=== PATIENT | female | born 1975 | race Caucasian/White ===

== ENCOUNTER 2019-06-01 23:44 | Emergency (ER) | payer SELFPAY ==
[2019-06-01 23:54] VITALS: BP 162/103; PULSE 80; RESP 22; TEMP 36.8; O2SAT 100; BMI 40.6
--- NOTE | 2019-06-01 23:56 | W.ED.ABDPA2 ---
HPI - Abdominal Pain General: Chief Complaint: Nausea/Vomiting/Diarrhea Stated Complaint: N/V Time Seen by Provider: 06/01/19 23:54 Source: patient Mode of arrival: ambulatory Limitations: no limitations History of Present Illness: HPI narrative: Patient comes in today for assistance with cyclic vomiting. Patient reports history of cyclic vomiting. Patient reports stopping marijuana due to the episodes of cyclic vomiting in the past. Patient reports it is been 3 weeks since she had stopped use of marijuana. Patient states she believes that it was stress that caused this episode. Patient appears unwell. Patient appears in no pain. Patient requested to Haldol to stop the episode. Associated Symptoms: Reports nausea and vomiting Review of Systems General: Reports: 10 or more systems reviewed and unremarkable except in HPI and below GI: Reports: nausea and vomiting PFSH ED PFSH: Social History Smoking and tobacco status: never smoked Physical Exam Const: COMMON NORMALS: no apparent distress and oriented x3 GENERAL APPEARANCE: cooperative HENMT: COMMON NORMALS: normocephalic, external ears normal, EAC's normal, TM's normal bilaterally and external nose normal HEAD & SCALP: normal to inspection and normocephalic FACE & SINUS: normal facial exam NOSE: external nose normal GENERAL EAR: hearing not grossly impaired EXTERNAL EAR: Yes external ears normal EXTERNAL AUDITORY CANAL: EAC's normal TYMPANIC MEMBRANE: TM's normal bilaterally MOUTH: oral and palatal mucosa normal THROAT: posterior oropharynx normal Eye: COMMON NORMALS: PERRL and EOMs intact bilaterally PUPIL: Yes PERRL Neck/C-Spine: COMMON NORMALS: full ROM and no lymphadenopathy Lymph: LYMPHATIC: no lymphedema noted Chest: COMMONS NORMALS: inspection of chest normal and palpation of chest normal Resp: COMMON NORMALS: normal respiratory effort and clear to auscultation bilaterally AUSCULTATION: clear to auscultation bilaterally Cardio: COMMON NORMALS: regular rate and regular rhythm RATE: regular rate RHYTHM: regular rhythm GI: COMMON NORMALS: normal to inspection, nondistended, normoactive bowel sounds and non-tender : COMMON NORMALS: Yes no CVA tenderness BLADDER/KIDNEY EXAM: Yes no CVA tenderness Back/Pelvis: COMMON NORMALS: no CVA tenderness and thoracic and lumbar spine normal to inspection Extremity: COMMON NORMALS: normal to inspection GENERAL: No edema Neuro: COMMON NORMALS: oriented x3, moves all extremities and no focal motor deficits Psych: COMMON NORMALS: mental status grossly normal and cooperative Skin: COMMON NORMALS: no rashes or lesions noted GENERAL SKIN EXAM: no rashes or lesions noted Course Vital Signs: Vital signs: Vital Signs Temperature 98.2 F 06/01/19 23:54 Pulse Rate 107 H 06/02/19 02:33 Respiratory Rate 20 H 06/02/19 02:33 Blood Pressure 154/86 06/02/19 02:33 Pulse Oximetry 95 06/02/19 02:33 MDM - Abdominal Pain MDM Narrative: Medical decision making narrative: Patient comes in today with an episode of cyclic vomiting syndrome. Patient reports history of similar episodes in the past. Patient stopped smoking marijuana 3 weeks ago due to the instances of her disorder. On exam patient appears in no pain. Abdomen soft nontender. Skin is warm and dry color is pink. Vital signs were normal. Differential diagnosis includes gastritis, gastroenteritis, cyclic vomiting syndrome, substance abuse. Patient was medicated with Zofran, Haldol, and Benadryl for emergent treatment of the cyclic vomiting syndrome. Patient did report some improvement in vomiting but continued to feel anxious. Patient was medicated with 2 mg Ativan. Patient was monitored in the ER and then released to home for sleep. Patient reported understanding of care plan and need for follow-up. Lab Data: Labs: Lab Results 06/01/19 06/01/19 06/01/19 Range/Units 00:25 00:25 00:25 WBC 9.8 (4.0-10.0) 10^3/ uL RBC 4.13 (4.1-5.3) 10^6/u L Hgb 12.1 (11.5-15.3) g/dL Hct 36.0 L (37.0-47.0) % MCV 87.2 (81-99) fL MCH 29.3 (28.0-34.0) pg MCHC 33.6 (30.0-36.0) g/dL RDW 13.4 (12.1-15.1) % Plt Count 308 (130-400) 10^3/c mm MPV 8.8 (7.4-10.4) fL Neut % (Auto) 82.4 % Lymph % (Auto) 15.4 % [place] % (Auto) 1.6 % Eos % (Auto) 0.0 % Baso % (Auto) 0.1 % Neut # (Auto) 8.1 H (1.8-7.7) 10^3/u L Lymph # (Auto) 1.5 (0.8-4.8) 10^3/u L [place] # (Auto) 0.2 (0.2-0.9) 10^3/u L Eos # (Auto) 0.0 (0.0-0.8) 10^3/u L Baso # (Auto) 0.0 (0.0-0.1) 10^3/u L Nucleated RBC % (a uto) 0 % Nucleated RBCs # 0.0 /100WBC Sodium 135 L (136-145) mmol/L Potassium 3.8 (3.5-5.1) mmol/L Chloride 95 L (98-107) mmol/L Carbon Dioxide 22 (22-29) mmol/L Anion Gap 21.8 H (5-19) BUN 7 (6-20) mg/dL Creatinine 0.6 (0.5-0.9) mg/dL GFR Calculation 108.6 (90-130) mL/min Glucose 241 H (65-115) mg/dL Calcium 10.3 (8.5-10.5) mg/dL Total Bilirubin 0.6 (0.15-1.2) mg/dL AST 16 (0-32) U/L ALT 16 (0-33) U/L Alkaline Phosphata se 60 (35-105) IU/L Total Protein 8.0 (6.6-8.7) g/dL Albumin 4.4 (3.5-5.2) g/dL Globulin 3.6 (1.3-4.6) g/dL HCG, Qual Negative (Negative) Urine Color (Yellow) Urine Appearance (CLEAR) Urine pH (5-7) Ur Specific Gravit y (1.005-1.030) Urine Protein (Negative) Urine Glucose (UA) (Normal) Urine Ketones (Negative) Urine Blood (Negative) Urine Nitrate (Negative) Urine Bilirubin (NEGATIVE) Urine Urobilinogen (Negative) mg/dL Ur Leukocyte Chloe ase (Negative) Urine RBC (0-2) /hpf Urine WBC (0-5) /hpf Ur Squamous Epith Cells (0-5) Urine Bacteria (NONE) 06/02/19 Range/Units 00:40 WBC (4.0-10.0) 10^3/ uL RBC (4.1-5.3) 10^6/u L Hgb (11.5-15.3) g/dL Hct (37.0-47.0) % MCV (81-99) fL MCH (28.0-34.0) pg MCHC (30.0-36.0) g/dL RDW (12.1-15.1) % Plt Count (130-400) 10^3/c mm MPV (7.4-10.4) fL Neut % (Auto) % Lymph % (Auto) % [place] % (Auto) % Eos % (Auto) % Baso % (Auto) % Neut # (Auto) (1.8-7.7) 10^3/u L Lymph # (Auto) (0.8-4.8) 10^3/u L [place] # (Auto) (0.2-0.9) 10^3/u L Eos # (Auto) (0.0-0.8) 10^3/u L Baso # (Auto) (0.0-0.1) 10^3/u L Nucleated RBC % (a uto) % Nucleated RBCs # /100WBC Sodium (136-145) mmol/L Potassium (3.5-5.1) mmol/L Chloride (98-107) mmol/L Carbon Dioxide (22-29) mmol/L Anion Gap (5-19) BUN (6-20) mg/dL Creatinine (0.5-0.9) mg/dL GFR Calculation (90-130) mL/min Glucose (65-115) mg/dL Calcium (8.5-10.5) mg/dL Total Bilirubin (0.15-1.2) mg/dL AST (0-32) U/L ALT (0-33) U/L Alkaline Phosphata se (35-105) IU/L Total Protein (6.6-8.7) g/dL Albumin (3.5-5.2) g/dL Globulin (1.3-4.6) g/dL HCG, Qual (Negative) Urine Color Yellow (Yellow) Urine Appearance Hazy A (CLEAR) Urine pH 6 (5-7) Ur Specific Gravit y 1.025 (1.005-1.030) Urine Protein Neg (Negative) Urine Glucose (UA) 4+ H (Normal) Urine Ketones 2+ H (Negative) Urine Blood Neg (Negative) Urine Nitrate Negative (Negative) Urine Bilirubin Neg (NEGATIVE) Urine Urobilinogen Norm (Negative) mg/dL Ur Leukocyte Chloe ase Negative (Negative) Urine RBC 0-4 H (0-2) /hpf Urine WBC 5-10 H (0-5) /hpf Ur Squamous Epith Cells 10-15 H (0-5) Urine Bacteria 1+ H (NONE) Discharge Plan Discharge Patient Disposition: Home, Self-Care Clinical Impression: Cyclic vomiting syndrome Condition: Stable Prescriptions: New promethazine 25 mg tablet 25 mg PO Q6H PRN (Reason: nausea and vomiting) Qty: 14 RF: 0 amitriptyline 100 mg tablet 100 mg PO DAILY Qty: 14 RF: 0 Discharge Orders: Discharge Order (Routine); Ordered 06/02/19 Ordered By: Anibal Bro Referrals: Doris Mcdowell DO [Primary Care Provider] - Discharge Diet: Clear Liquid Discharge Activity: Increase activity as tolerated Patient Instructions: Vomiting - Adult Activity Restrictions/Additional Instructions: Home and rest Activity as tolerated Use medication as directed Follow-up with primary care Return to ER for high fever or blood in vomit or stool Discharge Date/Time: 06/02/19 02:34 Coding Level of Care Code ED Child Protective Services Specialist for Ramon Fwd Exam Comprehensive
[2019-06-02] MEDS: ondansetron 2 mg/ML SDV 2 mL 4 MG IVP (00:27)
[2019-06-02] MEDS: sodium chloride 0.9% 1,000 ML 999 ML IV (00:29)
[2019-06-02 00:30] LABS: Basophils % 0.1 %; Hemoglobin 12.1 g/dL (11.5-15.3); Lymphocytes # 1.5 10^3/uL (0.8-4.8); Lymphocytes % 15.4 %; Mean Corpuscular HGB Conc 33.6 g/dL (30.0-36.0); Mean Corpuscular Hemoglobin 29.3 pg (28.0-34.0); Mean Corpuscular Volume 87.2 fL (81-99); Mean Platelet Volume 8.8 fL (7.4-10.4); Monocytes # 0.2 10^3/uL (0.2-0.9); Monocytes % 1.6 %; Neutrophils # 8.1 10^3/uL (1.8-7.7); Neutrophils % 82.4 %; Nucleated Red Blood Cells % 0 %; Platelet Count 308 10^3/cmm (130-400); Red Blood Count 4.13 10^6/uL (4.1-5.3); Red Cell Distribution Width 13.4 % (12.1-15.1); White Blood Count 9.8 10^3/uL (4.0-10.0)
[2019-06-02 00:39] LABS: HCG, Serum Qual Negative (Negative)
[2019-06-02] MEDS: haloperidol inj 5 mg/mL INJ 1 mL IVP (00:43)
[2019-06-02] MEDS: diphenhydrAMINE 50 mg/mL SDV 1mL 25 MG IVP (00:43)
[2019-06-02 00:44] LABS: Alanine Aminotransferase 16 U/L (0-33); Albumin Level 4.4 g/dL (3.5-5.2); Alkaline Phosphatase 60 IU/L (35-105); Anion Gap 21.8 (5-19); Aspartate Amino Transferase 16 U/L (0-32); Blood Urea Nitrogen 7 mg/dL (6-20); Calcium 10.3 mg/dL (8.5-10.5); Carbon Dioxide 22 mmol/L (22-29); Chloride 95 mmol/L (98-107); Globulin 3.6 g/dL (1.3-4.6); Glomerular Filtration Rate 108.6 mL/min (90-130); Glucose 241 mg/dL (65-115); Potassium 3.8 mmol/L (3.5-5.1); Sodium 135 mmol/L (136-145); Total Bilirubin 0.6 mg/dL (0.15-1.2)
[2019-06-02 01:23] LABS: Add Urine Microscopic? YES; Bilirubin Urine Neg (NEGATIVE); Blood Urine Neg (Negative); Glucose Urine UA 4+ (Normal); Ketones Urine 2+ (Negative); Leukocyte Esterase Urine Negative (Negative); Nitrate Urine Negative (Negative); Protein Urine Neg (Negative); Specific Gravity, Urine 1.025 (1.005-1.030); Urine Appearance Hazy (CLEAR); Urine Color Yellow (Yellow); Urobilinogen Urine Norm (Negative); pH Urine 6 (5-7)
[2019-06-02 01:27] LABS: Add Urine Culture? No; Bacteria Urine 1+; RBC Urine 0-4 /hpf (0-2)
[2019-06-02] MEDS: LORazepam 2 mg/mL INJ 1 mL IVP (02:08)
[2019-06-02 02:33] VITALS: BP 154/86; PULSE 107; RESP 20; O2SAT 95
== END 2019-06-02 02:34 | disposition home or self-care (01) ==
PROVIDERS: Emergency Provider Nurse Practitioner Family; PCP Family Medicine
DX: R11.15 Cyclical vomiting syndrome unrelated to migraine (principal); F41.9 Anxiety disorder, unspecified
CPT/HCPCS: 80053; 81001; 84703; 85025; 96361; 96374; 96375; 99282; 99283; A9270; J1200; J1630; J2060; J2405; J7030

== ENCOUNTER 2019-08-29 08:03 | Emergency (ER) | payer SELFPAY ==
[2019-08-29 08:04] VITALS: BP 166/95; PULSE 127; RESP 18; TEMP 37.1; O2SAT 98; BMI 38.0
--- NOTE | 2019-08-29 08:15 | ED_ITS ---
HPI - Nausea/Vomiting/Diarrhea General: Chief complaint: Nausea/Vomiting/Diarrhea Stated complaint: N/V Time Seen by Provider: 08/29/19 08:08 History of Present Illness: HPI Narrative: Patient comes in with history of nausea and vomiting chronic related to marijuana smoking does have diagnosis cyclic vomiting syndrome she has had this for years and she continues to smoke marijuana on a daily basis. MD elicited complaint: nausea, vomiting and abdominal pain Pertinent past history: cyclical vomiting Onset (ago): year(s) Associated nausea: Yes Associated abdominal pain: Yes Location of pain: Diffuse Pain consistency: intermittent Severity: moderate Quality: cramping Relieving factors: none Context: marijuana use Associated symtoms: Reports nausea; Denies anxiety, change in vision, chest pain or headache(s) Review of Systems 2 Const: Denies: fever(s), chills or body aches Eyes: Denies: change in vision or blurry vision ENMT: Denies: throat pain or nasal congestion Card: Denies: chest pain or dyspnea on exertion Resp: Denies: dyspnea, productive cough or non-productive cough GI: Reports: nausea and vomiting Musc: Denies: extremity pain Skin/Breast: Denies: rash Neuro: Denies: headache(s) Psych: Denies: anxiety or depression Lauri/Lymph: Denies: easy bruising PFSH ED PFSH: Social History Smoking and tobacco status: former smoker Physical Exam Const: COMMON NORMALS: no acute distress, average body habitus and patient oriented x3 HENMT: COMMON NORMALS: normocephalic HEAD & SCALP: normal to inspection and normocephalic FACE & SINUS: normal facial exam Eye: COMMON NORMALS: conjunctivae normal GENERAL EYE: appearance normal, both eyes and all related structures CONJUNCTIVA: Yes conjunctivae normal Neck/C-Spine: COMMON NORMALS: no JVD Chest: COMMONS NORMALS: normal inspection of the chest Resp: COMMON NORMALS: normal respiratory effort and clear to auscultation bilaterally AUSCULTATION: clear to auscultation bilaterally Cardio: COMMON NORMALS: no JVD, regular rate and regular rhythm RATE: regular rate RHYTHM: regular rhythm GI: COMMON NORMALS: Normal to inspection, nondistended, normoactive bowel sounds present AUSCULTATION: Yes Hyperactive bowel sounds present PALPATION: Yes Tenderness to palpation present (GI) (Diffuse) Extremity: COMMON NORMALS: normal to inspection and full ROM Neuro: COMMON NORMALS: patient oriented x3 Psych: OTHER: Patient denial that marijuana is related to her cyclic vomiting syndrome Course Vital Signs: Vital signs: Vital Signs Temperature 98.7 F 08/29/19 08:04 Pulse Rate 127 H 08/29/19 08:04 Respiratory Rate 18 08/29/19 08:04 Blood Pressure 166/95 08/29/19 08:04 Pulse Oximetry 98 08/29/19 08:04 Discharge Plan Discharge Prescriptions: No Action promethazine 25 mg tablet 25 mg PO Q6H PRN (Reason: nausea and vomiting) Qty: 14 RF: 0 amitriptyline 100 mg tablet 100 mg PO DAILY Qty: 14 RF: 0 Coding Level of Care Code ED Regulatory Process Manager for Ramon Hernandez
[2019-08-29] MEDS: diphenhydrAMINE 50 mg/mL SDV 1mL IVP (08:26)
[2019-08-29] MEDS: haloperidol inj 5 mg/mL INJ 1 mL IM (08:28)
[2019-08-29] MEDS: ondansetron 2 mg/ML SDV 2 mL 8 MG IVP (08:29)
[2019-08-29] MEDS: sodium chloride 0.9% 1,000 ML 999 ML IV (08:31)
[2019-08-29] MEDS: lidocaine 2% viscous 15 ML, aluminum-mag hydrox-simethicon 30 ML, sucralfate oral liq 1 GM PO (09:13)
--- NOTE | 2019-08-29 10:00 | PC.NURSE ---
patient states she feels much better
[2019-08-29 10:01] VITALS: BP 124/61; PULSE 66; RESP 16; O2SAT 96
== END 2019-08-29 10:02 | disposition home or self-care (01) ==
PROVIDERS: Emergency Provider Nurse Practitioner Family; PCP Family Medicine
DX: R11.2 Nausea with vomiting, unspecified (principal); R19.7 Diarrhea, unspecified; Z87.891 Personal history of nicotine dependence
CPT/HCPCS: 12345; 96361; 96372; 96374; 96375; 99282; 99283; J1200; J1630; J2405; J7030

== ENCOUNTER 2019-11-07 21:02 | Observation (INO) | payer SELFPAY ==
[2019-11-07 21:14] VITALS: BP 146/106; PULSE 83; RESP 16; TEMP 36.4; O2SAT 99; BMI 38.0
--- NOTE | 2019-11-07 21:19 | W.ED.ABDPA2 ---
HPI - Abdominal Pain General: Chief Complaint: Abdominal Pain Stated Complaint: n/v Time Seen by Provider: 11/07/19 21:08 Source: patient Mode of arrival: ambulatory Limitations: no limitations History of Present Illness: HPI narrative: 44-year-old female who has a history of cyclical vomiting syndrome from cannabis use. She states she did smoke marijuana recently and has had vomiting along with diffuse abdominal pain over the last 2 days is similar to her attacks previously. States has had multiple episodes of vomiting. Denies any worsening improving factors. Denies any fevers. MD elicited complaint: abdominal pain Onset (ago): day(s) Pain Consistency: constant Location: Diffuse Severity: moderate Quality: cramping Radiation: none Exacerbating factors: nothing Relieving factors: nothing Associated Symptoms: Reports nausea and vomiting; Denies chills, dysuria and fever(s) Review of Systems Const: Denies: fever(s), chills, body aches or change in appetite Eyes: Denies: blurry vision or eye discomfort ENMT: Denies: throat pain or dental pain Card: Denies: chest pain Resp: Denies: dyspnea GI: Reports: abdominal pain, nausea and vomiting : Denies: dysuria Musc: Denies: neck pain or back pain Skin/Breast: Denies: rash Neuro: Denies: headache(s) Psych: Denies: depression Lauri/Lymph: Denies: easy bruising All/Imm: Denies: urticaria PFSH ED PFSH: Medical History (Updated 11/08/19 @ 01:18 by Star Britton MD) Cyclical vomiting Depression Tetrahydrocannabinol (THC) use disorder, mild, abuse Surgical History (Updated 11/08/19 @ 01:18 by Star Britton MD) H/O shoulder surgery H/O: hysterectomy Hx of cholecystectomy Family History (Updated 11/08/19 @ 01:18 by Star Britton MD) Mother CAD (coronary artery disease) Social History (Updated 11/08/19 @ 01:18 by Star Britton MD) Smoking and tobacco status: former smoker Alcohol intake: never Substance/Drug Use: current Substance/Drug use type: Marijuana Household members: family Housing: House Physical Exam Const: COMMON NORMALS: no acute distress, patient oriented x3 and healthy appearing HENMT: COMMON NORMALS: normocephalic and atraumatic HEAD & SCALP: normocephalic and atraumatic Eye: COMMON NORMALS: Equal, round and reactive pupils present and EOMs intact bilaterally PUPIL: Yes Equal, round and reactive pupils present Neck/C-Spine: COMMON NORMALS: full ROM and supple Chest: COMMONS NORMALS: normal inspection of the chest and normal palpation of entire chest wall Resp: COMMON NORMALS: normal respiratory effort, No retractions, No use of accessory muscles and clear to auscultation bilaterally AUSCULTATION: clear to auscultation bilaterally Cardio: COMMON NORMALS: regular rate, regular rhythm and No murmurs present (Cardio) RATE: regular rate RHYTHM: regular rhythm GI: COMMON NORMALS: Normal to inspection, nondistended, normoactive bowel sounds present, Soft to palpation, non-tender and no masses PALPATION: Yes Soft to palpation Extremity: COMMON NORMALS: normal to inspection and full ROM Neuro: COMMON NORMALS: patient oriented x3, moves all extremities and no focal motor deficits Psych: COMMON NORMALS: mental status grossly normal, Normal thought process present and cooperative THOUGHT PROCESS: Normal thought process present Skin: COMMON NORMALS: no rashes or lesions noted and no wounds GENERAL SKIN EXAM: no rashes or lesions noted Course Vital Signs: Vital signs: Vital Signs Temperature 97.5 F L 11/07/19 21:14 Pulse Rate 112 H 11/08/19 01:36 Respiratory Rate 18 11/08/19 01:36 Blood Pressure 126/77 11/08/19 01:36 Pulse Oximetry 98 11/08/19 01:36 MDM - Abdominal Pain MDM Narrative: Medical decision making narrative: pt presents here with intractable vomiting. She continues to vomit after multiple meds and is dehydrated. pt has improved slightly but still unable to tolerate po. pt has no ct findings. i spoke to dr. britton and will admit. Lab Data: Labs: Lab Results 11/07/19 11/07/19 11/08/19 Range/Units 21:23 21:23 00:18 WBC 11.8 H (4.0-10.0) 10^3/ uL RBC 4.49 (4.1-5.3) 10^6/u L Hgb 12.8 (11.5-15.3) g/dL Hct 40.2 (37.0-47.0) % MCV 89.5 (81-99) fL MCH 28.5 (28.0-34.0) pg MCHC 31.8 (30.0-36.0) g/dL RDW 14.1 (12.1-15.1) % Plt Count 370 (130-400) 10^3/c mm MPV 8.9 (7.4-10.4) fL Neut % (Auto) 79.8 % Lymph % (Auto) 15.6 % [place] % (Auto) 4.0 % Eos % (Auto) 0.1 % Baso % (Auto) 0.2 % Neut # (Auto) 9.42 H (1.8-7.7) 10^3/u L Lymph # (Auto) 1.8 (0.8-4.8) 10^3/u L [place] # (Auto) 0.5 (0.2-0.9) 10^3/u L Eos # (Auto) 0.0 (0.0-0.8) 10^3/u L Baso # (Auto) 0.0 (0.0-0.1) 10^3/u L Nucleated RBC % (a uto) 0 % Nucleated RBCs # 0.0 /100WBC Sodium 134 L (136-145) mmol/L Potassium 3.8 (3.5-5.1) mmol/L Chloride 95 L (98-107) mmol/L Carbon Dioxide 16 L (22-29) mmol/L Anion Gap 26.8 H (5-19) BUN 10 (6-20) mg/dL Creatinine 0.7 (0.5-0.9) mg/dL GFR Calculation 90.9 (90-130) mL/min Glucose 251 H (65-115) mg/dL Calculated Osmolal ity 282 L (285-295) mOsm/k g Calcium 10.3 (8.5-10.5) mg/dL Total Bilirubin 1.0 (0.15-1.2) mg/dL AST 20 (0-32) U/L ALT 26 (0-33) U/L Alkaline Phosphata se 70 (35-105) IU/L Total Protein 7.5 (6.6-8.7) g/dL Albumin 4.6 (3.5-5.2) g/dL Globulin 2.9 (1.3-4.6) g/dL Lipase 15 (13-60) U/L HCG, Qual Negative (Negative) Urine Color (Yellow) Urine Appearance (CLEAR) Urine pH (5-7) Ur Specific Gravit y (1.005-1.030) Urine Protein (Negative) Urine Glucose (UA) (Normal) Urine Ketones (Negative) Urine Blood (Negative) Urine Nitrate (Negative) Urine Bilirubin (NEGATIVE) Urine Urobilinogen (Negative) mg/dL Ur Leukocyte Chloe ase (Negative) 11/08/19 Range/Units 00:18 WBC (4.0-10.0) 10^3/ uL RBC (4.1-5.3) 10^6/u L Hgb (11.5-15.3) g/dL Hct (37.0-47.0) % MCV (81-99) fL MCH (28.0-34.0) pg MCHC (30.0-36.0) g/dL RDW (12.1-15.1) % Plt Count (130-400) 10^3/c mm MPV (7.4-10.4) fL Neut % (Auto) % Lymph % (Auto) % [place] % (Auto) % Eos % (Auto) % Baso % (Auto) % Neut # (Auto) (1.8-7.7) 10^3/u L Lymph # (Auto) (0.8-4.8) 10^3/u L [place] # (Auto) (0.2-0.9) 10^3/u L Eos # (Auto) (0.0-0.8) 10^3/u L Baso # (Auto) (0.0-0.1) 10^3/u L Nucleated RBC % (a uto) % Nucleated RBCs # /100WBC Sodium (136-145) mmol/L Potassium (3.5-5.1) mmol/L Chloride (98-107) mmol/L Carbon Dioxide (22-29) mmol/L Anion Gap (5-19) BUN (6-20) mg/dL Creatinine (0.5-0.9) mg/dL GFR Calculation (90-130) mL/min Glucose (65-115) mg/dL Calculated Osmolal ity (285-295) mOsm/k g Calcium (8.5-10.5) mg/dL Total Bilirubin (0.15-1.2) mg/dL AST (0-32) U/L ALT (0-33) U/L Alkaline Phosphata se (35-105) IU/L Total Protein (6.6-8.7) g/dL Albumin (3.5-5.2) g/dL Globulin (1.3-4.6) g/dL Lipase (13-60) U/L HCG, Qual (Negative) Urine Color Yellow (Yellow) Urine Appearance Clear (CLEAR) Urine pH 5 (5-7) Ur Specific Gravit y 1.020 (1.005-1.030) Urine Protein Neg (Negative) Urine Glucose (UA) 2+ (Normal) Urine Ketones 1+ H (Negative) Urine Blood Neg (Negative) Urine Nitrate Negative (Negative) Urine Bilirubin Neg (NEGATIVE) Urine Urobilinogen Norm (Negative) mg/dL Ur Leukocyte Chloe ase Negative (Negative) Imaging Data ^: CT Abd/Pel: My impression: [address] [place] [id number] Scan Report Signed Patient: Ananya Hernandez Unit #: [id number] : 1975 Age/Sex: 44 / F ADM Date: 11/07/19 Loc: ER Room/Bed: Attending Dr: Ordering Provider/Ordering MD: Odin Camp MD Date of Service: 11/08/19 Procedure(s): CT abdomen pelvis w con* [id number] Accession Number(s): [id number] Report Number: [id number] PROCEDURE INFORMATION: Exam: CT Abdomen And Pelvis With Contrast Exam date and time: 11/08/2019 12:47 AM Age: 44 years old Clinical indication: Nausea and vomiting; Abdominal pain; Generalized; Prior surgery; Surgery type: Gb, btl TECHNIQUE: Imaging protocol: Computed tomography of the abdomen and pelvis with intravenous contrast. Radiation optimization: All CT scans at this facility use at least one of these dose optimization techniques: automated exposure control; mA and/or kV adjustment per patient size (includes targeted exams where dose is matched to clinical indication); or iterative reconstruction. Contrast material: OMNI 300; Contrast volume: 95 ml; Contrast route: INTRAVENOUS (IV); COMPARISON: CT abdomen pelvis w con* [id number] 10/29/2018 10:01 AM RADIATION DOSE METRICS: Total DLP (mGy-cm): 1853.14 FINDINGS: Lungs: Mild atelectasis at bilateral lung bases. Liver: Diffuse fatty infiltration of the liver. Gallbladder and bile ducts: Status post cholecystectomy. Pancreas: Unremarkable. Spleen: Unremarkable. Adrenals: Unremarkable. Kidneys and ureters: The right kidney is unremarkable. There is a 0.9 cm hypodensity in the left kidney upper pole on series 2, image 36, statistically likely to represent a cyst. This finding is similar to prior study. In the absence of suspicious non-radiologic data, no imaging follow-up is suggested. Stomach and bowel: No bowel obstruction identified. No diverticulitis identified. Appendix: A normal-appearing appendix is seen in the right lower quadrant. Intraperitoneal space: No free intraperitoneal air identified. Mild free fluid in the pelvis, which may be physiologic. Vasculature: No abdominal aortic aneurysm. Lymph nodes: Unremarkable. Bladder: Unremarkable as visualized. Reproductive: Unremarkable as visualized. Bones/joints: Mild degenerative changes of the lower thoracic spine and the lumbar spine. Soft tissues: Unremarkable. CT/CT abdomen pelvis w con* [id number] IMPRESSION: 1. No acute intra-abdominal/intrapelvic process identified. 2. Fatty liver. Discharge Plan Discharge Patient Disposition: Admitted As Inpatient Clinical Impression: Cyclic vomiting syndrome Condition: Stable Referrals: Doris Mcdowell DO [Primary Care Provider] - 1-3 days Patient Instructions: Acute Nausea and Vomiting (ED) Coding Level of Care Code ED Director Business Travel for Chg Fwd Exam Comprehensive
[2019-11-07 21:36] LABS: Basophils % 0.2 %; Eosinophils % 0.1 %; Hematocrit 40.2 % (37.0-47.0); Hemoglobin 12.8 g/dL (11.5-15.3); Lymphocytes # 1.8 10^3/uL (0.8-4.8); Lymphocytes % 15.6 %; Mean Corpuscular HGB Conc 31.8 g/dL (30.0-36.0); Mean Corpuscular Hemoglobin 28.5 pg (28.0-34.0); Mean Corpuscular Volume 89.5 fL (81-99); Mean Platelet Volume 8.9 fL (7.4-10.4); Monocytes # 0.5 10^3/uL (0.2-0.9); Neutrophils # 9.42 10^3/uL (1.8-7.7); Neutrophils % 79.8 %; Nucleated Red Blood Cells % 0 %; Platelet Count 370 10^3/cmm (130-400); Red Blood Count 4.49 10^6/uL (4.1-5.3); Red Cell Distribution Width 14.1 % (12.1-15.1); White Blood Count 11.8 10^3/uL (4.0-10.0)
[2019-11-07] MEDS: haloperidol inj 5 mg/mL INJ 1 mL IVP (21:38)
[2019-11-07] MEDS: LORazepam 2 mg/mL INJ 1 mL IVP (21:40)
[2019-11-07] MEDS: sodium chloride 0.9% 1,000 ML 999 ML IV ×2 (21:40→22:15)
[2019-11-07] MEDS: diphenhydrAMINE 50 mg/mL SDV 1mL IVP (21:40)
[2019-11-07 21:50] VITALS: BP 160/102; PULSE 104; RESP 24; O2SAT 93
[2019-11-07 21:55] LABS: Alanine Aminotransferase 26 U/L (0-33); Albumin Level 4.6 g/dL (3.5-5.2); Alkaline Phosphatase 70 IU/L (35-105); Anion Gap 26.8 (5-19); Aspartate Amino Transferase 20 U/L (0-32); Blood Urea Nitrogen 10 mg/dL (6-20); Calcium 10.3 mg/dL (8.5-10.5); Carbon Dioxide 16 mmol/L (22-29); Chloride 95 mmol/L (98-107); Globulin 2.9 g/dL (1.3-4.6); Glomerular Filtration Rate 90.9 mL/min (90-130); Glucose 251 mg/dL (65-115); Lipase 15 U/L (13-60); Osmolality Calculated 282 mOsm/kg (285-295); Potassium 3.8 mmol/L (3.5-5.1); Sodium 134 mmol/L (136-145); Total Protein 7.5 g/dL (6.6-8.7)
[2019-11-07 22:17] VITALS: BP 163/104; PULSE 88; RESP 18; O2SAT 99
[2019-11-07 23:37] VITALS: BP 183/96; PULSE 92; RESP 20; O2SAT 98
[2019-11-07] MEDS: metoclopramide 5 mg/mL SDV 2 mL 10 MG IVP (23:40)
[2019-11-07] MEDS: LORazepam 2 mg/mL INJ 1 mL 1 MG IVP (23:43)
--- NOTE | 2019-11-07 23:45 | PC.NURSE ---
Patient vomiting and abdominal pain returned- D/C on hold at this time
[2019-11-08] VITALS (8 sets, daily range): BP systolic 117–196; BP diastolic 68–110; PULSE 74–116; RESP 14–24; TEMP 36.3–37.1; O2SAT 93–99
[2019-11-08] MEDS: HYDROmorphone 1 mg/mL INJ 1 mL IVP (00:13)
[2019-11-08 00:41] LABS: Add Urine Microscopic? NO
[2019-11-08 00:43] LABS: Bilirubin Urine Neg (NEGATIVE); Blood Urine Neg (Negative); Glucose Urine UA 2+ (Normal); Ketones Urine 1+ (Negative); Leukocyte Esterase Urine Negative (Negative); Nitrate Urine Negative (Negative); Protein Urine Neg (Negative); Urine Appearance Clear (CLEAR); Urine Color Yellow (Yellow); Urobilinogen Urine Norm (Negative); pH Urine 5 (5-7)
--- NOTE | 2019-11-08 00:45 | CTR_ITS ---
PROCEDURE INFORMATION: Exam: CT Abdomen And Pelvis With Contrast Exam date and time: 11/08/2019 12:47 AM Age: 44 years old Clinical indication: Nausea and vomiting; Abdominal pain; Generalized; Prior surgery; Surgery type: Gb, btl TECHNIQUE: Imaging protocol: Computed tomography of the abdomen and pelvis with intravenous contrast. Radiation optimization: All CT scans at this facility use at least one of these dose optimization techniques: automated exposure control; mA and/or kV adjustment per patient size (includes targeted exams where dose is matched to clinical indication); or iterative reconstruction. Contrast material: OMNI 300; Contrast volume: 95 ml; Contrast route: INTRAVENOUS (IV); COMPARISON: CT abdomen pelvis w con* [id number] 10/29/2018 10:01 AM RADIATION DOSE METRICS: Total DLP (mGy-cm): 1853.14 FINDINGS: Lungs: Mild atelectasis at bilateral lung bases. Liver: Diffuse fatty infiltration of the liver. Gallbladder and bile ducts: Status post cholecystectomy. Pancreas: Unremarkable. Spleen: Unremarkable. Adrenals: Unremarkable. Kidneys and ureters: The right kidney is unremarkable. There is a 0.9 cm hypodensity in the left kidney upper pole on series 2, image 36, statistically likely to represent a cyst. This finding is similar to prior study. In the absence of suspicious non-radiologic data, no imaging follow-up is suggested. Stomach and bowel: No bowel obstruction identified. No diverticulitis identified. Appendix: A normal-appearing appendix is seen in the right lower quadrant. Intraperitoneal space: No free intraperitoneal air identified. Mild free fluid in the pelvis, which may be physiologic. Vasculature: No abdominal aortic aneurysm. Lymph nodes: Unremarkable. Bladder: Unremarkable as visualized. Reproductive: Unremarkable as visualized. Bones/joints: Mild degenerative changes of the lower thoracic spine and the lumbar spine. Soft tissues: Unremarkable. CT/CT abdomen pelvis w con* [id number] IMPRESSION: 1. No acute intra-abdominal/intrapelvic process identified. 2. Fatty liver. COMMENTS: Consistent with the [place] [employer]'s Incidental Findings Committee white paper (J Am Sally Radiol 2018): Any incidental renal lesion less than 1.0 cm or classified as too small to characterize, or any incidental cystic renal lesion characterized as simple-appearing, is likely benign. No follow-up imaging is recommended for these lesions per consensus recommendations based on imaging criteria. Radiation Dose CTDIVOL = (mGy): DLP = 1853.14 (mGy-cm)
[2019-11-08 00:46] LABS: HCG Qualitative Urine. Negative (Negative)
[2019-11-08] MEDS: iohexol 300 mg/mL 100 mL Btl IV (01:10)
--- NOTE | 2019-11-08 01:16 | P.HP_ITS ---
Providers/Chief Complaint Primary Care Provider: Doris Mcdowell DO Chief Complaint: n/v History of Present Illness Ananya Hernandez is a 44 year old female who carries history of cyclical vomiting syndrome secondary to medical marijuana came in with chief complaint of recurrent nausea and vomiting. Patient is stating that her symptoms started on Wednesday she has had more than 20 episodes of emesis, now she is feeling dehydrated and started to feel abdominal pain in mid epigastric region that is why she decided to come to the hospital. Her last marijuana use was on Wednesday, she is attributing cyclic vomiting to withdrawal from her medical marijuana. She is using this prescribed marijuana for her anxiety. No fever, shortness of breath, chest pain, diarrhea dysuria. Diagnosis in the ER revealed normal hemodynamics, tachycardia, clinically looks dehydrated, she has received multiple antiemetics and she is still feeling nauseous hence hospitalist service has been requested to hydrate her with fluids and manage her emesis overnight CT abdomen was unremarkable other than hepatic steatosis Review of Systems Const: Denies: fever(s), chills or body aches Eyes: Denies: change in vision ENMT: Denies: throat pain Card: Denies: chest pain Resp: Denies: dyspnea GI: Reports: abdominal pain, nausea, vomiting and heartburn; Denies: diarrhea or constipation : Denies: flank pain or difficulty voiding Musc: Denies: neck pain Skin/Breast: Denies: rash Neuro: Denies: headache(s) Psych: Reports: anxiety and depression Endo: Denies: polyuria Lauri/Lymph: Denies: easy bruising All/Imm: Denies: urticaria Medications/Allergies Home Medications Medication Instructions Recorded Confirmed Last Taken Type amitriptyline 100 mg PO DAILY #14 tab 06/02/19 Unknown Rx promethazine 25 mg PO Q6H PRN #14 tab 06/02/19 Unknown Rx topiramate 100 mg PO DAILY #14 tab 08/29/19 Unknown Rx metoclopramide HCl [Reglan] 10 mg PO Q6H PRN #20 tab 11/07/19 Unknown Rx Allergies Allergy/AdvReac Type Severity Reaction Status Date / Time butorphanol [From Stadol] Allergy Intermediate ADR-Halluci Verified 06/01/19 23:57 nating PFSH Acute PFSH: Medical History Cyclical vomiting Depression Tetrahydrocannabinol (THC) use disorder, mild, abuse Surgical History H/O shoulder surgery H/O: hysterectomy Hx of cholecystectomy Family History Mother CAD (coronary artery disease) Social History Smoking and tobacco status: former smoker Alcohol intake: never Substance/Drug Use: current Substance/Drug use type: Marijuana Household members: family Housing: House Vitals/I&O/Wt Last Vital Signs Temp 97.5 F L 11/07/19 21:14 Pulse 92 11/07/19 23:37 Resp 18 11/08/19 00:13 BP 183/96 11/07/19 23:37 Pulse Ox 98 11/07/19 23:37 Weight last 48 hrs Weight 127.006 kg Physical Exam Narrative: EXAM NARRATIVE: Head to toe examination This is a morbidly obese female currently comfortable in her bed no ac tive emesis S1, S2 sinus tachycardia Clinically dehydrated Abdomen soft nontender, obese obesity, distended bowel sound present No signs of peritonitis EOMI, PERRLA Neurologically nonfocal exam Appropriate mood and affect Skin does not show any sign ischemia gangrene ulcer Lungs clear to auscultation Data : 11/07/19 21:23 11/07/19 21:23 A&P Assessment and plan (1) Dehydration: Status: Acute (2) Hypokalemia: Status: Acute (3) Hyponatremia: Status: Acute (4) Cyclic vomiting syndrome: Status: Acute (5) Medical cannabis use: Status: Acute Additional A&P Information Dehydration secondary to cyclical vomiting due to medical marijuana use We will get drug screen Currently dehydrated with hyponatremia and hypokalemia Fluid resuscitation with electrolyte replenishment CT abdomen unremarkable, fatty infiltration of liver noted Reglan and Zofran to be used alternatively DVT prophylaxis not needed: Low risk Clear liquid diet Full code Attestations Medical Necessity Statement*: I am anticipating she will be discharged in less than 48 hours currently need IV fluid resuscitation for cyclical vomiting Time Spent in Patient Care: (>than 50% of time spent in counselling and/or direct pt care on unit) . 35mins Coding Level of Care Code Acute Leather Whitener for Chg Fwd Diagnoses Dehydration E86.0 Hypokalemia E87.6 Hyponatremia E87.1 Cyclic vomiting syndrome R11.15 Medical cannabis use Z79.899
[2019-11-08] MEDS: sodium chloride 0.9% 1,000 ML 999 ML IV (01:19)
[2019-11-08 01:50] LABS: Lactate (Lactic Acid level) 3.9 mmol/L (0.5-2.2)
[2019-11-08] MEDS: sodium chloride 0.9% 1,000 ML 75 ML IV (02:59)
[2019-11-08] MEDS: LORazepam 2 mg/mL INJ 1 mL IVP (03:44)
[2019-11-08] MEDS: potassium chloride ER 10 mEq Tablet 40 MEQ PO (03:45)
[2019-11-08 05:22] LABS: Amphetamines Screen Urine Negative (Negative); Barbiturates Screen Urine Negative (Negative); Benzodiazepines Screen Urine Positive (Negative); Cocaine Screen Urine Negative (Negative); Opiate Screen Urine Positive (Negative); PCP Screen Urine Negative (Negative); THC Screen Urine Positive (Negative)
[2019-11-08 05:55] LABS: Blood Urea Nitrogen 8 mg/dL (6-20); Calcium 8.1 mg/dL (8.5-10.5); Carbon Dioxide 19 mmol/L (22-29); Chloride 101 mmol/L (98-107); Glomerular Filtration Rate 108.6 mL/min (90-130); Glucose 201 mg/dL (65-115); Osmolality Calculated 278 mOsm/kg (285-295); Sodium 133 mmol/L (136-145)
[2019-11-08] MEDS: metoclopramide 5 mg/mL SDV 2 mL IVP ×3 (06:50→23:32)
--- NOTE | 2019-11-08 10:14 | PC.CHAP ---
Pastoral Care Encounter/Spiritual Assessment Type of Contact [] Declined rehabilitation clerk visit [] Patient/Family/Request visit [] Outpatient visit [] Follow-up visit [] Physician referral [] Code/Alert [x] Routine visit [] Staff referral [] Actively dying [] Patient sleeping [] Family support [] [] Out of room [] Palliative care [] [] Receiving care in room [] Pre-surgical visit [] Trauma [] Long length of stay [] ICU visit [] Other: Relational/Emotional Strength [] Patient feels connected with others/family/visitors/staff [] Distress [] Loneliness/isolation [] Abandonment Spirituality of Patient [] Person of Francie [] Attends Jehovah'S Witness of their Francie [] Believes in Prayer [] Reads Bible or Mandaeism materials [] There are Spiritual issues to be addressed Architectural Representative Interventions [x] Prayer [x] Active listening [x] Non-anxious presence [x] Spiritual/emotional support [] Crisis/trauma care [] Spiritual counseling [] Bereavement support [] Provided bereavement packet [] Provided Bible/devotional materials [] Provided toy/stuffed animal, coloring book to patient or family member [] Provided Communion [] Anointing/[place] [] Salvation [x] Completed spiritual assessment [] Other: Impact on Illness or Injury [] Angry [] Fearful [] Anxious [] Often cries [] Exhaustion [] Unable to work [] Unable to attend sabianist [] Unable to walk/stand [] Unable to read [] Unable to drive [] Unable to eat/drink [] Unable to sleep [] Unable to be with family [] Patient intubated [] Other: Summary Patient sick to stomach ... Time spent with patient 5 min
[2019-11-08] MEDS: haloperidol inj 5 mg/mL INJ 1 mL IVP (12:10)
[2019-11-08] MEDS: ondansetron 2 mg/ML SDV 2 mL 4 MG IVP ×2 (13:02→22:41)
--- NOTE | 2019-11-08 14:25 | P.PN_ITS ---
Subjective Subjective: Interval history: Patient continues to be nauseous and vomiting. Reports that she has this episodes approximately 3 times per year. Reports that past medication that worked was Haldol to control her nausea. She had large amount of dark brown/greenish looking vomiting with no evidence of bleeding. Reports that she had previous history of EGD without significant findings. She denies abdominal pain and is passing gas and denies diarrhea or constipation. Reports that she is getting marijuana from dispensary. Reports that previously she has been diagnosed with cyclic vomiting syndrome. Patient denies shortness of breath or chest pain. Denies dysuria. Reports taking amitriptyline 100 mg at bedtime for the last 2 months to prevent nausea and vomiting. Reports taking 20 mg Celexa, metformin and metoprolol but denies taking topiramate. Reports that she just started seeing female doctor at [facility] but cannot recall her name. (Dr. Mcdowell is mentioned in records as her PCP) reports that she is being prescribed medical marijuana by an online doctor to prevent nausea and vomiting. Reports occasional taking Ativan for nausea but denies taking any opioid medications. Her urine drug screen was positive for opioids and benzodiazepine along with TCH. Reports that she had tubal ligation and cholecystectomy. Vitals/I&O/Wt Last Vital Signs Temp 98.7 F 11/08/19 11:30 Pulse 74 11/08/19 11:30 Resp 22 H 11/08/19 11:30 BP 122/68 11/08/19 11:30 Pulse Ox 98 11/08/19 11:30 11/07/19 11/08/19 11/08/19 22:59 06:59 14:59 Intake Total 600 / 600 360 / 360 Output Total 800 / 800 Balance 600 / 600 -440 / -440 Weight last 48 hrs Weight 127.006 kg Physical Exam Const: COMMON NORMALS: patient oriented x3 OTHER: Appears in mild distress, nauseous. Bucket with brownish looking emesis in it. Resp: COMMON NORMALS: normal respiratory effort and clear to auscultation noe aterally AUSCULTATION: clear to auscultation bilaterally Cardio: COMMON NORMALS: regular rate, regular rhythm and S2 normal heart sound present RATE: regular rate RHYTHM: regular rhythm HEART SOUNDS: S2 normal heart sound present OTHER: No lower extremity edema GI: COMMON NORMALS: Normal to inspection, nondistended, normoactive bowel sounds present, Soft to palpation and non-tender PALPATION: Yes Soft to palpation Neuro: COMMON NORMALS: patient oriented x3 and no focal motor deficits Data : 11/07/19 21:23 11/08/19 04:50 A&P Assessment and plan (1) Dehydration: Status: Acute (2) Hypokalemia: Status: Acute (3) Hyponatremia: Status: Acute (4) Cyclic vomiting syndrome: Status: Acute (5) Medical cannabis use: Status: Acute Additional A&P Information Dehydration secondary to cyclical vomiting due to medical marijuana use PLAN: We will switch IV fluids to LR. Start on high-dose PPI. Continue with antiemetics. Check magnesium level and phosphorus level as well as anti-inflammatory markers. Discussed regarding importance to avoid marijuana use at this is likely the reason of her symptoms. We are trying to find out exact medications she is prescribed. She reports using [facility] and [facility]. Will obtain chest x-ray. DVT prophylaxis not needed: Low risk Clear liquid diet Full code Attestations Medical Necessity Statement*: Patient with cyclic vomiting syndrome requires hospitalization for monitoring and treatment. Time Spent in Patient Care: Greater than 35 minutes Coding Level of Care Code Acute Supervisor [employer] for [facility] Fwd Diagnoses Dehydration E86.0 Hypokalemia E87.6 Hyponatremia E87.1 Cyclic vomiting syndrome R11.15 Medical cannabis use Z79.899
--- NOTE | 2019-11-08 14:31 | XR_ITS ---
WS: [id number] CHEST XRAY TECHNIQUE: Portable chest. CLINICAL INFORMATION: Nausea vomiting COMPARISON: None. FINDINGS: Heart: Cardiomegaly. Lungs: Moderate chronic emphysematous changes. Suggestion of slight developing patchy infiltrate in r ight lower lobe medially. Recommend interval follow-up and correlation for pneumonia. Left lung is we ll aerated. Bones: Normal visualized bony structures. XR/XR chest 1V portable [id number] IMPRESSION: Suspected developing infiltrate in right lower lobe medially suspicious for pne umonia. Recommend interval follow-up.
[2019-11-08] MEDS: lactated ringers 1,000 ML 75 ML IV (16:03)
[2019-11-08] MEDS: pantoprazole 40 mg SDV IVP (16:04)
[2019-11-08 19:04] LABS: Lactate (Lactic Acid level) 1.4 mmol/L (0.5-2.2)
[2019-11-08 19:14] LABS: Procalcitonin 0.06 ng/mL (0-0.5)
[2019-11-08 19:28] LABS: C Reactive Protein 8.5 mg/L (0.0-4.9); Magnesium 1.7 mg/dL (1.7-2.3); Phosphorus 2.5 mg/dL (2.5-4.5)
[2019-11-08 19:59] LABS: Erythrocyte Sedimentation Rate 18 mm/hr (0-15)
[2019-11-09] MEDS: haloperidol inj 5 mg/mL INJ 1 mL 2 MG IVP (02:43)
[2019-11-09 03:00] LABS: Basophils % 0.1 %; Eosinophils % 0.1 %; Hematocrit 40.6 % (37.0-47.0); Hemoglobin 13.1 g/dL (11.5-15.3); Lymphocytes # 2.8 10^3/uL (0.8-4.8); Lymphocytes % 20.1 %; Mean Corpuscular HGB Conc 32.3 g/dL (30.0-36.0); Mean Corpuscular Hemoglobin 28.5 pg (28.0-34.0); Mean Corpuscular Volume 88.3 fL (81-99); Mean Platelet Volume 8.7 fL (7.4-10.4); Monocytes # 0.7 10^3/uL (0.2-0.9); Monocytes % 5.1 %; Neutrophils # 10.11 10^3/uL (1.8-7.7); Neutrophils % 74.1 %; Nucleated Red Blood Cells % 0 %; Platelet Count 380 10^3/cmm (130-400); Red Cell Distribution Width 14.5 % (12.1-15.1); White Blood Count 13.7 10^3/uL (4.0-10.0)
[2019-11-09] MEDS: pantoprazole 40 mg SDV IVP ×2 (03:11→15:56)
[2019-11-09 03:19] LABS: Alanine Aminotransferase 22 U/L (0-33); Albumin Level 4.4 g/dL (3.5-5.2); Alkaline Phosphatase 58 IU/L (35-105); Anion Gap 16.4 (5-19); Aspartate Amino Transferase 15 U/L (0-32); Blood Urea Nitrogen 7 mg/dL (6-20); Calcium 8.8 mg/dL (8.5-10.5); Carbon Dioxide 24 mmol/L (22-29); Chloride 99 mmol/L (98-107); Globulin 3.1 g/dL (1.3-4.6); Glomerular Filtration Rate 90.9 mL/min (90-130); Glucose 170 mg/dL (65-115); Osmolality Calculated 282 mOsm/kg (285-295); Potassium 3.4 mmol/L (3.5-5.1); Sodium 136 mmol/L (136-145); Total Bilirubin 0.9 mg/dL (0.15-1.2); Total Protein 7.5 g/dL (6.6-8.7)
[2019-11-09 04:05] VITALS: BP 149/89; PULSE 104; RESP 18; TEMP 36.8; O2SAT 95
[2019-11-09 08:00] VITALS: BP 141/89; PULSE 113; RESP 20; TEMP 37.1; O2SAT 93
[2019-11-09] MEDS: lactated ringers 1,000 ML 75 ML IV (08:27)
[2019-11-09 12:00] VITALS: BP 136/84; PULSE 103; RESP 20; TEMP 37.2; O2SAT 94
--- NOTE | 2019-11-09 14:30 | P.DS_ITS ---
Discharge Providers Date of Admission: 11/08/19 01:22 Date of Discharge: November 09, 2019 Attending Provider at Admission: Star Britton MD Attending Provider at Discharge: Roger Mccarthy MD Primary Care Provider: Doris Mcdowell DO Diagnoses at Discharge Discharge Diagnosis (1) Dehydration: Status: Acute (2) Hypokalemia: Status: Acute (3) Hyponatremia: Status: Acute (4) Cyclic vomiting syndrome: Status: Acute (5) Medical cannabis use: Status: Acute (6) Gastroenteritis: Status: Acute Problem details: Possible. Reason for Visit Reason for Visit: n/v Hospital Course Discharge Summary: Patient presented with recurrent episodes of cyclic vomiting syndrome. She is using marijuana and I had extensive discussion regarding importance to avoid its use as it is likely the cause of her repeated episodes of vomiting. She voiced understanding. She was treated with IV fluids and this morning reports feeling much better and wants to go home. She was able to keep breakfast and lunch down. She denied any shortness of breath or chest pain. Denies abdominal pain. Had no diarrhea. She was noted to have fatty liver disease and was told to discuss this with primary care physician for dietary modifications. Patient potentially may need to have follow-up with vat packer. Dr. Britton prescribed Reglan and this will be continued. Potential side effects were discussed. White blood cell count is slightly up and felt to be related to stress. She denies any cough shortness of breath, chest pain, abdominal pain, problems with bowel movement or difficulty with urination. Patient was told to present back if her condition worsens. Her abdominal exam remains benign. She is passing gas. Physical Exam Const: COMMON NORMALS: no acute distress and patient oriented x3 Resp: COMMON NORMALS: normal respiratory effort and clear to auscultation bilaterally AUSCULTATION: clear to auscultation bilaterally Cardio: COMMON NORMALS: regular rate, regular rhythm and S2 normal heart sound present RATE: regular rate RHYTHM: regular rhythm HEART SOUNDS: S2 normal heart sound present OTHER: No lower extremity edema GI: COMMON NORMALS: Normal to inspection, nondistended, normoactive bowel sounds present, Soft to palpation and non-tender PALPATION: Yes Soft to palpation Neuro: COMMON NORMALS: patient oriented x3 and no focal motor deficits Discharge Data Data Completed and Pending: Completed Studies During Hospitalization Category Date Time Status CT abdomen pelvis w con* [id number] Urge nt Cat Scan 11/08/19 00:45 Completed XR chest 1V zechariah ble [id number] Routine Exams 11/08/19 14:31 Completed Pending at discharge Category Date Time Status Complete Blood Co unt w/Auto AM LABS Lab 11/10/19 04:00 Ordered Complete Blood Co unt w/Auto AM LABS Lab 11/11/19 04:00 Ordered Comprehensive Met abolic Panel AM LA BS Lab 11/10/19 04:00 Ordered Comprehensive Met abolic Panel AM LA BS Lab 11/11/19 04:00 Ordered Labs from last 24 hours 11/09/19 11/09/19 11/08/19 02:40 02:40 18:40 WBC 13.7 H RBC 4.60 Hgb 13.1 Hct 40.6 MCV 88.3 MCH 28.5 MCHC 32.3 RDW 14.5 Plt Count 380 MPV 8.7 Neut % (Auto) 74.1 Lymph % (Auto) 20.1 [place] % (Auto) 5.1 Eos % (Auto) 0.1 Baso % (Auto) 0.1 Neut # (Auto) 10.11 H Lymph # (Auto) 2.8 [place] # (Auto) 0.7 Eos # (Auto) 0.0 Baso # (Auto) 0.0 Nucleated RBC % (a uto) 0 Nucleated RBCs # 0.0 ESR Sodium 136 Potassium 3.4 L Chloride 99 Carbon Dioxide 24 Anion Gap 16.4 BUN 7 Creatinine 0.7 GFR Calculation 90.9 Glucose 170 H Calculated Osmolal ity 282 L Lactate Calcium 8.8 Phosphorus 2.5 Magnesium 1.7 Total Bilirubin 0.9 AST 15 ALT 22 Alkaline Phosphata se 58 C-Reactive Protein 8.5 H Total Protein 7.5 Albumin 4.4 Globulin 3.1 Procalcitonin 0.06 11/08/19 11/08/19 18:40 18:40 WBC RBC Hgb Hct MCV MCH MCHC RDW Plt Count MPV Neut % (Auto) Lymph % (Auto) [place] % (Auto) Eos % (Auto) Baso % (Auto) Neut # (Auto) Lymph # (Auto) [place] # (Auto) Eos # (Auto) Baso # (Auto) Nucleated RBC % (a uto) Nucleated RBCs # ESR 18 H Sodium Potassium Chloride Carbon Dioxide Anion Gap BUN Creatinine GFR Calculation Glucose Calculated Osmolal ity Lactate 1.4 Calcium Phosphorus Magnesium Total Bilirubin AST ALT Alkaline Phosphata se C-Reactive Protein Total Protein Albumin Globulin Procalcitonin Vitals: Last Vital Signs Temp 98.9 F 11/09/19 12:00 Pulse 103 H 11/09/19 12:00 Resp 20 H 11/09/19 12:00 BP 136/84 11/09/19 12:00 Pulse Ox 94 11/09/19 12:00 Discharge Plan Discharge Patient Disposition: Home Condition: Stable Prescriptions: New Reglan 10 mg tablet 10 mg PO Q6H PRN (Reason: nausea and vomiting) Qty: 20 RF: 0 Protonix [address] for susp in packet 40 mg PO DAILY Qty: 30 RF: 0 Continued promethazine 25 mg tablet 25 mg PO Q6H PRN (Reason: nausea and vomiting) Qty: 14 RF: 0 amitriptyline 100 mg tablet 100 mg PO DAILY Qty: 14 RF: 0 Discontinued topiramate 100 mg tablet 100 mg PO DAILY Qty: 14 RF: 0 Discharge Orders: Discharge Order (Routine); Ordered 11/09/19 Ordered By: Roger Mccarthy Referrals: Doris Mcdowell DO [Primary Care Provider] - 1-3 days Discharge Diet: Advance as tolerated Discharge Activity: Increase activity as tolerated Patient Instructions: Acute Nausea and Vomiting (ED) Activity Restrictions/Additional Instructions: Please call your doctor or present to emergency department if your condition w orsens or you develop diarrhea, lightheadedness, fatigue or see blood in your stool or black stool. Please discuss with your doctor to be further evaluated by vat packer for fatty liver disease and to discuss dietary modifications. Discharge Attestations Time Spent in Discharge Care*: greater than 30 min Quality Metrics Clinical Quality Measures During this hospital stay, did patient experience: None Coding Level of Care Code Acute Fire Department Marine Engineer for Chg Fwd Diagnoses Dehydration E86.0 Hypokalemia E87.6 Hyponatremia E87.1 Cyclic vomiting syndrome R11.15 Medical cannabis use Z79.899 Gastroenteritis K52.9
[2019-11-09 14:55] VITALS: BP 136/84; PULSE 103; RESP 20; TEMP 37.2; O2SAT 94
[2019-11-09] MEDS: potassium chloride ER 10 mEq Tablet 40 MEQ PO (15:55)
== END 2019-11-09 16:11 | disposition home or self-care (01) ==
LOC: ER 11-08 00:51 → MEDSURG 11-08 07:23
PROVIDERS: Emergency Medicine; Admitting Provider Internal Medicine; PCP Family Medicine; Visit Provider Internal Medicine
DX: E86.0 Dehydration (principal); E87.6 Hypokalemia; E87.1 Hypo-osmolality and hyponatremia; R11.15 Cyclical vomiting syndrome unrelated to migraine; Z79.899 Other long term (current) drug therapy; K52.9 Noninfective gastroenteritis and colitis, unspecified
CPT/HCPCS: 12345; 36415; 71045; 74177; 80048; 80053; 80306; 81003; 81025; 83605; 83690; 83735; 84100; 84145; 85025; 85651; 86140; 96361; 96374; 96375; 96376; 99283; 99285; C9113; G0378; J1170; J1200; J1630; J2060; J2405; J2765; J7030; Q9967

== ENCOUNTER 2019-12-10 04:40 | Emergency (ER) | payer SELFPAY ==
[2019-12-10 04:46] VITALS: BP 166/93; PULSE 108; RESP 20; TEMP 36.8; O2SAT 98; BMI 38.0
[2019-12-10 05:02] VITALS: BP 174/94; PULSE 117; RESP 18; O2SAT 98
[2019-12-10] MEDS: sodium chloride 0.9% 1,000 ML 999 ML IV (05:21)
[2019-12-10] MEDS: haloperidol inj 5 mg/mL INJ 1 mL 3 MG IVP (05:23)
[2019-12-10] MEDS: ondansetron 2 mg/ML SDV 2 mL 4 MG IVP (05:23)
[2019-12-10 05:28] LABS: Basophils % 0.2 %; Hematocrit 37.8 % (37.0-47.0); Hemoglobin 12.5 g/dL (11.5-15.3); Lymphocytes # 1.6 10^3/uL (0.8-4.8); Lymphocytes % 16.4 %; Mean Corpuscular HGB Conc 33.1 g/dL (30.0-36.0); Mean Corpuscular Hemoglobin 28.8 pg (28.0-34.0); Mean Corpuscular Volume 87.1 fL (81-99); Mean Platelet Volume 9.2 fL (7.4-10.4); Monocytes # 0.2 10^3/uL (0.2-0.9); Monocytes % 2.2 %; Neutrophils # 7.72 10^3/uL (1.8-7.7); Nucleated Red Blood Cells % 0 %; Platelet Count 350 10^3/cmm (130-400); Red Blood Count 4.34 10^6/uL (4.1-5.3); Red Cell Distribution Width 13.6 % (12.1-15.1); White Blood Count 9.5 10^3/uL (4.0-10.0)
[2019-12-10] MEDS: LORazepam 2 mg/mL INJ 1 mL IVP (05:32)
[2019-12-10 05:48] LABS: HCG, Serum Qual Negative (Negative)
[2019-12-10 05:58] LABS: Alanine Aminotransferase 30 U/L (0-33); Albumin Level 4.7 g/dL (3.5-5.2); Alkaline Phosphatase 68 IU/L (35-105); Anion Gap 21.6 (5-19); Aspartate Amino Transferase 20 U/L (0-32); Blood Urea Nitrogen 8 mg/dL (6-20); Calcium 10.6 mg/dL (8.5-10.5); Carbon Dioxide 19 mmol/L (22-29); Chloride 99 mmol/L (98-107); Creatinine Clr Calc Pharmacy 134.1051; Globulin 3.2 g/dL (1.3-4.6); Glomerular Filtration Rate 77.9 mL/min (90-130); Glucose 254 mg/dL (65-115); Lipase 15 U/L (13-60); Magnesium 1.5 mg/dL (1.7-2.3); Osmolality Calculated 287 mOsm/kg (285-295); Potassium 3.6 mmol/L (3.5-5.1); Sodium 136 mmol/L (136-145); Total Bilirubin 0.9 mg/dL (0.15-1.2); Total Protein 7.9 g/dL (6.6-8.7)
[2019-12-10 06:00] VITALS: BP 164/85; PULSE 125; RESP 16; O2SAT 91
[2019-12-10 06:01] VITALS: RESP 16; O2SAT 95
[2019-12-10] MEDS: HYDROmorphone 1 mg/mL INJ 1 mL IVP (06:01)
--- NOTE | 2019-12-10 07:10 | ED_ITS ---
HPI - Abdominal Pain General: Chief Complaint: Abdominal Pain Stated Complaint: vomitting Time Seen by Provider: 12/10/19 04:52 History of Present Illness: HPI narrative: 44-year-old female with a history of cyclic vomiting syndrome. She presents retching, stating that she has been vomiting and having diffuse belly pain for the last 24 hours or so. She was admitted for this a month ago or so. She notes that she does smoke marijuana, and has cut back significantly since she has been told that that may be the cause of her cyclic vomiting. She denies any fever diarrhea or belly pain is diffuse. MD elicited complaint: abdominal pain Onset (ago): hour(s) (24) Location: Diffuse Quality: cramping and stabbing Radiation: none Migration to: no migration Exacerbating factors: vomiting Relieving factors: nothing Associated Symptoms: Reports nausea and vomiting; Denies chills, constipation, diarrhea, dysuria, fever(s), hematuria and hematemesis Related Data: Date of Last Menstrual Period: 11/09/19 Review of Systems Const: Denies: fever(s) or chills Eyes: Denies: change in vision or blurry vision ENMT: Denies: swelling of lips/tongue, bleeding gums, dental pain, change in hearing or sinus pain Card: Denies: chest pain, palpitations or irregular heart rhythm Resp: Denies: dyspnea, productive cough, non-productive cough or wheezing GI: Reports: nausea and vomiting; Denies: hematemesis, diarrhea or constipation : Denies: dysuria or hematuria Musc: Denies: neck pain or joint warmth Skin/Breast: Denies: rash or erythema Neuro: Denies: headache(s), dizziness or vertigo Psych: Denies: anxiety PFSH ED PFSH: Medical History (Updated 12/10/19 @ 07:19 by Raudel Malave DO) Cyclical vomiting Depression Tetrahydrocannabinol (THC) use disorder, mild, abuse Surgical History H/O shoulder surgery H/O: hysterectomy Hx of cholecystectomy Family History Mother CAD (coronary artery disease) Social History Smoking and tobacco status: former smoker Alcohol intake: never Household members: family Housing: House Female Reproductive History: Date of last menstrual period: 11/09/19 Physical Exam Const: GENERAL APPEARANCE: well developed and ill appearing ORIENTATION/CONSCIOUSNESS: Yes oriented to person, Yes oriented to place and Yes oriented to time HENMT: COMMON NORMALS: normocephalic, external ears normal and Normal external nose present HEAD & SCALP: normocephalic FACE & SINUS: normal facial exam NOSE: Normal external nose present and No nasal discharge present EXTERNAL EAR: Yes external ears normal Eye: COMMON NORMALS: Equal, round and reactive pupils present, EOMs intact bilaterally and conjunctivae normal EYELID: eyelids normal CONJUNCTIVA: Yes conjunctivae normal PUPIL: Yes Equal, round and reactive pupils present Neck/C-Spine: GENERAL: No tracheal deviation Chest: COMMONS NORMALS: normal inspection of the chest CHEST: No tenderness Resp: COMMON NORMALS: clear to auscultation bilaterally EFFORT & INSPECTION: No tachypneic, No respiratory distress, No retractions, No uses accessory muscles and No tracheal deviation AUSCULTATION: clear to auscultation bilaterally, no rhonchi, no wheezes and lung sounds not diminished Cardio: COMMON NORMALS: regular rate and regular rhythm RATE: regular rate RHYTHM: regular rhythm HEART SOUNDS: no murmurs PERIPHERAL PULSES: radial pulses present GI: INSPECTION: No abdominal distension AUSCULTATION: No Hyperactive bowel sounds present and No Hypoactive bowel sounds present PALPATION: Yes Tenderness to palpation present (GI) (Diffuse), No Guarding due to palpation present (GI) and No Rigid due to palpation PERCUSSION: no dullness to percussion and no tympanic to percussion Neuro: SENSORIUM/ORIENTATION: Yes oriented to person, Yes oriented to place and Yes oriented to time Psych: COMMON NORMALS: mental status grossly normal Skin: COMMON NORMALS: no rashes or lesions noted GENERAL SKIN EXAM: no rashes or lesions noted Course Vital Signs: Vital signs: Vital Signs Temperature 98.2 F 12/10/19 04:46 Pulse Rate 133 H 12/10/19 07:11 Respiratory Rate 16 12/10/19 07:11 Blood Pressure 126/61 12/10/19 07:11 Pulse Oximetry 97 12/10/19 07:11 MDM - Abdominal Pain MDM Narrative: Medical decision making narrative: Patient with history of cyclic vomiting syndrome. She was given a dose of Haldol, Ativan, and Dilaudid here. She has been resting comfortably since with no repeated episodes of vomiting. She notes that pain medication really helped on her last visit. She will be sent home with 3 oral Dilaudid pills to go with her nausea pills at home. She will take them scheduled for the next 12 hours or so Lab Data: Labs: Lab Results 12/10/19 12/10/19 12/10/19 Range/Units 05:12 05:12 05:12 WBC 9.5 (4.0-10.0) 10^3/ uL RBC 4.34 (4.1-5.3) 10^6/u L Hgb 12.5 (11.5-15.3) g/dL Hct 37.8 (37.0-47.0) % MCV 87.1 (81-99) fL MCH 28.8 (28.0-34.0) pg MCHC 33.1 (30.0-36.0) g/dL RDW 13.6 (12.1-15.1) % Plt Count 350 (130-400) 10^3/c mm MPV 9.2 (7.4-10.4) fL Neut % (Auto) 81.0 % Lymph % (Auto) 16.4 % Morrill % (Auto) 2.2 % Eos % (Auto) 0.0 % Baso % (Auto) 0.2 % Neut # (Auto) 7.72 H (1.8-7.7) 10^3/u L Lymph # (Auto) 1.6 (0.8-4.8) 10^3/u L Morrill # (Auto) 0.2 (0.2-0.9) 10^3/u L Eos # (Auto) 0.0 (0.0-0.8) 10^3/u L Baso # (Auto) 0.0 (0.0-0.1) 10^3/u L Nucleated RBC % (a uto) 0 % Nucleated RBCs # 0.0 /100WBC Sodium 136 (136-145) mmol/L Potassium 3.6 (3.5-5.1) mmol/L Chloride 99 (98-107) mmol/L Carbon Dioxide 19 L (22-29) mmol/L Anion Gap 21.6 H (5-19) BUN 8 (6-20) mg/dL Creatinine 0.8 (0.5-0.9) mg/dL GFR Calculation 77.9 L (90-130) mL/min Glucose 254 H (65-115) mg/dL Calculated Osmolal ity 287 (285-295) mOsm/k g Lactate 3.0 H (0.5-2.2) mmol/L Calcium 10.6 H (8.5-10.5) mg/dL Magnesium 1.5 L (1.7-2.3) mg/dL Total Bilirubin 0.9 (0.15-1.2) mg/dL AST 20 (0-32) U/L ALT 30 (0-33) U/L Alkaline Phosphata se 68 (35-105) IU/L Total Protein 7.9 (6.6-8.7) g/dL Albumin 4.7 (3.5-5.2) g/dL Globulin 3.2 (1.3-4.6) g/dL Lipase 15 (13-60) U/L HCG, Qual (Negative) 12/10/19 Range/Units 05:12 WBC (4.0-10.0) 10^3/ uL RBC (4.1-5.3) 10^6/u L Hgb (11.5-15.3) g/dL Hct (37.0-47.0) % MCV (81-99) fL MCH (28.0-34.0) pg MCHC (30.0-36.0) g/dL RDW (12.1-15.1) % Plt Count (130-400) 10^3/c mm MPV (7.4-10.4) fL Neut % (Auto) % Lymph % (Auto) % Morrill % (Auto) % Eos % (Auto) % Baso % (Auto) % Neut # (Auto) (1.8-7.7) 10^3/u L Lymph # (Auto) (0.8-4.8) 10^3/u L Morrill # (Auto) (0.2-0.9) 10^3/u L Eos # (Auto) (0.0-0.8) 10^3/u L Baso # (Auto) (0.0-0.1) 10^3/u L Nucleated RBC % (a uto) % Nucleated RBCs # /100WBC Sodium (136-145) mmol/L Potassium (3.5-5.1) mmol/L Chloride (98-107) mmol/L Carbon Dioxide (22-29) mmol/L Anion Gap (5-19) BUN (6-20) mg/dL Creatinine (0.5-0.9) mg/dL GFR Calculation (90-130) mL/min Glucose (65-115) mg/dL Calculated Osmolal ity (285-295) mOsm/k g Lactate (0.5-2.2) mmol/L Calcium (8.5-10.5) mg/dL Magnesium (1.7-2.3) mg/dL Total Bilirubin (0.15-1.2) mg/dL AST (0-32) U/L ALT (0-33) U/L Alkaline Phosphata se (35-105) IU/L Total Protein (6.6-8.7) g/dL Albumin (3.5-5.2) g/dL Globulin (1.3-4.6) g/dL Lipase (13-60) U/L HCG, Qual Negative (Negative) Discharge Plan Discharge Patient Disposition: Home Clinical Impression: Cyclic vomiting syndrome Condition: Stable Prescriptions: No Action Reglan 10 mg tablet 10 mg PO Q6H PRN (Reason: nausea and vomiting) Qty: 20 RF: 0 Protonix [address] for susp in packet 40 mg PO DAILY Qty: 30 RF: 0 promethazine 25 mg tablet 25 mg PO Q6H PRN (Reason: nausea and vomiting) Qty: 14 RF: 0 amitriptyline 100 mg tablet 100 mg PO DAILY Qty: 14 RF: 0 Discharge Orders: Discharge Order (Routine); Ordered 12/10/19 Ordered By: Raudel Malave Referrals: Doris Mcdowell DO [Primary Care Provider] - 4-7 days Discharge Diet: Clear Liquid Discharge Activity: Limit activity as instructed Patient Instructions: Vomiting - Adult Activity Restrictions/Additional Instructions: Take 1 of the pain pills every 6 hours scheduled, whether you are vomiting or not. Use your nausea medicine scheduled every 6 hours as well with that medication. Return for inability to hold down clear liquids despite the above. Return also for fever greater than 100, worsening belly pain, other concerning symptoms. Coding Level of Care Code ED Injection Molding Machine Operator for Chg Fwd Exam Comprehensive
[2019-12-10 07:11] VITALS: BP 126/61; PULSE 133; RESP 16; O2SAT 97
[2019-12-10 07:34] VITALS: BP 126/61; PULSE 136; RESP 16; O2SAT 95
[2019-12-10 07:39] LABS: C Reactive Protein 11.8 mg/L (0.0-4.9)
== END 2019-12-10 07:36 | disposition home or self-care (01) ==
PROVIDERS: Emergency Provider Emergency Medicine; PCP Family Medicine
DX: R11.15 Cyclical vomiting syndrome unrelated to migraine (principal); Z87.891 Personal history of nicotine dependence
CPT/HCPCS: 12345; 80053; 83605; 83690; 83735; 84703; 85025; 86140; 96361; 96374; 96375; 99283; J1170; J1630; J2060; J2405; J7030

== ENCOUNTER 2019-12-12 23:31 | Emergency (ER) | payer SELFPAY ==
[2019-12-12 23:36] VITALS: BP 159/98; PULSE 99; RESP 17; TEMP 36.6; O2SAT 95; BMI 35.9
[2019-12-12 23:40] VITALS: PULSE 108; RESP 16; O2SAT 98
--- NOTE | 2019-12-12 23:44 | W.ED.ABDPA2 ---
HPI - Abdominal Pain General: Chief Complaint: Abdominal Pain Stated Complaint: vomiting Time Seen by Provider: 12/12/19 23:39 History of Present Illness: HPI narrative: Patient is a 44-year-old female who comes to the ED with abdominal pain nausea and vomiting. Patient has a past medical history of cyclic vomiting syndrome. Patient was seen here in the emergency department for the same complaint on December 09. Patient home with some Reglan for the nausea. Patient says her symptoms are doing good until earlier today she started developing the abdominal pain and nausea and vomiting. Patient says abdominal pain is generalized and diffuse throughout the abdomen. Patient rates abdominal pain a 10 out of 10. Patient says that she was a marijuana smoker but quit 3 weeks ago. Associated Symptoms: Reports nausea and vomiting; Denies chills, constipation, diarrhea, dysuria, fever(s), hematochezia and hematuria Related Data: Date of Last Menstrual Period: 11/12/19 Review of Systems Const: Denies: fever(s), chills or fatigue Eyes: Denies: change in vision or eye discomfort ENMT: Denies: throat pain, odynophagia, nasal discharge or nasal congestion Card: Denies: chest pain, palpitations, edema, swelling of feet/ankles, dyspnea on exertion or orthopnea Resp: Denies: dyspnea, productive cough or non-productive cough GI: Reports: abdominal pain, nausea and vomiting; Denies: diarrhea, constipation or hematochezia : Denies: flank pain, dysuria or hematuria Musc: Denies: neck pain, back pain or extremity swelling Skin/Breast: Denies: rash or new lesions Neuro: Denies: headache(s), numbness in extremities or weakness in extremities PFS ED PFSH: Medical History Cyclical vomiting Depression Tetrahydrocannabinol (THC) use disorder, mild, abuse Surgical History H/O shoulder surgery H/O: hysterectomy Hx of cholecystectomy Family History Mother CAD (coronary artery disease) Social History Smoking and tobacco status: former smoker Alcohol intake: never Household members: family Housing: House Female Reproductive History: Date of last menstrual period: 11/12/19 Physical Exam Const: COMMON NORMALS: patient oriented x3 and alert GENERAL APPEARANCE: cooperative and ill appearing (Patient is having multiple episodes of emesis while here in the ED.) HENMT: COMMON NORMALS: normocephalic HEAD & SCALP: normocephalic MOUTH: Normal oral and palatal mucosa present THROAT: posterior oropharynx normal and uvula midline Neck/C-Spine: COMMON NORMALS: supple GENERAL: Yes normal visual inspection Resp: COMMON NORMALS: normal respiratory effort, No retractions, No use of accessory muscles and clear to auscultation bilaterally EFFORT & INSPECTION: Yes able to speak in complete sentences, No respiratory distress and No labored AUSCULTATION: clear to auscultation bilaterally Cardio: COMMON NORMALS: regular rate, regular rhythm, S1 normal heart sound present, S2 normal heart sound present, No gallops present (Cardio), No clicks present (Cardio), No murmurs present (Cardio) and Peripheral pulses 2+ throughout RATE: regular rate RHYTHM: regular rhythm HEART SOUNDS: S1 normal heart sound present and S2 normal heart sound present PERIPHERAL PULSES: Peripheral pulses 2+ throughout GI: COMMON NORMALS: Normal to inspection, nondistended, normoactive bowel sounds present, Soft to palpation and no masses PALPATION: Yes Soft to palpation and Yes Tenderness to palpation present (GI) (Generalized tenderness throughout the abdomen.) : COMMON NORMALS: Yes no CVA tenderness BLADDER/KIDNEY EXAM: Yes no CVA tenderness Back/Pelvis: COMMON NORMALS: no CVA tenderness Extremity: COMMON NORMALS: normal to inspection Neuro: COMMON NORMALS: patient oriented x3 SENSORIUM/ORIENTATION: Yes alert GAIT: Yes Normal gait present Skin: COMMON NORMALS: no rashes or lesions noted GENERAL SKIN EXAM: no rashes or lesions noted and dry skin Course Reevaluation(s): Reevaluation #1: I went in to see patient and talk to her about labs and to reassess how she is feeling after meds. Patient says she currently has no more pain in the abdomen and also has not had any nausea or vomiting symptoms since she has been given the meds. She has been resting comfortably on the bed for the last hour. Patient feels ready to go home. Time: 01:23 Vital Signs: Vital signs: Vital Signs Temperature 97.8 F 12/12/19 23:36 Pulse Rate 108 H 12/12/19 23:40 Respiratory Rate 16 12/13/19 00:19 Blood Pressure 159/98 12/12/19 23:36 Pulse Oximetry 98 12/12/19 23:40 MDM - Abdominal Pain MDM Narrative: Medical decision making narrative: Patient is a 44-year-old female comes to the ED with abdominal pain nausea and vomiting. Patient has a past medical history of cyclic vomiting syndrome. She was seen here couple days ago on December 09 for same complaint. CBC, CMP and lipase were unremarkable. UA showed no infection. Patient was given IV fluids, haldol, and ativan to control nausea/vomiting. Pt was also given a 0.5 mg of Dilaudid for the abdominal pain. Patient symptoms completely improved and she had no more abdominal pain, nausea or vomiting. Patient is ready for discharge. Patient was told to follow-up with her PCP in 7 to 10 days for reevaluation. She was told to take some of her previously prescribed antinausea meds to help with nausea and emesis symptoms. Return to ED precautions given. Patient understood and agreed with plan. Lab Data: Attestation: I reviewed the patient's lab results. Labs: Lab Results 12/13/19 12/13/19 12/13/19 Range/Units 00:05 00:05 00:05 WBC 9.2 (4.0-10.0) 10^3/ uL RBC 4.79 (4.1-5.3) 10^6/u L Hgb 14.0 (11.5-15.3) g/dL Hct 42.1 (37.0-47.0) % MCV 87.9 (81-99) fL MCH 29.2 (28.0-34.0) pg MCHC 33.3 (30.0-36.0) g/dL RDW 13.2 (12.1-15.1) % Plt Count 403 H (130-400) 10^3/c mm MPV 8.8 (7.4-10.4) fL Neut % (Auto) 69.9 % Lymph % (Auto) 24.5 % Morrow % (Auto) 4.7 % Eos % (Auto) 0.4 % Baso % (Auto) 0.3 % Neut # (Auto) 6.39 (1.8-7.7) 10^3/u L Lymph # (Auto) 2.2 (0.8-4.8) 10^3/u L Morrow # (Auto) 0.4 (0.2-0.9) 10^3/u L Eos # (Auto) 0.0 (0.0-0.8) 10^3/u L Baso # (Auto) 0.0 (0.0-0.1) 10^3/u L Nucleated RBC % (a uto) 0 % Nucleated RBCs # 0.0 /100WBC Sodium 138 (136-145) mmol/L Potassium 3.5 (3.5-5.1) mmol/L Chloride 98 (98-107) mmol/L Carbon Dioxide 20 L (22-29) mmol/L Anion Gap 23.5 H (5-19) BUN 11 (6-20) mg/dL Creatinine 0.8 (0.5-0.9) mg/dL GFR Calculation 77.9 L (90-130) mL/min Glucose 254 H (65-115) mg/dL Calculated Osmolal ity 291 (285-295) mOsm/k g Calcium 9.9 (8.5-10.5) mg/dL Total Bilirubin 0.7 (0.15-1.2) mg/dL AST 30 (0-32) U/L ALT 53 H (0-33) U/L Alkaline Phosphata se 63 (35-105) IU/L Total Protein 8.0 (6.6-8.7) g/dL Albumin 4.6 (3.5-5.2) g/dL Globulin 3.4 (1.3-4.6) g/dL Lipase 22 (13-60) U/L Urine Color Yellow (Yellow) Urine Appearance Sl hazy (CLEAR) Urine pH 7 (5-7) Ur Specific Gravit y 1.020 (1.005-1.030) Urine Protein Neg (Negative) Urine Glucose (UA) 1+ (Normal) Urine Ketones 2+ H (Negative) Urine Blood Neg (Negative) Urine Nitrate Negative (Negative) Urine Bilirubin Neg (NEGATIVE) Urine Urobilinogen 1 H (Negative) mg/dL Ur Leukocyte Chloe ase Negative (Negative) Urine RBC Rare (0-2) /hpf Urine WBC 0-4 H (0-5) /hpf Ur Squamous Epith Cells 5-10 H (0-5) Amorphous Sediment Not Reportable Urine Bacteria 1+ H (NONE) Discharge Plan Discharge Patient Disposition: Home Clinical Impression: Cyclic vomiting syndrome Condition: Stable Prescriptions: No Action Reglan 10 mg tablet 10 mg PO Q6H PRN (Reason: nausea and vomiting) Qty: 20 RF: 0 Protonix [address] for susp in packet 40 mg PO DAILY Qty: 30 RF: 0 promethazine 25 mg tablet 25 mg PO Q6H PRN (Reason: nausea and vomiting) Qty: 14 RF: 0 amitriptyline 100 mg tablet 100 mg PO DAILY Qty: 14 RF: 0 Discharge Orders: Discharge Order (Routine); Ordered 12/13/19 Ordered By: Addi Lunsford Referrals: Doris Mcdowell DO [Primary Care Provider] - Discharge Diet: Advance as tolerated Discharge Activity: Increase activity as tolerated Patient Instructions: Acute Nausea and Vomiting (ED) Activity Restrictions/Additional Instructions: Follow-up with medical provider as directed in 7-10 days. Take your previously prescribed antinausea meds as needed for any nausea and vomiting. Advance diet as tolerated. Make sure you drink plenty of fluids and stay hydrated. Return to the ER or your medical provider if condition worsens. Please read and understand discharge instructions. If any questions, please ask. Coding Level of Care Code ED Horizontal Boring Mill Set Up Operator for Ramon Fwd Exam Comprehensive
[2019-12-13] MEDS: haloperidol inj 5 mg/mL INJ 1 mL 3 MG IVP (00:18)
[2019-12-13] MEDS: sodium chloride 0.9% 1,000 ML 999 ML IV (00:18)
[2019-12-13 00:19] VITALS: RESP 16
[2019-12-13] MEDS: HYDROmorphone 1 mg/mL INJ 1 mL 0.5 MG IVP (00:19)
[2019-12-13] MEDS: LORazepam 2 mg/mL INJ 1 mL 1 MG IVP (00:19)
[2019-12-13 00:25] LABS: Basophils % 0.3 %; Eosinophils % 0.4 %; Hematocrit 42.1 % (37.0-47.0); Lymphocytes # 2.2 10^3/uL (0.8-4.8); Lymphocytes % 24.5 %; Mean Corpuscular HGB Conc 33.3 g/dL (30.0-36.0); Mean Corpuscular Hemoglobin 29.2 pg (28.0-34.0); Mean Corpuscular Volume 87.9 fL (81-99); Mean Platelet Volume 8.8 fL (7.4-10.4); Monocytes # 0.4 10^3/uL (0.2-0.9); Monocytes % 4.7 %; Neutrophils # 6.39 10^3/uL (1.8-7.7); Neutrophils % 69.9 %; Nucleated Red Blood Cells % 0 %; Platelet Count 403 10^3/cmm (130-400); Red Blood Count 4.79 10^6/uL (4.1-5.3); Red Cell Distribution Width 13.2 % (12.1-15.1); White Blood Count 9.2 10^3/uL (4.0-10.0)
[2019-12-13 00:46] LABS: Alanine Aminotransferase 53 U/L (0-33); Albumin Level 4.6 g/dL (3.5-5.2); Alkaline Phosphatase 63 IU/L (35-105); Anion Gap 23.5 (5-19); Aspartate Amino Transferase 30 U/L (0-32); Blood Urea Nitrogen 11 mg/dL (6-20); Calcium 9.9 mg/dL (8.5-10.5); Carbon Dioxide 20 mmol/L (22-29); Chloride 98 mmol/L (98-107); Globulin 3.4 g/dL (1.3-4.6); Glomerular Filtration Rate 77.9 mL/min (90-130); Glucose 254 mg/dL (65-115); Lipase 22 U/L (13-60); Osmolality Calculated 291 mOsm/kg (285-295); Potassium 3.5 mmol/L (3.5-5.1); Sodium 138 mmol/L (136-145); Total Bilirubin 0.7 mg/dL (0.15-1.2)
[2019-12-13 01:39] LABS: Add Urine Microscopic? YES; Bacteria Urine 1+; Bilirubin Urine Neg (NEGATIVE); Blood Urine Neg (Negative); Glucose Urine UA 1+ (Normal); Ketones Urine 2+ (Negative); Leukocyte Esterase Urine Negative (Negative); Nitrate Urine Negative (Negative); Protein Urine Neg (Negative); RBC Urine RARE /hpf (0-2); Urine Appearance SL Hazy (CLEAR); Urine Color Yellow (Yellow); Urobilinogen Urine 1 mg/dL (Negative); WBC Urine 0-4 /hpf (0-5); pH Urine 7 (5-7)
[2019-12-13] MEDS: metoclopramide 5 mg/mL SDV 2 mL 10 MG IVP (03:01)
[2019-12-13 03:06] VITALS: BP 144/108; PULSE 110; RESP 20; O2SAT 94
== END 2019-12-13 03:08 | disposition home or self-care (01) ==
PROVIDERS: Emergency Provider Physician Assistant; PCP Family Medicine
DX: R11.15 Cyclical vomiting syndrome unrelated to migraine (principal); Z87.891 Personal history of nicotine dependence
CPT/HCPCS: 12345; 80053; 81001; 83690; 85025; 96361; 96374; 96375; 99283; J1170; J1630; J2060; J2765; J7030

== ENCOUNTER 2020-05-05 09:05 | Emergency (ER) | payer SELFPAY ==
[2020-05-05 09:16] VITALS: BP 186/111; PULSE 116; RESP 22; TEMP 37.2; O2SAT 100; BMI 38.0
--- NOTE | 2020-05-05 09:38 | W.ED.ABDPA2 ---
HPI - Abdominal Pain General: Chief Complaint: Abdominal Pain Stated Complaint: N/V/ABD pain Time Seen by Provider: 05/05/20 09:14 History of Present Illness: HPI narrative: Patient complains of a cyclic vomiting onset yesterday. Said she is emotionally stressed due to her dog 2 days ago. Has tried Imitrex at home has not helped Zofran is not help. Is requesting Haldol and Benadryl she said that the only thing that works for her. MD elicited complaint: abdominal pain Location: Diffuse Severity: moderate Quality: cramping Exacerbating factors: nothing Relieving factors: nothing Associated Symptoms: Reports nausea and vomiting; Denies chills and fever(s) Related Data: Date of Last Menstrual Period: 11/12/19 Review of Systems Const: Denies: fever(s), chills or body aches Eyes: Denies: change in vision or blurry vision ENMT: Denies: throat pain or nasal congestion Card: Denies: chest pain or dyspnea on exertion Resp: Denies: dyspnea, productive cough or non-productive cough GI: Reports: nausea and vomiting Musc: Denies: extremity pain Skin/Breast: Denies: rash Neuro: Denies: headache(s) Psych: Denies: anxiety or depression Lauri/Lymph: Denies: easy bruising PFSH ED PFSH: Medical History (Updated 05/05/20 @ 10:59 by CATALINA Gann) Cyclical vomiting Depression Tetrahydrocannabinol (THC) use disorder, mild, abuse Surgical History H/O shoulder surgery H/O: hysterectomy Hx of cholecystectomy Family History Mother CAD (coronary artery disease) Social History Smoking and tobacco status: former smoker Alcohol intake: never Household members: family Housing: House Female Reproductive History: Date of last menstrual period: 11/12/19 Physical Exam Const: COMMON NORMALS: no acute distress, average body habitus and patient oriented x3 HENMT: COMMON NORMALS: normocephalic HEAD & SCALP: normal to inspection and normocephalic FACE & SINUS: normal facial exam Eye: COMMON NORMALS: conjunctivae normal GENERAL EYE: appearance normal, both eyes and all related structures CONJUNCTIVA: Yes conjunctivae normal Neck/C-Spine: COMMON NORMALS: no JVD Chest: COMMONS NORMALS: normal inspection of the chest Resp: COMMON NORMALS: normal respiratory effort and clear to auscultation bilaterally AUSCULTATION: clear to auscultation bilaterally Cardio: COMMON NORMALS: no JVD and regular rhythm RATE: tachycardic RHYTHM: regular rhythm GI: COMMON NORMALS: Normal to inspection, nondistended, normoactive bowel sounds present Extremity: COMMON NORMALS: normal to inspection and full ROM Neuro: COMMON NORMALS: patient oriented x3 Course Vital Signs: Vital signs: Vital Signs Temperature 99.0 F 05/05/20 09:16 Pulse Rate 116 H 05/05/20 11:12 Respiratory Rate 22 H 05/05/20 09:16 Blood Pressure 138/88 05/05/20 11:12 Pulse Oximetry 97 05/05/20 11:12 MDM - Abdominal Pain MDM Narrative: Medical decision making narrative: Patient with a history of cyclic vomiting syndrome. Patient symptoms this time are consistent with previous history. Patient without vomiting after Haldol and Benadryl. Patient wishing to go home. Patient follow-up primary care provider this week. Patient is get started back on her diabetic medication sugars are high. Patient is aware and willing to do that. Lab Data: Labs: Lab Results 05/05/20 05/05/20 05/05/20 Range/Units 09:30 09:30 09:45 WBC 11.6 H (4.0-10.0) 10^3/ uL RBC 4.67 (4.1-5.3) 10^6/u L Hgb 13.6 (11.5-15.3) g/dL Hct 40.6 (37.0-47.0) % MCV 86.9 (81-99) fL MCH 29.1 (28.0-34.0) pg MCHC 33.5 (30.0-36.0) g/dL RDW 13.2 (12.1-15.1) % Plt Count 337 (130-400) 10^3/c mm MPV 9.1 (7.4-10.4) fL Neut % (Auto) 83.5 % Lymph % (Auto) 13.4 % Bar[place] % (Auto) 2.5 % Eos % (Auto) 0.1 % Baso % (Auto) 0.1 % Neut # (Auto) 9.71 H (1.8-7.7) 10^3/u L Lymph # (Auto) 1.6 (0.8-4.8) 10^3/u L Barren # (Auto) 0.3 (0.2-0.9) 10^3/u L Eos # (Auto) 0.0 (0.0-0.8) 10^3/u L Baso # (Auto) 0.0 (0.0-0.1) 10^3/u L Nucleated RBC % (a uto) 0 % Nucleated RBCs # 0.0 /100WBC Sodium (136-145) mmol/L Potassium (3.5-5.1) mmol/L Chloride (98-107) mmol/L Carbon Dioxide (22-29) mmol/L Anion Gap (5-19) BUN (6-20) mg/dL Creatinine (0.5-0.9) mg/dL GFR Calculation (90-130) mL/min Glucose (65-115) mg/dL Calculated Osmolal ity (285-295) mOsm/k g Calcium (8.5-10.5) mg/dL Total Bilirubin (0.15-1.2) mg/dL AST (0-32) U/L ALT (0-33) U/L Alkaline Phosphata se (35-105) IU/L Total Protein (6.6-8.7) g/dL Albumin (3.5-5.2) g/dL Globulin (1.3-4.6) g/dL Lipase (13-60) U/L HCG, Qual Negative (Negative) Urine Color Yellow (Yellow) Urine Appearance Clear (CLEAR) Urine pH 6 (5-7) Ur Specific Gravit y 1.015 (1.005-1.030) Urine Protein 2+ H (Negative) Urine Glucose (UA) 4+ H (Normal) Urine Ketones 2+ H (Negative) Urine Blood Neg (Negative) Urine Nitrate Negative (Negative) Urine Bilirubin Neg (Negative) Urine Urobilinogen Norm (Negative) mg/dL Ur Leukocyte Chloe ase Negative (Negative) Urine RBC None (0-2) /hpf Urine WBC 5-10 H (0-5) /hpf Ur Squamous Epith Cells 5-10 H (0-5) /hpf Amorphous Sediment Not Reportable Urine Bacteria Trace (NONE) /hpf Urine Mucus Trace /hpf 05/05/20 Range/Units 09:45 WBC (4.0-10.0) 10^3/ uL RBC (4.1-5.3) 10^6/u L Hgb (11.5-15.3) g/dL Hct (37.0-47.0) % MCV (81-99) fL MCH (28.0-34.0) pg MCHC (30.0-36.0) g/dL RDW (12.1-15.1) % Plt Count (130-400) 10^3/c mm MPV (7.4-10.4) fL Neut % (Auto) % Lymph % (Auto) % [place] % (Auto) % Eos % (Auto) % Baso % (Auto) % Neut # (Auto) (1.8-7.7) 10^3/u L Lymph # (Auto) (0.8-4.8) 10^3/u L [place] # (Auto) (0.2-0.9) 10^3/u L Eos # (Auto) (0.0-0.8) 10^3/u L Baso # (Auto) (0.0-0.1) 10^3/u L Nucleated RBC % (a uto) % Nucleated RBCs # /100WBC Sodium 136 (136-145) mmol/L Potassium 3.5 (3.5-5.1) mmol/L Chloride 97 L (98-107) mmol/L Carbon Dioxide 22 (22-29) mmol/L Anion Gap 20.5 H (5-19) BUN 9 (6-20) mg/dL Creatinine 0.7 (0.5-0.9) mg/dL GFR Calculation 90.5 (90-130) mL/min Glucose 267 H (65-115) mg/dL Calculated Osmolal ity 290 (285-295) mOsm/k g Calcium 10.3 (8.5-10.5) mg/dL Total Bilirubin 0.7 (0.15-1.2) mg/dL AST 21 (0-32) U/L ALT 35 H (0-33) U/L Alkaline Phosphata se 71 (35-105) IU/L Total Protein 10.8 H (6.6-8.7) g/dL Albumin 4.9 (3.5-5.2) g/dL Globulin 5.9 H (1.3-4.6) g/dL Lipase 18 (13-60) U/L HCG, Qual (Negative) Urine Color (Yellow) Urine Appearance (CLEAR) Urine pH (5-7) Ur Specific Gravit y (1.005-1.030) Urine Protein (Negative) Urine Glucose (UA) (Normal) Urine Ketones (Negative) Urine Blood (Negative) Urine Nitrate (Negative) Urine Bilirubin (Negative) Urine Urobilinogen (Negative) mg/dL Ur Leukocyte Chloe ase (Negative) Urine RBC (0-2) /hpf Urine WBC (0-5) /hpf Ur Squamous Epith Cells (0-5) /hpf Amorphous Sediment Urine Bacteria (NONE) /hpf Urine Mucus /hpf Discharge Plan Discharge Patient Disposition: Home Clinical Impression: Medical cannabis use, Cyclical vomiting Diabetes Qualifiers: Diabetes mellitus type: type 2 Diabetes mellitus tank terminal gauger insulin use: without usp use Diabetes mellitus complication status: without complication Qualified Code(s): E11.9 - Type 2 diabetes mellitus without complications Condition: Stable Prescriptions: New haloperidol 5 mg tablet 5 mg PO BID Qty: 7 RF: 0 Zofran 4 mg tablet 4 mg PO Q8H 3 Days Qty: 9 RF: 0 No Action Reglan 10 mg tablet 10 mg PO Q6H PRN (Reason: nausea and vomiting) Qty: 20 RF: 0 Protonix [address] for susp in packet 40 mg PO DAILY Qty: 30 RF: 0 promethazine 25 mg tablet 25 mg PO Q6H PRN (Reason: nausea and vomiting) Qty: 14 RF: 0 amitriptyline 100 mg tablet 100 mg PO DAILY Qty: 14 RF: 0 Discharge Orders: Discharge ED (Routine); Ordered 05/05/20 Ordered By: Nura Welsh Referrals: Doris Mcdowell DO [Primary Care Provider] - Discharge Diet: Advance as tolerated Discharge Activity: Increase activity as tolerated Patient Instructions: Meal Planning with Diabetes Exchanges (GEN), Medicinal Use of Cannabis (ED), Vomiting - Adult Activity Restrictions/Additional Instructions: Follow-up with medical provider as directed. Take medications as prescribed. Return to the ER or your medical provider if condition worsens. Please read and understand discharge instructions. If any questions ask please. Try to limit use of cannabis. Follow-up Keisha Tatyana get back on your diabetic medication. Follow strict diabetic diet Coding Level of Care Code ED Felt Carbonizer for Ramon Fwd Exam Comprehensive
[2020-05-05] MEDS: sodium chloride 0.9% 1,000 ML 999 ML IV (09:49)
[2020-05-05] MEDS: ondansetron 2 mg/ML SDV 2 mL 8 MG IVP (09:50)
[2020-05-05] MEDS: diphenhydrAMINE 50 mg/mL SDV 1mL IVP (10:01)
[2020-05-05] MEDS: haloperidol inj 5 mg/mL INJ 1 mL IVP (10:03)
[2020-05-05 10:06] LABS: Basophils % 0.1 %; Eosinophils % 0.1 %; Hematocrit 40.6 % (37.0-47.0); Hemoglobin 13.6 g/dL (11.5-15.3); Lymphocytes # 1.6 10^3/uL (0.8-4.8); Lymphocytes % 13.4 %; Mean Corpuscular HGB Conc 33.5 g/dL (30.0-36.0); Mean Corpuscular Hemoglobin 29.1 pg (28.0-34.0); Mean Corpuscular Volume 86.9 fL (81-99); Mean Platelet Volume 9.1 fL (7.4-10.4); Monocytes # 0.3 10^3/uL (0.2-0.9); Monocytes % 2.5 %; Neutrophils # 9.71 10^3/uL (1.8-7.7); Neutrophils % 83.5 %; Nucleated Red Blood Cells % 0 %; Platelet Count 337 10^3/cmm (130-400); Red Blood Count 4.67 10^6/uL (4.1-5.3); Red Cell Distribution Width 13.2 % (12.1-15.1); White Blood Count 11.6 10^3/uL (4.0-10.0)
[2020-05-05 10:07] LABS: Add Urine Microscopic? YES; Bilirubin Urine Neg (Negative); Blood Urine Neg (Negative); Glucose Urine UA 4+ (Normal); Ketones Urine 2+ (Negative); Leukocyte Esterase Urine Negative (Negative); Nitrate Urine Negative (Negative); Protein Urine 2+ (Negative); Specific Gravity, Urine 1.015 (1.005-1.030); Urine Appearance Clear (CLEAR); Urine Color Yellow (Yellow); Urobilinogen Urine Norm (Negative); pH Urine 6 (5-7)
[2020-05-05 10:10] LABS: Add Urine Culture? No; Bacteria Urine TRACE /hpf; Mucus Urine TRACE /hpf
[2020-05-05 10:32] LABS: Alanine Aminotransferase 35 U/L (0-33); Albumin Level 4.9 g/dL (3.5-5.2); Alkaline Phosphatase 71 IU/L (35-105); Anion Gap 20.5 (5-19); Aspartate Amino Transferase 21 U/L (0-32); Blood Urea Nitrogen 9 mg/dL (6-20); Calcium 10.3 mg/dL (8.5-10.5); Carbon Dioxide 22 mmol/L (22-29); Chloride 97 mmol/L (98-107); Creatinine Clr Calc Pharmacy 151.6664; Glomerular Filtration Rate 90.5 mL/min (90-130); Glucose 267 mg/dL (65-115); Lipase 18 U/L (13-60); Osmolality Calculated 290 mOsm/kg (285-295); Potassium 3.5 mmol/L (3.5-5.1); Sodium 136 mmol/L (136-145); Total Bilirubin 0.7 mg/dL (0.15-1.2)
[2020-05-05 10:42] LABS: HCG Qualitative Urine. Negative (Negative)
[2020-05-05 11:12] VITALS: BP 138/88; PULSE 116; O2SAT 97
[2020-05-06 19:51] LABS: Globulin 3.4 g/dL (1.3-4.6); Total Protein 8.3 g/dL (6.6-8.7)
== END 2020-05-05 11:14 | disposition home or self-care (01) ==
PROVIDERS: Emergency Provider Nurse Practitioner Family; PCP Family Medicine
DX: R11.15 Cyclical vomiting syndrome unrelated to migraine (principal); E11.9 Type 2 diabetes mellitus without complications; F12.90 Cannabis use, unspecified, uncomplicated; Z91.14 Patient's other noncompliance with medication regimen
CPT/HCPCS: 12345; 80053; 81001; 81025; 83690; 85025; 96361; 96374; 96375; 99283; J1200; J1630; J2405; J7030

== ENCOUNTER 2020-08-19 17:58 | Emergency (ER) | payer SELFPAY ==
[2020-08-19 19:28] VITALS: BP 135/89; PULSE 135; RESP 17; TEMP 36.9; O2SAT 96; BMI 40.6
[2020-08-19 21:35] VITALS: BP 143/94; PULSE 122; RESP 15; O2SAT 95
--- NOTE | 2020-08-19 21:49 | ED_ITS ---
HPI - Nausea/Vomiting/Diarrhea General: Chief complaint: Nausea/Vomiting/Diarrhea Stated complaint: n/v/dizziness Time Seen by Provider: 08/19/20 21:31 Source: patient Mode of arrival: ambulatory Limitations: no limitations History of Present Illness: HPI Narrative: 45-year-old female has a history of cyclical vomiting syndrome. States she has been vomiting over the last 10 days. States she been taking all her pills at home and states that she feels like finally today her vomiting has improved but she feels extremely dehydrated and weak. She states she does extend some IV fluids. States she has had some vomiting but it is improved greatly. Said some abdominal cramping. Denies any fevers. Denies any diarrhea. It is improved with her meds at home denies any worsening factors. Associated nausea: Yes Associated symtoms: Reports nausea; Denies chest pain, dysuria or headache(s) Review of Systems Const: Denies: fever(s), chills, body aches or change in appetite Eyes: Denies: blurry vision or eye discomfort ENMT: Denies: throat pain or dental pain Card: Denies: chest pain Resp: Denies: dyspnea GI: Reports: abdominal pain, nausea and vomiting : Denies: dysuria Musc: Denies: neck pain or back pain Skin/Breast: Denies: rash Neuro: Denies: headache(s) Psych: Denies: depression Lauri/Lymph: Denies: easy bruising All/Imm: Denies: urticaria PFS ED PFSH: Medical History (Updated 08/20/20 @ 00:17 by Odin Camp MD) Cyclical vomiting Depression Tetrahydrocannabinol (THC) use disorder, mild, abuse Surgical History H/O shoulder surgery H/O: hysterectomy Hx of cholecystectomy Family History Mother CAD (coronary artery disease) Social History Smoking and tobacco status: former smoker Alcohol intake: never Household members: family Housing: House Female Reproductive History: Date of last menstrual period: 08/17/20 Physical Exam Const: COMMON NORMALS: no acute distress, patient oriented x3 and healthy appearing HENMT: COMMON NORMALS: normocephalic and atraumatic HEAD & SCALP: normocephalic and atraumatic Eye: COMMON NORMALS: Equal, round and reactive pupils present and EOMs intact bilaterally PUPIL: Yes Equal, round and reactive pupils present Neck/C-Spine: COMMON NORMALS: full ROM and supple Chest: COMMONS NORMALS: normal inspection of the chest and normal palpation of entire chest wall Resp: COMMON NORMALS: normal respiratory effort, No retractions, No use of accessory muscles and clear to auscultation bilaterally AUSCULTATION: clear to auscultation bilaterally Cardio: COMMON NORMALS: regular rhythm and No murmurs present (Cardio) RATE : tachycardic RHYTHM: regular rhythm GI: COMMON NORMALS: Normal to inspection, nondistended, normoactive bowel sounds present, Soft to palpation, non-tender and no masses PALPATION: Yes Soft to palpation Extremity: COMMON NORMALS: normal to inspection and full ROM Neuro: COMMON NORMALS: patient oriented x3, moves all extremities and no focal motor deficits Psych: COMMON NORMALS: mental status grossly normal, Normal thought process present and cooperative THOUGHT PROCESS: Normal thought process present Skin: COMMON NORMALS: no rashes or lesions noted and no wounds GENERAL SKIN EXAM: no rashes or lesions noted Course Vital Signs: Vital signs: Vital Signs Temperature 98.4 F 08/20/20 01:16 Pulse Rate 120 H 08/20/20 01:16 Respiratory Rate 18 08/20/20 01:16 Blood Pressure 133/92 08/20/20 01:16 Pulse Oximetry 94 08/20/20 01:16 MDM - Nausea/Vomiting/Diarrhea MDM Narrative: Medical decision making narrative: Patient presents with cyclical vomiting syndrome likely causing her vomiting here. She feels much improved after fluids and was able to tolerate p.o. fluids as well. Feel she is stable for discharge and she is to return if worsening. She is to follow-up with PCP in 2 to 4 days. Lab Data: Labs: Lab Results 08/19/20 08/19/20 Range/Units 22:34 22:34 WBC 13.0 H (4.0-10.0) 10^3/ uL RBC 5.15 (4.1-5.3) 10^6/u L Hgb 15.2 (11.5-15.3) g/dL Hct 45.5 (37.0-47.0) % MCV 88.3 (81-99) fL MCH 29.5 (28.0-34.0) pg MCHC 33.4 (30.0-36.0) g/dL RDW 12.9 (12.1-15.1) % Plt Count 462 H (130-400) 10^3/c mm MPV 8.8 (7.4-10.4) fL Neut % (Auto) 58.6 % Lymph % (Auto) 33.9 % [place] % (Auto) 6.9 % Eos % (Auto) 0.1 % Baso % (Auto) 0.2 % Neut # (Auto) 7.59 (1.8-7.7) 10^3/u L Lymph # (Auto) 4.4 (0.8-4.8) 10^3/u L [place] # (Auto) 0.9 (0.2-0.9) 10^3/u L Eos # (Auto) 0.0 (0.0-0.8) 10^3/u L Baso # (Auto) 0.0 (0.0-0.1) 10^3/u L Nucleated RBC % (a uto) 0 % Nucleated RBCs # 0.0 /100WBC Sodium 131 L (136-145) mmol/L Potassium 3.3 L (3.5-5.1) mmol/L Chloride 89 L (98-107) mmol/L Carbon Dioxide 28 (22-29) mmol/L Anion Gap 17.3 (5-19) BUN 12 (6-20) mg/dL Creatinine 0.6 (0.5-0.9) mg/dL GFR Calculation 108.1 (90-130) mL/min Glucose 232 H (65-115) mg/dL Calculated Osmolal ity 279 L (285-295) mOsm/k g Calcium 9.4 (8.5-10.5) mg/dL Total Bilirubin 1.0 (0.15-1.2) mg/dL AST 13 (0-32) U/L ALT 21 (0-33) U/L Alkaline Phosphata se 64 (35-105) IU/L Total Protein 7.9 (6.6-8.7) g/dL Albumin 4.8 (3.5-5.2) g/dL Globulin 3.1 (1.3-4.6) g/dL Lipase 32 (13-60) U/L Discharge Plan Discharge Patient Disposition: Home Clinical Impression: Vomiting Qualifiers: Vomiting type: unspecified Vomiting Intractability: non-intractable Nausea presence: with nausea Qualified Code(s): R11.2 - Nausea with vomiting, unspecified Condition: Stable Prescriptions: No Action Reglan 10 mg tablet 10 mg PO Q6H PRN (Reason: nausea and vomiting) Qty: 20 RF: 0 Protonix [address] for susp in packet 40 mg PO DAILY Qty: 30 RF: 0 haloperidol 5 mg tablet 5 mg PO BID Qty: 7 RF: 0 promethazine 25 mg tablet 25 mg PO Q6H PRN (Reason: nausea and vomiting) Qty: 14 RF: 0 amitriptyline 100 mg tablet 100 mg PO DAILY Qty: 14 RF: 0 Discharge Orders: Discharge ED (Routine); Ordered 08/20/20 Ordered By: Odin Camp Referrals: Doris Mcdowell DO [Primary Care Provider] - 1-3 days Discharge Diet: Advance as tolerated Discharge Activity: Resume usual activity Patient Instructions: Acute Nausea and Vomiting (ED) Coding Level of Care Code ED Associate Professor Of Church Music for Chg Fwd Exam Comprehensive
[2020-08-19 22:49] LABS: Basophils % 0.2 %; Eosinophils % 0.1 %; Hematocrit 45.5 % (37.0-47.0); Hemoglobin 15.2 g/dL (11.5-15.3); Lymphocytes # 4.4 10^3/uL (0.8-4.8); Lymphocytes % 33.9 %; Mean Corpuscular HGB Conc 33.4 g/dL (30.0-36.0); Mean Corpuscular Hemoglobin 29.5 pg (28.0-34.0); Mean Corpuscular Volume 88.3 fL (81-99); Mean Platelet Volume 8.8 fL (7.4-10.4); Monocytes # 0.9 10^3/uL (0.2-0.9); Monocytes % 6.9 %; Neutrophils # 7.59 10^3/uL (1.8-7.7); Neutrophils % 58.6 %; Nucleated Red Blood Cells % 0 %; Platelet Count 462 10^3/cmm (130-400); Red Blood Count 5.15 10^6/uL (4.1-5.3); Red Cell Distribution Width 12.9 % (12.1-15.1)
[2020-08-19] MEDS: lidocaine 2% viscous 15 ML, aluminum-mag hydrox-simethicon 30 ML, sucralfate oral liq 1 GM PO (22:52)
[2020-08-19 22:54] VITALS: BP 154/108; PULSE 140
[2020-08-19 22:58] LABS: Alanine Aminotransferase 21 U/L (0-33); Albumin Level 4.8 g/dL (3.5-5.2); Alkaline Phosphatase 64 IU/L (35-105); Anion Gap 17.3 (5-19); Aspartate Amino Transferase 13 U/L (0-32); Blood Urea Nitrogen 12 mg/dL (6-20); Calcium 9.4 mg/dL (8.5-10.5); Carbon Dioxide 28 mmol/L (22-29); Chloride 89 mmol/L (98-107); Globulin 3.1 g/dL (1.3-4.6); Glomerular Filtration Rate 108.1 mL/min (90-130); Glucose 232 mg/dL (65-115); Lipase 32 U/L (13-60); Osmolality Calculated 279 mOsm/kg (285-295); Potassium 3.3 mmol/L (3.5-5.1); Sodium 131 mmol/L (136-145); Total Protein 7.9 g/dL (6.6-8.7)
[2020-08-19 23:09] LABS: Slide Review Slide Review Perform
[2020-08-19] MEDS: metoclopramide 5 mg/mL SDV 2 mL 10 MG IVP (23:19)
[2020-08-19] MEDS: diphenhydrAMINE 50 mg/mL SDV 1mL IVP (23:19)
[2020-08-19] MEDS: LORazepam 2 mg/mL INJ 1 mL 1 MG IVP (23:20)
[2020-08-19] MEDS: sodium chloride 0.9% 1,000 ML 999 ML IV (23:20)
[2020-08-19 23:22] VITALS: PULSE 124; RESP 18
[2020-08-20] MEDS: sodium chloride 0.9% 1,000 ML 999 ML IV (00:17)
[2020-08-20 01:16] VITALS: BP 133/92; PULSE 120; RESP 18; TEMP 36.9; O2SAT 94
== END 2020-08-20 01:17 | disposition home or self-care (01) ==
PROVIDERS: Emergency Provider Emergency Medicine; PCP Family Medicine
DX: R11.2 Nausea with vomiting, unspecified (principal); Z87.891 Personal history of nicotine dependence
CPT/HCPCS: 36415; 80053; 83690; 85025; 96361; 96374; 96375; 99283; J1200; J2060; J2765; J7030

== ENCOUNTER 2020-10-28 12:01 | Emergency (ER) | payer SELFPAY ==
[2020-10-28] VITALS (8 sets, daily range): BP systolic 135–221; BP diastolic 78–123; PULSE 78–130; RESP 14–30; O2SAT 91–99; BMI 38.0
--- NOTE | 2020-10-28 12:04 | ECG_ITS ---
[facility] Test Date: 2020-10-28 Pat Name: Ananya Hernandez Department: Room: Gender: Female Loss Prevention Specialist: : 1975 Requested By: Maribel Rizo Order Number: [id number] Marmolejo MD: Villa Maddox M.D. Measurements Intervals [place] Rate: 84 P: 49 [place]: 141 QRS: 34 QRSD: 92 T: 30 QT: 402 QTc: 477 Interpretive Statements SINUS RHYTHM WITH MARKED SINUS ARRHYTHMIA Compared to ECG 05/23/2018 20:35:15 Sinus tachycardia no longer present Electronically Signed On 10-28-2020 18:59:57 CDT by Villa Maddox M.D. [id number]
--- NOTE | 2020-10-28 12:04 | XRR_ITS ---
PROCEDURE INFORMATION: Exam: XR Chest Exam date and time: 10/28/2020 12:04 PM Age: 45 years old Clinical indication: Pain; Chest pressure; Additional info: Chest pain TECHNIQUE: Imaging protocol: XR of the chest. Views: 1 view. COMPARISON: SD XR chest 1V portable [id number] 11/08/2019 2:58 PM FINDINGS: Lungs: Unremarkable. No consolidation. Pleural spaces: Unremarkable. No pleural effusion. No pneumothorax. Heart/Mediastinum: Unremarkable. No cardiomegaly. Bones/joints: Unremarkable. XR/XR chest 1V portable [id number] IMPRESSION: No significant cardiopulmonary abnormality.
--- NOTE | 2020-10-28 12:53 | ED_ITS ---
HPI - Arrhythmia/Palpitations General: Chief Complaint: Arrhythmia/Palpitations Stated Complaint: Chest Pain, Nausea and Vomiting Time Seen by Provider: 10/28/20 12:36 PFSH ED PFSH: Medical History (Updated 08/28/20 @ 00:00 by ) Cyclical vomiting Depression Tetrahydrocannabinol (THC) use disorder, mild, abuse Surgical History H/O shoulder surgery H/O: hysterectomy Hx of cholecystectomy Family History Mother CAD (coronary artery disease) Social History Smoking and tobacco status: former smoker Alcohol intake: never Household members: family Housing: House Female Reproductive History: Date of last menstrual period: 08/17/20 Course Vital Signs: Vital signs: Vital Signs Pulse Rate 96 10/28/20 12:12 Respiratory Rate 20 H 10/28/20 12:12 Blood Pressure 149/91 10/28/20 12:12 Pulse Oximetry 99 10/28/20 12:12 Discharge Plan Discharge Prescriptions: No Action Reglan 10 mg tablet 10 mg PO Q6H PRN (Reason: nausea and vomiting) Qty: 20 RF: 0 Protonix [address] for susp in packet 40 mg PO DAILY Qty: 30 RF: 0 haloperidol 5 mg tablet 5 mg PO BID Qty: 7 RF: 0 promethazine 25 mg tablet 25 mg PO Q6H PRN (Reason: nausea and vomiting) Qty: 14 RF: 0 amitriptyline 100 mg tablet 100 mg PO DAILY Qty: 14 RF: 0 Coding Level of Care Code ED Director Of Aviation for Ramon Hernandez
--- NOTE | 2020-10-28 13:05 | PC.NURSE ---
pt arrived to room at this time.
--- NOTE | 2020-10-28 13:17 | ED_ITS ---
HPI - Nausea/Vomiting/Diarrhea General: Chief complaint: Arrhythmia/Palpitations Stated complaint: Chest Pain, Nausea and Vomiting Time Seen by Provider: 10/28/20 12:36 History of Present Illness: MD elicited complaint: nausea and vomiting Pertinent past history: cyclical vomiting Onset (ago): hour(s) Description of vomiting: watery and bilious Associated nausea: Yes Associated abdominal pain: Yes Location of pain: Diffuse Severity: mild Quality: cramping Exacerbating factors: none Relieving factors: none Associated symtoms: Reports nausea; Denies altered mental status, anxiety, bloating, change in vision, chest pain, cough, diaphoresis, decreased urine output, dizziness, dysuria, epistaxis, fatigue, fecal incontinence, fevers/chills, malaise, myalgias or numbness Review of Systems Const: Denies: fatigue, malaise or diaphoresis Eyes: Denies: change in vision ENMT: Denies: epistaxis Card: Denies: chest pain Resp: Denies: dyspnea, productive cough or non-productive cough GI: Reports: nausea; Denies: bloating or fecal incontinence : Denies: dysuria Neuro: Denies: dizziness Psych: Denies: anxiety PFSH ED PFSH: Medical History (Updated 10/28/20 @ 17:52 by Moises Galeana DO) Cyclical vomiting Depression Tetrahydrocannabinol (THC) use disorder, mild, abuse Surgical History H/O shoulder surgery H/O: hysterectomy Hx of cholecystectomy Family History Mother CAD (coronary artery disease) Social History Smoking and tobacco status: former smoker Alcohol intake: never Household members: family Housing: House Female Reproductive History: Date of last menstrual period: 08/17/20 Physical Exam Const: COMMON NORMALS: no acute distress EXAM LIMITATIONS: no altered mental status GENERAL APPEARANCE: cooperative ORIENTATION/CONSCIOUSNESS: Yes awake, Yes oriented to person, Yes oriented to place and Yes oriented to time HENMT: COMMON NORMALS: normocephalic, atraumatic and hearing grossly normal bilaterally HEAD & SCALP: normocephalic and atraumatic Neck/C-Spine: COMMON NORMALS: no JVD Resp: COMMON NORMALS: normal respiratory effort, No retractions, No use of accessory muscles and clear to auscultation bilaterally AUSCULTATION: clear to auscultation bilaterally Cardio: COMMON NORMALS: no JVD, regular rate, regular rhythm and No murmurs present (Cardio) RATE: regular rate RHYTHM: regular rhythm GI: COMMON NORMALS: Soft to palpation and No hepatosplenomegaly present AUSCULTATION: Yes normoactive bowel sounds PALPATION: Yes Soft to palpation, No Tenderness to palpation present (GI), No Guarding due to palpation present (GI) and Yes No hepatosplenomegaly present Extremity: COMMON NORMALS: normal to inspection, capillary refill normal, no clubbing, cyanosis or edema, no calf tenderness and no pedal edema Neuro: SENSORIUM/ORIENTATION: Yes oriented to person, Yes oriented to place and Yes oriented to time Skin: COMMON NORMALS: no rashes or lesions noted GENERAL SKIN EXAM: no rashes or lesions noted Course ED course: Restart patient's Toprol give her 5 IV now and then 25 p.o. switch her to 25 daily of Toprol-XL. Her tachycardia is due to missing her doses of beta-janelle and getting a rebound tachycardia. She is feeling much better as far as the hyperemesis goes we will discharge her home with those changes. Vital Signs: Vital signs: Vital Signs Pulse Rate 124 H 10/28/20 16:28 Respiratory Rate 25 H 10/28/20 16:28 Blood Pressure 135/78 10/28/20 16:28 Pulse Oximetry 93 10/28/20 16:28 MDM - Nausea/Vomiting/Diarrhea Lab Data: Labs: Lab Results 10/28/20 10/28/20 10/28/20 Range/Units 13:40 13:40 13:40 WBC 10.7 H (4.0-10.0) 10^3/ uL RBC 4.54 (4.1-5.3) 10^6/u L Hgb 13.4 (11.5-15.3) g/dL Hct 40.4 (37.0-47.0) % MCV 89.0 (81-99) fL MCH 29.5 (28.0-34.0) pg MCHC 33.2 (30.0-36.0) g/dL RDW 13.6 (12.1-15.1) % Plt Count 440 H (130-400) 10^3/c mm MPV 9.2 (7.4-10.4) fL Neut % (Auto) 84.9 % Lymph % (Auto) 12.7 % [place] % (Auto) 1.9 % Eos % (Auto) 0.0 % Baso % (Auto) 0.1 % Neut # (Auto) 9.12 H (1.8-7.7) 10^3/u L Lymph # (Auto) 1.4 (0.8-4.8) 10^3/u L [place] # (Auto) 0.2 (0.2-0.9) 10^3/u L Eos # (Auto) 0.0 (0.0-0.8) 10^3/u L Baso # (Auto) 0.0 (0.0-0.1) 10^3/u L Nucleated RBC % (a uto) 0 % Nucleated RBCs # 0.0 /100WBC Sodium Cancelled Potassium Cancelled Chloride Cancelled Carbon Dioxide Cancelled Anion Gap Cancelled BUN Cancelled Creatinine Cancelled GFR Calculation Cancelled Glucose Cancelled Calculated Osmolal ity Cancelled Calcium Cancelled Total Bilirubin Cancelled AST Cancelled ALT Cancelled Alkaline Phosphata se Cancelled Troponin T Baselin e Cancelled Troponin T 120 Min [place] (0-10) ng/L Delta Troponin T (0-10) ABS# Total Protein Cancelled Albumin Cancelled Globulin Cancelled HCG, Qual Urine Color (Yellow) Urine Appearance (CLEAR) Urine pH (5-7) Ur Specific Gravit y (1.005-1.030) Urine Protein (Negative) Urine Glucose (UA) (Normal) Urine Ketones (Negative) Urine Blood (Negative) Urine Nitrate (Negative) Urine Bilirubin (Negative) Urine Urobilinogen (Negative) mg/dL Ur Leukocyte Chloe ase (Negative) Urine RBC (0-2) /hpf Urine WBC (0-5) /hpf Ur Squamous Epith Cells (0-5) /hpf Amorphous Sediment Urine Bacteria (NONE) /hpf Urine Mucus /hpf Urine Opiates Scre en (Negative) ng/mL Ur Barbiturates Sc reen (Negative) ng/mL Ur Phencyclidine S crn (Negative) ng/mL Ur Amphetamines Sc reen (Negative) ng/mL U Benzodiazepines Scrn (Negative) ng/mL Urine Cocaine Scre en (Negative) ng/mL U Marijuana (THC) Screen (Negative) ng/mL 10/28/20 10/28/20 10/28/20 Range/Units 13:40 14:44 14:44 WBC (4.0-10.0) 10^3/ uL RBC (4.1-5.3) 10^6/u L Hgb (11.5-15.3) g/dL Hct (37.0-47.0) % MCV (81-99) fL MCH (28.0-34.0) pg MCHC (30.0-36.0) g/dL RDW (12.1-15.1) % Plt Count (130-400) 10^3/c mm MPV (7.4-10.4) fL Neut % (Auto) % Lymph % (Auto) % [place] % (Auto) % Eos % (Auto) % Baso % (Auto) % Neut # (Auto) (1.8-7.7) 10^3/u L Lymph # (Auto) (0.8-4.8) 10^3/u L [place] # (Auto) (0.2-0.9) 10^3/u L Eos # (Auto) (0.0-0.8) 10^3/u L Baso # (Auto) (0.0-0.1) 10^3/u L Nucleated RBC % (a uto) % Nucleated RBCs # /100WBC Sodium 139 Potassium 3.5 Chloride 104 Carbon Dioxide 22 Anion Gap 16.5 BUN 6 Creatinine 0.6 GFR Calculation 108.1 Glucose 201 H Calculated Osmolal ity 291 Calcium 8.3 L Total Bilirubin 0.7 AST 17 ALT 25 Alkaline Phosphata se 61 Troponin T Baselin e 6 Troponin T 120 Min [place] (0-10) ng/L Delta Troponin T (0-10) ABS# Total Protein 6.2 L Albumin 3.9 Globulin 2.3 HCG, Qual Cancelled Urine Color (Yellow) Urine Appearance (CLEAR) Urine pH (5-7) Ur Specific Gravit y (1.005-1.030) Urine Protein (Negative) Urine Glucose (UA) (Normal) Urine Ketones (Negative) Urine Blood (Negative) Urine Nitrate (Negative) Urine Bilirubin (Negative) Urine Urobilinogen (Negative) mg/dL Ur Leukocyte Chloe ase (Negative) Urine RBC (0-2) /hpf Urine WBC (0-5) /hpf Ur Squamous Epith Cells (0-5) /hpf Amorphous Sediment Urine Bacteria (NONE) /hpf Urine Mucus /hpf Urine Opiates Scre en (Negative) ng/mL Ur Barbiturates Sc reen (Negative) ng/mL Ur Phencyclidine S crn (Negative) ng/mL Ur Amphetamines Sc reen (Negative) ng/mL U Benzodiazepines Scrn (Negative) ng/mL Urine Cocaine Scre en (Negative) ng/mL U Marijuana (THC) Screen (Negative) ng/mL 10/28/20 10/28/20 10/28/20 Range/Units 14:44 15:50 15:50 WBC (4.0-10.0) 10^3/ uL RBC (4.1-5.3) 10^6/u L Hgb (11.5-15.3) g/dL Hct (37.0-47.0) % MCV (81-99) fL MCH (28.0-34.0) pg MCHC (30.0-36.0) g/dL RDW (12.1-15.1) % Plt Count (130-400) 10^3/c mm MPV (7.4-10.4) fL Neut % (Auto) % Lymph % (Auto) % [place] % (Auto) % Eos % (Auto) % Baso % (Auto) % Neut # (Auto) (1.8-7.7) 10^3/u L Lymph # (Auto) (0.8-4.8) 10^3/u L [place] # (Auto) (0.2-0.9) 10^3/u L Eos # (Auto) (0.0-0.8) 10^3/u L Baso # (Auto) (0.0-0.1) 10^3/u L Nucleated RBC % (a uto) % Nucleated RBCs # /100WBC Sodium Potassium Chloride Carbon Dioxide Anion Gap BUN Creatinine GFR Calculation Glucose Calculated Osmolal ity Calcium Total Bilirubin AST ALT Alkaline Phosphata se Troponin T Baselin e Troponin T 120 Min [place] (0-10) ng/L Delta Troponin T (0-10) ABS# Total Protein Albumin Globulin HCG, Qual Negative Urine Color Straw (Yellow) Urine Appearance Clear (CLEAR) Urine pH 5 (5-7) Ur Specific Gravit y 1.020 (1.005-1.030) Urine Protein Neg (Negative) Urine Glucose (UA) 4+ H (Normal) Urine Ketones 2+ H (Negative) Urine Blood 3+ H (Negative) Urine Nitrate Negative (Negative) Urine Bilirubin Neg (Negative) Urine Urobilinogen Norm (Negative) mg/dL Ur Leukocyte Chloe ase Negative (Negative) Urine RBC 0-4 H (0-2) /hpf Urine WBC 5-10 H (0-5) /hpf Ur Squamous Epith Cells 0-4 H (0-5) /hpf Amorphous Sediment Not Reportable Urine Bacteria Trace (NONE) /hpf Urine Mucus 1+ /hpf Urine Opiates Scre en Negative (Negative) ng/mL Ur Barbiturates Sc reen Negative (Negative) ng/mL Ur Phencyclidine S crn Negative (Negative) ng/mL Ur Amphetamines Sc reen Negative (Negative) ng/mL U Benzodiazepines Scrn Positive H (Negative) ng/mL Urine Cocaine Scre en Negative (Negative) ng/mL U Marijuana (THC) Screen Positive H (Negative) ng/mL 10/28/20 Range/Units 17:14 WBC (4.0-10.0) 10^3/ uL RBC (4.1-5.3) 10^6/u L Hgb (11.5-15.3) g/dL Hct (37.0-47.0) % MCV (81-99) fL MCH (28.0-34.0) pg MCHC (30.0-36.0) g/dL RDW (12.1-15.1) % Plt Count (130-400) 10^3/c mm MPV (7.4-10.4) fL Neut % (Auto) % Lymph % (Auto) % [place] % (Auto) % Eos % (Auto) % Baso % (Auto) % Neut # (Auto) (1.8-7.7) 10^3/u L Lymph # (Auto) (0.8-4.8) 10^3/u L [place] # (Auto) (0.2-0.9) 10^3/u L Eos # (Auto) (0.0-0.8) 10^3/u L Baso # (Auto) (0.0-0.1) 10^3/u L Nucleated RBC % (a uto) % Nucleated RBCs # /100WBC Sodium Potassium Chloride Carbon Dioxide Anion Gap BUN Creatinine GFR Calculation Glucose Calculated Osmolal ity Calcium Total Bilirubin AST ALT Alkaline Phosphata se Troponin T Baselin e Troponin T 120 Min [place] 6.00 (0-10) ng/L Delta Troponin T 0 (0-10) ABS# Total Protein Albumin Globulin HCG, Qual Urine Color (Yellow) Urine Appearance (CLEAR) Urine pH (5-7) Ur Specific Gravit y (1.005-1.030) Urine Protein (Negative) Urine Glucose (UA) (Normal) Urine Ketones (Negative) Urine Blood (Negative) Urine Nitrate (Negative) Urine Bilirubin (Negative) Urine Urobilinogen (Negative) mg/dL Ur Leukocyte Chloe ase (Negative) Urine RBC (0-2) /hpf Urine WBC (0-5) /hpf Ur Squamous Epith Cells (0-5) /hpf Amorphous Sediment Urine Bacteria (NONE) /hpf Urine Mucus /hpf Urine Opiates Scre en (Negative) ng/mL Ur Barbiturates Sc reen (Negative) ng/mL Ur Phencyclidine S crn (Negative) ng/mL Ur Amphetamines Sc reen (Negative) ng/mL U Benzodiazepines Scrn (Negative) ng/mL Urine Cocaine Scre en (Negative) ng/mL U Marijuana (THC) Screen (Negative) ng/mL Discharge Plan Discharge Patient Disposition: Home Clinical Impression: Cyclical vomiting, Palpitations, Cannabinoid hyperemesis syndrome Condition: Stable Prescriptions: New Toprol XL 25 mg tablet extended release 24 hr 25 mg PO DAILY Qty: 30 RF: 0 No Action haloperidol 5 mg tablet 5 mg PO BID Qty: 7 RF: 0 promethazine 25 mg tablet 25 mg PO Q6H PRN (Reason: nausea and vomiting) Qty: 14 RF: 0 citalopram 20 mg tablet 20 mg PO DAILY RF: 0 nortriptyline 50 mg capsule 50 mg PO DAILY RF: 0 Discharge Orders: Discharge ED (Routine); Ordered 10/28/20 Ordered By: Moises Galeana Referrals: Doris Mcdowell DO [Primary Care Provider] - Discharge Diet: Clear Liquid Discharge Activity: Increase activity as tolerated Patient Instructions: Opioid Safety Coding Level of Care Code ED Seismic Prospecting Supervisor for Chg Fwd Exam Comprehensive
[2020-10-28] MEDS: LORazepam 2 mg/mL INJ 1 mL IVP (13:32)
[2020-10-28] MEDS: haloperidol inj 5 mg/mL INJ 1 mL IVP (13:32)
[2020-10-28] MEDS: sodium chloride 0.9% 1,000 ML 999 ML IV ×3 (13:34→15:54)
[2020-10-28 13:58] LABS: Basophils % 0.1 %; Hematocrit 40.4 % (37.0-47.0); Hemoglobin 13.4 g/dL (11.5-15.3); Lymphocytes # 1.4 10^3/uL (0.8-4.8); Lymphocytes % 12.7 %; Mean Corpuscular HGB Conc 33.2 g/dL (30.0-36.0); Mean Corpuscular Hemoglobin 29.5 pg (28.0-34.0); Mean Platelet Volume 9.2 fL (7.4-10.4); Monocytes # 0.2 10^3/uL (0.2-0.9); Monocytes % 1.9 %; Neutrophils # 9.12 10^3/uL (1.8-7.7); Neutrophils % 84.9 %; Nucleated Red Blood Cells % 0 %; Platelet Count 440 10^3/cmm (130-400); Red Blood Count 4.54 10^6/uL (4.1-5.3); Red Cell Distribution Width 13.6 % (12.1-15.1); White Blood Count 10.7 10^3/uL (4.0-10.0)
--- NOTE | 2020-10-28 14:04 | ECG_ITS ---
[facility] Test Date: 2020-10-28 Pat Name: Ananya Hernandez Department: Room: Gender: Female Physiotherapy Practice Manager: : 1975 Requested By: Maribel Rizo Order Number: [id number] Marmolejo MD: Villa Maddox M.D. Measurements Intervals [place] Rate: 124 P: 57 RI: 142 QRS: 48 QRSD: 89 T: 54 QT: 337 QTc: 484 Interpretive Statements SINUS TACHYCARDIA NONSPECIFIC ST & T-WAVE ABNORMALITY ABNORMAL RHYTHM ECG WARNING: DATA QUALITY MAY AFFECT INTERPRETATION Compared to ECG 10/28/2020 12:32:27 T-wave abnormality now present Sinus rhythm no longer present Sinus arrhythmia no longer present Electronically Signed On 10-28-2020 19:04:00 CDT by Villa Maddox M.D. [id number]
[2020-10-28] MEDS: lidocaine 2% viscous 15 ML, aluminum-mag hydrox-simethicon 30 ML, sucralfate oral liq 1 GM PO (14:16)
[2020-10-28 15:01] LABS: HCG, Serum Qual Negative (Negative)
[2020-10-28 15:08] LABS: Alanine Aminotransferase 25 U/L (0-33); Albumin Level 3.9 g/dL (3.5-5.2); Alkaline Phosphatase 61 IU/L (35-105); Anion Gap 16.5 (5-19); Aspartate Amino Transferase 17 U/L (0-32); Blood Urea Nitrogen 6 mg/dL (6-20); Calcium 8.3 mg/dL (8.5-10.5); Carbon Dioxide 22 mmol/L (22-29); Chloride 104 mmol/L (98-107); Creatinine Clr Calc Pharmacy 176.9442; Globulin 2.3 g/dL (1.3-4.6); Glomerular Filtration Rate 108.1 mL/min (90-130); Glucose 201 mg/dL (65-115); Osmolality Calculated 291 mOsm/kg (285-295); Potassium 3.5 mmol/L (3.5-5.1); Sodium 139 mmol/L (136-145); Total Bilirubin 0.7 mg/dL (0.15-1.2); Total Protein 6.2 g/dL (6.6-8.7)
[2020-10-28 15:09] LABS: Troponin(5th) Baseline 6 ng/L (0-10)
[2020-10-28 16:09] LABS: Amphetamines Screen Urine Negative (Negative); Barbiturates Screen Urine Negative (Negative); Benzodiazepines Screen Urine Positive (Negative); Cocaine Screen Urine Negative (Negative); Opiate Screen Urine Negative (Negative); PCP Screen Urine Negative (Negative); THC Screen Urine Positive (Negative)
[2020-10-28 16:19] LABS: Blood Urine 3+ (Negative); Glucose Urine UA 4+ (Normal); Ketones Urine 2+ (Negative); Protein Urine Neg (Negative); Urine Appearance Clear (CLEAR); Urine Color Straw (Yellow); pH Urine 5 (5-7)
[2020-10-28 16:20] LABS: Add Urine Culture? No; Add Urine Microscopic? YES; Bacteria Urine TRACE /hpf; Bilirubin Urine Neg (Negative); Leukocyte Esterase Urine Negative (Negative); Mucus Urine 1+ /hpf; Nitrate Urine Negative (Negative); RBC Urine 0-4 /hpf (0-2); Squamous Epithelial Cell Urine 0-4 /hpf (0-5); Urobilinogen Urine Norm (Negative)
[2020-10-28 17:36] LABS: Troponin 5 2HR Delta 0 ABS# (0-10)
[2020-10-28] MEDS: metoprolol succinate ER (24 HR) 25 mg Tablet PO (18:33)
[2020-10-28] MEDS: cefTRIAXone 1,000 MG in sodium chloride 0.9% (plus) 100 ML 200 MG IV (18:35)
[2020-10-28] MEDS: metoprolol tartrate 1 mg/1 mL SDV 5 mL 5 MG IV (18:35)
== END 2020-10-28 19:25 | disposition home or self-care (01) ==
PROVIDERS: Physician Assistant; Emergency Provider Family Medicine; PCP Family Medicine
DX: R11.10 Vomiting, unspecified (principal); F12.90 Cannabis use, unspecified, uncomplicated; R00.2 Palpitations; Z87.891 Personal history of nicotine dependence
CPT/HCPCS: 71045; 80053; 80306; 81001; 84484; 84703; 85025; 93005; 96361; 96365; 96375; 99284; J0696; J1630; J2060; J3490; J7030

== ENCOUNTER 2020-12-10 14:45 | Observation (INO) | payer SELFPAY ==
[2020-12-10] VITALS (13 sets, daily range): BP systolic 110–157; BP diastolic 72–108; PULSE 95–130; RESP 15–21; TEMP 36.8–37.2; O2SAT 89–100; BMI 38.0
--- NOTE | 2020-12-10 14:55 | W.ED.GENADLT ---
HPI - General Adult General: Chief complaint: Weakness Stated complaint: WEAK, HEART RACING Time Seen by Provider: 12/10/20 14:54 History of Present Illness: HPI narrative: Ms. Hernandez is a 45-year-old lady with history of cyclic vomiting and hypertension who presents to the emergency department due to generalized malaise and weakness. She reports a number of week history of being in a cyclic cycle with recurrent vomiting. Vomiting stopped on Wednesday however since that time she has had fluttering in her chest and felt generalized weakness. Overall the course of symptoms has stayed about the same. The intensity is moderate to severe. She reports noncompliance with her medication regimen. No other significant infectious symptoms or changes in health reported. Her symptoms are worse with exacerbation but do not occur with rest. No other specific exacerbating, alleviating, or provoking factor identified. She has had similar episodes in the past. Review of Systems General: Reports: 10 or more systems reviewed and unremarkable except in HPI and below Narrative: CONSTITUTIONAL: denies fever, positive for generalized weakness and fatigue EYES - denies pain, denies loss of vision EARS - denies ear issues. NOSE - denies congestion or rhinorrhea. THROAT - denies sore throat or difficulty swallowing. CARDIOVASCULAR - denies chest pain. Does endorse palpitations. RESPIRATORY - denies shortness of breath and cough GASTROINTESTINAL -see HPI GENITOURINARY - denies dysuria or urinary frequency MUSCULOSKELETAL- denies deformity or pain SKIN - denies rashes or new changed skin lesions NEUROLOGIC - denies focal weakness or sensory changes HEMATOLOGIC/LYMPHATIC - denies easy bruising or lymphadenopathy. [facility] ED PFSH: Medical History (Updated 12/11/20 @ 02:59 by Ruma Beverly MD) BMI 38.0-38.9,adult Cyclical vomiting Depression Diabetes mellitus, type II History of cardiac arrhythmia Details not clear but on chronic beta-blockade Tetrahydrocannabinol (THC) use disorder, mild, abuse Surgical History (Updated 12/11/20 @ 02:39 by Ruma Beverly MD) H/O shoulder surgery H/O: hysterectomy History of tubal ligation Hx of cholecystectomy Family History Mother CAD (coronary artery disease) Social History (Updated 12/11/20 @ 02:34 by Ruma Beverly MD) Smoking and tobacco status: former smoker Alcohol intake: never Substance/Drug Use: former Date of last use: one month ago last thc Household members: family Housing: House Female Reproductive History: Date of last menstrual period: 08/17/20 Physical Exam Narrative: EXAM NARRATIVE: GENERAL/CONSTITUTIONAL -somewhat ill-appearing. No acute distress. Eyes - PERRL, no conjunctival injection ENMT - Atraumatic external nose and ears. Dry mucous membranes NECK - supple. trachea midline CARDIOVASCULAR -tachycardic rate and regular rhythm. RESPIRATORY -clear to auscultation bilaterally. No retractions or accessory muscle use. ABDOMEN/GI - Nontender, Nondistended. No tenderness to percussion or evidence of peritonitis MSK - Extremities without obvious deformity or tenderness to palpation SKIN - Warm, Dry NEURO - alert and appropriately oriented. strength and sensation intact. Moves all extremities equally. PSYCH - Appropriate mood and affect Course ED course: - Patient was seen and evaluated by me at bedside - Patient placed on cardiac monitors, IV access obtained - Initial evaluation notable for mildly ill-appearing, tachycardic. - Labs and imaging obtained and reviewed - Fluids and symptom control ordered - Labs notable for evidence of hemoconcentration and hypokalemia. Lactate elevated. - Imaging notable for ED read of chest x-ray with no lobar consolidation or pneumothorax -given history of not taking her metoprolol and little improvement with IV fluids and heart rate a dose of metoprolol was given which improved heart rate and palpitations that the patient was feeling. - after IV fluid resuscitation and potassium replenishment repeat BMP ordered. Lactate continues to be elevated, it is unclear of why this up trended, no evidence of ischemia and extremely low clinical suspicion based on abdominal exam for bowel ischemia. - Upon serial reexamination after treatment the patient was only minimally improved - Based on patient history, evaluation, labs, and imaging as interpreted the most likely cause of the patient's condition is dehydration secondary to cyclic vomiting. -She was not able to tolerate p.o. intake - The results of ED evaluation were discussed with the patient including plan for admission due to requirement for level of care not available if discharged to prevent significant worsening/deterioration. - Admitting service was contacted and Dr Beverly with the hospitalist/internal medicine service agreed to admit the patient - Patient was admitted without further deterioration or significant events. Vital Signs: Vital signs: Vital Signs Temperature 98.2 F 12/12/20 08:00 Pulse Rate 112 H 12/12/20 08:51 Respiratory Rate 18 12/12/20 08:51 Blood Pressure 142/87 12/12/20 08:00 Pulse Oximetry 97 12/12/20 08:51 [facility] - General Adult Medical Records: Attestation: I reviewed the patient's medical records. Lab Data: Attestation: I reviewed the patient's lab results. Labs: Lab Results 12/10/20 12/10/20 12/10/20 Range/Units 15:33 15:38 15:40 WBC 11.8 H (4.0-10.0) 10^3/ uL RBC 5.44 H (4.1-5.3) 10^6/u L Hgb 16.2 H (11.5-15.3) g/dL Hct 47.1 H (37.0-47.0) % MCV 86.6 (81-99) fl MCH 29.8 (28.0-34.0) pg MCHC 34.4 (30.0-36.0) g/dL RDW 12.5 (12.1-15.1) % Plt Count 447 H (130-400) 10^3/c mm MPV 9.1 (7.4-10.4) fL Neut % (Auto) 60.3 % Lymph % (Auto) 32.3 % [place] % (Auto) 6.1 % Eos % (Auto) 0.7 % Baso % (Auto) 0.3 % Neut # (Auto) 7.12 (1.8-7.7) 10^3/u L Lymph # (Auto) 3.8 (0.8-4.8) 10^3/u L [place] # (Auto) 0.7 (0.2-0.9) 10^3/u L Eos # (Auto) 0.1 (0.0-0.8) 10^3/u L Baso # (Auto) 0.0 (0.0-0.1) 10^3/u L Nucleated RBC % (a uto) 0 % Nucleated RBCs # 0.0 /100WBC Sodium (136-145) mmol/L Potassium (3.5-5.1) mmol/L Chloride (98-107) mmol/L Carbon Dioxide (22-29) mmol/L Anion Gap (5-19) BUN (6-20) mg/dL Creatinine (0.5-0.9) mg/dL GFR Calculation (90-130) mL/min Glucose (65-115) mg/dL POC Glucose 275 H (70-110) mg/dL Calculated Osmolal ity (285-295) mOsm/k g Lactate (0.5-2.2) mmol/L Calcium (8.5-10.5) mg/dL Phosphorus (2.5-4.5) mg/dL Magnesium (1.7-2.3) mg/dL Total Bilirubin (0.15-1.2) mg/dL AST (0-32) U/L ALT (0-33) U/L Alkaline Phosphata se (35-105) IU/L Creatine Kinase (26-192) U/L Total Protein (6.6-8.7) g/dL Albumin (3.5-5.2) g/dL Globulin (1.3-4.6) g/dL TSH (0.27-4.20) uIU/ mL HCG, Qual (Negative) Urine Color Straw (Yellow) Urine Appearance Clear (CLEAR) Urine pH 5 (5-7) Ur Specific Gravit y 1.020 (1.005-1.030) Urine Protein Neg (Negative) Urine Glucose (UA) 2+ H (Normal) Urine Ketones 1+ H (Negative) Urine Blood Neg (Negative) Urine Nitrate Negative (Negative) Urine Bilirubin Neg (Negative) Urine Urobilinogen 1 H (Negative) mg/dL Ur Leukocyte Chloe ase Negative (Negative) 12/10/20 12/10/20 12/10/20 Range/Units 15:40 15:40 15:40 WBC (4.0-10.0) 10^3/ uL RBC (4.1-5.3) 10^6/u L Hgb (11.5-15.3) g/dL Hct (37.0-47.0) % MCV (81-99) fl MCH (28.0-34.0) pg MCHC (30.0-36.0) g/dL RDW (12.1-15.1) % Plt Count (130-400) 10^3/c mm MPV (7.4-10.4) fL Neut % (Auto) % Lymph % (Auto) % [place] % (Auto) % Eos % (Auto) % Baso % (Auto) % Neut # (Auto) (1.8-7.7) 10^3/u L Lymph # (Auto) (0.8-4.8) 10^3/u L [place] # (Auto) (0.2-0.9) 10^3/u L Eos # (Auto) (0.0-0.8) 10^3/u L Baso # (Auto) (0.0-0.1) 10^3/u L Nucleated RBC % (a uto) % Nucleated RBCs # /100WBC Sodium 128 L (136-145) mmol/L Potassium 3.1 L (3.5-5.1) mmol/L Chloride 80 L (98-107) mmol/L Carbon Dioxide 35 H (22-29) mmol/L Anion Gap 16.1 (5-19) BUN 12 (6-20) mg/dL Creatinine 0.7 (0.5-0.9) mg/dL GFR Calculation 90.5 (90-130) mL/min Glucose 293 H (65-115) mg/dL POC Glucose (70-110) mg/dL Calculated Osmolal ity 277 L (285-295) mOsm/k g Lactate 2.6 H (0.5-2.2) mmol/L Calcium 10.0 (8.5-10.5) mg/dL Phosphorus 2.8 (2.5-4.5) mg/dL Magnesium 1.9 (1.7-2.3) mg/dL Total Bilirubin 1.2 (0.15-1.2) mg/dL AST 15 (0-32) U/L ALT 20 (0-33) U/L Alkaline Phosphata se 69 (35-105) IU/L Creatine Kinase 22 L (26-192) U/L Total Protein 7.4 (6.6-8.7) g/dL Albumin 4.4 (3.5-5.2) g/dL Globulin 3.0 (1.3-4.6) g/dL TSH 0.76 (0.27-4.20) uIU/ mL HCG, Qual Negative (Negative) Urine Color (Yellow) Urine Appearance (CLEAR) Urine pH (5-7) Ur Specific Gravit y (1.005-1.030) Urine Protein (Negative) Urine Glucose (UA) (Normal) Urine Ketones (Negative) Urine Blood (Negative) Urine Nitrate (Negative) Urine Bilirubin (Negative) Urine Urobilinogen (Negative) mg/dL Ur Leukocyte Chloe ase (Negative) 12/10/20 12/10/20 Range/Units 18:16 20:21 WBC (4.0-10.0) 10^3/ uL RBC (4.1-5.3) 10^6/u L Hgb (11.5-15.3) g/dL Hct (37.0-47.0) % MCV (81-99) fl MCH (28.0-34.0) pg MCHC (30.0-36.0) g/dL RDW (12.1-15.1) % Plt Count (130-400) 10^3/c mm MPV (7.4-10.4) fL Neut % (Auto) % Lymph % (Auto) % [place] % (Auto) % Eos % (Auto) % Baso % (Auto) % Neut # (Auto) (1.8-7.7) 10^3/u L Lymph # (Auto) (0.8-4.8) 10^3/u L [place] # (Auto) (0.2-0.9) 10^3/u L Eos # (Auto) (0.0-0.8) 10^3/u L Baso # (Auto) (0.0-0.1) 10^3/u L Nucleated RBC % (a uto) % Nucleated RBCs # /100WBC Sodium 129 L (136-145) mmol/L Potassium 3.0 L (3.5-5.1) mmol/L Chloride 83 L (98-107) mmol/L Carbon Dioxide 31 H (22-29) mmol/L Anion Gap 18.0 (5-19) BUN 10 (6-20) mg/dL Creatinine 0.6 (0.5-0.9) mg/dL GFR Calculation 108.1 (90-130) mL/min Glucose 234 H (65-115) mg/dL POC Glucose (70-110) mg/dL Calculated Osmolal ity 275 L (285-295) mOsm/k g Lactate 3.3 H (0.5-2.2) mmol/L Calcium 9.5 (8.5-10.5) mg/dL Phosphorus (2.5-4.5) mg/dL Magnesium (1.7-2.3) mg/dL Total Bilirubin (0.15-1.2) mg/dL AST (0-32) U/L ALT (0-33) U/L Alkaline Phosphata se (35-105) IU/L Creatine Kinase (26-192) U/L Total Protein (6.6-8.7) g/dL Albumin (3.5-5.2) g/dL Globulin (1.3-4.6) g/dL TSH (0.27-4.20) uIU/ mL HCG, Qual (Negative) Urine Color (Yellow) Urine Appearance (CLEAR) Urine pH (5-7) Ur Specific Gravit y (1.005-1.030) Urine Protein (Negative) Urine Glucose (UA) (Normal) Urine Ketones (Negative) Urine Blood (Negative) Urine Nitrate (Negative) Urine Bilirubin (Negative) Urine Urobilinogen (Negative) mg/dL Ur Leukocyte Chloe ase (Negative) Discharge Plan Discharge Patient Disposition: Admitted As Inpatient Admit Provider: Ruma Beverly Coding Level of Care Code ED Sandwich Hand for Ramon Hernandez
--- NOTE | 2020-12-10 15:14 | XRR_ITS ---
PROCEDURE INFORMATION: Exam: XR Chest Exam date and time: 12/10/2020 3:14 PM Age: 45 years old Clinical indication: Other: Tachycardia TECHNIQUE: Imaging protocol: XR of the chest. Views: 1 view. COMPARISON: CR XR chest 1V portable [id number] 10/28/2020 12:53 PM FINDINGS: Lungs: Unremarkable. No consolidation. Pleural spaces: Unremarkable. No pleural effusion. No pneumothorax. Heart/Mediastinum: Unremarkable. No cardiomegaly. Bones/joints: Unremarkable. XR/XR chest 1V portable [id number] IMPRESSION: No acute findings.
[2020-12-10 15:36] LABS: Glucose Point of Care 275 mg/dL (70-110)
[2020-12-10 15:46] LABS: Basophils % 0.3 %; Eosinophils # 0.1 10^3/uL (0.0-0.8); Eosinophils % 0.7 %; Hematocrit 47.1 % (37.0-47.0); Hemoglobin 16.2 g/dL (11.5-15.3); Lymphocytes # 3.8 10^3/uL (0.8-4.8); Lymphocytes % 32.3 %; Mean Corpuscular HGB Conc 34.4 g/dL (30.0-36.0); Mean Corpuscular Hemoglobin 29.8 pg (28.0-34.0); Mean Corpuscular Volume 86.6 fl (81-99); Mean Platelet Volume 9.1 fL (7.4-10.4); Monocytes # 0.7 10^3/uL (0.2-0.9); Monocytes % 6.1 %; Neutrophils # 7.12 10^3/uL (1.8-7.7); Neutrophils % 60.3 %; Nucleated Red Blood Cells % 0 %; Platelet Count 447 10^3/cmm (130-400); Red Blood Count 5.44 10^6/uL (4.1-5.3); Red Cell Distribution Width 12.5 % (12.1-15.1); White Blood Count 11.8 10^3/uL (4.0-10.0)
--- NOTE | 2020-12-10 15:50 | PC.PHAR ---
PT STATES THAT SHE IS STILL TAKING ATIVAN BUT IT HASN'T BEEN FILLED FOR OVER A MONTH. GLYBURIDE WAS PRESCRIBED BUT THE PHARMACY STATES SHE NEVER PICKED IT UP AND THEY FINALLY CANCELLED IT.
--- NOTE | 2020-12-10 15:59 | PC.NURSE ---
PATIENT REPORTS VOMITING IN THE RESTROOM DURING VOID COLLECTION AND ONCE BACK IN THE BATHROOM.
[2020-12-10] MEDS: sodium chloride 0.9% 1,000 ML 999 ML IV (16:01)
[2020-12-10 16:03] LABS: Add Urine Microscopic? NO; Charge for UA Resulting for Rev
[2020-12-10 16:03] LABS: HCG, Serum Qual Negative (Negative)
[2020-12-10 16:07] LABS: Lactate (Lactic Acid level) 2.6 mmol/L (0.5-2.2)
[2020-12-10 16:15] LABS: Protein Urine Neg (Negative); Urine Appearance Clear (CLEAR); Urine Color Straw (Yellow); pH Urine 5 (5-7)
[2020-12-10 16:16] LABS: Bilirubin Urine Neg (Negative); Blood Urine Neg (Negative); Glucose Urine UA 2+ (Normal); Ketones Urine 1+ (Negative); Leukocyte Esterase Urine Negative (Negative); Nitrate Urine Negative (Negative); Urobilinogen Urine 1 mg/dL (Negative)
[2020-12-10 16:16] LABS: Alanine Aminotransferase 20 U/L (0-33); Albumin Level 4.4 g/dL (3.5-5.2); Alkaline Phosphatase 69 IU/L (35-105); Anion Gap 16.1 (5-19); Aspartate Amino Transferase 15 U/L (0-32); Blood Urea Nitrogen 12 mg/dL (6-20); Carbon Dioxide 35 mmol/L (22-29); Chloride 80 mmol/L (98-107); Creatine Phosphokinase 22 U/L (26-192); Creatinine Clr Calc Pharmacy 151.6664; Glomerular Filtration Rate 90.5 mL/min (90-130); Glucose 293 mg/dL (65-115); Magnesium 1.9 mg/dL (1.7-2.3); Osmolality Calculated 277 mOsm/kg (285-295); Phosphorus 2.8 mg/dL (2.5-4.5); Potassium 3.1 mmol/L (3.5-5.1); Sodium 128 mmol/L (136-145); Thyroid Stimulating Hormone 0.76 uIU/mL (0.27-4.20); Total Bilirubin 1.2 mg/dL (0.15-1.2); Total Protein 7.4 g/dL (6.6-8.7)
[2020-12-10] MEDS: lactated ringers 1,000 ML 999 ML IV ×2 (16:26→18:09)
[2020-12-10] MEDS: lidocaine 1% 5 ML in potassium chloride premix 100 ML 25 ML IV (16:57)
[2020-12-10] MEDS: potassium chloride oral liq 20 mEq/15 mL UDC 40 MEQ PO (17:00)
--- NOTE | 2020-12-10 17:03 | PC.NURSE ---
THIS NURSE ADMINISTERED POTASSIUM CHLORIDE ORAL SOLUTION OF 30 ML TO PATIENT. PATIENT IMMEDIATELY STATED THAT IT TASTED TERRIBLE AND THEN VOMITED. PATIENT STARTED ON POTASSIUM CHLORIDE/LIDOCAINE AT 25 ML/HR BUT PATIENT REQUESTED IT BE STOPPED DUE TO BURNING UP ENTIRE ARM. PHYSICIAN NOTIFIED.
[2020-12-10] MEDS: metoprolol tartrate 1 mg/1 mL SDV 5 mL 5 MG IVP ×2 (17:39→22:27)
[2020-12-10] MEDS: ondansetron 2 mg/ML SDV 2 mL 4 MG IVP (17:39)
--- NOTE | 2020-12-10 17:45 | PC.NURSE ---
THIS NURSE RESTARTED POTASSIUM AT 1725. REENTERED PATIENT ROOM TO ADMINISTER ADDITIONAL MEDICATION. PATIENT TOLERATING POTASSIUM WELL. PATIENT NAUSEA DECREASED. PATIENT ROOM IS DARK AND QUIET, ADDITIONAL BLANKET GIVEN. PATIENT HAS NO FURTHER NEEDS AT THIS TIME.
[2020-12-10 20:13] LABS: Lactate (Lactic Acid level) 3.3 mmol/L (0.5-2.2)
[2020-12-10] MEDS: metoclopramide 5 mg/mL SDV 2 mL 10 MG IVP (20:20)
[2020-12-10] MEDS: diphenhydrAMINE 50 mg/mL SDV 1mL 12.5 MG IVP (20:20)
--- NOTE | 2020-12-10 20:26 | PC.NURSE ---
PATIENT CONTINUES TO VOMIT AND DRY HEAVE. PATIENT VOMIT CONSISTS OF MAINLY BILE AND WATERY LIQUID. PATIENT STATES THAT THIS HAS BEEN OCCURRING FOR APPROXIMATELY 3 WEEKS. NO FURTHER NEEDS AT THIS TIME.
[2020-12-10 20:46] LABS: Blood Urea Nitrogen 10 mg/dL (6-20); Calcium 9.5 mg/dL (8.5-10.5); Carbon Dioxide 31 mmol/L (22-29); Chloride 83 mmol/L (98-107); Creatinine Clr Calc Pharmacy 176.9442; Glomerular Filtration Rate 108.1 mL/min (90-130); Glucose 234 mg/dL (65-115); Osmolality Calculated 275 mOsm/kg (285-295); Sodium 129 mmol/L (136-145)
--- NOTE | 2020-12-10 21:04 | PC.NURSE ---
THIS NURSE CHECKED ON THE PATIENT. PATIENT STATES AGAIN THAT SHE HASN'T CONSUMED MUCH IN APPROXIMATELY 3 WEEKS. PATIENT REQUESTED FOLLOW UP WITH DR WORTHY. PHYSICIAN NOTIFIED. CRACKERS AND CLEAR LIQUIDS LEFT FOR PATIENT TO TRY AND EAT. NO FURTHER NEEDS AT THIS TIME.
[2020-12-11] VITALS (9 sets, daily range): BP systolic 138–163; BP diastolic 87–96; PULSE 103–127; RESP 15–20; TEMP 36.6–37.2; O2SAT 90–97
--- NOTE | 2020-12-11 00:30 | PM.HP ---
Providers/Chief Complaint Admitting Physician: Ruma Beverly MD Primary Care Provider: Doris Mcdowell DO Chief Complaint: WEAK, HEART RACING History of Present Illness Ananya Hernandez is a 45 year old female with a history of cyclical vomiting who presented to the emergency room with chief complaint of weakness and not feeling well. She has been having recurrent vomiting for the last 3 weeks. Has not been able to keep medications down nor sustain much oral intake. She has been trying to take Phenergan and other medications at home but has not been able to keep them down consistently. She states IV Haldol probably helps her the most when she gets like this. She does not report ongoing THC use. Had not had a bowel movement for a few weeks but did have 1 yesterday that was soft. In the emergency room she received several liters of fluid and several doses of antiemetics as well as some potassium and magnesium replacement. Despite all of this she had persistent vomiting and abnormal laboratory studies. Request was made for admission for further management. Nothing that she has been given this evening thus far has really helped very much in terms of controlling her overall symptoms. Review of Systems Const: Denies: fever(s) or chills ENMT: Reports: dry mouth; Denies: odynophagia Card: Denies: chest pain, palpitations or edema Resp: Denies: dyspnea, productive cough or non-productive cough GI: Reports: nausea, vomiting and constipation (had a bowel movement today, soft); Denies: abdominal pain, hematemesis, dysphagia, diarrhea, hematochezia or melena : Denies: difficulty voiding Musc: Denies: extremity swelling Skin/Breast: Reports: other (lips really dry, cracking, bleeing inside with vomiting) Lauri/Lymph: Denies: easy bruising or easy bleeding Medications/Allergies Home Medications Medication Instructions Recorded Confirmed Last Taken Type promethazine 25 mg PO Q6H PRN #14 tab 06/02/19 12/10/20 Unknown Rx haloperidol 5 mg PO BID #7 tab 05/05/20 12/10/20 Unknown Rx citalopram 20 mg PO DAILY 10/28/20 12/10/20 10/27/20 History metoprolol succinate [Toprol XL] 25 mg PO DAILY #30 tab 10/28/20 12/10/20 Unknown Rx nortriptyline 100 mg PO DAILY 10/28/20 12/10/20 10/27/20 History L. acidophilus-L. rhamnosus 1 cap PO DAILY 12/10/20 12/10/20 Unknown History [Probiotic] albuterol sulfate 1 puff INHALATION Q4H PRN 12/10/20 12/10/20 Unknown History lorazepam 1 mg PO BID PRN 12/10/20 12/10/20 Unknown History omeprazole 20 mg PO DAILY 12/10/20 12/10/20 Unknown History Allergies Allergy/AdvReac Type Severity Reaction Status Date / Time butorphanol [From Stadol] Allergy Intermediate ADR-Halluci Verified 12/12/19 23:38 nating Additional Medication Information I personally reviewed home medication list and medications received day of admission thus far. In the emergency room she received a couple of liters of lactated Ringer's, a liter of saline, some IV magnesium along with IV potassium. Attempt was made at oral potassium replacement but she threw that up. She was given Zofran, Reglan and Benadryl as well as a couple of doses of IV metoprolol for tachycardia. She is chronically on beta-blockade and had not had any for some time. PFSH Acute PFSH: Medical History (Updated 12/11/20 @ 02:59 by Ruma Beverly MD) BMI 38.0-38.9,adult Cyclical vomiting Depression Diabetes mellitus, type II History of cardiac arrhythmia Details not clear but on chronic beta-blockade Tetrahydrocannabinol (THC) use disorder, mild, abuse Surgical History (Updated 12/11/20 @ 02:39 by Ruma Beverly MD) H/O shoulder surgery H/O: hysterectomy History of tubal ligation Hx of cholecystectomy Family History Mother CAD (coronary artery disease) Social History (Updated 12/11/20 @ 02:34 by Ruma Beverly MD) Smoking and tobacco status: former smoker Alcohol intake: never Substance/Drug Use: former Date of last use: one month ago last thc Household members: family Housing: House Vitals/I&O/Wt Last Vital Signs Temp 98.9 F 12/10/20 23:05 Pulse 114 H 12/10/20 23:05 Resp 17 12/10/20 23:05 BP 110/72 12/10/20 23:05 Pulse Ox 93 12/10/20 23:05 12/10/20 12/10/20 12/11/20 14:59 22:59 06:59 Intake Total 2567.917 / 2567.917 Balance 2567.917 / 2567.917 Weight last 48 hrs Weight 127.006 kg Weight 127.006 kg Physical Exam Narrative: EXAM NARRATIVE: Constitutional: Awake and alert, cooperative, ill-appearing HEENT: Normocephalic, atraumatic, mild scleral injection, nasopharynx is clear, oropharynx with dry membranes, no gross bleeding noted of the lips Neck: Large but supple Respiratory: Clear to auscultation bilaterally Cardiovascular: Regular rate and rhythm Abdomen: Soft, no significant tenderness, decreased bowel sounds Extremities: No pitting edema Skin: Dry, no rashes Neuro: Speech clear, face symmetric, moves all extremities Psych: Normal affect, moaning some of self soothing with nausea Data : 12/10/20 15:40 12/10/20 20:21 Other Labs: Laboratory Results WBC 11.8 10^3/uL (4.0-10.0) H 12/10/20 15:40 RBC 5.44 10^6/uL (4.1-5.3) H 12/10/20 15:40 Hgb 16.2 g/dL (11.5-15.3) H 12/10/20 15:40 Hct 47.1 % (37.0-47.0) H 12/10/20 15:40 MCV 86.6 fl (81-99) 12/10/20 15:40 MCH 29.8 pg (28.0-34.0) 12/10/20 15:40 MCHC 34.4 g/dL (30.0-36.0) 12/10/20 15:40 RDW 12.5 % (12.1-15.1) 12/10/20 15:40 Plt Count 447 10^3/cmm (130-400) H 12/10/20 15:40 MPV 9.1 fL (7.4-10.4) 12/10/20 15:40 Neut % (Auto) 60.3 % 12/10/20 15:40 Lymph % (Auto) 32.3 % 12/10/20 15:40 [place] % (Auto) 6.1 % 12/10/20 15:40 Eos % (Auto) 0.7 % 12/10/20 15:40 Baso % (Auto) 0.3 % 12/10/20 15:40 Neut # (Auto) 7.12 10^3/uL (1.8-7.7) 12/10/20 15:40 Lymph # (Auto) 3.8 10^3/uL (0.8-4.8) 12/10/20 15:40 [place] # (Auto) 0.7 10^3/uL (0.2-0.9) 12/10/20 15:40 Eos # (Auto) 0.1 10^3/uL (0.0-0.8) 12/10/20 15:40 Baso # (Auto) 0.0 10^3/uL (0.0-0.1) 12/10/20 15:40 Nucleated RBC % (auto) 0 % 12/10/20 15:40 Nucleated RBCs # 0.0 /100WBC 12/10/20 15:40 Sodium 129 mmol/L (136-145) L 12/10/20 20:21 Potassium 3.0 mmol/L (3.5-5.1) L 12/10/20 20:21 Chloride 83 mmol/L (98-107) L 12/10/20 20:21 Carbon Dioxide 31 mmol/L (22-29) H 12/10/20 20:21 Anion Gap 18.0 (5-19) 12/10/20 20:21 BUN 10 mg/dL (6-20) 12/10/20 20:21 Creatinine 0.6 mg/dL (0.5-0.9) 12/10/20 20:21 GFR Calculation 108.1 mL/min (90-130) 12/10/20 20:21 Glucose 234 mg/dL (65-115) H 12/10/20 20:21 POC Glucose 275 mg/dL (70-110) H 12/10/20 15:33 Calculated Osmolality 275 mOsm/kg (285-295) L 12/10/20 20:21 Lactate 3.3 mmol/L (0.5-2.2) H 12/10/20 18:16 Calcium 9.5 mg/dL (8.5-10.5) 12/10/20 20:21 Phosphorus 2.8 mg/dL (2.5-4.5) 12/10/20 15:40 Magnesium 1.9 mg/dL (1.7-2.3) 12/10/20 15:40 Total Bilirubin 1.2 mg/dL (0.15-1.2) 12/10/20 15:40 AST 15 U/L (0-32) 12/10/20 15:40 ALT 20 U/L (0-33) 12/10/20 15:40 Alkaline Phosphatase 69 IU/L (35-105) 12/10/20 15:40 Creatine Kinase 22 U/L (26-192) L 12/10/20 15:40 Total Protein 7.4 g/dL (6.6-8.7) 12/10/20 15:40 Albumin 4.4 g/dL (3.5-5.2) 12/10/20 15:40 Globulin 3.0 g/dL (1.3-4.6) 12/10/20 15:40 TSH 0.76 uIU/mL (0.27-4.20) 12/10/20 15:40 HCG, Qual Negative (Negative) 12/10/20 15:40 Urine Color Straw (Yellow) 12/10/20 15:38 Urine Appearance Clear (CLEAR) 12/10/20 15:38 Urine pH 5 (5-7) 12/10/20 15:38 Ur Specific [place] 1.020 (1.005-1.030) 12/10/20 15:38 Urine Protein Neg (Negative) 12/10/20 15:38 Urine Glucose (UA) 2+ (Normal) H 12/10/20 15:38 Urine Ketones 1+ (Negative) H 12/10/20 15:38 Urine Blood Neg (Negative) 12/10/20 15:38 Urine Nitrate Negative (Negative) 12/10/20 15:38 Urine Bilirubin Neg (Negative) 12/10/20 15:38 Urine Urobilinogen 1 mg/dL (Negative) H 12/10/20 15:38 Ur Leukocyte Esterase Negative (Negative) 12/10/20 15:38 Impressions Chest X-Ray 12/10/20 15:14 IMPRESSION: No acute findings. A&P Assessment and plan (1) Intractable vomiting with nausea: Status: Acute (2) Dehydration: Status: Acute (3) Hypokalemia: Status: Acute (4) Elevated lactic acid level: Status: Acute (5) Cyclical vomiting: Longstanding, has previously been evaluated by gastroenterology, has also been identified in the past is having THC use disorder contributing but denies current ongoing use. Status: Chronic (6) Diabetes mellitus, type II: Looks to be untreated, autonomic neuropathy could certainly be contributing to chronic cyclical vomiting/gastroparesis type picture. Currently with hyperglycemia and glucosuria. Status: Chronic Qualifiers: Diabetes mellitus moth exterminator insulin use: without nursing home use Diabetes mellitus complication status: with hyperglycemia Qualified Code(s): E11.65 - Type 2 diabetes mellitus with hyperglycemia Additional A&P Information Observation admission Zofran IV, [place] Phenergan, IV Ativan for nausea/vomiting control We will give IV Haldol x1 dose as well to see if we can break this current cycle IV fluids with potassium replacement Check magnesium and phosphorus levels Repeat lactic acid in the morning Check lipase Check hemoglobin A1c Sliding scale insulin low-dose and serial Accu-Cheks currently Had been prescribed glipizide previously but never filled the prescription Better management of her blood sugars long-term could certainly help with her GI symptoms Continue home metoprolol for history of arrhythmia Continue home citalopram as SSRI withdrawal could set off some of her symptoms Other home medications remain held currently Clear liquid diet PPI Low risk for VTE presently Supportive care otherwise Plans were discussed with patient she was given opportunity to ask questions Anticipate disposition home when symptoms improved Full code Attestations Medical Necessity Statement*: Currently anticipate a stay less than two midnights in a patient with history of cyclical vomiting with intractable vomiting and associated dehydration. Plans are as noted above. Coding Level of Care Code Acute Night Baker for g Fwd Diagnoses Intractable vomiting with nausea R11.2 Dehydration E86.0 Hypokalemia E87.6 Elevated lactic acid level R79.89 Cyclical vomiting R11.15 Diabetes mellitus, type II E11.65 Diabetes mellitus moth exterminator insulin use: without moth exterminator use Diabetes mellitus complication status: with hyperglycemia
[2020-12-11] MEDS: sodium chlor 0.9% + KCl 20 mEq 20 MEQ/1,000 ML BAG 150 MEQ IV ×4 (02:01→22:34)
[2020-12-11] MEDS: pantoprazole 40 mg SDV IVP ×2 (02:15→12:18)
[2020-12-11] MEDS: ondansetron 2 mg/ML SDV 2 mL 4 MG IVP ×4 (02:32→19:50)
[2020-12-11] MEDS: lanolin oint 7 gm 1 APPLIC TOPICAL (02:33)
[2020-12-11] MEDS: LORazepam 2 mg/mL INJ 1 mL 1 MG IVP ×2 (02:41→19:53)
[2020-12-11] MEDS: haloperidol inj 5 mg/mL INJ 1 mL 2.5 MG IVP (02:44)
[2020-12-11] MEDS: promethazine 25 mg Supp PR (02:45)
[2020-12-11 05:12] LABS: Basophils % 0.1 %; Eosinophils % 0.4 %; Hematocrit 42.1 % (37.0-47.0); Hemoglobin 14.4 g/dL (11.5-15.3); Lymphocytes # 2.3 10^3/uL (0.8-4.8); Mean Corpuscular HGB Conc 34.2 g/dL (30.0-36.0); Mean Corpuscular Hemoglobin 30.2 pg (28.0-34.0); Mean Corpuscular Volume 88.3 fl (81-99); Monocytes # 0.7 10^3/uL (0.2-0.9); Monocytes % 6.1 %; Neutrophils # 7.92 10^3/uL (1.8-7.7); Neutrophils % 71.8 %; Nucleated Red Blood Cells % 0 %; Platelet Count 365 10^3/cmm (130-400); Red Blood Count 4.77 10^6/uL (4.1-5.3); Red Cell Distribution Width 12.3 % (12.1-15.1)
[2020-12-11 05:27] LABS: Anion Gap 15.1 (5-19); Blood Urea Nitrogen 9 mg/dL (6-20); Calcium 9.2 mg/dL (8.5-10.5); Carbon Dioxide 32 mmol/L (22-29); Chloride 85 mmol/L (98-107); Creatinine Clr Calc Pharmacy 176.9442; Glomerular Filtration Rate 108.1 mL/min (90-130); Glucose 270 mg/dL (65-115); Lipase 30 U/L (13-60); Magnesium 1.7 mg/dL (1.7-2.3); Osmolality Calculated 276 mOsm/kg (285-295); Potassium 3.1 mmol/L (3.5-5.1); Sodium 129 mmol/L (136-145)
[2020-12-11 05:29] LABS: Lactate (Lactic Acid level) 1.6 mmol/L (0.5-2.2)
[2020-12-11 05:31] LABS: Estmated Average Glucose 169; Hemoglobin A1C 7.5 % (4.0-6.0)
[2020-12-11 06:58] LABS: Glucose Point of Care 239 mg/dL (70-110)
[2020-12-11] MEDS: docusate sodium 100 mg Capsule PO ×2 (08:45→18:11)
[2020-12-11] MEDS: citalopram 20 mg Tablet PO (08:45)
[2020-12-11] MEDS: metoprolol succinate ER (24 HR) 25 mg Tablet PO (08:46)
--- NOTE | 2020-12-11 08:54 | P.PN_ITS ---
Subjective Subjective: Interval history: Patient was seen and examined this morning continued to complain of persistent nausea and vomiting, still not able to tolerate p.o. intake. Medications: Reviewed: Yes Vitals/I&O/Wt Last Vital Signs Temp 97.9 F 12/11/20 08:27 Pulse 121 H 12/11/20 08:27 Resp 16 12/11/20 08:27 BP 163/96 12/11/20 08:27 Pulse Ox 97 12/11/20 08:27 12/10/20 12/11/20 12/11/20 22:59 06:59 14:59 Intake Total 2567.917 / 2567.917 52 / 2619.917 1000 / 1000 Balance 2567.917 / 2567.917 52 / 2619.917 1000 / 1000 Weight last 48 hrs Weight 127.006 kg Weight 127.006 kg Physical Exam Const: COMMON NORMALS: patient oriented x3 HENMT: COMMON NORMALS: normocephalic and atraumatic HEAD & SCALP: normocephalic and atraumatic Resp: COMMON NORMALS: clear to auscultation bilaterally AUSCULTATION: clear to auscultation bilaterally Cardio: COMMON NORMALS: regular rate, regular rhythm, S1 normal heart sound present, S2 normal heart sound present, No gallops present (Cardio), No murmurs present (Cardio), No rub (Cardio) and Peripheral pulses 2+ throughout RATE: regular rate RHYTHM: regular rhythm HEART SOUNDS: S1 normal heart sound present and S2 normal heart sound present PERIPHERAL PULSES: Peripheral pulses 2+ throughout GI: COMMON NORMALS: Normal to inspection, nondistended, normoactive bowel sounds present, Soft to palpation, non-tender, No hepatosplenomegaly present and no masses AUSCULTATION: Yes normoactive bowel sounds PALPATION: Yes Soft to palpation and Yes No hepatosplenomegaly present RECTAL EXAM: deferred Extremity: COMMON NORMALS: no clubbing, cyanosis or edema and no pedal edema Neuro: COMMON NORMALS: patient oriented x3 Data : 12/11/20 04:53 12/11/20 04:53 A&P Assessment and plan (1) Intractable vomiting with nausea: Intractable nausea and vomiting: Likely secondary to cannabinoid use disorder. Continue with Zofran, continue Reglan, continue Phenergan. Continue IV fluids Will encourage p.o. intake. Status: Acute (2) Dehydration: Status: Acute (3) Hypokalemia: Status: Acute (4) Elevated lactic acid level: Status: Acute (5) Cyclical vomiting: Longstanding, has previously been evaluated by gastroenterology, has also been identified in the past is having THC use disorder contributing but denies current ongoing use. Status: Chronic (6) Diabetes mellitus, type II: Looks to be untreated, autonomic neuropathy could certainly be contributing to chronic cyclical vomiting/gastroparesis type picture. Currently with hyperglycemia and glucosuria. Status: Chronic Qualifiers: Diabetes mellitus fci insulin use: without fci use Diabetes mellitus complication status: with hyperglycemia Qualified Code(s): E11.65 - Type 2 diabetes mellitus with hyperglycemia Additional A&P Information Observation admission Zofran IV, [place] Phenergan, IV Ativan for nausea/vomiting control We will give IV Haldol x1 dose as well to see if we can break this current cycle IV fluids with potassium replacement Check magnesium and phosphorus levels Repeat lactic acid in the morning Check lipase Check hemoglobin A1c Sliding scale insulin low-dose and serial Accu-Cheks currently Had been prescribed glipizide previously but never filled the prescription Better management of her blood sugars long-term could certainly help with her GI symptoms Continue home metoprolol for history of arrhythmia Continue home citalopram as SSRI withdrawal could set off some of her symptoms Other home medications remain held currently Clear liquid diet PPI Low risk for VTE presently Supportive care otherwise Plans were discussed with patient she was given opportunity to ask questions Anticipate disposition home when symptoms improved Full code Attestations Medical Necessity Statement*: Patient needs to be in hospital for management of intractable nausea vomiting, dehydration and need for IV fluids. Coding Level of Care Code Acute User Experience Developer for g Fwd Diagnoses Intractable vomiting with nausea R11.2 Dehydration E86.0 Hypokalemia E87.6 Elevated lactic acid level R79.89 Cyclical vomiting R11.15 Diabetes mellitus, type II E11.65 Diabetes mellitus intermediate teacher insulin use: without intermediate teacher use Diabetes mellitus complication status: with hyperglycemia
--- NOTE | 2020-12-11 09:25 | PC.CHAP ---
Pastoral Care Encounter/Spiritual Assessment Type of Contact [] Declined information services consultant visit [] Patient/Family/Request visit [] Outpatient visit [] Follow-up visit [] Physician referral [] Code/Alert [x] Routine visit [] Staff referral [] Actively dying [x] Patient sleeping [] Family support [] [] Out of room [] Palliative care [] [] Receiving care in room [] Pre-surgical visit [] Trauma [] Long length of stay [] ICU visit [] Other: Relational/Emotional Strength [] Patient feels connected with others/family/visitors/staff [] Distress [] Loneliness/isolation [] Abandonment Spirituality of Patient [] Person of Francie [] Attends Zoroastrian of their Francie [] Believes in Prayer [] Reads Bible or Catholic materials [] There are Spiritual issues to be addressed Technical Services Librarian Interventions [x] Prayer [] Active listening [] Non-anxious presence [] Spiritual/emotional support [] Crisis/trauma care [] Spiritual counseling [] Bereavement support [] Provided bereavement packet [] Provided Bible/devotional materials [] Provided toy/stuffed animal, coloring book to patient or family member [] Provided Communion [] Anointing/[place] [] Salvation [] Completed spiritual assessment [] Other: Impact on Illness or Injury [] Angry [] Fearful [] Anxious [] Often cries [] Exhaustion [] Unable to work [] Unable to attend baptism [] Unable to walk/stand [] Unable to read [] Unable to drive [] Unable to eat/drink [] Unable to sleep [] Unable to be with family [] Patient intubated [] Other: Summary Time spent with patient
[2020-12-11 11:52] LABS: Glucose Point of Care 205 mg/dL (70-110)
[2020-12-11] MEDS: metoclopramide 5 mg/mL SDV 2 mL IVP ×2 (14:10→18:13)
[2020-12-11 16:57] LABS: Glucose Point of Care 248 mg/dL (70-110)
[2020-12-11] MEDS: albuterol 8 gm MDI 1 PUFF INHALATION (20:24)
[2020-12-11 20:52] LABS: Hematocrit 38.1 % (37.0-47.0); Hemoglobin 12.7 g/dL (11.5-15.3); Mean Corpuscular HGB Conc 33.3 g/dL (30.0-36.0); Mean Corpuscular Hemoglobin 30.4 pg (28.0-34.0); Mean Corpuscular Volume 91.1 fl (81-99); Mean Platelet Volume 8.8 fL (7.4-10.4); Platelet Count 325 10^3/cmm (130-400); Red Blood Count 4.18 10^6/uL (4.1-5.3); Red Cell Distribution Width 12.5 % (12.1-15.1); White Blood Count 9.5 10^3/uL (4.0-10.0)
[2020-12-11 21:47] LABS: Eosinophils 1 %; Lymphocytes 38 %; Lymphocytes Absolute 4.2 10^3/cmm (1.2-3.4); Monocytes Absolute 0.2 10^3/cmm (0.1-0.6); Platelet Estimate Normal (Normal); Segmented Neutrophils 53 %; Total Cells Counted 100 (0-100)
[2020-12-12] VITALS (7 sets, daily range): BP systolic 142–155; BP diastolic 87–95; PULSE 97–112; RESP 16–22; TEMP 36.7–37; O2SAT 92–99
[2020-12-12] MEDS: pantoprazole 40 mg SDV IVP ×2 (00:09→15:31)
[2020-12-12] MEDS: metoclopramide 5 mg/mL SDV 2 mL IVP ×4 (00:12→22:09)
[2020-12-12] MEDS: ondansetron 2 mg/ML SDV 2 mL 4 MG IVP ×5 (00:12→22:08)
[2020-12-12] MEDS: albuterol 8 gm MDI 1 PUFF INHALATION (08:52)
[2020-12-12] MEDS: metoprolol succinate ER (24 HR) 25 mg Tablet PO (08:56)
[2020-12-12 09:18] LABS: Basophils % 0.2 %; Eosinophils # 0.2 10^3/uL (0.0-0.8); Eosinophils % 2.4 %; Hematocrit 38.5 % (37.0-47.0); Lymphocytes # 2.3 10^3/uL (0.8-4.8); Lymphocytes % 25.9 %; Mean Corpuscular HGB Conc 33.8 g/dL (30.0-36.0); Mean Corpuscular Hemoglobin 30.4 pg (28.0-34.0); Mean Platelet Volume 8.9 fL (7.4-10.4); Monocytes # 0.5 10^3/uL (0.2-0.9); Monocytes % 5.3 %; Neutrophils # 5.72 10^3/uL (1.8-7.7); Neutrophils % 65.7 %; Nucleated Red Blood Cells % 0 %; Platelet Count 325 10^3/cmm (130-400); Red Blood Count 4.28 10^6/uL (4.1-5.3); Red Cell Distribution Width 12.5 % (12.1-15.1); White Blood Count 8.7 10^3/uL (4.0-10.0)
[2020-12-12 09:21] LABS: Glucose Point of Care 257 mg/dL (70-110)
[2020-12-12 09:36] LABS: Anion Gap 14.1 (5-19); Blood Urea Nitrogen 9 mg/dL (6-20); Calcium 8.6 mg/dL (8.5-10.5); Carbon Dioxide 26 mmol/L (22-29); Chloride 94 mmol/L (98-107); Creatinine Clr Calc Pharmacy 176.9442; Glomerular Filtration Rate 108.1 mL/min (90-130); Glucose 217 mg/dL (65-115); Magnesium 1.8 mg/dL (1.7-2.3); Osmolality Calculated 277 mOsm/kg (285-295); Potassium 3.1 mmol/L (3.5-5.1); Sodium 131 mmol/L (136-145)
[2020-12-12 12:26] LABS: Glucose Point of Care 192 mg/dL (70-110)
[2020-12-12] MEDS: promethazine 25 mg/mL SDV 1 mL 12.5 MG IM (12:57)
--- NOTE | 2020-12-12 14:53 | P.PN_ITS ---
Subjective Subjective: Interval history: Patient was seen and examined this morning continued to complain of persistent nausea and vomiting, still not able to tolerate p.o. intake. Medications: Reviewed: Yes Vitals/I&O/Wt Last Vital Signs Temp 98.0 F 12/12/20 12:00 Pulse 97 12/12/20 12:00 Resp 20 H 12/12/20 12:00 BP 142/92 12/12/20 12:00 Pulse Ox 97 12/12/20 12:00 12/11/20 12/12/20 12/12/20 22:59 06:59 14:59 Intake Total 2720 / 3960 1280 / 5240 480 / 480 Balance 2720 / 3960 1280 / 5240 480 / 480 Weight last 48 hrs Weight 127.006 kg Weight 127.006 kg Physical Exam Const: COMMON NORMALS: patient oriented x3 HENMT: COMMON NORMALS: normocephalic and atraumatic HEAD & SCALP: normocephalic and atraumatic Resp: COMMON NORMALS: clear to auscultation bilaterally AUSCULTATION: clear to auscultation bilaterally Cardio: COMMON NORMALS: regular rate, regular rhythm, S1 normal heart sound present, S2 normal heart sound present, No gallops present (Cardio), No murmurs present (Cardio), No rub (Cardio) and Peripheral pulses 2+ throughout RATE: regular rate RHYTHM: regular rhythm HEART SOUNDS: S1 normal heart sound present and S2 normal heart sound present PERIPHERAL PULSES: Peripheral pulses 2+ throughout GI: COMMON NORMALS: Normal to inspection, nondistended, normoactive bowel sounds present, Soft to palpation, non-tender, No hepatosplenomegaly present and no masses AUSCULTATION: Yes normoactive bowel sounds PALPATION: Yes Soft to palpation and Yes No hepatosplenomegaly present RECTAL EXAM: deferred Extremity: COMMON NORMALS: no clubbing, cyanosis or edema and no pedal edema Neuro: COMMON NORMALS: patient oriented x3 Data : 12/12/20 09:03 12/12/20 09:03 A&P Assessment and plan (1) Intractable vomiting with nausea: Intractable nausea and vomiting: Likely secondary to cannabinoid use disorder. Continue with Zofran, continue Reglan, continue Phenergan. Continue IV fluids Will encourage p.o. intake. Status: Acute (2) Dehydration: Status: Acute (3) Hypokalemia: Status: Acute (4) Elevated lactic acid level: Status: Acute (5) Cyclical vomiting: Longstanding, has previously been evaluated by gastroenterology, has also been identified in the past is having THC use disorder contributing but denies current ongoing use. Status: Chronic (6) Diabetes mellitus, type II: Looks to be untreated, autonomic neuropathy could certainly be contributing to chronic cyclical vomiting/gastroparesis type picture. Currently with hyperglycemia and glucosuria. 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 insulin use: without shelter use Diabetes mellitus complication status: with hyperglycemia Qualified Code(s): E11.65 - Type 2 diabetes mellitus with hyperglycemia Additional A&P Information Observation admission Zofran IV, [place] Phenergan, IV Ativan for nausea/vomiting control We will give IV Haldol x1 dose as well to see if we can break this current cycle IV fluids with potassium replacement Check magnesium and phosphorus levels Repeat lactic acid in the morning Check lipase Check hemoglobin A1c Sliding scale insulin low-dose and serial Accu-Cheks currently Had been prescribed glipizide previously but never filled the prescription Better management of her blood sugars long-term could certainly help with her GI symptoms Continue home metoprolol for history of arrhythmia Continue home citalopram as SSRI withdrawal could set off some of her symptoms Other home medications remain held currently Clear liquid diet PPI Low risk for VTE presently Supportive care otherwise Plans were discussed with patient she was given opportunity to ask questions Anticipate disposition home when symptoms improved Full code Attestations Medical Necessity Statement*: Patient needs to be in hospital for management of intractable nausea vomiting, dehydration and need for IV fluids. Coding Level of Care Code Acute Office Lead for [facility] Diagnoses Intractable vomiting with nausea R11.2 Dehydration E86.0 Hypokalemia E87.6 Elevated lactic acid level R79.89 Cyclical vomiting R11.15 Diabetes mellitus, type II E11.65 Diabetes mellitus shelter insulin use: without shelter use Diabetes mellitus complication status: with hyperglycemia
[2020-12-12 17:22] LABS: Glucose Point of Care 151 mg/dL (70-110)
[2020-12-12] MEDS: sodium chlor 0.9% + KCl 20 mEq 20 MEQ/1,000 ML BAG 150 MEQ IV (18:04)
[2020-12-12 21:03] LABS: Glucose Point of Care 192 mg/dL (70-110)
[2020-12-12] MEDS: citalopram 20 mg Tablet PO (22:01)
--- NOTE | 2020-12-12 22:47 | PC.NURSE ---
pt up ad beatrice. pt states understanding of med given this evening. states she was on celexa before.. but we were giving it to her in the mornings and she takes them in the evenings. pt needs were a Popsicle. care taken over of this pt at 2200.
[2020-12-13] VITALS (7 sets, daily range): BP systolic 127–188; BP diastolic 83–132; PULSE 97–111; RESP 16–20; TEMP 36.7–37.6; O2SAT 93–100
[2020-12-13] MEDS: pantoprazole 40 mg SDV IVP ×3 (00:45→23:54)
[2020-12-13] MEDS: sodium chlor 0.9% + KCl 20 mEq 20 MEQ/1,000 ML BAG 150 MEQ IV (00:45)
[2020-12-13] MEDS: promethazine 25 mg/mL SDV 1 mL 12.5 MG IM ×2 (01:22→17:45)
[2020-12-13] MEDS: ondansetron 2 mg/ML SDV 2 mL 4 MG IVP ×6 (01:36→21:05)
--- NOTE | 2020-12-13 01:56 | PC.NURSE ---
call to dr fishman at this time. she said to titrate fluids down to 75 mls/ hr. also to give the prn dose of ativan. said to 'support pt through' also was told to call back if pt didnt level out in a few hours.
[2020-12-13] MEDS: metoclopramide 5 mg/mL SDV 2 mL IVP ×4 (04:00→21:05)
--- NOTE | 2020-12-13 05:53 | PC.NURSE ---
Nurse attempted to check pt vital signs twice between 0430 and 0600, Pt was in shower with C/O nausea. PT requests nurse try vitals later as she is too nauseous at the moment. PT care nurse FELISA De La Torre notified.
[2020-12-13 06:42] LABS: Glucose Point of Care 219 mg/dL (70-110)
[2020-12-13] MEDS: LORazepam 2 mg/mL INJ 1 mL 1 MG IVP ×2 (08:45→17:44)
--- NOTE | 2020-12-13 10:49 | P.PN_ITS ---
Subjective Subjective: Interval history: Patient was seen and examined this morning continued to complain of persistent nausea and vomiting, still not able to tolerate p.o. intake. Medications: Reviewed: Yes Vitals/I&O/Wt Last Vital Signs Temp 99.7 F H 12/13/20 08:00 Pulse 103 H 12/13/20 08:00 Resp 20 H 12/13/20 08:00 BP 160/96 12/13/20 09:45 Pulse Ox 100 12/13/20 08:00 12/12/20 12/13/20 12/13/20 22:59 06:59 14:59 Intake Total 720 / 1200 1000 / 2200 1000 / 1000 Output Total 200 / 200 Balance 720 / 1200 800 / 2000 1000 / 1000 Physical Exam Const: COMMON NORMALS: patient oriented x3 HENMT: COMMON NORMALS: normocephalic and atraumatic HEAD & SCALP: normocephalic and atraumatic Resp: COMMON NORMALS: clear to auscultation bilaterally AUSCULTATION: clear to auscultation bilaterally Cardio: COMMON NORMALS: regular rate, regular rhythm, S1 normal heart sound present, S2 normal heart sound present, No gallops present (Cardio), No murmurs present (Cardio), No rub (Cardio) and Peripheral pulses 2+ throughout RATE: regular rate RHYTHM: regular rhythm HEART SOUNDS: S1 normal heart sound pr esent and S2 normal heart sound present PERIPHERAL PULSES: Peripheral pulses 2+ throughout GI: COMMON NORMALS: Normal to inspection, nondistended, normoactive bowel sounds present, Soft to palpation, non-tender, No hepatosplenomegaly present and no masses AUSCULTATION: Yes normoactive bowel sounds PALPATION: Yes Soft to palpation and Yes No hepatosplenomegaly present RECTAL EXAM: deferred Extremity: COMMON NORMALS: no clubbing, cyanosis or edema and no pedal edema Neuro: COMMON NORMALS: patient oriented x3 Data : 12/13/20 11:56 12/13/20 11:56 A&P Assessment and plan (1) Intractable vomiting with nausea: Intractable nausea and vomiting: Likely secondary to cannabinoid use disorder. Continue with Zofran, continue Reglan, continue Phenergan. Continue IV fluids Will encourage p.o. intake. Status: Acute (2) Dehydration: Status: Acute (3) Hypokalemia: Status: Acute (4) Elevated lactic acid level: Status: Acute (5) Cyclical vomiting: Longstanding, has previously been evaluated by gastroenterology, has also been identified in the past is having THC use disorder contributing but denies current ongoing use. Status: Chronic (6) Diabetes mellitus, type II: Looks to be untreated, autonomic neuropathy could certainly be contributing to chronic cyclical vomiting/gastroparesis type picture. Currently with hyperglycemia and glucosuria. Status: Chronic Qualifiers: Diabetes mellitus penitentiary insulin use: without penitentiary use Diabetes mellitus complication status: with hyperglycemia Qualified Code(s): E11.65 - Type 2 diabetes mellitus with hyperglycemia Additional A&P Information Observation admission Zofran IV, OH Phenergan, IV Ativan for nausea/vomiting control We will give IV Haldol x1 dose as well to see if we can break this current cycle IV fluids with potassium replacement Check magnesium and phosphorus levels Repeat lactic acid in the morning Check lipase Check hemoglobin A1c Sliding scale insulin low-dose and serial Accu-Cheks currently Had been prescribed glipizide previously but never filled the prescription Better management of her blood sugars long-term could certainly help with her GI symptoms Continue home metoprolol for history of arrhythmia Continue home citalopram as SSRI withdrawal could set off some of her symptoms Other home medications remain held currently Clear liquid diet PPI Low risk for VTE presently Supportive care otherwise Plans were discussed with patient she was given opportunity to ask questions Anticipate disposition home when symptoms improved Full code Attestations Medical Necessity Statement*: Patient needs to be in hospital for management of intractable nausea vomiting inability to tolerate p.o., need for IV hydration. Coding Level of Care Code Acute Sugar Boiler for [facility] Diagnoses Intractable vomiting with nausea R11.2 Dehydration E86.0 Hypokalemia E87.6 Elevated lactic acid level R79.89 Cyclical vomiting R11.15 Diabetes mellitus, type II E11.65 Diabetes mellitus penitentiary insulin use: without superintendent marine oil terminal use Diabetes mellitus complication status: with hyperglycemia
[2020-12-13] MEDS: metoprolol tartrate 1 mg/1 mL SDV 5 mL 5 MG IVP (11:31)
[2020-12-13 12:26] LABS: Basophils % 0.2 %; Eosinophils # 0.1 10^3/uL (0.0-0.8); Hematocrit 37.9 % (37.0-47.0); Hemoglobin 12.8 g/dL (11.5-15.3); Lymphocytes # 2.2 10^3/uL (0.8-4.8); Lymphocytes % 24.1 %; Mean Corpuscular HGB Conc 33.8 g/dL (30.0-36.0); Mean Corpuscular Hemoglobin 30.5 pg (28.0-34.0); Mean Corpuscular Volume 90.2 fl (81-99); Monocytes # 0.4 10^3/uL (0.2-0.9); Monocytes % 4.1 %; Neutrophils # 6.26 10^3/uL (1.8-7.7); Neutrophils % 70.3 %; Nucleated Red Blood Cells % 0 %; Platelet Count 324 10^3/cmm (130-400); Red Cell Distribution Width 12.4 % (12.1-15.1); White Blood Count 8.9 10^3/uL (4.0-10.0)
[2020-12-13 12:46] LABS: Blood Urea Nitrogen 5 mg/dL (6-20); Carbon Dioxide 23 mmol/L (22-29); Chloride 97 mmol/L (98-107); Glomerular Filtration Rate 133.4 mL/min (90-130); Glucose 194 mg/dL (65-115); Osmolality Calculated 279 mOsm/kg (285-295); Sodium 133 mmol/L (136-145)
[2020-12-13 12:55] LABS: Anion Gap 16.7 (5-19)
[2020-12-13 12:56] LABS: Potassium 3.7 mmol/L (3.5-5.1)
[2020-12-13] MEDS: sodium chlor 0.9% + KCl 20 mEq 20 MEQ/1,000 ML BAG 75 MEQ IV (15:33)
--- NOTE | 2020-12-13 15:36 | PC.CHAP ---
Pastoral Care Encounter/Spiritual Assessment Type of Contact [] Declined options trader visit [] Patient/Family/Request visit [] Outpatient visit [xx] Follow-up visit [] Physician referral [] Code/Alert [xx] Routine visit [] Staff referral [] Actively dying [] Patient sleeping [] Family support [] [] Out of room [] Palliative care [] [] Receiving care in room [] Pre-surgical visit [] Trauma [] Long length of stay [] ICU visit [] Other: Relational/Emotional Strength [xx] Patient feels connected with others/family/visitors/staff [] Distress [] Loneliness/isolation [] Abandonment Spirituality of Patient [] Person of Francie [] Attends Latter Day of their Francie [xx] Believes in Prayer [] Reads Bible or Orthodox materials [] There are Spiritual issues to be addressed Phd Internship Interventions [] Prayer [] Active listening [] Non-anxious presence [] Spiritual/emotional support [] Crisis/trauma care [] Spiritual counseling [] Bereavement support [] Provided bereavement packet [] Provided Bible/devotional materials [] Provided toy/stuffed animal, coloring book to patient or family member [] Provided Communion [] Anointing/[employer] [] Salvation [] Completed spiritual assessment [] Other: Impact on Illness or Injury [] Angry [] Fearful [] Anxious [] Often cries [] Exhaustion [] Unable to work [] Unable to attend scientologist [] Unable to walk/stand [] Unable to read [] Unable to drive [] Unable to eat/drink [] Unable to sleep [] Unable to be with family [] Patient intubated [] Other: Summary Patient was too drowsy to visit with. Follow up later Time spent with patient
--- NOTE | 2020-12-13 17:50 | PC.RESP ---
RT Shift Note Frequent safety and respiratory rounds continue. Orders completed as indicated. Patient monitored pre and post treatments throughout shift. Patient tolerated treatments appropriately. Condition did not change. Patient and/or credit representative educated on respiratory treatment and medications. Patient and/or credit representative verbalized understanding. Will continue to monitor patient progress.
[2020-12-14] VITALS: BP 152/90; PULSE 86; RESP 18; TEMP 37.1; O2SAT 92
[2020-12-14] MEDS: sodium chlor 0.9% + KCl 20 mEq 20 MEQ/1,000 ML BAG 75 MEQ IV (00:52)
[2020-12-14] MEDS: ondansetron 2 mg/ML SDV 2 mL 4 MG IVP ×3 (02:02→10:31)
[2020-12-14 04:00] VITALS: BP 142/84; PULSE 96; RESP 14; TEMP 36.7; O2SAT 95
[2020-12-14] MEDS: metoclopramide 5 mg/mL SDV 2 mL IVP ×2 (04:34→10:31)
[2020-12-14 07:11] VITALS: BP 169/93; PULSE 101; RESP 16; TEMP 36.9; O2SAT 94
[2020-12-14] MEDS: albuterol 8 gm MDI 1 PUFF INHALATION (10:15)
[2020-12-14] MEDS: docusate sodium 100 mg Capsule PO (10:31)
[2020-12-14] MEDS: metoprolol succinate ER (24 HR) 25 mg Tablet PO (10:31)
--- NOTE | 2020-12-14 11:10 | PM.DCS ---
Discharge Providers Date of Admission: 12/10/20 21:48 Date of Discharge: December 14, 2020 Attending Provider at Admission: Ruma Beverly MD Attending Provider at Discharge: Ivan Pedro MD Primary Care Provider: CATALINA Ty Diagnoses at Discharge Discharge Diagnosis (1) Intractable vomiting with nausea: Status: Acute (2) Dehydration: Status: Acute (3) Hypokalemia: Status: Acute (4) Elevated lactic acid level: Status: Acute (5) Cyclical vomiting: Status: Chronic (6) Diabetes mellitus, type II: Status: Chronic Qualifiers: Diabetes mellitus complication status: with hyperglycemia Diabetes mellitus correction insulin use: without long term care administrator use Qualified Code(s): E11.65 - Type 2 diabetes mellitus with hyperglycemia Reason for Visit Reason for Visit: WEAK, HEART RACING Hospital Course Hospital Course 45 year old female with pmh of history cyclical vomiting , hypertension , diabetes , who presented to the emergency room with chief complaint of weakness and not feeling well. She has been having recurrent vomiting for the last 3 weeks. Has not been able to keep medications down nor sustain much oral intake.During the hospital stay she was admitted for management of intractable nausea vomiting likely secondary to cannabinoid use disorder, he was kept on antiemetics, IV fluids, electrolyte abnormalities were corrected. Once he started tolerating the p.o. intake, and dehydration was resolved, she was discharged home. At the time of discharge she was also discharged on amlodipine 5 mg p.o. daily as her blood pressure was above the goal, she was continued on metoprolol.She will continue to follow the primary care physician as an outpatient. Patient responded well to the above medical management and is being discharged in stable condition. Physical Exam Const: COMMON NORMALS: patient oriented x3 HENMT: COMMON NORMALS: normocephalic and atraumatic HEAD & SCALP: normocephalic and atraumatic Resp: COMMON NORMALS: clear to auscultation bilaterally AUSCULTATION: clear to auscultation bilaterally Cardio: COMMON NORMALS: regular rate, regular rhythm, S1 normal heart sound present, S2 normal heart sound present, No gallops present (Cardio), No murmurs present (Cardio), No rub (Cardio) and Peripheral pulses 2+ throughout RATE: regular rate RHYTHM: regular rhythm HEART SOUNDS: S1 normal heart sound present and S2 normal heart sound present PERIPHERAL PULSES: Peripheral pulses 2+ throughout GI: COMMON NORMALS: Normal to inspection, nondistended, normoactive bowel sounds present, Soft to palpation, non-tender, No hepatosplenomegaly present and no masses AUSCULTATION: Yes normoactive bowel sounds PALPATION: Yes Soft to palpation and Yes No hepatosplenomegaly present RECTAL EXAM: deferred Extremity: COMMON NORMALS: no clubbing, cyanosis or edema and no pedal edema Neuro: COMMON NORMALS: patient oriented x3 Discharge Data Data Completed and Pending: Completed Studies During Hospitalization Category Date Time Status XR chest 1V zechariah ble [id number] Urgent Exams 12/10/20 15:14 Completed Pending at discharge Category Date Time Status Basic Metabolic P vicki AM LABS Lab 12/14/20 04:00 Ordered Complete Blood Co unt w/Auto AM LABS Lab 12/14/20 04:00 Ordered SARS Covid-2 Anti gen Routine Lab 12/10/20 15:33 Uncollected Labs from last 24 hours 12/13/20 12/13/20 11:56 11:56 WBC 8.9 RBC 4.20 Hgb 12.8 Hct 37.9 MCV 90.2 MCH 30.5 MCHC 33.8 RDW 12.4 Plt Count 324 MPV 9.0 Neut % (Auto) 70.3 Lymph % (Auto) 24.1 [place] % (Auto) 4.1 Eos % (Auto) 1.0 Baso % (Auto) 0.2 Neut # (Auto) 6.26 Lymph # (Auto) 2.2 [place] # (Auto) 0.4 Eos # (Auto) 0.1 Baso # (Auto) 0.0 Nucleated RBC % (a uto) 0 Nucleated RBCs # 0.0 Sodium 133 L Potassium 3.7 Chloride 97 L Carbon Dioxide 23 Anion Gap 16.7 BUN 5 L Creatinine 0.5 GFR Calculation 133.4 H Glucose 194 H Calculated Osmolal ity 279 L Calcium 9.0 Vitals: Last Vital Signs Temp 98.5 F 12/14/20 07:11 Pulse 101 H 12/14/20 07:11 Resp 16 12/14/20 07:11 BP 169/93 12/14/20 07:11 Pulse Ox 94 12/14/20 07:11 Discharge Plan Discharge Patient Disposition: Home Condition: Stable Prescriptions: New amlodipine 5 mg tablet 5 mg PO DAILY Qty: 30 RF: 0 Zofran 4 mg tablet 4 mg PO Q8H PRN (Reason: nausea and vomiting) 5 Days Qty: 15 RF: 0 Continued haloperidol 5 mg tablet 5 mg PO BID Qty: 7 RF: 0 promethazine 25 mg tablet 25 mg PO Q6H PRN (Reason: nausea and vomiting) Qty: 14 RF: 0 citalopram 20 mg tablet 20 mg PO DAILY RF: 0 nortriptyline 50 mg capsule 100 mg PO DAILY RF: 0 metoprolol succinate [Toprol XL] 25 mg tablet extended release 24 hr 25 mg PO DAILY Qty: 30 RF: 0 omeprazole 20 mg Capsule,Delayed Release(Dr/Ec) 20 mg PO DAILY RF: 0 lorazepam 1 mg tablet 1 mg PO BID PRN (Reason: UNKNOWN) RF: 0 albuterol sulfate 90 mcg/actuation HFA aerosol inhaler 1 puff INHALATION Q4H PRN (Reason: Shortness Of Breath) RF: 0 Probiotic 15 billion cell Capsule 1 cap PO DAILY RF: 0 Discharge Orders: Discharge Order (Routine); Ordered 12/14/20 Ordered By: Ivan Pedro Referrals: Mariana Joe FNP [Primary Care Provider] - 7-10 days (Please call on Wednesday to schedule an appointment for a hospital follow up in 7-10 days.) Discharge Diet: Low Salt Discharge Activity: Resume usual activity Patient Instructions: Amlodipine (By mouth), Ondansetron (By mouth), Acute Nausea and Vomiting (DC), Opioid Safety Discharge Attestations Time Spent in Discharge Care*: less than 30 min Quality Metrics Clinical Quality Measures During this hospital stay, did patient experience: None Coding Level of Care Code Acute Chg FW DC note Diagnoses Intractable vomiting with nausea R11.2 Dehydration E86.0 Hypokalemia E87.6 Elevated lactic acid level R79.89 Cyclical vomiting R11.15 Diabetes mellitus, type II E11.65 Diabetes mellitus complication status: with hyperglycemia Diabetes mellitus correction insulin use: without long term care administrator use
[2020-12-14 11:13] VITALS: BP 156/92; PULSE 100; RESP 16; TEMP 36.6; O2SAT 97
[2020-12-14 11:37] LABS: Basophils % 0.3 %; Eosinophils # 0.2 10^3/uL (0.0-0.8); Eosinophils % 2.5 %; Hematocrit 36.2 % (37.0-47.0); Hemoglobin 11.9 g/dL (11.5-15.3); Lymphocytes # 2.9 10^3/uL (0.8-4.8); Lymphocytes % 38.8 %; Mean Corpuscular HGB Conc 32.9 g/dL (30.0-36.0); Mean Corpuscular Hemoglobin 29.8 pg (28.0-34.0); Mean Corpuscular Volume 90.7 fl (81-99); Mean Platelet Volume 9.2 fL (7.4-10.4); Monocytes # 0.5 10^3/uL (0.2-0.9); Monocytes % 6.1 %; Neutrophils # 3.89 10^3/uL (1.8-7.7); Neutrophils % 51.9 %; Nucleated Red Blood Cells % 0 %; Platelet Count 320 10^3/cmm (130-400); Red Blood Count 3.99 10^6/uL (4.1-5.3); Red Cell Distribution Width 12.4 % (12.1-15.1); White Blood Count 7.5 10^3/uL (4.0-10.0)
[2020-12-14 11:52] VITALS: PULSE 96; O2SAT 99
[2020-12-14 12:07] LABS: Blood Urea Nitrogen 4 mg/dL (6-20); Calcium 8.4 mg/dL (8.5-10.5); Carbon Dioxide 21 mmol/L (22-29); Chloride 97 mmol/L (98-107); Glomerular Filtration Rate 133.4 mL/min (90-130); Glucose 207 mg/dL (65-115); Osmolality Calculated 277 mOsm/kg (285-295); Sodium 132 mmol/L (136-145)
[2020-12-14 13:13] LABS: Anion Gap 17.2 (5-19); Potassium 3.2 mmol/L (3.5-5.1)
--- NOTE | 2020-12-14 13:35 | PC.NURSE ---
Discharge Note Patient discharged to home via private vehicle accompanied by mother. Discharge instructions reviewed with patient and/or labor representative. Mobile pharmacy medications and/or prescriptions provided. Belongings/home medications returned.
[2020-12-14 13:36] VITALS: PULSE 96; O2SAT 99
[2020-12-15 07:57] LABS: Glucose Point of Care 206 mg/dL (70-110)
[2020-12-15 07:57] LABS: Glucose Point of Care 244 mg/dL (70-110)
[2020-12-15 07:57] LABS: Glucose Point of Care 183 mg/dL (70-110)
[2020-12-15 07:57] LABS: Glucose Point of Care 213 mg/dL (70-110)
[2020-12-15 08:08] LABS: Glucose Point of Care 166 mg/dL (70-110)
== END 2020-12-14 13:00 | disposition home or self-care (01) ==
LOC: ER 14:55 → MEDSURG 22:13
PROVIDERS: Admitting Provider Hospitalist; Emergency Provider Emergency Medicine; PCP Nurse Practitioner Family; Visit Provider Internal Medicine
DX: R11.2 Nausea with vomiting, unspecified (principal); E86.0 Dehydration; E87.6 Hypokalemia; R79.89 Other specified abnormal findings of blood chemistry; R11.15 Cyclical vomiting syndrome unrelated to migraine; E11.65 Type 2 diabetes mellitus with hyperglycemia; I10 Essential (primary) hypertension; Z79.4 Long term (current) use of insulin; F12.10 Cannabis abuse, uncomplicated; Z82.49 Family history of ischemic heart disease and other diseases of the circulatory system; Z87.891 Personal history of nicotine dependence
CPT/HCPCS: 36415; 36416; 71045; 80048; 80053; 81003; 82550; 82962; 83036; 83605; 83690; 83735; 84100; 84443; 84703; 85007; 85025; 85027; 94640; 96365; 96366; 96367; 96372; 96375; 96376; 99285; C9113; G0378; J1200; J1630; J1815; J2060; J2405; J2550; J2765; J3475; J3480; J3490; J3535; J7030; J8498

== ENCOUNTER 2021-01-22 09:53 | Outpatient (CLI) | payer MEDICAID, SELFPAY ==
--- NOTE | 2021-01-22 09:57 | USCV_ITS ---
Ananya Hernandez Age: 45 Gender: F : 1975 Exam Date: 01/22/2021 10:19 Ordering Phys: Mariana Joe CONTENT ASSISTANT Technologist: Cameron Crawford Exam Location: [facility] [place] Indication: HTN BP: 160 / 80 HR: 107 Rhythm: Sinus Technical Quality: Adequate MEASUREMENTS (Male / Female) Normal Values 2D ECHO LV Diastolic Diameter PLAX 3.7 cm 4.2 - 5.9 / 3.9 - 5.3 cm LV Systolic Diameter PLAX 2.2 cm IVS Diastolic Thickness 1.7 cm 0.6 - 1.0 / 0.6 - 0.9 cm IVS Systolic Thickness 1.6 cm LVPW Diastolic Thickness 1.3 cm 0.6 - 1.0 / 0.6 - 0.9 cm LVPW Systolic Thickness 1.4 cm LVOT Diameter 2.3 cm LV Ejection Fraction 2D Teich 70.6 % LV Ejection Fraction MOD 2C 76.9 % LV Ejection Fraction 2C AL 77.2 % LA Diameter 3.8 cm LA Width 3.4 cm LA Height 5.5 cm RA Width 3.6 cm RA Height 4.5 cm Aorta at Sinotubular Diameter 2.6 cm DOPPLER AV Peak Velocity 139.0 cm/s LVOT Peak Velocity 102.0 cm/s AV Area Cont Eq vti 3.5 cm squared AV Area Cont Eq pk 3.0 cm squared MV Area PHT 5.0 cm squared Mitral E to A Ratio 0.6 MV E' Velocity 45.5 cm/s Mitral E to MV E' Ratio 9.2 Mitral E to LV E' Lateral Ratio 8.1 Mitral E to LV E' Septal Ratio 10.7 TR Peak Velocity 107.0 cm/s TR Peak Gradient 4.6 mmHg TV Peak E Velocity 92.0 cm/s Right Atrial Pressure 3.0 mmHg Pulmonary Artery Systolic Pressu 7.6 mmHg FINDINGS Left Ventricle Normal left ventricular size, systolic function and increased wall thickness, with no regional wall motion abnormalities. Moderate concentric left ventricle hypertrophy. Left ventricular ejection fraction is estimated at 65 %. Mitral inflow pattern shows abnormal relaxation. Right Ventricle Normal right ventricular size and systolic function. Right ventricular systolic pressure 7.6 mmHg. Right Atrium Normal right atrial size. Left Atrium Normal left atrial size. Mitral Valve Structurally normal mitral valve. No mitral valve stenosis. No mitral valve regurgitation. Aortic Valve Aortic valve not well visualized. No aortic valve stenosis. No aortic valve regurgitation. Tricuspid Valve Structurally normal tricuspid valve. No tricuspid valve stenosis. Trace tricuspid valve regurgitation. Pulmonic Valve Pulmonic valve not well visualized. Pericardium No pericardial effusion. Aorta Normal size aortic root and proximal ascending aorta. CONCLUSIONS 1. Normal left ventricular size, systolic function and increased wall thickness, with no regional wall motion abnormalities. Moderate concentric left ventricle hypertrophy. Left ventricular ejection fraction is estimated at 65 %. Mitral inflow pattern shows abnormal relaxation. 2. No significant valvular normality. 3. Normal pulmonary artery pressure. 4. No prior similar studies to compare. Anahi Smallwood MD (Electronically Signed) Final Date: 23 January 2021 13:58 S
== END 2021-01-22 09:54 | disposition home or self-care (01) ==
LOC: RAD 09:56
PROVIDERS: PCP Nurse Practitioner Family; Visit Provider Nurse Practitioner Family
DX: I10 Essential (primary) hypertension (principal)
CPT/HCPCS: 93306

== ENCOUNTER 2021-03-28 10:40 | Inpatient (IN) | payer MEDICAID, SELFPAY ==
[2021-03-28] VITALS (11 sets, daily range): BP systolic 110–164; BP diastolic 68–88; PULSE 78–129; RESP 15–22; TEMP 38.3; O2SAT 90–99
--- NOTE | 2021-03-28 11:17 | ECG_ITS ---
[facility] Test Date: 2021-03-28 Pat Name: Ananya Hernandez Department: Room: Gender: Female Investment Broker: : 1975 Requested By: Maral Guzman Order Number: [id number] Francie MD: Anahi Smallwood M.D. Measurements Intervals [place] Rate: 127 P: 60 LA: 128 QRS: 7 QRSD: 84 T: 70 QT: 385 QTc: 560 Interpretive Statements SINUS TACHYCARDIA NONSPECIFIC T-WAVE ABNORMALITY ABNORMAL RHYTHM ECG Compared to ECG 10/28/2020 14:38:15 No significant changes Electronically Signed On 03-29-2021 7:34:07 SALVAGE CUTTER by Anahi Smallwood M.D. [id number]
[2021-03-28 11:28] LABS: Basophils % 0.3 %; Hematocrit 41.9 % (37.0-47.0); Hemoglobin 14.4 g/dL (11.5-15.3); Lymphocytes # 1.4 10^3/uL (0.8-4.8); Lymphocytes % 18.4 %; Mean Corpuscular HGB Conc 34.4 g/dL (30.0-36.0); Mean Corpuscular Hemoglobin 28.9 pg (28.0-34.0); Mean Platelet Volume 9.7 fL (7.4-10.4); Monocytes # 0.4 10^3/uL (0.2-0.9); Monocytes % 4.5 %; Neutrophils # 5.94 10^3/uL (1.8-7.7); Neutrophils % 76.5 %; Nucleated Red Blood Cells % 0 %; Platelet Count 250 10^3/cmm (130-400); Red Blood Count 4.99 10^6/uL (4.1-5.3); Red Cell Distribution Width 13.1 % (12.1-15.1); White Blood Count 7.8 10^3/uL (4.0-10.0)
[2021-03-28] MEDS: ondansetron 2 mg/ML SDV 2 mL 4 MG IVP ×3 (11:30→15:44)
[2021-03-28] MEDS: sodium chloride 0.9% 1,000 ML 999 ML IV ×3 (11:30→16:12)
[2021-03-28] MEDS: morphine 4 mg/mL SDV 1 mL IVP (11:35)
[2021-03-28 11:49] LABS: Anion Gap 24.1 (5-19); Blood Urea Nitrogen 11 mg/dL (6-20); Calcium 8.7 mg/dL (8.5-10.5); Carbon Dioxide 22 mmol/L (22-29); Chloride 87 mmol/L (98-107); Glomerular Filtration Rate 107.6 mL/min (90-130); Glucose 243 mg/dL (65-115); Osmolality Calculated 277 mOsm/kg (285-295); Potassium 3.1 mmol/L (3.5-5.1); Sodium 130 mmol/L (136-145)
[2021-03-28 11:50] LABS: Troponin(5th) Baseline 6 ng/L (0-10)
--- NOTE | 2021-03-28 12:12 | XR_ITS ---
WS: [id number] XR chest 1V portable [id number] REASON FOR EXAM: dyspnea FINDINGS: Chest is unchanged compared to previous examination of 12/10/2020. Mild tortuosity thoracic aorta. Normal heart size. Calcified granulomatous disease in both hemithoraces. No active pulmonary parenchymal or pleural disease. Moderate degenerative spondylosis in the mid and lower thoracic spine. XR/XR chest 1V portable [id number] IMPRESSION: No acute abnormality.
--- NOTE | 2021-03-28 12:16 | CT_ITS ---
WS: [id number] CT CHEST ANGIOGRAPHY WITH REFORMATS HISTORY: Possible pulmonary embolism. TECHNIQUE: Contiguous axial images are obtained through the chest during arterial injection of intrav enous contrast. Images are reconstructed to evaluate the pulmonary arteries. MIP imaging also reviewe d. All CT scans at [facility] use at least one of these dose optimization techniques: automat ed exposure control; mA and/or kV adjustment per patient size (includes targeted exams where dose is matched to clinical indication); or iterative reconstruction. CONTRAST: Omnipaque 350; 80 mL IV. DLP: 557.87 mGy.cm COMPARISON: None available. Centrally there is no pulmonary embolism. Opacification beyond the lobar branches and proximal segmen delphine branches is limited. Pulmonary artery size is equal to the aorta. Normal-sized thoracic aorta. No rmal heart size. No pericardial or pleural effusions. There is mild diffuse groundglass attenuation throughout both lungs. More focal areas of irregular co nsolidations bilaterally but greatest within the RIGHT lower lobe. No pneumothorax or pneumomediastin um. No mediastinal or hilar adenopathy. Mildly prominent bilateral measure up to 14 mm in diameter an d are likely reactive. Small hiatal hernia. Hepatic steatosis and prior cholecystectomy. CT/CT angio chest PE protcl [id number] IMPRESSION: 1. Limited opacification of the pulmonary arteries. No central pulmonary embol ism. 2. Bilateral groundglass attenuation and areas of consolidation. Most dense co nsolidation in the RIGHT lower lobe. Consistent with Covid 19 pneumonia. 3. Prior cholecystectomy and hepatic steatosis. 4. Mildly reactive hilar lymphadenopathy.
[2021-03-28] MEDS: iohexol 350 mg/mL 100 mL Btl IV (12:35)
--- NOTE | 2021-03-28 13:17 | ECG_ITS ---
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 Measurements Intervals [place] Rate: 113 P: 52 NH: 147 QRS: 10 QRSD: 93 T: 42 QT: 343 QTc: 472 Interpretive Statements SINUS TACHYCARDIA NONSPECIFIC T-WAVE ABNORMALITY Compared to ECG 03/28/2021 11:11:41 No significant changes Electronically Signed On 03-29-2021 7:40:46 GIRLS SWIMMING COACH by Anahi Smallwood M.D. [id number]
--- NOTE | 2021-03-28 13:27 | CT_ITS ---
WS: [id number] CT ABDOMEN AND PELVIS NONCONTRAST HISTORY: persistent vomiting TECHNIQUE: Imaging performed through the abdomen and pelvis. Coronal and sagittal reformats are submi tted. All CT scans at [facility] use at least one of these dose optimization techniques: auto mated exposure control; mA and/or kV adjustment per patient size (includes targeted exams where dose is matched to clinical indication); or iterative reconstruction. DLP: 1447.83 mGy.cm COMPARISON: 11/08/2019 Lower thorax: Focal consolidations at the lung bases, RIGHT greater than LEFT. Heart size is normal. Small hiatal hernia. Liver: Diffuse mild hepatic steatosis. No bile duct dilatation. Gallbladder: Prior cholecystectomy. Pancreas: Normal size and attenuation. Normal pancreatic duct. No pancreatitis or mass. Spleen: Normal. Adrenal glands: Normal. No mass. Right kidney: Normal size kidney with no mass or hydronephrosis. Left kidney: Normal size kidney with no mass or hydronephrosis. Aorta: Normal abdominal aorta, no aneurysm or atherosclerosis. No free fluid, intraperitoneal air or significant lymphadenopathy. GI tract: Normal appendix. No GI tract obstruction or diverticulosis. Abdominal wall: Negative. No hernia. Pelvis: High density contrast in the urinary bladder from prior IV contrast injection. Uterus and ova mariella are normal size. No free fluid. No adenopathy. No renal obstruction. Osseous structures: Unremarkable. CT/CT abdomen pelvis wo con [id number] IMPRESSION: 1. No acute abdominal or pelvic abnormalities are identified. There is no free fluid or free air. 2. Normal appendix. 3. Prior cholecystectomy. 4. Bilateral lower lobe pneumonia, RIGHT greater than LEFT.
--- NOTE | 2021-03-28 13:30 | W.ED.GENADLT ---
HPI - General Adult General: Chief complaint: COVID symptoms Stated complaint: VOMITING/FATIGUE/SOB/COVID + Time Seen by Provider: 03/28/21 11:08 History of Present Illness: HPI narrative: CC: Shortness of breath, fever and generalized weakness, nausa/vomiting, diarrhea HPI: This is a [46] yo patient w/ hx of DM, HTN presenting to the ED with malaise, generalized weakness, cough sputum production, and fever at home x 5 days. Since onset of symptoms, has had some shortness of breath and decreased PO intake. NO recent travel. Endorses no sick contacts around. +nausea/vomiting/diarrhea. +R chest pain pressure x 1 day, diaphoresis, other GI or complaints. Denies any pleuritic chest pain, recent surgery/immobilization/travel, or hematemesis or hx of VTE in the past. Onset: 5 days ago Duration: ongoing for the last 5 days Location: home Severity: moderate Review of Systems Narrative: Constitutional: +subjective fever, +generalized weakness HEENT: No vision changes CV: No chest pain, no palpitations PULM: +cough, +dyspnea. GI: +diffuse abdominal pain, +N/+V/+D. : No dysuria MSKEL: No muscle pain SKIN: No new rashes, no lesions. NEURO: No headache, no focal weakness. HEME: No visible bruises PSYCH: Normal mood PFSH ED PFSH: Medical History (Updated 12/15/20 @ 00:00 by ) BMI 38.0-38.9,adult Cyclical vomiting Dehydration Depression Diabetes mellitus, type II Elevated lactic acid level History of cardiac arrhythmia Details not clear but on chronic beta-blockade Hypokalemia Intractable vomiting with nausea Tetrahydrocannabinol (THC) use disorder, mild, abuse Surgical History (Updated 12/11/20 @ 02:39 by Ruma Beverly MD) H/O shoulder surgery H/O: hysterectomy History of tubal ligation Hx of cholecystectomy Family History Mother CAD (coronary artery disease) Social History (Updated 12/11/20 @ 02:34 by Ruma Beverly MD) Smoking and tobacco status: former smoker Alcohol intake: never Household members: family Housing: House Physical Exam Narrative: EXAM NARRATIVE: Head: Atraumatic Eyes: PERRL, conjunctiva without injection ENT: Mucous membrane moist NECK: Supple without lymphadenopathy LUNGS: Coarse lung sounds, tachypnea, no crackles/wheezes/rhonchi on exam CV: RRR ABDOMEN: Soft, +diffuse abd tenderness to palpation. NO guarding rebound, guarding, rigidity. No CVA tenderness to percussion. Neg Guerrero/Neg McBurney's point tenderness, no suprabupic tenderness to palpation. EXTREMITY: Normal ROM SKIN: No rash or erythema NEURO: Awake and alert. No focal motor deficits. PSYCH: Normal mood and affect. Course Vital Signs: Vital signs: Vital Signs Temperature 100.9 F H 03/28/21 11:14 Pulse Rate 120 H 03/28/21 11:54 Respiratory Rate 22 H 03/28/21 11:54 Blood Pressure 146/88 03/28/21 11:54 Pulse Oximetry 96 03/28/21 13:20 MDM - General Adult MDM Narrative: Medical decision making narrative: [46]yo patient presenting to the ED with shortness of breath, cough, and malaise concerning for pneumonia with findings of fever, decreased/junky breath sounds, and tachypnea. Workup today includes XR chest Defer lab work at this time given that the patient is well appearing with stable vital signs and without recent hospitalization or care facility stay. Given History, Exam, and Workup presentation most consistent with pneumonia.Presentation not consistent with PE, COPD exacerbation, Pneumothorax, TB, Atypical ACS, Esophageal Rupture, Toxic Exposure, Foreign Body Airway Obstruction. On arrival, patient had significant chest pain, CT was performed which did not show any signs of blood clots. Troponin wnl. Intervention: Tylenol 1gram, PO challenge, serial reassessment, oxygen, rem/decadron, zofran, 3l IVF [2:08pm] Findings consistent with viral pneumonia, suspected COVID. Clinically, fever improved with tylenol. Patient continues to have significant vomiting despite IVF and zofran. HR improved to low 110s. Will be admitted for rehydration and observation for covid. Disposition: Admission Lab Data: Labs: Lab Results 03/28/21 03/28/21 03/28/21 11:18 11:18 11:18 WBC 7.8 10^3/uL 10^3/ uL (4.0-10.0) RBC 4.99 10^6/uL 10^6 /uL (4.1-5.3) Hgb 14.4 g/dL g/dL (11.5-15.3) Hct 41.9 % % (37.0-47.0) MCV 84.0 fl fl (81-99) MCH 28.9 pg pg (28.0-34.0) MCHC 34.4 g/dL g/dL (30.0-36.0) RDW 13.1 % % (12.1-15.1) Plt Count 250 10^3/cmm 10^3 /cmm (130-400) MPV 9.7 fL fL (7.4-10.4) Neut % (Auto) 76.5 % % Lymph % (Auto) 18.4 % % [place] % (Auto) 4.5 % % Eos % (Auto) 0.0 % % Baso % (Auto) 0.3 % % Neut # (Auto) 5.94 10^3/uL 10^3 /uL (1.8-7.7) Lymph # (Auto) 1.4 10^3/uL 10^3/ uL (0.8-4.8) [place] # (Auto) 0.4 10^3/uL 10^3/ uL (0.2-0.9) Eos # (Auto) 0.0 10^3/uL 10^3/ uL (0.0-0.8) Baso # (Auto) 0.0 10^3/uL 10^3/ uL (0.0-0.1) Nucleated RBC % (a uto) 0 % % Nucleated RBCs # 0.0 /100WBC /100W BC D-Dimer 0.40 ug/mIFEU ug/ mIFEU (0-0.59) Sodium 130 mmol/L L mmol /L (136-145) Potassium 3.1 mmol/L L mmol /L (3.5-5.1) Chloride 87 mmol/L L mmol/ L (98-107) Carbon Dioxide 22 mmol/L mmol/L (22-29) Anion Gap 24.1 H (5-19) BUN 11 mg/dL mg/dL (6-20) Creatinine 0.6 mg/dL mg/dL (0.5-0.9) GFR Calculation 107.6 mL/min mL/m in (90-130) Glucose 243 mg/dL H mg/dL (65-115) Calculated Osmolal ity 277 mOsm/kg L mOs m/kg (285-295) Calcium 8.7 mg/dL mg/dL (8.5-10.5) Troponin T Baselin e Troponin T 120 Min citizen [place] Troponin T 03/28/21 03/28/21 11:18 13:28 WBC RBC Hgb Hct MCV MCH MCHC RDW Plt Count MPV Neut % (Auto) Lymph % (Auto) [place] % (Auto) Eos % (Auto) Baso % (Auto) Neut # (Auto) Lymph # (Auto) [place] # (Auto) Eos # (Auto) Baso # (Auto) Nucleated RBC % (a uto) Nucleated RBCs # D-Dimer Sodium Potassium Chloride Carbon Dioxide Anion Gap BUN Creatinine GFR Calculation Glucose Calculated Osmolal ity Calcium Troponin T Baselin e 6 ng/L ng/L (0-10) Troponin T 120 Min [place] 6.00 ng/L ng/L (0-10) [place] Troponin T 0 ABS# ABS# (0-10) Imaging Data^: Other Imaging: Radiologist's impression: [address] [id number] Scan ReportSigned Patient: Larry Hernandez #: [id number]: [id number]#:[id number]/Sex: 46 / FADM Date: 03/28/21Loc: ERRoom/Bed:Attending Dr: Ordering Provider/Ordering MD: Maral Guzman MD Date of Service: 03/28/21 Procedure(s): CT angio chest PE protcl [id number] Accession Number(s): [id number] Report Number: [id number] WS: [id number] CT CHEST ANGIOGRAPHY WITH REFORMATS HISTORY: Possible pulmonary embolism. TECHNIQUE: Contiguous axial images are obtained through the chest during arterial injection of intravenous contrast. Images are reconstructed to evaluate the pulmonary arteries. MIP imaging also reviewed. All CT scans at [facility] use at least one of these dose optimization techniques: automated exposure control; mA and/or kV adjustment per patient size (includes targeted exams where dose is matched to clinical indication); or iterative reconstruction. CONTRAST: Omnipaque 350; 80 mL IV. DLP: 557.87 mGy.cm COMPARISON: None available. Centrally there is no pulmonary embolism. Opacification beyond the lobar branches and proximal segmental branches is limited. Pulmonary artery size is equal to the aorta. Normal-sized thoracic aorta. Normal heart size. No pericardial or pleural effusions. There is mild diffuse groundglass attenuation throughout both lungs. More focal areas of irregular consolidations bilaterally but greatest within the RIGHT lower lobe. No pneumothorax or pneumomediastinum. No mediastinal or hilar adenopathy. Mildly prominent bilateral measure up to 14 mm in diameter and are likely reactive. Small hiatal hernia. Hepatic steatosis and prior cholecystectomy. CT/CT angio chest PE protcl [id number] IMPRESSION: 1. Limited opacification of the pulmonary arteries. No central pulmonary embolism. 2. Bilateral groundglass attenuation and areas of consolidation. Most dense consolidation in the RIGHT lower lobe. Consistent with Covid 19 pneumonia. 3. Prior cholecystectomy and hepatic steatosis. 4. Mildly reactive hilar lymphadenopathy. Dictated By:Kate Guzman DOSigned By:Kate Guzman DOSigned Date/Time:03/28/21 1304DD/ 1259 [facility] [place] [id number] ReportSigned Patient: Larry Hernandez #: [id number]: [id number]#:[id number]/Sex: 46 / FADM Date: 03/28/21Loc: ERRoom/Bed:Attending Dr: Ordering Provider/Ordering MD: Maral Guzman MD Date of Service: 03/28/21 Procedure(s): XR chest 1V portable [id number] Accession Number(s): [id number] Report Number: [id number] WS: [id number] XR chest 1V portable [id number] REASON FOR EXAM: dyspnea FINDINGS: Chest is unchanged compared to previous examination of 12/10/2020. Mild tortuosity thoracic aorta. Normal heart size. Calcified granulomatous disease in both hemithoraces. No active pulmonary parenchymal or pleural disease. Moderate degenerative spondylosis in the mid and lower thoracic spine. XR/XR chest 1V portable [id number] IMPRESSION: No acute abnormality. Dictated By:Angel Mosqueda Jr MDSigned By:Angel Mosqueda Jr MDSigned Date/Time:03/28/21 1231DD/ 1230 Discharge Plan Discharge Prescriptions: No Action haloperidol 5 mg tablet 5 mg PO BID Qty: 7 RF: 0 promethazine 25 mg tablet 25 mg PO Q6H PRN (Reason: nausea and vomiting) Qty: 14 RF: 0 citalopram 20 mg tablet 20 mg PO DAILY RF: 0 nortriptyline 50 mg capsule 100 mg PO DAILY RF: 0 metoprolol succinate [Toprol XL] 25 mg tablet extended release 24 hr 25 mg PO DAILY Qty: 30 RF: 0 omeprazole 20 mg Capsule,Delayed Release(Dr/Ec) 20 mg PO DAILY RF: 0 lorazepam 1 mg tablet 1 mg PO BID PRN (Reason: UNKNOWN) RF: 0 albuterol sulfate 90 mcg/actuation HFA aerosol inhaler 1 puff INHALATION Q4H PRN (Reason: Shortness Of Breath) RF: 0 Probiotic 15 billion cell Capsule 1 cap PO DAILY RF: 0 amlodipine 5 mg tablet 5 mg PO DAILY Qty: 30 RF: 0 Coding Level of Care Code 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
[2021-03-28 13:53] LABS: Troponin 5 2HR Delta 0 ABS# (0-10)
[2021-03-28 14:23] LABS: Ketone (Acetest) Serum Negative (Negative)
--- NOTE | 2021-03-28 15:36 | P.HP_ITS ---
Providers/Chief Complaint Primary Care Provider: CATALINA Ty Chief Complaint: VOMITING/FATIGUE/SOB/COVID + History of Present Illness Ananya Hernandez is a 46 year old female with past medical history of cyclic vomiting, hypertension, type 2 diabetes mellitus, morbid obesity who presented to the ER today with generalized weakness, malaise, urine production and fever going on and off for last 5 days along with decreased oral intake because of nausea and vomiting. Patient states she has been having nausea and vomiting which has been aggravated over the last 5 days as well. As per report patient tested positive for COVID-19 5 days ago at a local [facility]. On presentation to the ER patient was tachycardic with heart rate going up to 130s, dehydrated for which she received 3 L of IV fluid, PE was ruled out with CTA. Home oxygen evaluation was done and she was requiring 1 to 2 L of oxygen supplementation to keep her saturation over 94% with desaturation to 88% on room air on exertion. As patient continued to remain tachycardic with poor oral intake hospitalist service was requested for admission. Blood work on presentation to the ER showed a normal CBC, sodium of 130, potassium of 3.1, creatinine of 0.6 Review of Systems General: Reports: 10 or more systems reviewed and unremarkable except in HPI and below Const: Denies: fever(s), chills, body aches, change in appetite, change in weight, malaise, night sweats, diaphoresis, change in sleep pattern, daytime s leepiness or snoring Eyes: Denies: change in vision, blurry vision, photophobia, eye discomfort or eye discharge ENMT: Denies: throat pain, enlarged tonsils, hoarseness, mouth pain, oral sor es, dry mouth, tinnitus, nasal congestion or post nasal drip Card: Denies: chest pain, palpitations, irregular heart rhythm, edema, swelling of feet/ankles, lightheadedness, syncope, pre-syncope, dyspnea on exertion, orthopnea, leg pain with exertion or acrocyanosis Resp: Denies: dyspnea, productive cough, non-productive cough, wheezing, stridor, pain on inspiration, change in phlegm color, hemoptysis or chest congestion GI: Denies: abdominal pain, nausea, vomiting, hematemesis, coffee ground emesis, dysphagia, heartburn, diarrhea, constipation, bloating, GI cramping, change in bowel habits, pain on defecation, hematochezia or melena : Denies: flank pain, dysuria, urinary frequency, urinary urgency, urinary hesitancy, nocturia or hematuria Musc: Denies: neck pain, back pain, extremity pain, joint pain, joint swe lling, joint redness, joint stiffness or limited range of motion Neuro: Denies: headache(s), numbness in extremities, weakness in extremities, sensory changes, lack of coordination, difficulty walking, frequent falls, dizziness, vertigo, confusion, Slurred speech present, difficulty communicating thoughts or seizure-like activity Psych: Denies: anxiety, depression, mood swings, panic attacks, hopelessness or irritability Endo: Denies: polyuria, polydipsia, tired all the time, cold intolerance, excessive sweating, flushing or heat intolerance Lauri/Lymph: Denies: easy bruising or easy bleeding All/Imm: Denies: tongue swelling, facial swelling or acute wheezing Medications/Allergies Home Medications Medication Instructions Recorded Confirmed Last Taken Type citalopram 40 mg PO DAILY 10/28/20 03/28/21 03/27/21 History albuterol sulfate 1 puff INHALATION Q4H PRN 12/10/20 03/28/21 Unknown History lorazepam 1 mg PO BID PRN 12/10/20 03/28/21 Unknown History cefdinir 300 mg PO BID 03/28/21 03/28/21 03/27/21 History desipramine 100 mg PO DAILY 03/28/21 03/28/21 03/27/21 History hydroxyzine HCl 25 mg PO TID PRN 03/28/21 03/28/21 Unknown History losartan 50 mg PO DAILY 03/28/21 03/28/21 03/27/21 History metoprolol tartrate 50 mg PO BID 03/28/21 03/28/21 03/27/21 History Allergies Allergy/AdvReac Type Severity Reaction Status Date / Time butorphanol [From Stadol] Allergy Intermediate ADR-Halluci Verified 03/28/21 11:17 nating PFS Acute PFSH: Medical History (Updated 03/28/21 @ 15:42 by Bradly Ballesteros MD) BMI 38.0-38.9,adult COVID-19 Cyclical vomiting Dehydration Depression Diabetes mellitus, type II Elevated lactic acid level History of cardiac arrhythmia Details not clear but on chronic beta-blockade HTN (hypertension) Hypokalemia Intractable vomiting with nausea Tetrahydrocannabinol (THC) use disorder, mild, abuse Surgical History (Updated 12/11/20 @ 02:39 by Ruma Beverly MD) H/O shoulder surgery H/O: hysterectomy History of tubal ligation Hx of cholecystectomy Family History Mother CAD (coronary artery disease) Social History (Updated 12/11/20 @ 02:34 by Ruma Beverly MD) Smoking and tobacco status: former smoker Alcohol intake: never Household members: family Housing: House Vitals/I&O/Wt Last Vital Signs Temp 100.9 F H 03/28/21 11:14 Pulse 120 H 03/28/21 11:54 Resp 22 H 03/28/21 11:54 BP 146/88 03/28/21 11:54 Pulse Ox 96 03/28/21 13:20 Weight last 48 hrs Weight 131.542 kg Data : 03/28/21 11:18 03/28/21 11:18 Other Labs: Laboratory Results WBC 7.8 10^3/uL (4.0-10.0) 03/28/21 11:18 RBC 4.99 10^6/uL (4.1-5.3) 03/28/21 11:18 Hgb 14.4 g/dL (11.5-15.3) 03/28/21 11:18 Hct 41.9 % (37.0-47.0) 03/28/21 11:18 MCV 84.0 fl (81-99) 03/28/21 11:18 MCH 28.9 pg (28.0-34.0) 03/28/21 11:18 MCHC 34.4 g/dL (30.0-36.0) 03/28/21 11:18 RDW 13.1 % (12.1-15.1) 03/28/21 11:18 Plt Count 250 10^3/cmm (130-400) 03/28/21 11:18 MPV 9.7 fL (7.4-10.4) 03/28/21 11:18 Neut % (Auto) 76.5 % 03/28/21 11:18 Lymph % (Auto) 18.4 % 03/28/21 11:18 [place] % (Auto) 4.5 % 03/28/21 11:18 Eos % (Auto) 0.0 % 03/28/21 11:18 Baso % (Auto) 0.3 % 03/28/21 11:18 Neut # (Auto) 5.94 10^3/uL (1.8-7.7) 03/28/21 11:18 Lymph # (Auto) 1.4 10^3/uL (0.8-4.8) 03/28/21 11:18 [place] # (Auto) 0.4 10^3/uL (0.2-0.9) 03/28/21 11:18 Eos # (Auto) 0.0 10^3/uL (0.0-0.8) 03/28/21 11:18 Baso # (Auto) 0.0 10^3/uL (0.0-0.1) 03/28/21 11:18 Nucleated RBC % (auto) 0 % 03/28/21 11:18 Nucleated RBCs # 0.0 /100WBC 03/28/21 11:18 D-Dimer 0.40 ug/mIFEU (0-0.59) 03/28/21 11:18 Sodium 130 mmol/L (136-145) L 03/28/21 11:18 Potassium 3.1 mmol/L (3.5-5.1) L 03/28/21 11:18 Chloride 87 mmol/L (98-107) L 03/28/21 11:18 Carbon Dioxide 22 mmol/L (22-29) 03/28/21 11:18 Anion Gap 24.1 (5-19) H 03/28/21 11:18 BUN 11 mg/dL (6-20) 03/28/21 11:18 Creatinine 0.6 mg/dL (0.5-0.9) 03/28/21 11:18 GFR Calculation 107.6 mL/min (90-130) 03/28/21 11:18 Glucose 243 mg/dL (65-115) H 03/28/21 11:18 Calculated Osmolality 277 mOsm/kg (285-295) L 03/28/21 11:18 Calcium 8.7 mg/dL (8.5-10.5) 03/28/21 11:18 Troponin T Baseline 6 ng/L (0-10) 03/28/21 11:18 Troponin T 120 Minute 6.00 ng/L (0-10) 03/28/21 13:28 Delta Troponin T 0 ABS# (0-10) 03/28/21 13:28 Serum Ketones Negative (Negative) 03/28/21 11:18 Impressions Chest X-Ray 03/28/21 12:12 IMPRESSION: No acute abnormality. Chest CTA 03/28/21 12:16 IMPRESSION: 1. Limited opacification of the pulmonary arteries. No central pulmonary embolism. 2. Bilateral groundglass attenuation and areas of consolidation. Most dense consolidation in the RIGHT lower lobe. Consistent with Covid 19 pneumonia. 3. Prior cholecystectomy and hepatic steatosis. 4. Mildly reactive hilar lymphadenopathy. Abdomen/Pelvis CT 03/28/21 13:27 IMPRESSION: 1. No acute abdominal or pelvic abnormalities are identified. There is no free fluid or free air. 2. Normal appendix. 3. Prior cholecystectomy. 4. Bilateral lower lobe pneumonia, RIGHT greater than LEFT. A&P Assessment and plan (1) COVID-19: Status: Acute (2) Intractable vomiting with nausea: Status: Acute (3) High anion gap metabolic acidosis: Status: Acute (4) Hypokalemia: Status: Acute (5) Hyponatremia: Status: Acute (6) HTN (hypertension): Status: Acute (7) Diabetes mellitus, type II: Status: Acute Qualifiers: Diabetes mellitus complication status: with hyperglycemia Diabetes mellitus adjunct faculty for medical terminology insulin use: without group home use Qualified Code(s): E11.65 - Type 2 diabetes mellitus with hyperglycemia (8) Cyclical vomiting: Status: Acute Additional A&P Information Hypoxia secondary COVID-19: On exertion requiring 2 L oxygen supplementation. Oxygen supplementation keeping saturation over 88%. Dexamethasone 6 mg daily. Remdesivir to finish a 3 to 5-day course depending on oxygen requirement. Vitamin C, zinc. Advair, Spiriva. Pulmonary toilet with incentive spirometry flutter valve. We will monitor inflammatory markers including ferritin, CRP, D-dimer every 48 hourly. If getting elevated will dose Actemra. Patient was made aware of the same and he has given verbal consent. D-dimer, CT negative pulmonary embolism. We will continue to monitor D-dimer. Will monitor for anemia or blood loss. Check sputum culture, procalcitonin, urine Legionella, bacterial antigen, blood culture. Low suspicion of bacterial infection for now. For now start her on oral Levaquin to finish a 5-day course. Given hypoxia will try to keep patient as negative as possible. Patient clinically dehydrated for now. Start patient on IV hydration with normal saline at 40 mEq of potassium at 100 cc/h. Strict input output charting, daily weights. Intractable nausea and vomiting: Chronic history secondary to cyclic vomiting syndrome from chronic marijuana abuse. Full liquid diet. Zofran every 6 hourly, Reglan every 8 hourly as needed. Protonix 40 mg IV twice daily. Ativan as needed twice daily. Hypokalemia/hyponatremia: Most likely secondary from dehydration. IV hydration as above. High anion gap metabolic acidosis: Most likely secondary to dehydration/starvation ketosis from nausea and vomiting. Less likely DKA. Insulin sliding scale at high-dose protocol Check ketones, ABG. Hypertension: Goal blood pressure less than 140/90 mmHg. Continue with home dose of losartan, metoprolol. Type 2 diabetes mellitus: Check HbA1c. She sliding scale at moderate dose protocol. Full code. Full liquid, carb consistent cardiac diet. Lovenox for DVT prophylaxis. Attestations Medical Necessity Statement*: More than 2 midnights for management of hypoxia and COVID-19, intractable nausea vomiting leading to poor oral intake, dehydration, high nongap metabolic acidosis, hyponatremia, hypokalemia Time Spent in Patient Care: Greater than 35 minutes (>than 50% of time spent in counselling and/or direct pt care on unit) . 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
[2021-03-28] MEDS: acetaminophen 500 mg Tablet 1000 MG PO (15:47)
[2021-03-28] MEDS: dexamethasone 10 mg/mL INJ 6 MG IVP (15:50)
[2021-03-28] MEDS: remdesivir 200 MG in sodium chloride 0.9% (100 ml) 60 ML 100 MG IV (15:59)
[2021-03-28] MEDS: lidocaine 1% 5 ML in potassium chloride premix 100 ML 50 ML IV (16:10)
[2021-03-28 16:18] LABS: NT Pro B Type Natriuretic Pept 66 pg/mL (0-125); Procalcitonin 0.04 ng/mL (0-0.5); Thyroid Stimulating Hormone 0.58 uIU/mL (0.27-4.20)
[2021-03-28 16:19] LABS: Alanine Aminotransferase 25 U/L (0-33); Albumin Level 4.3 g/dL (3.5-5.2); Alkaline Phosphatase 87 IU/L (35-105); Aspartate Amino Transferase 26 U/L (0-32); Globulin 3.5 g/dL (1.3-4.6); Total Bilirubin 0.6 mg/dL (0.15-1.2); Total Protein 7.8 g/dL (6.6-8.7)
[2021-03-28 16:30] LABS: ABG PCO2 34.9 mmHg (35-45); ABG PH Result 7.54 (7.35-7.45); Arterial Blood Gas Hematocrit 40.1 % (37-47); Blood Gas Allen Test Pos; Blood Gas Operator Identificat AMH; Blood Gas Sample Site Radial, left; Blood Gas Sample Type Arterial; HCO3 ABG 29.8 mmol/L (22-26); Oxygen Device ROOM AIR; PO2 ABG 56.5 mmHg (80.0-100.0)
[2021-03-28 16:42] LABS: Creatine Phosphokinase 68 U/L (26-192); Iron 27 ug/dL (37-145); Lactate Dehydrogenase 260 U/L (135-214); Percent Saturation 8.9 % (20-50); Total Iron Binding Capacity 303 mcg/dl; Unsaturated Iron Binding 276 ug/dL (112-347)
[2021-03-28 18:03] LABS: Troponin 5 6HR 6.23 ng/L (0-10); Troponin 5 6HR Delta 0.23 ng/L (0-12)
[2021-03-28 18:39] LABS: Influenza A by IFA Negative (Negative); Influenza B by IFA Negative (Negative); SARS Covid-2 Antigen Negative (Negative)
[2021-03-28] MEDS: LORazepam 2 mg/mL INJ 1 mL 1 MG IVP (18:59)
--- NOTE | 2021-03-28 19:56 | PC.NURSE ---
Pt. states that she feels better after the ativan . Pt. states that she is very sorry, that she has never acted like that before. Pt. states that she was just overwhelmed with the noises and her cords were wrapped up in the bed and she felt restrained and could not get up.
[2021-03-28 23:45] LABS: Basophils % 0.2 %; Hematocrit 39.2 % (37.0-47.0); Hemoglobin 12.9 g/dL (11.5-15.3); Lymphocytes # 0.9 10^3/uL (0.8-4.8); Lymphocytes % 19.3 %; Mean Corpuscular HGB Conc 32.9 g/dL (30.0-36.0); Mean Corpuscular Hemoglobin 29.1 pg (28.0-34.0); Mean Corpuscular Volume 88.3 fl (81-99); Mean Platelet Volume 9.5 fL (7.4-10.4); Monocytes # 0.2 10^3/uL (0.2-0.9); Monocytes % 4.7 %; Neutrophils # 3.67 10^3/uL (1.8-7.7); Neutrophils % 75.6 %; Nucleated Red Blood Cells % 0 %; Platelet Count 215 10^3/cmm (130-400); Red Blood Count 4.44 10^6/uL (4.1-5.3); Red Cell Distribution Width 13.2 % (12.1-15.1); White Blood Count 4.9 10^3/uL (4.0-10.0)
[2021-03-29] VITALS (11 sets, daily range): BP systolic 98–129; BP diastolic 61–88; PULSE 73–99; RESP 17–19; O2SAT 92–97
[2021-03-29] MEDS: enoxaparin 40 mg/0.4 mL Syringe SUBCUT (00:01)
[2021-03-29] MEDS: sodium chlor 0.9% + KCl 20 mEq 20 MEQ/1,000 ML BAG 100 MEQ IV ×2 (00:01→08:59)
[2021-03-29] MEDS: famotidine 20 mg/2 mL INJ IVP ×2 (00:01→13:20)
[2021-03-29] MEDS: pantoprazole 40 mg SDV IVP ×2 (00:01→13:21)
[2021-03-29 00:15] LABS: Glucose Point of Care 212 mg/dL (70-110)
[2021-03-29] MEDS: insulin lispro 100 unit/1 mL SUBCUT (00:17)
[2021-03-29] MEDS: sodium chloride 0.9% 1,000 ML 100 ML IV ×2 (00:20→13:22)
[2021-03-29] MEDS: metoclopramide 5 mg/mL SDV 2 mL IVP (00:21)
[2021-03-29 01:08] LABS: Add Urine Microscopic? NO; Charge for UA Resulting for Rev
[2021-03-29 01:19] LABS: Bilirubin Urine Neg (Negative); Blood Urine Neg (Negative); Glucose Urine UA 4+ (Normal); Ketones Urine 1+ (Negative); Leukocyte Esterase Urine Negative (Negative); Nitrate Urine Negative (Negative); Protein Urine Neg (Negative); Sulfosalicylic Acid Urine Negative (Negative); Urine Appearance Clear (CLEAR); Urine Color Yellow (Yellow); Urobilinogen Urine Norm (Negative); pH Urine 8 (5-7)
[2021-03-29] MEDS: ondansetron 2 mg/ML SDV 2 mL 4 MG IVP (04:22)
[2021-03-29] MEDS: acetaminophen 325 mg Tablet 650 MG PO (05:04)
--- NOTE | 2021-03-29 06:00 | XRR_ITS ---
PROCEDURE INFORMATION: Exam: XR Chest Exam date and time: 03/29/2021 6:00 AM Age: 46 years old Clinical indication: Shortness of breath; Additional info: Covid TECHNIQUE: Imaging protocol: XR of the chest. Views: 1 view. Total images: 1 COMPARISON: CR XR chest 1V portable [id number] 03/28/2021 12:23 PM FINDINGS: Lungs: Unremarkable. No consolidation. Pleural spaces: Unremarkable. No pleural effusion. No pneumothorax. Heart/Mediastinum: Unremarkable. No cardiomegaly. Bones/joints: Osseous structures are unchanged from the prior exam. XR/XR chest 1V portable [id number] IMPRESSION: No acute findings.
[2021-03-29 07:28] LABS: Hematocrit 38.3 % (37.0-47.0); Hemoglobin 12.4 g/dL (11.5-15.3); Lymphocytes # 1.4 10^3/uL (0.8-4.8); Lymphocytes % 25.5 %; Mean Corpuscular HGB Conc 32.4 g/dL (30.0-36.0); Mean Corpuscular Hemoglobin 28.6 pg (28.0-34.0); Mean Corpuscular Volume 88.5 fl (81-99); Mean Platelet Volume 9.5 fL (7.4-10.4); Monocytes # 0.2 10^3/uL (0.2-0.9); Monocytes % 4.4 %; Neutrophils # 3.79 10^3/uL (1.8-7.7); Neutrophils % 69.9 %; Nucleated Red Blood Cells % 0 %; Platelet Count 211 10^3/cmm (130-400); Red Blood Count 4.33 10^6/uL (4.1-5.3); Red Cell Distribution Width 13.2 % (12.1-15.1); White Blood Count 5.4 10^3/uL (4.0-10.0)
[2021-03-29 07:49] LABS: Estmated Average Glucose 200; Hemoglobin A1C 8.6 % (4.0-6.0)
[2021-03-29 07:54] LABS: Alanine Aminotransferase 20 U/L (0-33); Albumin Level 3.5 g/dL (3.5-5.2); Alkaline Phosphatase 64 IU/L (35-105); Anion Gap 16.4 (5-19); Aspartate Amino Transferase 23 U/L (0-32); Blood Urea Nitrogen 9 mg/dL (6-20); C Reactive Protein 46.9 mg/L (0.0-4.9); Calcium 7.3 mg/dL (8.5-10.5); Carbon Dioxide 24 mmol/L (22-29); Chloride 100 mmol/L (98-107); Chol HDL Ratio 3.13 mg/dL (0.0-4.40); Cholesterol 75 mg/dL (0-200); Globulin 2.4 g/dL (1.3-4.6); Glomerular Filtration Rate 132.8 mL/min (90-130); Glucose 133 mg/dL (65-115); HDL Cholesterol 24 mg/dL (60-100); LDL Cholesterol Calculated 28 mg/dL (50-129); NT Pro B Type Natriuretic Pept 57 pg/mL (0-125); Osmolality Calculated 285 mOsm/kg (285-295); Potassium 3.4 mmol/L (3.5-5.1); Sodium 137 mmol/L (136-145); Total Bilirubin 0.3 mg/dL (0.15-1.2); Total Protein 5.9 g/dL (6.6-8.7); Triglycerides 115 mg/dL (0-150); VLDL Cholestrol Calculation 23 mg/dL (0-30)
[2021-03-29 09:06] LABS: Glucose Point of Care 130 mg/dL (70-110)
--- NOTE | 2021-03-29 12:01 | PM.DCS ---
Discharge Providers Date of Admission: 03/28/21 15:37 Date of Discharge: March 29, 2021 Attending Provider at Admission: Bradly Ballesteros MD Attending Provider at Discharge: Bradly Ballesteros MD Primary Care Provider: CATALINA Ty Diagnoses at Discharge Discharge Diagnosis (1) COVID-19: Status: Acute (2) Intractable vomiting with nausea: Status: Acute (3) High anion gap metabolic acidosis: Status: Acute (4) Hypokalemia: Status: Acute (5) Hyponatremia: Status: Acute (6) HTN (hypertension): Status: Acute (7) Diabetes mellitus, type II: Status: Acute Qualifiers: Diabetes mellitus custodial insulin use: without retail sales representative use Diabetes mellitus complication status: with hyperglycemia Qualified Code(s): E11.65 - Type 2 diabetes mellitus with hyperglycemia (8) Cyclical vomiting: Status: Acute Reason for Visit Reason for Visit: VOMITING/FATIGUE/SOB/COVID + Hospital Course Hospital Course Ananya Hernandez is a 46 year old female with past medical history of cyclic vomiting, hypertension, type 2 diabetes mellitus, morbid obesity who presented to the ER today with generalized weakness, malaise, urine production and fever going on and off for last 5 days along with decreased oral intake because of nausea and vomiting. Patient states she has been having nausea and vomiting which has been aggravated over the last 5 days as well. As per report patient tested positive for COVID-19 5 days ago at a local [facility]. On presentation to the ER patient was tachycardic with heart rate going up to 130s, dehydrated for which she received 3 L of IV fluid, PE was ruled out with CTA. Home oxygen evaluation was done and she was requiring 1 to 2 L of oxygen supplementation to keep her saturation over 94% with desaturation to 88% on room air on exertion. As patient continued to remain tachycardic with poor oral intake hospitalist service was requested for admission. Blood work on presentation to the ER showed a normal CBC, sodium of 130, potassium of 3.1, creatinine of 0.6. Patient admitted to the hospital for further management of dehydration from poor oral intake, intractable nausea vomiting tachycardia. She was treated with IV hydration and conservative treatment with full liquid diet. Patient tolerated diet well. At start she was treated for COVID-19 pneumonia with steroid and 1 dose of remdesivir. As patient did not require any oxygen during hospitalization and further home O2 evaluation showed that patient does not need any oxygen she was given 1 dose of monoclonal antibody infusion on 03/29. Her hyponatremia and hypokalemia resolved by the day of discharge. Patient is been discharged in hemodynamically stable condition with advised to take full liquid diet for next 4 to 5 days and advance very gradually to regular diet within next 1 week. She is advised to take multiple small meals. During hospitalization she was found to be diabetic for which she was started on glimepiride and Metformin. She is to take steroid dexamethasone 6 mg daily for next 7 days along with inhalation treatment with Advair and Spiriva for next 2 weeks. She is also given Protonix for next 2 weeks. The discharge plan were discussed in detail with patient and she verbalized understanding. Physical Exam Narrative: EXAM NARRATIVE: General: No acute distress, AO x3 HEENT: PERRLA, pupils bilaterally equal and reactive Chest: Normal vesicular breath sounds, no added sounds, equal good air entry bilaterally CVS: S1-S2 regular, no murmurs, no tachycardia, no gallops, no rubs Abdomen: Soft, nontender, no organomegaly, bowel sounds present Neuro: No focal deficits, no facial deformity, AO x3, power 5/5 in all limbs Discharge Data Data Completed and Pending: Completed Studies During Hospitalization Category Date Time Status CT abdomen pelvis wo con [id number] Urge nt Cat Scan 03/28/21 13:[address] angio chest PE protcl [id number] Urge nt Cat Scan 03/28/21 12:16 Completed XR chest 1V zechariah ble [id number] Q48H Exams 03/29/21 06:00 Completed XR chest 1V zechariah ble [id number] Urgent Exams 03/28/21 12:12 Completed Pending at discharge Category Date Time Status XR chest 1V zechariah ble [id number] Q48H Exams 03/31/21 06:00 Ordered XR chest 1V zechariah ble [id number] Q48H Exams 04/02/21 06:00 Ordered Blood Culture Sta t Lab 03/28/21 17:35 Results C Reactive Protei n Q48H Lab 03/31/21 04:00 [facility] 18:00 Ordered D Dimer Q48H Lab 03/29/21 15:45 Ordered D Dimer Q48H Lab 03/31/21 15:45 Ordered Legionella Antige n STAT Routine Lab 03/28/21 15:36 Uncollected Magnesium AM LABS Lab 03/30/21 04:00 Ordered Magnesium AM LABS Lab 03/31/21 04:00 Ordered Magnesium AM LABS Lab 04/01/21 04:00 Ordered NT Pro B Type Evangelina riuretic Pept Q48H Lab 03/31/21 15:45 Ordered Phosphorus AM LAB S Lab 03/30/21 04:00 Ordered Phosphorus AM LAB S Lab 03/31/21 04:00 Ordered Phosphorus AM LAB S Lab 04/01/21 04:00 Ordered Sputum Culture an d Gram Stain Stat Lab 03/28/21 15:39 Uncollected Labs from last 24 hours 03/29/21 03/29/21 03/29/21 09:02 06:58 06:58 WBC RBC Hgb Hct MCV MCH MCHC RDW Plt Count MPV Neut % (Auto) Lymph % (Auto) Ransom % (Auto) Eos % (Auto) Baso % (Auto) Neut # (Auto) Lymph # (Auto) Ransom # (Auto) Eos # (Auto) Baso # (Auto) Nucleated RBC % (a uto) Nucleated RBCs # Specimen Type Sample Site ABG pH ABG pCO2 ABG pO2 ABG HCO3 ABG Base Excess Tobi Test Hematocrit O2 Delivery Device FiO2 Cdl Flatbed Truck Driver ID Sodium 137 Potassium 3.4 L Chloride 100 Carbon Dioxide 24 Anion Gap 16.4 BUN 9 Creatinine 0.5 GFR Calculation 132.8 H Glucose 133 H POC Glucose 130 H Estimat Average Gl ucose Hemoglobin A1c Calculated Osmolal ity 285 Calcium 7.3 L Iron TIBC % Saturation Unsat Iron Binding Total Bilirubin 0.3 Direct Bilirubin AST 23 ALT 20 Alkaline Phosphata se 64 Lactate Dehydrogen ase Creatine Kinase Troponin T 120 Min [place] Delta Troponin T Troponin T Hi Sens 6Hr Troponin T Hi Sens 6Hr Delta C-Reactive Protein 46.9 H NT-Pro-B Natriuret Pep 57 Cancelled Total Protein 5.9 L D Albumin 3.5 Globulin 2.4 Triglycerides 115 Cholesterol 75 LDL Cholesterol, C alc 28 L Total VLDL Cholest denisa 23 HDL Cholesterol 24 L Cholesterol/HDL Ra chalino 3.13 Procalcitonin TSH Urine Color Urine Appearance Urine pH Ur Specific Gravit y Urine Protein Urine Glucose (UA) Urine Ketones Urine Blood Urine Nitrate Urine Bilirubin Prot Sulfosalicyli c Acd Urine Urobilinogen Ur Leukocyte Chloe ase Serum Ketones Influenza Type A A g Influenza Type B A g SARS-CoV-2 Ag (Rap id) 03/29/21 03/29/21 03/29/21 06:58 06:58 06:58 WBC 5.4 RBC 4.33 Hgb 12.4 Hct 38.3 MCV 88.5 MCH 28.6 MCHC 32.4 RDW 13.2 Plt Count 211 MPV 9.5 Neut % (Auto) 69.9 Lymph % (Auto) 25.5 Ransom % (Auto) 4.4 Eos % (Auto) 0.0 Baso % (Auto) 0.0 Neut # (Auto) 3.79 Lymph # (Auto) 1.4 Ransom # (Auto) 0.2 Eos # (Auto) 0.0 Baso # (Auto) 0.0 Nucleated RBC % (a uto) 0 Nucleated RBCs # 0.0 Specimen Type Sample Site ABG pH ABG pCO2 ABG pO2 ABG HCO3 ABG Base Excess Tobi Test Hematocrit O2 Delivery Device FiO2 Cdl Flatbed Truck Driver ID Sodium Potassium Chloride Carbon Dioxide Anion Gap BUN Creatinine GFR Calculation Glucose POC Glucose Estimat Average Gl ucose 200 Hemoglobin A1c 8.6 H Calculated Osmolal ity Calcium Iron TIBC % Saturation Unsat Iron Binding Total Bilirubin Direct Bilirubin AST ALT Alkaline Phosphata se Lactate Dehydrogen ase Creatine Kinase Troponin T 120 Min [place] Troponin T Troponin T Hi Sens 6Hr Troponin T Hi Sens 6Hr Delta C-Reactive Protein Cancelled NT-Pro-B Natriuret Pep Total Protein Albumin Globulin Triglycerides Cancelled Cholesterol Cancelled LDL Cholesterol, C alc Cancelled Total VLDL Cholest denisa Cancelled HDL Cholesterol Cancelled Cholesterol/HDL Ra chalino Cancelled Procalcitonin TSH Urine Color Urine Appearance Urine pH Ur Specific Gravit y Urine Protein Urine Glucose (UA) Urine Ketones Urine Blood Urine Nitrate Urine Bilirubin Prot Sulfosalicyli c Acd Urine Urobilinogen Ur Leukocyte Chloe ase Serum Ketones Influenza Type A A g Influenza Type B A g SARS-CoV-2 Ag (Rap id) 03/29/21 03/29/21 03/28/21 00:58 00:09 23:28 WBC 4.9 RBC 4.44 Hgb 12.9 Hct 39.2 MCV 88.3 D MCH 29.1 MCHC 32.9 RDW 13.2 Plt Count 215 MPV 9.5 Neut % (Auto) 75.6 Lymph % (Auto) 19.3 Ransom % (Auto) 4.7 Eos % (Auto) 0.0 Baso % (Auto) 0.2 Neut # (Auto) 3.67 Lymph # (Auto) 0.9 Ransom # (Auto) 0.2 Eos # (Auto) 0.0 Baso # (Auto) 0.0 Nucleated RBC % (a uto) 0 Nucleated RBCs # 0.0 Specimen Type Sample Site ABG pH ABG pCO2 ABG pO2 ABG HCO3 ABG Base Excess Tobi Test Hematocrit O2 Delivery Device FiO2 Cdl Flatbed Truck Driver ID Sodium Potassium Chloride Carbon Dioxide Anion Gap BUN Creatinine GFR Calculation Glucose POC Glucose 212 H Estimat Average Gl ucose Hemoglobin A1c Calculated Osmolal ity Calcium Iron TIBC % Saturation Unsat Iron Binding Total Bilirubin Direct Bilirubin AST ALT Alkaline Phosphata se Lactate Dehydrogen ase Creatine Kinase Troponin T 120 Min [place] Troponin T Troponin T Hi Sens 6Hr Troponin T Hi Sens 6Hr Delta C-Reactive Protein NT-Pro-B Natriuret Pep Total Protein Albumin Globulin Triglycerides Cholesterol LDL Cholesterol, C alc Total VLDL Cholest denisa HDL Cholesterol Cholesterol/HDL Ra chalino Procalcitonin TSH Urine Color Yellow Urine Appearance Clear Urine pH 8 H Ur Specific Gravit y 1.010 Urine Protein Neg Urine Glucose (UA) 4+ H Urine Ketones 1+ H Urine Blood Neg Urine Nitrate Negative Urine Bilirubin Neg Prot Sulfosalicyli c Acd Negative Urine Urobilinogen Norm Ur Leukocyte Chloe ase Negative Serum Ketones Influenza Type A A g Influenza Type B A g SARS-CoV-2 Ag (Rap id) 03/28/21 03/28/21 03/28/21 18:00 18:00 17:35 WBC RBC Hgb Hct MCV MCH MCHC RDW Plt Count MPV Neut % (Auto) Lymph % (Auto) Ransom % (Auto) Eos % (Auto) Baso % (Auto) Neut # (Auto) Lymph # (Auto) Ransom # (Auto) Eos # (Auto) Baso # (Auto) Nucleated RBC % (a uto) Nucleated RBCs # Specimen Type Sample Site ABG pH ABG pCO2 ABG pO2 ABG HCO3 ABG Base Excess Tobi Test Hematocrit O2 Delivery Device FiO2 Cdl Flatbed Truck Driver ID Sodium Potassium Chloride Carbon Dioxide Anion Gap BUN Creatinine GFR Calculation Glucose POC Glucose Estimat Average Gl ucose Hemoglobin A1c Calculated Osmolal ity Calcium Iron TIBC % Saturation Unsat Iron Binding Total Bilirubin Direct Bilirubin AST ALT Alkaline Phosphata se Lactate Dehydrogen ase Creatine Kinase Troponin T 120 Min [place] Troponin T Troponin T Hi Sens 6Hr 6.23 Troponin T Hi Sens 6Hr Delta 0.23 C-Reactive Protein NT-Pro-B Natriuret Pep Total Protein Albumin Globulin Triglycerides Cholesterol LDL Cholesterol, C alc Total VLDL Cholest denisa HDL Cholesterol Cholesterol/HDL Ra chalino Procalcitonin TSH Urine Color Urine Appearance Urine pH Ur Specific Gravit y Urine Protein Urine Glucose (UA) Urine Ketones Urine Blood Urine Nitrate Urine Bilirubin Prot Sulfosalicyli c Acd Urine Urobilinogen Ur Leukocyte Chloe ase Serum Ketones Influenza Type A A g Negative Influenza Type B A g Negative SARS-CoV-2 Ag (Rap id) Negative 03/28/21 03/28/21 03/28/21 16:19 13:28 11:18 WBC RBC Hgb Hct MCV MCH MCHC RDW Plt Count MPV Neut % (Auto) Lymph % (Auto) Ransom % (Auto) Eos % (Auto) Baso % (Auto) Neut # (Auto) Lymph # (Auto) Ransom # (Auto) Eos # (Auto) Baso # (Auto) Nucleated RBC % (a uto) Nucleated RBCs # Specimen Type Arterial Sample Site Radial, left ABG pH 7.54 H ABG pCO2 34.9 L ABG pO2 56.5 L ABG HCO3 29.8 H ABG Base Excess 7.0 H Tobi Test Pos Hematocrit 40.1 O2 Delivery Device Room air FiO2 21.0 Cdl Flatbed Truck Driver ID Amh Sodium Potassium Chloride Carbon Dioxide Anion Gap BUN Creatinine GFR Calculation Glucose POC Glucose Estimat Average Gl ucose Hemoglobin A1c Calculated Osmolal ity Calcium Iron TIBC % Saturation Unsat Iron Binding Total Bilirubin 0.6 Direct Bilirubin 0.20 AST 26 ALT 25 Alkaline Phosphata se 87 Lactate Dehydrogen ase Creatine Kinase Troponin T 120 Min [place] 6.00 Delta Troponin T 0 Troponin T Hi Sens 6Hr Troponin T Hi Sens 6Hr Delta C-Reactive Protein NT-Pro-B Natriuret Pep Total Protein 7.8 Albumin 4.3 Globulin 3.5 Triglycerides Cholesterol LDL Cholesterol, C alc Total VLDL Cholest denisa HDL Cholesterol Cholesterol/HDL Ra chalino Procalcitonin TSH Urine Color Urine Appearance Urine pH Ur Specific Gravit y Urine Protein Urine Glucose (UA) Urine Ketones Urine Blood Urine Nitrate Urine Bilirubin Prot Sulfosalicyli c Acd Urine Urobilinogen Ur Leukocyte Chloe ase Serum Ketones Influenza Type A A g Influenza Type B A g SARS-CoV-2 Ag (Rap id) 03/28/21 03/28/21 03/28/21 11:18 11:18 11:18 WBC RBC Hgb Hct MCV MCH MCHC RDW Plt Count MPV Neut % (Auto) Lymph % (Auto) Ransom % (Auto) Eos % (Auto) Baso % (Auto) Neut # (Auto) Lymph # (Auto) Ransom # (Auto) Eos # (Auto) Baso # (Auto) Nucleated RBC % (a uto) Nucleated RBCs # Specimen Type Sample Site ABG pH ABG pCO2 ABG pO2 ABG HCO3 ABG Base Excess Tobi Test Hematocrit O2 Delivery Device FiO2 Cdl Flatbed Truck Driver ID Sodium 130 L Potassium 3.1 L Chloride 87 L Carbon Dioxide Anion Gap 24.1 H BUN Creatinine GFR Calculation Glucose 243 H POC Glucose Estimat Average Gl ucose Hemoglobin A1c Calculated Osmolal ity 277 L Calcium Iron 27 L TIBC 303 % Saturation 8.9 L Unsat Iron Binding 276 Total Bilirubin Direct Bilirubin AST ALT Alkaline Phosphata se Lactate Dehydrogen ase 260 H Creatine Kinase 68 Troponin T 120 Min [place] Troponin T Troponin T Hi Sens 6Hr Troponin T Hi Sens 6Hr Delta C-Reactive Protein NT-Pro-B Natriuret Pep 66 Total Protein Albumin Globulin Triglycerides Cholesterol LDL Cholesterol, C alc Total VLDL Cholest denisa HDL Cholesterol Cholesterol/HDL Ra chalino Procalcitonin 0.04 TSH 0.58 Urine Color Urine Appearance Urine pH Ur Specific Gravit y Urine Protein Urine Glucose (UA) Urine Ketones Urine Blood Urine Nitrate Urine Bilirubin Prot Sulfosalicyli c Acd Urine Urobilinogen Ur Leukocyte Chloe ase Serum Ketones Negative Influenza Type A A g Influenza Type B A g SARS-CoV-2 Ag (Rap id) Addt'l Data from Hospital Stay: Laboratory Results WBC 5.4 10^3/uL (4.0- 10.0) 03/29/21 06:58 RBC 4.33 10^6/uL (4.1 -5.3) 03/29/21 06:58 Hgb 12.4 g/dL (11.5-1 5.3) 03/29/21 06:58 Hct 38.3 % (37.0-47.0 ) 03/29/21 06:58 MCV 88.5 fl (81-99) 03/29/21 06:58 MCH 28.6 pg (28.0-34. 0) 03/29/21 06:58 MCHC 32.4 g/dL (30.0-3 6.0) 03/29/21 06:58 RDW 13.2 % (12.1-15.1 ) 03/29/21 06:58 Plt Count 211 10^3/cmm (130 -400) 03/29/21 06:58 MPV 9.5 fL (7.4-10.4) 03/29/21 06:58 Neut % (Auto) 69.9 % 03/29/21 06:58 Lymph % (Auto) 25.5 % 03/29/21 06:58 Ransom % (Auto) 4.4 % 03/29/21 06:58 Eos % (Auto) 0.0 % 03/29/21 06:58 Baso % (Auto) 0.0 % 03/29/21 06:58 Neut # (Auto) 3.79 10^3/uL (1.8 -7.7) 03/29/21 06:58 Lymph # (Auto) 1.4 10^3/uL (0.8- 4.8) 03/29/21 06:58 Ransom # (Auto) 0.2 10^3/uL (0.2- 0.9) 03/29/21 06:58 Eos # (Auto) 0.0 10^3/uL (0.0- 0.8) 03/29/21 06:58 Baso # (Auto) 0.0 10^3/uL (0.0- 0.1) 03/29/21 06:58 Nucleated RBC % (a uto) 0 % 03/29/21 06:58 Nucleated RBCs # 0.0 /100WBC 03/29/21 06:58 D-Dimer 0.40 ug/mIFEU (0- 0.59) 03/28/21 11:18 Specimen Type Arterial 03/28/21 16:19 Sample Site Radial, left 03/28/21 16:19 ABG pH 7.54 (7.35-7.45) H 03/28/21 16:19 ABG pCO2 34.9 mmHg (35-45) L 03/28/21 16:19 ABG pO2 56.5 mmHg (80.0-1 00.0) L 03/28/21 16:19 ABG HCO3 29.8 mmol/L (22-2 6) H 03/28/21 16:19 ABG Base Excess 7.0 mmol/L (-2.0- 2.0) H 03/28/21 16:19 Tobi Test Pos 03/28/21 16:19 Hematocrit 40.1 % (37-47) 03/28/21 16:19 O2 Delivery Device Room air 03/28/21 16:19 FiO2 21.0 % 03/28/21 16:19 Cdl Flatbed Truck Driver ID Amh 03/28/21 16:19 Sodium 137 mmol/L (136-1 45) 03/29/21 06:58 Potassium 3.4 mmol/L (3.5-5 .1) L 03/29/21 06:58 Chloride 100 mmol/L (98-10 7) 03/29/21 06:58 Carbon Dioxide 24 mmol/L (22-29) 03/29/21 06:58 Anion Gap 16.4 (5-19) 03/29/21 06:58 BUN 9 mg/dL (6-20) 03/29/21 06:58 Creatinine 0.5 mg/dL (0.5-0. 9) 03/29/21 06:58 GFR Calculation 132.8 mL/min (90- 130) H 03/29/21 06:58 Glucose 133 mg/dL (65-115 ) H 03/29/21 06:58 POC Glucose 130 mg/dL (70-110 ) H 03/29/21 09:02 Estimat Average Gl ucose 200 03/29/21 06:58 Hemoglobin A1c 8.6 % (4.0-6.0) H 03/29/21 06:58 Calculated Osmolal ity 285 mOsm/kg (285- 295) 03/29/21 06:58 Calcium 7.3 mg/dL (8.5-10 .5) L 03/29/21 06:58 Iron 27 ug/dL (37-145) L 03/28/21 11:18 TIBC 303 mcg/dl 03/28/21 11:18 % Saturation 8.9 % (20-50) L 03/28/21 11:18 Unsat Iron Binding 276 ug/dL (112-34 7) 03/28/21 11:18 Total Bilirubin 0.3 mg/dL (0.15-1 .2) 03/29/21 06:58 Direct Bilirubin 0.20 mg/dL (0.00- 0.30) 03/28/21 11:18 AST 23 U/L (0-32) 03/29/21 06:58 ALT 20 U/L (0-33) 03/29/21 06:58 Alkaline Phosphata se 64 IU/L (35-105) 03/29/21 06:58 Lactate Dehydrogen ase 260 U/L (135-214) H 03/28/21 11:18 Creatine Kinase 68 U/L (26-192) 03/28/21 11:18 Troponin T Baselin e 6 ng/L (0-10) 03/28/21 11:18 Troponin T 120 Min [place] 6.00 ng/L (0-10) 03/28/21 13:28 Delta Troponin T 0 ABS# (0-10) 03/28/21 13:28 Troponin T Hi Sens 6Hr 6.23 ng/L (0-10) 03/28/21 17:35 Troponin T Hi Sens 6Hr Delta 0.23 ng/L (0-12) 03/28/21 17:35 C-Reactive Protein 46.9 mg/L (0.0-4. 9) H 03/29/21 06:58 C-Reactive Protein Cancelled 03/29/21 06:58 NT-Pro-B Natriuret Pep 57 pg/mL (0-125) 03/29/21 06:58 NT-Pro-B Natriuret Pep Cancelled 03/29/21 06:58 Total Protein 5.9 g/dL (6.6-8.7 ) L D 03/29/21 06:58 Albumin 3.5 g/dL (3.5-5.2 ) 03/29/21 06:58 Globulin 2.4 g/dL (1.3-4.6 ) 03/29/21 06:58 Triglycerides 115 mg/dL (0-150) 03/29/21 06:58 Triglycerides Cancelled 03/29/21 06:58 Cholesterol 75 mg/dL (0-200) 03/29/21 06:58 Cholesterol Cancelled 03/29/21 06:58 LDL Cholesterol, C alc 28 mg/dL (50-129) L 03/29/21 06:58 LDL Cholesterol, C alc Cancelled 03/29/21 06:58 Total VLDL Cholest denisa 23 mg/dL (0-30) 03/29/21 06:58 Total VLDL Cholest denisa Cancelled 03/29/21 06:58 HDL Cholesterol 24 mg/dL (60-100) L 03/29/21 06:58 HDL Cholesterol Cancelled 03/29/21 06:58 Cholesterol/HDL Ra chalino 3.13 mg/dL (0.0-4 .40) 03/29/21 06:58 Cholesterol/HDL Ra chalino Cancelled 03/29/21 06:58 Procalcitonin 0.04 ng/mL (0-0.5 ) 03/28/21 11:18 TSH 0.58 uIU/mL (0.27 -4.20) 03/28/21 11:18 Urine Color Yellow (Yellow) 03/29/21 00:58 Urine Appearance Clear (CLEAR) 03/29/21 00:58 Urine pH 8 (5-7) H 03/29/21 00:58 Ur Specific Gravit y 1.010 (1.005-1.0 30) 03/29/21 00:58 Urine Protein Neg (Negative) 03/29/21 00:58 Urine Glucose (UA) 4+ (Normal) H 03/29/21 00:58 Urine Ketones 1+ (Negative) H 03/29/21 00:58 Urine Blood Neg (Negative) 03/29/21 00:58 Urine Nitrate Negative (Negati ve) 03/29/21 00:58 Urine Bilirubin Neg (Negative) 03/29/21 00:58 Prot Sulfosalicyli c Acd Negative (Negati ve) 03/29/21 00:58 Urine Urobilinogen Norm mg/dL (Negat mar) 03/29/21 00:58 Ur Leukocyte Chloe ase Negative (Negati ve) 03/29/21 00:58 Serum Ketones Negative (Negati ve) 03/28/21 11:18 Influenza Type A A g Negative (Negati ve) 03/28/21 18:00 Influenza Type B A g Negative (Negati ve) 03/28/21 18:00 SARS-CoV-2 Ag (Rap id) Negative (Negati ve) 03/28/21 18:00 Impressions Chest CTA 03/28/21 12:16 IMPRESSION: 1. Limited opacification of the pulmonary arteries. No central pulmonary embolism. 2. Bilateral groundglass attenuation and areas of consolidation. Most dense consolidation in the RIGHT lower lobe. Consistent with Covid 19 pneumonia. 3. Prior cholecystectomy and hepatic steatosis. 4. Mildly reactive hilar lymphadenopathy. Abdomen/Pelvis CT 03/28/21 13:27 IMPRESSION: 1. No acute abdominal or pelvic abnormalities are identified. There is no free fluid or free air. 2. Normal appendix. 3. Prior cholecystectomy. 4. Bilateral lower lobe pneumonia, RIGHT greater than LEFT. Chest X-Ray 03/29/21 06:00 IMPRESSION: No acute findings. Microbiology 03/28/21 18:00 Nose MRSA Culture - Final 03/29/21 00:58 Urine Kidney Bacterial Antigens - Final 03/28/21 17:35 Blood Blood Culture - Preliminary SPECIMEN COLLECTED 03/28/21 11:18 Blood Blood Culture - Preliminary SPECIMEN COLLECTED Vitals: Last Vital Signs Temp 100.9 F H 03/28/21 11:14 Pulse 96 03/29/21 08:42 Resp 17 03/29/21 08:39 BP 129/88 03/29/21 04:55 Pulse Ox 97 03/29/21 08:43 Discharge Plan Discharge Patient Disposition: Home Condition: Stable Prescriptions: New Advair Diskus 250-50 mcg/dose Blister With Device 1 puff inhalation BID.RESPIRATORY 14 Days Qty: 28 RF: 0 zinc gluconate 50 mg Tablet 50 mg PO DAILY 14 Days Qty: 14 RF: 0 ferrous gluconate 324 mg (37.5 mg iron) Tablet 324 mg PO BIDWM 30 Days Qty: 30 RF: 0 dexamethasone 6 mg tablet 6 mg PO DAILY Qty: 7 RF: 0 Protonix 40 mg tablet,delayed release (DR/EC) 40 mg PO BID 14 Days Qty: 28 RF: 0 Spiriva with HandiHaler 18 mcg capsule, w/inhalation device 1 cap inhalation DAILY Qty: 14 RF: 0 levofloxacin 500 mg tablet 500 mg PO Q24H 3 Days Qty: 3 RF: 0 glimepiride 2 mg tablet 2 mg PO DAILY Qty: 60 RF: 0 metformin 500 mg tablet 500 mg PO BID Qty: 60 RF: 0 Continued losartan 50 mg Tablet 50 mg PO DAILY RF: 0 metoprolol tartrate 50 mg tablet 50 mg PO BID RF: 0 hydroxyzine HCl 25 mg tablet 25 mg PO TID PRN (Reason: Anxiety) RF: 0 desipramine 100 mg tablet 100 mg PO DAILY RF: 0 citalopram 20 mg tablet 40 mg PO DAILY RF: 0 lorazepam 1 mg tablet 1 mg PO BID PRN (Reason: Vomiting) RF: 0 albuterol sulfate 90 mcg/actuation HFA aerosol inhaler 1 puff INHALATION Q4H PRN (Reason: Shortness Of Breath) RF: 0 Discontinued cefdinir 300 mg Capsule 300 mg PO BID RF: 0 Discharge Orders: Discharge Order (Routine); Ordered 03/29/21 Ordered By: Bradly Ballesteros Referrals: Mariana Joe FNP [Primary Care Provider] - 4-7 days Discharge Diet: Advance as tolerated, Cardiac, Diabetic and Full LIquid Discharge Activity: Resume usual activity Patient Instructions: Opioid Safety Activity Restrictions/Additional Instructions: Please continue taking full liquid diet for next few days and advance very gradually GI soft and then regular diet within next 1 week. Please take small multiple meals. You have been started on glimepiride and Metformin for diabetes. Advised to take inhalation treatment with Advair and Spiriva daily. Advised to continue working with incentive spirometry and flutter valve while at home. Advised to continue taking dexamethasone 6 mg for next 7 days. Advised to follow-up with his primary care providerwithin the next 4 to 7 days. Can take his COVID-19 vaccination in 3 months. Advised to continue following social distancing and isolation protocol for next 10 days. Advised to come back to the ER if fever of more than 101 Fahrenheit, more difficulty breathing than usual or requiring higher oxygen supplementation. Discharge Attestations Time Spent in Discharge Care*: greater than 30 min Specific Discharge Activities: educating patient, discussing with pcp/other providers, discussing with manager of case management/social workers/dc planners, documenting/other paperwork and evaluating patient/reviewing data Status at Discharge: Cognitive status at discharge: cognitively intact, Behavioral status at discharge: cooperative, Functional status at discharge: independent ambulation Overall status at discharge: patient is progressing back to baseline Quality Metrics Clinical Quality Measures During this hospital stay, did patient experience: None Coding Level of Care Code Acute [facility] DC note Diagnoses COVID-19 U07.1 Intractable vomiting with nausea R11.2 High anion gap metabolic acidosis E87.2 Hypokalemia E87.6 Hyponatremia E87.1 HTN (hypertension) I10 Diabetes mellitus, type II E11.65 Diabetes mellitus custodial insulin use: without retail sales representative use Diabetes mellitus complication status: with hyperglycemia Cyclical vomiting R11.15
[2021-03-29] MEDS: zinc gluconate 50 mg Tablet PO (13:21)
[2021-03-29] MEDS: benzonatate 100 mg Capsule PO ×2 (13:21)
[2021-03-29] MEDS: metoprolol tartrate 50 mg Tablet PO ×2 (13:21)
[2021-03-29] MEDS: citalopram 20 mg Tablet 40 MG PO (13:21)
[2021-03-29] MEDS: ferrous gluconate 324 mg Tablet PO (13:22)
[2021-03-29] MEDS: losartan 50 mg Tablet PO (13:22)
[2021-03-29 13:46] LABS: Glucose Point of Care 133 mg/dL (70-110)
--- NOTE | 2021-03-29 17:43 | PC.NURSE ---
Jarrett from [facility], stating one bottle out of 3 came back with Positive Gram Travon Report call to Dr Dhillon, no orders given
[2021-03-31 14:58] LABS: Coronavirus Test Green County Detected
== END 2021-03-29 12:11 | disposition home or self-care (01) | DRG 177 ==
LOC: ER 16:10 → ER IP 19:08
PROVIDERS: Admitting Provider Student in an Organized Health Care Education/Training Program; Emergency Provider Emergency Medicine; PCP Nurse Practitioner Family; Visit Provider Student in an Organized Health Care Education/Training Program
DX: U07.1 COVID-19 (principal); J12.82 Pneumonia due to coronavirus disease 2019; R09.02 Hypoxemia; R11.15 Cyclical vomiting syndrome unrelated to migraine; I10 Essential (primary) hypertension; E87.6 Hypokalemia; E11.65 Type 2 diabetes mellitus with hyperglycemia; E66.01 Morbid (severe) obesity due to excess calories; Z68.39 Body mass index [BMI] 39.0-39.9, adult; E86.0 Dehydration; Z87.891 Personal history of nicotine dependence
CPT/HCPCS: 36415; 36416; 36600; 71045; 71275; 74176; 80048; 80053; 80061; 80076; 81003; 82009; 82550; 82803; 82962; 83036; 83540; 83550; 83615; 83880; 84145; 84443; 84484; 85025; 85378; 86140; 86403; 87040; 87205; 87426; 87449; 87635; 87641; 87804; 93005; 94640; 94664; 96365; 96366; 96367; 96372; 96375; 96376; 99285; C9113; J1100; J1650; J1815; J2060; J2270; J2405; J2765; J3480; J3490; J7030; Q9967

== ENCOUNTER 2021-04-09 19:04 | Emergency (ER) | payer MEDICAID, SELFPAY ==
[2021-04-09 19:19] VITALS: BP 159/109; PULSE 135; RESP 30; TEMP 36.1; O2SAT 98; BMI 38.6
--- NOTE | 2021-04-09 19:20 | ECG_ITS ---
[facility] Test Date: 2021-04-09 Pat Name: Ananya Hernandez Department: Room: Gender: Female [employer] In[employer]: : 1975 Requested By: Jhoana Currie Order Number: [id number] Francie MD: Phil Louis M.D. Measurements Intervals Trion Rate: 137 P: 69 FL: 125 QRS: -3 QRSD: 82 T: 70 QT: 301 QTc: 455 Interpretive Statements SINUS TACHYCARDIA Compared to ECG 03/28/2021 13:55:16 T-wave abnormality no longer present Electronically Signed On 04-10-2021 22:08:00 SIZING MACHINE AND DRIER OPERATOR by Phil Louis M.D. [email or web address] hospital [email or web address] [id number]
--- NOTE | 2021-04-09 19:21 | XRR_ITS ---
PROCEDURE INFORMATION: Exam: XR Chest Exam date and time: 04/09/2021 7:21 PM Age: 46 years old Clinical indication: Shortness of breath; Additional info: Dyspnea TECHNIQUE: Imaging protocol: XR of the chest. Views: 1 view. COMPARISON: CR (CHEST, ) 03/29/2021 5:38 AM FINDINGS: Lungs: Dense ground-glass opacities in both lung bases. Pleural spaces: Unremarkable. No pleural effusion. No pneumothorax. Heart/Mediastinum: Unremarkable. No cardiomegaly. Bones/joints: Unremarkable. XR/XR chest 1V portable [id number] IMPRESSION: 1. Pulmonary edema versus pneumonia in the lung bases.
--- NOTE | 2021-04-09 19:24 | W.ED.GENADLT ---
HPI - General Adult General: Chief complaint: Chest Pain Stated complaint: Covid +\ [employer] Time Seen by Provider: 04/09/21 19:20 Source: patient and family History of Present Illness: HPI narrative: 46-year-old female complaining of chest pain, shortness of breath, nausea, vomiting, and generalized abdominal pain for the last few days. She started having palpitations earlier today. She has not been able to keep down any of her medications, has only been taking her insulin. She found out today that she was evicted, is causing a lot of stress, one of the triggers for her cyclical vomiting syndrome. She does use marijuana regularly, but says that her GI symptoms are definitely not related to the marijuana. No fever, diarrhea. Tested positive for Covid on 03/28/2021 Onset (ago): day(s) Associated symptoms: Reports chest pain, dyspnea, malaise, nausea, rash, palpitations and vomiting; Deny headache(s) Review of Systems General: Reports: 10 or more systems reviewed and unremarkable except in HPI and below Const: Reports: change in appetite, fatigue and malaise; Denies: fever(s), chills or body aches Eyes: Denies: change in vision or blurry vision Card: Reports: chest pain, palpitations and lightheadedness; Denies: edema or swelling of feet/ankles Resp: Reports: dyspnea; Denies: productive cough, non-productive cough or wheezing GI: Reports: nausea and vomiting; Denies: hematemesis, diarrhea or bloating : Denies: difficulty voiding or dysuria Musc: Denies: neck pain, back pain, extremity pain or extremity swelling Skin/Breast: Reports: rash, pruritus and erythema Neuro: Denies: headache(s) or numbness in extremities Psych: Reports: anxiety, depression and panic attacks Endo: Denies: polyuria, polydipsia or tired all the time Lauri/Lymph: Denies: easy bruising or easy bleeding All/Imm: Denies: urticaria, throat swelling or tongue swelling PFSH ED PFSH: Medical History BMI 38.0-38.9,adult COVID-19 Cyclical vomiting Dehydration Depression Diabetes mellitus, type II Elevated lactic acid level History of cardiac arrhythmia Details not clear but on chronic beta-blockade HTN (hypertension) Hypokalemia Intractable vomiting with nausea Tetrahydrocannabinol (THC) use disorder, mild, abuse Surgical History H/O shoulder surgery H/O: hysterectomy History of tubal ligation Hx of cholecystectomy Family History Mother CAD (coronary artery disease) Social History (Updated 12/11/20 @ 02:34 by Ruma Beverly MD) Smoking and tobacco status: former smoker Alcohol intake: never Household members: family Housing: House Female Reproductive History: Date of last menstrual period: 03/14/21 Physical Exam Const: COMMON NORMALS: patient oriented x3 GENERAL APPEARANCE: in distress, anxious, disheveled and ill appearing NUTRITIONAL APPEARANCE: obese morbidly obese HENMT: COMMON NORMALS: normocephalic and atraumatic HEAD & SCALP: normocephalic and atraumatic FACE & SINUS: normal facial exam and face symmetric Eye: COMMON NORMALS: Equal, round and reactive pupils present, EOMs intact bilaterally, conjunctivae normal and no scleral icterus CONJUNCTIVA: Yes conjunctivae normal SCLERA: sclerae normal PUPIL: Yes Equal, round and reactive pupils present EOM: Yes EOM abnormal Neck/C-Spine: COMMON NORMALS: full ROM, no lymphadenopathy, supple and no JVD Resp: COMMON NORMALS: normal respiratory effort and No use of accessory muscles EFFORT & INSPECTION: Yes able to speak in complete sentences AUSCULTATION: crackles and rales Cardio: COMMON NORMALS: no JVD and regular rhythm RATE: tachycardic RHYTHM: regular rhythm GI: COMMON NORMALS: Normal to inspection, nondistended, normoactive bowel sounds present and Soft to palpation PALPATION: Yes Soft to palpation, Yes Tenderness to palpation present (GI) (Generalized), No Guarding due to palpation present (GI) and No Rigid due to palpation : COMMON NORMALS: Yes no CVA tenderness and Yes normal external appearance BLADDER/KIDNEY EXAM: Yes no CVA tenderness Back/Pelvis: COMMON NORMALS: no CVA tenderness Extremity: COMMON NORMALS: normal to inspection, full ROM and capillary refill normal Neuro: COMMON NORMALS: patient oriented x3, moves all extremities and no focal motor deficits Psych: COMMON NORMALS: speech normal SPEECH: Yes normal speech MOOD & AFFECT: Yes depressed mood, Yes sad, Yes tearful and Yes fearful Skin: COMMON NORMALS: no rashes or lesions noted, no wounds and turgor normal GENERAL SKIN EXAM: no rashes or lesions noted and turgor normal Course ED course: 46-year-old female with history of cyclical vomiting, [id number] diabetes, anxiety, Intractable nausea, vomiting, diarrhea, generalized abdominal pain for 2 days, has not been able to keep down any of her medications, palpitations started earlier today; EKG shows sinus tachycardia: Minimal improvement with fluid bolus, suspect rebound effect from metoprolol: IVP metoprolol 5 mg x 1, followed by her usual oral dose. Chronic cannabis use: Could be contributing to her nausea and vomiting, Haldol 5 mg IV x1, lorazepam 1 mg x 1 She has bilateral lower lobe infiltrates, was diagnosed with Covid 2 weeks ago: WBC count elevated, so empirically started on antibiotics for suspected superimposed pneumonia. O2 sats low 90s PaO2 61 on room air, D-dimer minimally elevated: CTA negative for acute PE, interval improvement in the infiltrates Lactic acid 2.8: Fluids, instruct her to hold Metformin on discharge. On reexam, her anxiety and nausea and vomiting have improved slightly. awaiting UA Anticipate discharge home pending UA, p.o. challenge. Vital Signs: Vital signs: Vital Signs Temperature 97.0 F L 04/09/21 19:19 Pulse Rate 135 H 04/09/21 19:19 Respiratory Rate 30 H 04/09/21 19:19 Blood Pressure 159/109 04/09/21 19:19 Pulse Oximetry 98 04/09/21 19:19 [facility] - General Adult Lab Data: Labs: Lab Results 04/09/21 04/09/21 04/09/21 19:16 19:25 19:28 WBC 13.2 10^3/uL H 10 ^3/uL (4.0-10.0) RBC 5.61 10^6/uL H 10 ^6/uL (4.1-5.3) Hgb 16.2 g/dL H g/dL (11.5-15.3) Hct 47.4 % H % (37.0-47.0) MCV 84.5 fl fl (81-99) MCH 28.9 pg pg (28.0-34.0) MCHC 34.2 g/dL g/dL (30.0-36.0) RDW 12.5 % % (12.1-15.1) Plt Count 675 10^3/cmm H 10 ^3/cmm (130-400) MPV 8.8 fL fL (7.4-10.4) Neut % (Auto) 69.6 % % Lymph % (Auto) 24.3 % % [place] % (Auto) 4.8 % % Eos % (Auto) 0.8 % % Baso % (Auto) 0.2 % % Neut # (Auto) 9.21 10^3/uL H 10 ^3/uL (1.8-7.7) Lymph # (Auto) 3.2 10^3/uL 10^3/ uL (0.8-4.8) [place] # (Auto) 0.6 10^3/uL 10^3/ uL (0.2-0.9) Eos # (Auto) 0.1 10^3/uL 10^3/ uL (0.0-0.8) Baso # (Auto) 0.0 10^3/uL 10^3/ uL (0.0-0.1) Nucleated RBC % (a uto) 0 % % Nucleated RBCs # 0.0 /100WBC /100W BC D-Dimer 0.69 ug/mIFEU H u g/mIFEU (0-0.59) Specimen Type Sample Site ABG pH ABG pCO2 ABG pO2 ABG HCO3 ABG O2 Saturation ABG Base Excess Tobi Test A-a O2 Gradient Hematocrit Hgb O2 Saturation Carboxyhemoglobin Methemoglobin Total Hemoglobin Ionized Calcium O2 Delivery Device FiO2 Geographic Information Systems Director ID Sodium Potassium Chloride Carbon Dioxide Anion Gap BUN Creatinine GFR Calculation Glucose POC Glucose 268 mg/dL H mg/dL (70-110) Calculated Osmolal ity Lactic Acid Lactic Acid (Sepsi s) Calcium Magnesium Total Bilirubin AST ALT Alkaline Phosphata se Total Protein Albumin Globulin 04/09/21 04/09/21 04/09/21 19:28 19:28 20:50 WBC RBC Hgb Hct MCV MCH MCHC RDW Plt Count MPV Neut % (Auto) Lymph % (Auto) [place] % (Auto) Eos % (Auto) Baso % (Auto) Neut # (Auto) Lymph # (Auto) [place] # (Auto) Eos # (Auto) Baso # (Auto) Nucleated RBC % (a uto) Nucleated RBCs # D-Dimer Specimen Type Arterial Sample Site Radial, right ABG pH 7.54 H (7.35-7.45) ABG pCO2 36.5 mmHg mmHg (35-45) ABG pO2 61.6 mmHg L mmHg (80.0-100.0) ABG HCO3 31.0 mmol/L H mmo l/L (22-26) ABG O2 Saturation 93.5 ABG Base Excess 8.1 mmol/L H mmol /L (-2.0-2.0) Tobi Test Pos A-a O2 Gradient 5.4 mmHg mmHg (5-10) Hematocrit 46.0 % % (37-47) Hgb O2 Saturation 93.6 % L % (95-100) Carboxyhemoglobin 0.7 %THgb %THgb (0.4-20.1) Methemoglobin < 0.0 % L % (0.4-1.5) Total Hemoglobin 15.0 g/dL g/dL (12-16) Ionized Calcium 1.2 mmol/L mmol/L (1.1-1.4) O2 Delivery Device Room air FiO2 21.0 % % Geographic Information Systems Director ID Buttr Sodium 132 mmol/L L mmol /L 134.0 mmol/L mmol /L (136-145) (131-143) Potassium 3.9 mmol/L mmol/L 3.3 mmol/L L mmol /L (3.5-5.1) (3.5-5.0) Chloride 89 mmol/L L mmol/ L (98-107) Carbon Dioxide 26 mmol/L mmol/L (22-29) Anion Gap 20.9 H (5-19) BUN 8 mg/dL mg/dL (6-20) Creatinine 0.5 mg/dL mg/dL (0.5-0.9) GFR Calculation 132.8 mL/min H mL /min (90-130) Glucose 240 mg/dL H mg/dL 239.0 mg/dL H mg/ dL (65-115) (70-115) POC Glucose Calculated Osmolal ity 280 mOsm/kg L mOs m/kg (285-295) Lactic Acid 2.7 mmol/L H mmol /L (0.5-2.2) Lactic Acid (Sepsi s) Calcium 9.2 mg/dL mg/dL (8.5-10.5) Magnesium 1.7 mg/dL mg/dL (1.7-2.3) Total Bilirubin 0.9 mg/dL mg/dL (0.15-1.2) AST 45 U/L H U/L (0-32) ALT 32 U/L U/L (0-33) Alkaline Phosphata se 77 IU/L IU/L (35-105) Total Protein 7.7 g/dL g/dL (6.6-8.7) Albumin 4.2 g/dL g/dL (3.5-5.2) Globulin 3.5 g/dL g/dL (1.3-4.6) 04/09/21 22:32 WBC RBC Hgb Hct MCV MCH MCHC RDW Plt Count MPV Neut % (Auto) Lymph % (Auto) [place] % (Auto) Eos % (Auto) Baso % (Auto) Neut # (Auto) Lymph # (Auto) [place] # (Auto) Eos # (Auto) Baso # (Auto) Nucleated RBC % (a uto) Nucleated RBCs # D-Dimer Specimen Type Sample Site ABG pH ABG pCO2 ABG pO2 ABG HCO3 ABG O2 Saturation ABG Base Excess Tobi Test A-a O2 Gradient Hematocrit Hgb O2 Saturation Carboxyhemoglobin Methemoglobin Total Hemoglobin Ionized Calcium O2 Delivery Device FiO2 Geographic Information Systems Director ID Sodium Potassium Chloride Carbon Dioxide Anion Gap BUN Creatinine GFR Calculation Glucose POC Glucose Calculated Osmolal ity Lactic Acid Lactic Acid (Sepsi s) 2.8 mmol/L H mmol /L (0.5-2.2) Calcium Magnesium Total Bilirubin AST ALT Alkaline Phosphata se Total Protein Albumin Globulin Discharge Plan Discharge Patient Disposition: Home Clinical Impression: Cyclical vomiting, Intractable vomiting with nausea, Tachycardia with hypertension Condition: Stable Prescriptions: No Action losartan 50 mg Tablet 50 mg PO DAILY RF: 0 metoprolol tartrate 50 mg tablet 50 mg PO BID RF: 0 hydroxyzine HCl 25 mg tablet 25 mg PO TID PRN (Reason: Anxiety) RF: 0 cefdinir 300 mg Capsule 300 mg PO BID RF: 0 desipramine 100 mg tablet 100 mg PO DAILY RF: 0 Advair Diskus 250-50 mcg/dose Blister With Device 1 puff inhalation BID.RESPIRATORY 14 Days Qty: 28 RF: 0 zinc gluconate 50 mg Tablet 50 mg PO DAILY 14 Days Qty: 14 RF: 0 ferrous gluconate 324 mg (37.5 mg iron) Tablet 324 mg PO BIDWM 30 Days Qty: 30 RF: 0 dexamethasone 6 mg tablet 6 mg PO DAILY Qty: 7 RF: 0 Protonix 40 mg tablet,delayed release (DR/EC) 40 mg PO BID 14 Days Qty: 28 RF: 0 Spiriva with HandiHaler 18 mcg capsule, w/inhalation device 1 cap inhalation DAILY Qty: 14 RF: 0 glimepiride 2 mg tablet 2 mg PO DAILY Qty: 60 RF: 0 metformin 500 mg tablet 500 mg PO BID Qty: 60 RF: 0 citalopram 20 mg tablet 40 mg PO DAILY RF: 0 lorazepam 1 mg tablet 1 mg PO BID PRN (Reason: Vomiting) RF: 0 albuterol sulfate 90 mcg/actuation HFA aerosol inhaler 1 puff INHALATION Q4H PRN (Reason: Shortness Of Breath) RF: 0 Discharge Orders: Discharge ED (Routine); Ordered 04/10/21 Ordered By: Jhoana Currie Referrals: Mariana Joe FNP [Primary Care Provider] - Discharge Diet: Advance as tolerated Discharge Activity: Increase activity as tolerated Patient Instructions: Cyclic Vomiting Syndrome (ED) Activity Restrictions/Additional Instructions: Stop taking Metformin until you see your PCP Make sure to take your metoprolol twice daily. Follow-up with your primary care doctor in 3-4 days. Ask about getting tested for sleep apnea. Return immediately if you cannot keep down liquids, if you develop fever or worsening difficulty breathing. 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
[2021-04-09] MEDS: sodium chloride 0.9% 1,000 ML 999 ML IV (19:29)
[2021-04-09 19:31] LABS: Basophils % 0.2 %; Eosinophils # 0.1 10^3/uL (0.0-0.8); Eosinophils % 0.8 %; Hematocrit 47.4 % (37.0-47.0); Hemoglobin 16.2 g/dL (11.5-15.3); Lymphocytes # 3.2 10^3/uL (0.8-4.8); Lymphocytes % 24.3 %; Mean Corpuscular HGB Conc 34.2 g/dL (30.0-36.0); Mean Corpuscular Hemoglobin 28.9 pg (28.0-34.0); Mean Corpuscular Volume 84.5 fl (81-99); Mean Platelet Volume 8.8 fL (7.4-10.4); Monocytes # 0.6 10^3/uL (0.2-0.9); Monocytes % 4.8 %; Neutrophils # 9.21 10^3/uL (1.8-7.7); Neutrophils % 69.6 %; Nucleated Red Blood Cells % 0 %; Platelet Count 675 10^3/cmm (130-400); Red Blood Count 5.61 10^6/uL (4.1-5.3); Red Cell Distribution Width 12.5 % (12.1-15.1); White Blood Count 13.2 10^3/uL (4.0-10.0)
[2021-04-09 19:32] LABS: Glucose Point of Care 268 mg/dL (70-110)
[2021-04-09 19:50] LABS: Albumin Level 4.2 g/dL (3.5-5.2); Alkaline Phosphatase 77 IU/L (35-105); Blood Urea Nitrogen 8 mg/dL (6-20); Calcium 9.2 mg/dL (8.5-10.5); Carbon Dioxide 26 mmol/L (22-29); Chloride 89 mmol/L (98-107); Globulin 3.5 g/dL (1.3-4.6); Glomerular Filtration Rate 132.8 mL/min (90-130); Glucose 240 mg/dL (65-115); Lactic Sepsis W/Reflex 2.7 mmol/L (0.5-2.2); Magnesium 1.7 mg/dL (1.7-2.3); Osmolality Calculated 280 mOsm/kg (285-295); Sodium 132 mmol/L (136-145); Total Bilirubin 0.9 mg/dL (0.15-1.2); Total Protein 7.7 g/dL (6.6-8.7)
[2021-04-09 19:51] LABS: Alanine Aminotransferase 32 U/L (0-33); Anion Gap 20.9 (5-19); Aspartate Amino Transferase 45 U/L (0-32); Potassium 3.9 mmol/L (3.5-5.1)
[2021-04-09 19:59] LABS: D Dimer 0.69 ug/mIFEU (0-0.59)
[2021-04-09] MEDS: LORazepam 2 mg/mL INJ 1 mL 1 MG IVP (20:10)
[2021-04-09] MEDS: piperacillin-tazobactam 4.5 GM in sodium chloride 0.9% (plus) 50 ML IV (20:24)
[2021-04-09 21:02] LABS: ABG PCO2 36.5 mmHg (35-45); ABG PH Result 7.54 (7.35-7.45); Alveolar-Arterial Oxygen Gradi 5.4 mmHg (5-10); Base Excess ABG 8.1 mmol/L (-2.0-2.0); Blood Gas Allen Test Pos; Blood Gas Sample Site Radial, right; Blood Gas Sample Type Arterial; Carboxyhemoglobin 0.7 %THgb (0.4-20.1); HGB O2 Sat 93.6 % (95-100); Ionized Calcium Level - ABG 1.2 mmol/L (1.1-1.4); Methemoglobin < 0.0 % (0.4-1.5); Oxygen Device ROOM AIR; Oxygen Saturation ABG 93.5; PO2 ABG 61.6 mmHg (80.0-100.0); Potassium Level - ABG 3.3 mmol/L (3.5-5.0)
[2021-04-09 21:16] LABS: Reflex Lactate Order REFLEX LACTIC ORDERD
[2021-04-09] MEDS: metoprolol tartrate 50 mg Tablet PO (21:25)
[2021-04-09] MEDS: haloperidol inj 5 mg/mL INJ 1 mL IVP (21:25)
[2021-04-09] MEDS: metoprolol tartrate 1 mg/1 mL SDV 5 mL 5 MG IVP (21:25)
--- NOTE | 2021-04-09 21:58 | CTR_ITS ---
PROCEDURE INFORMATION: Exam: CTA Chest With Contrast Exam date and time: 04/09/2021 9:58 PM Age: 46 years old Clinical indication: Shortness of breath; Prior surgery; Surgery type: Gb; Additional info: Tachycardia, chest pain, low pa02 TECHNIQUE: Imaging protocol: Computed tomographic angiography of the chest with contrast. 3D rendering (Not supervised by radiologist): MIP and/or 3D reconstructed images were created by the technologist. Radiation optimization: All CT scans at this facility use at least one of these dose optimization techniques: automated exposure control; mA and/or kV adjustment per patient size (includes targeted exams where dose is matched to clinical indication); or iterative reconstruction. Contrast material: OMNI 350; Contrast volume: 70 ml; Contrast route: INTRAVENOUS (IV); COMPARISON: CT angio chest PE protcl [id number] 03/28/2021 12:19 PM RADIATION DOSE METRICS: Total DLP (mGy-cm): 491.46 FINDINGS: Pulmonary arteries: Normal. No pulmonary emboli. Aorta: Unremarkable. No aortic aneurysm. No aortic dissection. Lungs: Patchy peripheral ground-glass opacities scattered throughout the right lung and left lower lobe are mildly improved. The left upper lobe is spared. Pleural spaces: Unremarkable. No pneumothorax. No pleural effusion. Heart: Unremarkable. No cardiomegaly. No pericardial effusion. Lymph nodes: Prominent mediastinal and hilar lymph nodes are most likely reactive. Diaphragm: Hiatal hernia. Bones/joints: Unremarkable. No acute fracture. Soft tissues: Unremarkable. CT/CT angio chest PE protcl [id number] IMPRESSION: 1. No evidence for pulmonary embolus. 2. Mildly improved multilobar pneumonia.
[2021-04-09] MEDS: iohexol 350 mg/mL 100 mL Btl IV (22:22)
[2021-04-09 22:56] LABS: Lactic Acid level (Lactate) 2.8 mmol/L (0.5-2.2)
[2021-04-10] MEDS: sodium chloride 0.9% 1,000 ML 999 ML IV ×2 (00:23→00:24)
[2021-04-10 02:07] LABS: Add Urine Microscopic? NO; Charge for UA Resulting for Rev
[2021-04-10 02:21] LABS: Amphetamines Screen Urine Negative (Negative); Barbiturates Screen Urine Negative (Negative); Benzodiazepines Screen Urine Positive (Negative); Cocaine Screen Urine Negative (Negative); Opiate Screen Urine Negative (Negative); PCP Screen Urine Negative (Negative); THC Screen Urine Positive (Negative)
[2021-04-10 02:24] LABS: Bilirubin Urine Neg (Negative); Blood Urine Neg (Negative); Glucose Urine UA Norm (Normal); Ketones Urine Negative (Negative); Leukocyte Esterase Urine Negative (Negative); Nitrate Urine Negative (Negative); Protein Urine Neg (Negative); Sulfosalicylic Acid Urine Negative (Negative); Urine Appearance Clear (CLEAR); Urine Color Yellow (Yellow); Urobilinogen Urine Neg (Negative); pH Urine 8 (5-7)
[2021-04-10] MEDS: LORazepam 2 mg/mL INJ 1 mL 1 MG IVP (02:33)
[2021-04-10 05:34] VITALS: BP 139/83; PULSE 116; RESP 16; O2SAT 96
== END 2021-04-10 01:30 | disposition home or self-care (01) ==
PROVIDERS: Emergency Provider Family Medicine; PCP Nurse Practitioner Family
DX: R00.0 Tachycardia, unspecified (principal); I10 Essential (primary) hypertension; R11.2 Nausea with vomiting, unspecified; R11.15 Cyclical vomiting syndrome unrelated to migraine; Z79.84 Long term (current) use of oral hypoglycemic drugs; E11.9 Type 2 diabetes mellitus without complications; Z87.891 Personal history of nicotine dependence
CPT/HCPCS: 36415; 36416; 36600; 71045; 71275; 80051; 80053; 80306; 81003; 82330; 82805; 82962; 83605; 83735; 85025; 85378; 93005; 96365; 96367; 96375; 99284; J1630; J2060; J2543; J3370; J3490; J7030; J7040; Q9967

== ENCOUNTER 2021-10-19 19:31 | Emergency (ER) | payer MEDICAID, SELFPAY ==
[2021-10-19 19:44] VITALS: PULSE 132; RESP 22; TEMP 36.7; O2SAT 98
--- NOTE | 2021-10-19 19:59 | ED_ITS ---
Documented by User: CATALINA Nino 10/20/21 02:59 HPI - Nausea/Vomiting/Diarrhea General: Chief complaint: Nausea/Vomiting/Diarrhea Stated complaint: sob, vomiting Time Seen by Provider: 10/19/21 19:55 History of Present Illness: 46-year-old female comes in today for complaints of persistent nausea and vomiting x2 days. Patient has a history of cyclic vomiting syndrome. Patient does continue to use marijuana. Patient reports her last dose of marijuana was 2 days prior to the nausea and vomiting episode. Patient is alert oriented. Patient appears nontoxic. Patient appears in moderate discomfort. Patient reports no chest pain or abdominal pain. Patient states he feels short of breath. Associated nausea: Yes Associated symtoms: Reports nausea Review of Systems General: Reports: 10 or more systems reviewed and unremarkable except in HPI and below Resp: Reports: dyspnea GI: Reports: nausea and vomiting Skin/Breast: Denies: rash PFSH ED PFSH: Medical History BMI 38.0-38.9,adult COVID-19 Cyclical vomiting Dehydration Depression Diabetes mellitus, type II Elevated lactic acid level History of cardiac arrhythmia Details not clear but on chronic beta-blockade HTN (hypertension) Hypokalemia Intractable vomiting with nausea Tetrahydrocannabinol (THC) use disorder, mild, abuse Surgical History H/O shoulder surgery H/O: hysterectomy History of tubal ligation Hx of cholecystectomy Family History Mother CAD (coronary artery disease) Social History (Updated 12/11/20 @ 02:34 by Ruma Beverly MD) Smoking and tobacco status: former smoker Alcohol intake: never Household members: family Housing: House Female Reproductive History: Date of last menstrual period: 03/14/21 Physical Exam Const: COMMON NORMALS: alert HENMT: COMMON NORMALS: normocephalic HEAD & SCALP: normocephalic Neck/C-Spine: COMMON NORMALS: full ROM Resp: COMMON NORMALS: normal respiratory effort and clear to auscultation bilaterally AUSCULTATION: clear to auscultation bilaterally Cardio: COMMON NORMALS: regular rhythm RATE: tachycardic RHYTHM: regular rhythm GI: COMMON NORMALS: Soft to palpation and non-tender PALPATION: Yes Soft to palpation Extremity: COMMON NORMALS: normal to inspection Neuro: SENSORIUM/ORIENTATION: Yes alert Skin: COMMON NORMALS: no rashes or lesions noted GENERAL SKIN EXAM: no rashes or lesions noted Course ED course: 2310, patient had another episode of emesis after sleeping for about 2 hours. Patient was given 6 mg of sumatriptan IM along with 25 mg of promethazine. We plan to reassess patient in 1 hour after treatment. Vital Signs: Vital signs: Vital Signs Temperature 98.0 F 10/19/21 19:44 Pulse Rate 108 H 10/20/21 02:45 Respiratory Rate 16 10/20/21 03:14 Blood Pressure 162/89 10/20/21 02:45 Pulse Oximetry 90 10/20/21 03:14 MDM - Nausea/Vomiting/Diarrhea Medical Decision Making 46-year-old female comes in today with complaints of persistent nausea and vomiting. Patient reports episode starting about 2 days ago. Patient last used cannabis 4 days ago. Patient also has type 2 diabetes. On exam abdomen soft no ntender. Bowel sounds are hyperactive. Patient appears unwell but not toxic. Patient appears in moderate to severe discomfort. Differential diagnosis includes gastroparesis, cyclic vomiting syndrome, bowel obstruction, anxiety disorder. Laboratory values noted some decrease in potassium at 2.9. Patient was medicated with 40 mEq of potassium. White count was slightly elevated at 14.8. CT of the abdomen pelvis noted no significant findings. Patient came in with cyclic vomiting we attempted a usual course of Haldol with Ativan Zofran and Benadryl. Nursing reported that patient did have a episode of hypoxia which she had to have oxygen for short-term after medication delivery. Patient had recurrent vomiting approximately 2 hours after initial medications. Patient was then given promethazine and sumatriptan. With a repeated dose of sumatriptan 1 hour later. Symptoms persisted after that episode. I discussed this further with Dr. Malave and reviewed literature which suggested that a 15 mg dose of ketamine may be beneficial with cyclic vomiting. Published in pub med, a 25 mg of Thorazine delivered IV over 15 minutes along with 15 mg of ketamine was shown beneficial in the cessation of a cyclic vomiting syndrome and 28 out of 30 patients in a small study. After 30 minutes patient felt better and was discharged to home. Patient was written a prescription for 50 mg Thorazine tablets to use twice daily as needed for recurrent cyclic vomiting syndrome. Patient was also given some promethazine suppositories in the event she was unable to tolerate p.o. medications. Patient was recommended to follow-up with primary care for further treatment or return to ER for new concerns. Lab Data : 10/19/21 20:30 10/19/21 20:30 Radiology Impressions Abdomen/Pelvis CT 10/20/21 00:11 IMPRESSION: 1. There are no acute abdominal findings. 2. Mild prominence of the adrenal glands without evidence of discrete masses, findings could represent adrenal hyperplasia. 3. Normal appendix 4. No evidence for ureteral obstruction Laboratory Results WBC 14.8 10^3/uL (4.0-10.0) H 10/19/21 20:30 RBC 4.95 10^6/uL (4.1-5.3) 10/19/21 20:30 Hgb 14.4 g/dL (11.5-15.3) 10/19/21 20: Hct 43.4 % (37.0-47.0) 10/19/21 20:30 MCV 87.7 fl (81-99) 10/19/21 20:30 MCH 29.1 pg (28.0-34.0) 10/19/21 20: MCHC 33.2 g/dL (30.0-36.0) 10/19/21 20:30 RDW 13.8 % (12.1-15.1) 10/19/21 20:30 Plt Count 453 10^3/cmm (130-400) H 10/19/21 20:30 MPV 8.8 fL (7.4-10.4) 10/19/21 20:30 Neut % (Auto) 79.9 % 10/19/21 20:30 Lymph % (Auto) 14.2 % 10/19/21 20:30 [place] % (Auto) 5.1 % 10/19/21 20:30 Eos % (Auto) 0.0 % 10/19/21 20:30 Baso % (Auto) 0.2 % 10/19/21 20:30 Neut # (Auto) 11.79 10^3/uL (1.8-7.7) H 10/19/21 20:30 Lymph # (Auto) 2.1 10^3/uL (0.8-4.8) 10/19/21 20:30 [place] # (Auto) 0.8 10^3/uL (0.2-0.9) 10/19/21 20:30 Eos # (Auto) 0.0 10^3/uL (0.0-0.8) 10/19/21 20:30 Baso # (Auto) 0.0 10^3/uL (0.0-0.1) 10/19/21:30 Nucleated RBC % (auto) 0 % 10/19/21 20:30 Nucleated RBCs # 0.0 /100WBC 10/19/21 20:30 Sodium 142 mmol/L (136-145) 10/19/21: Potassium 2.9 mmol/L (3.5-5.1) L 10/19/21 20:30 Chloride 97 mmol/L (98-107) L 10/19/21 20: Carbon Dioxide 24 mmol/L (22-29) 10/19/21: Anion Gap 23.9 (5-19) H 10/19/21 20:30 BUN 14 mg/dL (6-20) 10/19/21 20:30 Creatinine 0.8 mg/dL (0.5-0.9) 10/19/21 20:30 GFR Calculation 77.2 mL/min (90-130) L 10/19/21 20:30 Glucose 218 mg/dL (65-115) H 10/19/21 20:30 Calculated Osmolality 301 mOsm/kg (285-295) H 10/19/21 20: Calcium 9.9 mg/dL (8.5-10.5) 10/19/21 20:30 Total Bilirubin 1.2 mg/dL (0.15-1.2) 10/19/21 20:30 AST 17 U/L (0-32) 10/19/21 20:30 ALT 22 U/L (0-33) 10/19/21 20:30 Alkaline Phosphatase 65 IU/L (35-105) 10/19/21 20:30 Total Protein 8.2 g/dL (6.6-8.7) 10/19/21 20: Albumin 5.0 g/dL (3.5-5.2) 10/19/21 20:30 Globulin 3.2 g/dL (1.3-4.6) 10/19/21 20:30 Discharge Plan Discharge Patient Disposition: Home Clinical Impression: Dehydration, Cyclic vomiting syndrome Condition: Stable Prescriptions: New promethazine 25 mg suppository 25 mg MS Q6H PRN (Reason: nausea and vomiting) Qty: 12 0RF chlorpromazine 50 mg tablet 50 mg PO BID PRN (Reason: nausea and vomiting) Qty: 10 0RF No Action losartan 50 mg Tablet 50 mg PO DAILY 0RF metoprolol tartrate 50 mg tablet 50 mg PO BID 0RF hydroxyzine HCl 25 mg tablet 25 mg PO TID PRN (Reason: Anxiety) 0RF cefdinir 300 mg Capsule 300 mg PO BID 0RF desipramine 100 mg tablet 100 mg PO DAILY 0RF dexamethasone 6 mg tablet 6 mg PO DAILY Qty: 7 0RF Spiriva with HandiHaler 18 mcg capsule, w/inhalation device 1 cap inhalation DAILY Qty: 14 0RF Rx Instructions: puncture 1 cap using device; one dose = 2 inhalations glimepiride 2 mg tablet 2 mg PO DAILY Qty: 60 0RF metformin 500 mg tablet 500 mg PO BID Qty: 60 0RF citalopram 20 mg tablet 40 mg PO DAILY 0RF lorazepam 1 mg tablet 1 mg PO BID PRN (Reason: Vomiting) 0RF albuterol sulfate 90 mcg/actuation HFA aerosol inhaler 1 puff INHALATION Q4H PRN (Reason: Shortness Of Breath) 0RF Discharge Orders: Discharge ED (Routine); Ordered 10/20/21 Ordered By: Anibal Bro Referrals: Mariana Joe FNP [Primary Care Provider] - Discharge Diet: Advance as tolerated Discharge Activity: Increase activity as tolerated Patient Instructions: Cyclic Vomiting Syndrome (ED) Activity Restrictions/Additional Instructions: Avoid aggravating triggers. Cannabis has been linked to being an aggravating trigger for cyclic vomiting syndrome. Drink sips of water frequently to maintain hydration. Follow-up with primary care for recommendations for p rophylaxis treatment or other options to abort emesis episodes. Return to ER for new concerns or worsening symptoms. Coding Level of Care Code ED Event Planner for Chg Fwd Exam Comprehensive Documented by User: Raudel Malave DO 10/23/21 00:25 HPI - Nausea/Vomiting/Diarrhea General: Chief complaint: Nausea/Vomiting/Diarrhea Stated complaint: sob, vomiting Time Seen by Provider: 10/19/21 19:55 PFSH ED PFSH: Medical History BMI 38.0-38.9,adult COVID-19 Cyclical vomiting Dehydration Depression Diabetes mellitus, type II Elevated lactic acid level History of cardiac arrhythmia Details not clear but on chronic beta-blockade HTN (hypertension) Hypokalemia Intractable vomiting with nausea Tetrahydrocannabinol (THC) use disorder, mild, abuse Surgical History H/O shoulder surgery H/O: hysterectomy History of tubal ligation Hx of cholecystectomy Family History Mother CAD (coronary artery disease) Social History (Updated 12/11/20 @ 02:34 by Ruma Beverly MD) Smoking and tobacco status: former smoker Alcohol intake: never Household members: family Housing: House Course Vital Signs: Vital signs: Vital Signs Temperature 98.0 F 10/19/21 19:44 Pulse Rate 108 H 10/20/21 02:45 Respiratory Rate 16 10/20/21 03:14 Blood Pressure 162/89 10/20/21 02:45 Pulse Oximetry 90 10/20/21 03:14 MDM - Nausea/Vomiting/Diarrhea Medical Decision Making 46-year-old female comes in today with complaints of persistent nausea and vomiting. Patient reports episode starting about 2 days ago. Patient last used cannabis 4 days ago. Patient also has type 2 diabetes. On exam abdomen soft nontender. Bowel sounds are hyperactive. Patient appears unwell but not toxic. Patient appears in moderate to severe discomfort. Differential diagnosis includes gastroparesis, cyclic vomiting syndrome, bowel obstruction, anxiety disorder. Laboratory values noted some decrease in potassium at 2.9. Patient was medicated with 40 mEq of potassium. White count was slightly elevated at 14.8. CT of the abdomen pelvis noted no significant findings. Patient came in with cyclic vomiting we attempted a usual course of Haldol with Ativan Zofran and Benadryl. Nursing reported that patient did have a episode of hypoxia which she had to have oxygen for short-term after medication delivery. Patient had recurrent vomiting approximately 2 hours after initial medications. Patient was then given promethazine and sumatriptan. With a repeated dose of sumatriptan 1 hour later. Symptoms persisted after that episode. I discussed this further with Dr. Malave and reviewed literature which suggested that a 15 mg dose of ketamine may be beneficial with cyclic vomiting. Published in pub med, a 25 mg of Thorazine delivered IV over 15 minutes along with 15 mg of ketamine was shown beneficial in the cessation of a cyclic vomiting syndrome and 28 out of 30 patients in a small study. After 30 minutes patient felt better and was discharged to home. Patient was written a prescription for 50 mg Thorazine tablets to use twice daily as needed for recurrent cyclic vomiting syndrome. Patient was also given some promethazine suppositories in the event she was unable to tolerate p.o. medications. Patient was recommended to follow-up with primary care for further treatment or return to ER for new concerns. This patient was originally seen by CATALINA Mcmahan. I agree with his history, evaluation and treatment. Lab Data : 10/19/21 20:30 10/19/21 20:30 Radiology Impressions Abdomen/Pelvis CT 10/20/21 00:11 IMPRESSION: 1. There are no acute abdominal findings. 2. Mild prominence of the adrenal glands without evidence of discrete masses, findings could represent adrenal hyperplasia. 3. Normal appendix 4. No evidence for ureteral obstruction Laboratory Results WBC 14.8 10^3/uL (4.0-10.0) H 10/19/21 20:30 RBC 4.95 10^6/uL (4.1-5.3) 10/19/21 20:30 Hgb 14.4 g/dL (11.5-15.3) 10/19/21 20:30 Hct 43.4 % (37.0-47.0) 10/19/21 20:30 MCV 87.7 fl (81-99) 10/19/21 20:30 MCH 29.1 pg (28.0-34.0) 10/19/21 20:30 MCHC 33.2 g/dL (30.0-36.0) 10/19/21 20: RDW 13.8 % (12.1-15.1) 10/19/21 20: Plt Count 453 10^3/cmm (130-400) H 10/19/21 20:30 MPV 8.8 fL (7.4-10.4) 10/19/21 20: Neut % (Auto) 79.9 % 10/19/21: Lymph % (Auto) 14.2 % 10/19/21: [place] % (Auto) 5.1 % 10/19/21: Eos % (Auto) 0.0 % 10/19/21: Baso % (Auto) 0.2 % 10/19/21: Neut # (Auto) 11.79 10^3/uL (1.8-7.7) H 10/19/21 20: Lymph # (Auto) 2.1 10^3/uL (0.8-4.8) 10/19/21 20:30 [place] # (Auto) 0.8 10^3/uL (0.2-0.9) 10/19/21 20:30 Eos # (Auto) 0.0 10^3/uL (0.0-0.8) 10/19/21 20: Baso # (Auto) 0.0 10^3/uL (0.0-0.1) 10/19/21 20: Nucleated RBC % (auto) 0 % 10/19/21: Nucleated RBCs # 0.0 /100WBC 10/19/21 20:30 Sodium 142 mmol/L (136-145) 10/19/21 20:30 Potassium 2.9 mmol/L (3.5-5.1) L 10/19/21 20: Chloride 97 mmol/L (98-107) L 10/19/21: Carbon Dioxide 24 mmol/L (22-29) 10/19/21 20:30 Anion Gap 23.9 (5-19) H 10/19/21 20:30 BUN 14 mg/dL (6-20) 10/19/21 20:30 Creatinine 0.8 mg/dL (0.5-0.9) 10/19/21 20:30 GFR Calculation 77.2 mL/min (90-130) L 10/19/21 20:30 Glucose 218 mg/dL (65-115) H 10/19/21 20:30 Calculated Osmolality 301 mOsm/kg (285-295) H 10/19/21 20:30 Calcium 9.9 mg/dL (8.5-10.5) 10/19/21 20:30 Total Bilirubin 1.2 mg/dL (0.15-1.2) 10/19/21 20:30 AST 17 U/L (0-32) 10/19/21 20:30 ALT 22 U/L (0-33) 10/19/21 20:30 Alkaline Phosphatase 65 IU/L (35-105) 10/19/21 20:30 Total Protein 8.2 g/dL (6.6-8.7) 10/19/21 20:30 Albumin 5.0 g/dL (3.5-5.2) 10/19/21 20:30 Globulin 3.2 g/dL (1.3-4.6) 10/19/21 20:30 Discharge Plan Discharge Patient Disposition: Home Clinical Impression: Dehydration, Cyclic vomiting syndrome Condition: Stable Prescriptions: New promethazine 25 mg suppository 25 mg MS Q6H PRN (Reason: nausea and vomiting) Qty: 12 0RF chlorpromazine 50 mg tablet 50 mg PO BID PRN (Reason: nausea and vomiting) Qty: 10 0RF No Action losartan 50 mg Tablet 50 mg PO DAILY 0RF metoprolol tartrate 50 mg tablet 50 mg PO BID 0RF hydroxyzine HCl 25 mg tablet 25 mg PO TID PRN (Reason: Anxiety) 0RF cefdinir 300 mg Capsule 300 mg PO BID 0RF desipramine 100 mg tablet 100 mg PO DAILY 0RF dexamethasone 6 mg tablet 6 mg PO DAILY Qty: 7 0RF Spiriva with HandiHaler 18 mcg capsule, w/inhalation device 1 cap inhalation DAILY Qty: 14 0RF Rx Instructions: puncture 1 cap using device; one dose = 2 inhalations glimepiride 2 mg tablet 2 mg PO DAILY Qty: 60 0RF metformin 500 mg tablet 500 mg PO BID Qty: 60 0RF citalopram 20 mg tablet 40 mg PO DAILY 0RF lorazepam 1 mg tablet 1 mg PO BID PRN (Reason: Vomiting) 0RF albuterol sulfate 90 mcg/actuation HFA aerosol inhaler 1 puff INHALATION Q4H PRN (Reason: Shortness Of Breath) 0RF Discharge Orders: Discharge ED (Routine); Ordered 10/20/21 Ordered By: Anibal Bro Referrals: Mariana Joe FNP [Primary Care Provider] - Discharge Diet: Advance as tolerated Discharge Activity: Increase activity as tolerated Patient Instructions: Cyclic Vomiting Syndrome (ED) Activity Restrictions/Additional Instructions: Avoid aggravating triggers. Cannabis has been linked to being an aggravating trigger for cyclic vomiting syndrome. Drink sips of water frequently to maintain hydration. Follow-up with primary care for recommendations for prophylaxis treatment or other options to abort emesis episodes. Return to ER for new concerns or worsening symptoms. Coding Level of Care Code ED Event Planner for Ramon Hernandez Exam Comprehensive
[2021-10-19 20:18] VITALS: BP 169/103; PULSE 114; RESP 16; O2SAT 98
[2021-10-19] MEDS: haloperidol inj 5 mg/mL INJ 1 mL IVP (20:26)
[2021-10-19] MEDS: diphenhydrAMINE 50 mg/mL SDV 1mL IVP (20:26)
[2021-10-19] MEDS: LORazepam 2 mg/mL INJ 1 mL IVP (20:28)
[2021-10-19] MEDS: ondansetron 2 mg/ML SDV 2 mL 4 MG IVP (20:28)
[2021-10-19 20:35] LABS: Basophils % 0.2 %; Hematocrit 43.4 % (37.0-47.0); Hemoglobin 14.4 g/dL (11.5-15.3); Lymphocytes # 2.1 10^3/uL (0.8-4.8); Lymphocytes % 14.2 %; Mean Corpuscular HGB Conc 33.2 g/dL (30.0-36.0); Mean Corpuscular Hemoglobin 29.1 pg (28.0-34.0); Mean Corpuscular Volume 87.7 fl (81-99); Mean Platelet Volume 8.8 fL (7.4-10.4); Monocytes # 0.8 10^3/uL (0.2-0.9); Monocytes % 5.1 %; Neutrophils # 11.79 10^3/uL (1.8-7.7); Neutrophils % 79.9 %; Nucleated Red Blood Cells % 0 %; Platelet Count 453 10^3/cmm (130-400); Red Blood Count 4.95 10^6/uL (4.1-5.3); Red Cell Distribution Width 13.8 % (12.1-15.1); White Blood Count 14.8 10^3/uL (4.0-10.0)
[2021-10-19] MEDS: sodium chloride 0.9% 1,000 ML 999 ML IV ×2 (20:35→21:24)
[2021-10-19 20:45] VITALS: BP 137/84; PULSE 126; RESP 16; O2SAT 95
[2021-10-19 20:52] LABS: Alanine Aminotransferase 22 U/L (0-33); Alkaline Phosphatase 65 IU/L (35-105); Anion Gap 23.9 (5-19); Aspartate Amino Transferase 17 U/L (0-32); Blood Urea Nitrogen 14 mg/dL (6-20); Calcium 9.9 mg/dL (8.5-10.5); Carbon Dioxide 24 mmol/L (22-29); Chloride 97 mmol/L (98-107); Globulin 3.2 g/dL (1.3-4.6); Glomerular Filtration Rate 77.2 mL/min (90-130); Glucose 218 mg/dL (65-115); Osmolality Calculated 301 mOsm/kg (285-295); Sodium 142 mmol/L (136-145); Total Bilirubin 1.2 mg/dL (0.15-1.2); Total Protein 8.2 g/dL (6.6-8.7)
[2021-10-19 21:00] VITALS: BP 134/93; PULSE 128; RESP 18; O2SAT 95
[2021-10-19 21:17] LABS: Potassium 2.9 mmol/L (3.5-5.1)
[2021-10-19] MEDS: potassium chloride ER 20 mEq Tablet 40 MEQ PO (21:30)
[2021-10-19] MEDS: metoclopramide 5 mg/mL SDV 2 mL 10 MG IVP (21:30)
[2021-10-19 23:00] VITALS: BP 182/96; PULSE 110; RESP 16; O2SAT 93
[2021-10-19] MEDS: SUMAtriptan 6 mg/0.5 mL SDV SUBCUT (23:25)
[2021-10-19] MEDS: promethazine 25 mg/mL SDV 1 mL IM (23:25)
[2021-10-19] MEDS: lactated ringers 1,000 ML 999 ML IV (23:57)
--- NOTE | 2021-10-20 00:11 | CTR_ITS ---
PROCEDURE INFORMATION: Exam: CT Abdomen And Pelvis Without Contrast Exam date and time: 10/20/2021 1:23 AM Age: 46 years old Clinical indication: Nausea and vomiting; Prior surgery; Surgery date: 6+ months; Surgery type: Gb; Additional info: Persistent n/v, no abd pain TECHNIQUE: Imaging protocol: Computed tomography of the abdomen and pelvis without contrast. Radiation optimization: All CT scans at this facility use at least one of these dose optimization techniques: automated exposure control; mA and/or kV adjustment per patient size (includes targeted exams where dose is matched to clinical indication); or iterative reconstruction. COMPARISON: CT abdomen pelvis con [id number] 03/28/2021 3:07 PM RADIATION DOSE METRICS: Total DLP (mGy-cm): 1472.63 FINDINGS: Lungs: Mild haziness seen in the dependent portion of the lungs likely representing dependent atelectasis. Liver: Normal. No mass. Gallbladder and bile ducts: Status post cholecystectomy. Pancreas: Normal. No ductal dilation. Spleen: Normal. No splenomegaly. Adrenal glands: The adrenal glands are bulky in appearance without evidence of discrete masses. This could represent adrenal hyperplasia. Kidneys and ureters: Normal. No hydronephrosis. Stomach and bowel: Unremarkable. No obstruction. No mucosal thickening. Appendix: The appendix is visualized and is normal in configuration. Intraperitoneal space: Unremarkable. No free air. No significant fluid collection. Vasculature: Unremarkable. No abdominal aortic aneurysm. Lymph nodes: Unremarkable. No enlarged lymph nodes. Urinary bladder: Unremarkable as visualized. Reproductive: Unremarkable as visualized. Bones/joints: Unremarkable. No acute fracture. Soft tissues: Unremarkable. CT/CT abdomen pelvis [facility] [id number] IMPRESSION: 1. There are no acute abdominal findings. 2. Mild prominence of the adrenal glands without evidence of discrete masses, findings could represent adrenal hyperplasia. 3. Normal appendix 4. No evidence for ureteral obstruction
[2021-10-20] MEDS: SUMAtriptan 6 mg/0.5 mL SDV SUBCUT (00:33)
[2021-10-20] MEDS: ondansetron 2 mg/ML SDV 2 mL 8 MG IVP (00:48)
[2021-10-20 02:34] VITALS: BP 157/86; PULSE 115; RESP 18; O2SAT 94
[2021-10-20 02:45] VITALS: BP 162/89; PULSE 108; RESP 16; O2SAT 96
[2021-10-20 03:14] VITALS: RESP 16; O2SAT 90
== END 2021-10-20 03:19 | disposition home or self-care (01) ==
PROVIDERS: Emergency Provider Nurse Practitioner Family; PCP Nurse Practitioner Family
DX: E86.0 Dehydration (principal); R11.15 Cyclical vomiting syndrome unrelated to migraine
CPT/HCPCS: 74176; 80053; 85025; 96361; 96372; 96374; 96375; 99285; J1200; J1630; J2060; J2405; J2550; J2765; J3030; J3490; J7030

== ENCOUNTER → 2022-04-14 12:03 | Outpatient (BNVA) | payer MEDICAID, SELFPAY | PROVIDERS: PCP Nurse Practitioner Family; Visit Provider Nurse Practitioner Women's Health | DX: N93.9 Abnormal uterine and vaginal bleeding, unspecified (principal) | CPT/HCPCS: 76830 ==

== ENCOUNTER 2022-05-03 21:20 | Emergency (ER) | payer MEDICAID, SELFPAY ==
[2022-05-03 22:20] VITALS: BP 168/100; PULSE 123; RESP 16; TEMP 38.2; O2SAT 98; BMI 38.0
[2022-05-03 22:28] LABS: Glucose Point of Care 211 mg/dL (70-110)
[2022-05-04] MEDS: haloperidol inj 5 mg/mL INJ 1 mL IVP (02:03)
[2022-05-04] MEDS: LORazepam 2 mg/mL INJ 1 mL IVP (02:03)
[2022-05-04 02:09] LABS: Basophils % 0.1 %; Hematocrit 40.6 % (37.0-47.0); Lymphocytes # 1.8 10^3/uL (0.8-4.8); Mean Corpuscular HGB Conc 34.5 g/dL (30.0-36.0); Mean Corpuscular Hemoglobin 29.5 pg (28.0-34.0); Mean Corpuscular Volume 85.7 fl (81-99); Mean Platelet Volume 8.9 fL (7.4-10.4); Monocytes # 0.9 10^3/uL (0.2-0.9); Monocytes % 4.3 %; Neutrophils # 16.91 10^3/uL (1.8-7.7); Neutrophils % 86.1 %; Nucleated Red Blood Cells % 0 %; Platelet Count 478 10^3/cmm (130-400); Red Blood Count 4.74 10^6/uL (4.1-5.3); Red Cell Distribution Width 13.2 % (12.1-15.1); White Blood Count 19.6 10^3/uL (4.0-10.0)
[2022-05-04 02:23] LABS: Alanine Aminotransferase 23 U/L (0-33); Albumin Level 5.2 g/dL (3.5-5.2); Alkaline Phosphatase 70 U/L (35-105); Anion Gap 24.1 (5-19); Aspartate Amino Transferase 21 U/L (0-32); Blood Urea Nitrogen 16 mg/dL (6-20); Calcium 10.2 mg/dL (8.5-10.5); Carbon Dioxide 23 mmol/L (22-29); Chloride 96 mmol/L (98-107); Creatinine Clr Calc Pharmacy 148.4735; Globulin 3.1 g/dL (1.3-4.6); Glomerular Filtration Rate 89.7 mL/min (90-130); Glucose 216 mg/dL (65-115); Lipase 22 U/L (13-60); Osmolality Calculated 298 mOsm/kg (285-295); Potassium 3.1 mmol/L (3.5-5.1); Sodium 140 mmol/L (136-145); Total Bilirubin 1.1 mg/dL (0.15-1.2); Total Protein 8.3 g/dL (6.6-8.7)
[2022-05-04 02:25] VITALS: BP 120/65; PULSE 127; RESP 14; O2SAT 95
[2022-05-04 03:00] VITALS: BP 121/64; PULSE 127; O2SAT 99
[2022-05-04 04:00] VITALS: BP 122/74; PULSE 119; O2SAT 100
[2022-05-04 04:43] VITALS: BP 156/97; PULSE 119; RESP 20; O2SAT 97
--- NOTE | 2022-05-04 22:31 | ED_ITS ---
HPI - Nausea/Vomiting/Diarrhea General: Chief complaint: Nausea/Vomiting/Diarrhea Stated complaint: Vomiting Time Seen by Provider: 05/04/22 01:48 Source: patient History of Present Illness: 47 year old female with a history of nausea and vomiting. She's had these symptoms every six months for a couple of years now. She complains of two days of vomiting, including liquids. She had diarrhea yesterday, but not today. She has generalized abdominal pain, which she believes is from vomiting. She states that she is not . She denies fever. She denies dysuria. MD elicited complaint: nausea, vomiting and diarrhea Pertinent past history: other Onset (ago): day(s) Description of vomiting: watery Associated nausea: Yes Associated abdominal pain: Yes Location of pain: Diffuse Radiation: diffuse Pain consistency: constant Severity: moderate Quality: aching Exacerbating factors: vomiting Relieving factors: none Associated symtoms: Reports anxiety, decreased urine output, dizziness and nausea; Denies altered mental status, chest pain, dysuria, fevers/chills or headache(s) Review of Systems Card: Denies: chest pain GI: Reports: nausea : Denies: dysuria Neuro: Reports: dizziness; Denies: headache(s) Psych: Reports: anxiety PFSH ED PFSH: Medical History (Updated 05/04/22 @ 04:21 by Raudel Malave DO) BMI 38.0-38.9,adult COVID-19 Cyclical vomiting Dehydration Depression Diabetes mellitus, type II Elevated lactic acid level History of cardiac arrhythmia Details not clear but on chronic beta-blockade HTN (hypertension) Hypokalemia Intractable vomiting with nausea Tetrahydrocannabinol (THC) use disorder, mild, abuse Surgical History H/O shoulder surgery History of tubal ligation Hx of cholecystectomy Family History (Updated 03/23/22 @ 09:57 by Enedina Dominguez) Mother Heart disease Hypertension Grandmother Diabetes Maternal Heart disease Maternal Hypertension Maternal Denies family history of Colon cancer Ovarian cancer Hyperlipidemia Breast cancer Family history of thyroid problem Uterine cancer Stroke Female Reproductive History: Date of last menstrual period: 03/14/21 Physical Exam Const: EXAM LIMITATIONS: no altered mental status Course Vital Signs: Vital signs: Vital Signs Temperature 100.8 F H 05/03/22 22:20 Pulse Rate 119 H 05/04/22 04:43 Respiratory Rate 20 H 05/04/22 04:43 Blood Pressure 156/97 05/04/22 04:43 Pulse Oximetry 97 05/04/22 04:43 Oxygen Delivery Me thod 05/04/22 02:25 Oxygen Flow Rate 4 05/04/22 02:25 MDM - Nausea/Vomiting/Diarrhea Medical Decision Making This is a 47 year old female who has a history of what sounds like cyclic vomiting syndrome. She has no fever. She does have a significant elevation in her white blood cell count, although she had this last time period she has no focal tenderness in her belly. Liver enzymes are normal. My face is 22. Her potassium was mildly low at 3.1. She was given IV fluid, Iv haloperidol, and Iv lorazepam. No vomiting since that time. She'll be placed on thorazine as an outpatient three times a day for two days, then as needed. She tells me that these symptoms are similar to her prior episodes of cyclic vomiting, and that if she can just sleep through the episode, she does well. She was encouraged not to smoke marijuana. She knows to return for continued vomiting despite symptoms or other concerns. Lab Data 05/03/22 01:57 05/03/22 01:57 Laboratory Results WBC 19.6 10^3/uL (4.0-10.0) H 05/03/22 01:57 RBC 4.74 10^6/uL (4.1-5.3) 05/03/22 01:57 Hgb 14.0 g/dL (11.5-15.3) 05/03/22 01:57 Hct 40.6 % (37.0-47.0) 05/03/22 01:57 MCV 85.7 fl (81-99) 05/03/22 01:57 MCH 29.5 pg (28.0-34.0) 05/03/22 01:57 MCHC 34.5 g/dL (30.0-36.0) 05/03/22 01:57 RDW 13.2 % (12.1-15.1) 05/03/22 01:57 Plt Count 478 10^3/cmm (130-400) H 05/03/22 01:57 MPV 8.9 fL (7.4-10.4) 05/03/22 01:57 Neut % (Auto) 86.1 % 05/03/22 01:57 Lymph % (Auto) 9.0 % 05/03/22 01:57 [place] % (Auto) 4.3 % 05/03/22 01:57 Eos % (Auto) 0.0 % 05/03/22 01:57 Baso % (Auto) 0.1 % 05/03/22 01:57 Neut # (Auto) 16.91 10^3/uL (1.8-7.7) H 05/03/22 01:57 Lymph # (Auto) 1.8 10^3/uL (0.8-4.8) 05/03/22 01:57 [place] # (Auto) 0.9 10^3/uL (0.2-0.9) 05/03/22 01:57 Eos # (Auto) 0.0 10^3/uL (0.0-0.8) 05/03/22 01:57 Baso # (Auto) 0.0 10^3/uL (0.0-0.1) 05/03/22 01:57 Nucleated RBC % (auto) 0 % 05/03/22 01:57 Nucleated RBCs # 0.0 /100WBC 05/03/22 01:57 Sodium 140 mmol/L (136-145) 05/03/22 01:57 Potassium 3.1 mmol/L (3.5-5.1) L 05/03/22 01:57 Chloride 96 mmol/L (98-107) L 05/03/22 01:57 Carbon Dioxide 23 mmol/L (22-29) 05/03/22 01:57 Anion Gap 24.1 (5-19) H 05/03/22 01:57 BUN 16 mg/dL (6-20) 05/03/22 01:57 Creatinine 0.7 mg/dL (0.5-0.9) 05/03/22 01:57 GFR Calculation 89.7 mL/min (90-130) L 05/03/22 01:57 Glucose 216 mg/dL (65-115) H 05/03/22 01:57 POC Glucose 211 mg/dL (70-110) H 05/03/22 22:24 Calculated Osmolality 298 mOsm/kg (285-295) H 05/03/22 01:57 Calcium 10.2 mg/dL (8.5-10.5) 05/03/22 01:57 Total Bilirubin 1.1 mg/dL (0.15-1.2) 05/03/22 01:57 AST 21 U/L (0-32) 05/03/22 01:57 ALT 23 U/L (0-33) 05/03/22 01:57 Alkaline Phosphatase 70 U/L (35-105) 05/03/22 01:57 Total Protein 8.3 g/dL (6.6-8.7) 05/03/22 01:57 Albumin 5.2 g/dL (3.5-5.2) 05/03/22 01:57 Globulin 3.1 g/dL (1.3-4.6) 05/03/22 01:57 Lipase 22 U/L (13-60) 05/03/22 01:57 Discharge Plan Discharge Patient Disposition: Home Clinical Impression: Cyclic vomiting syndrome Condition: Stable Prescriptions: New chlorpromazine 25 mg tablet 25 mg PO TID Qty: 10 0RF No Action aspirin [Adult Low Dose Aspirin] 81 mg tablet,delayed release (DR/EC) 81 mg PO DAILY Toujeo Max U-300 SoloStar 300 unit/mL (3 mL) insulin pen 80 unit SUBCUT DAILY metoprolol tartrate 50 mg tablet 50 mg PO BID desipramine 100 mg tablet 100 mg PO DAILY glimepiride 2 mg tablet 2 mg PO DAILY Qty: 60 0RF metformin 500 mg tablet 500 mg PO BID Qty: 60 0RF losartan 50 mg tablet 50 mg PO BID citalopram 20 mg tablet 40 mg PO DAILY lorazepam 1 mg tablet 1 mg PO BID PRN (Reason: Vomiting) albuterol sulfate 90 mcg/actuation HFA aerosol inhaler 1 puff INHALATION Q4H PRN (Reason: Shortness Of Breath) promethazine 25 mg suppository 25 mg AK Q6H PRN (Reason: nausea and vomiting) Qty: 12 0RF Discharge Orders: Discharge ED (Routine); Ordered 05/04/22 Ordered By: Raudel Malave Referrals: Mariana Joe FNP [Primary Care Provider] - 4-7 days Patient Instructions: Cyclic Vomiting Syndrome (ED) Activity Restrictions/Additional Instructions: Take the medication prescribed 3 times daily for the next 2 days, then as needed. Do not wait until you are getting sick to take it for the first 2 days. Return for continued fever, worsening abdominal pain, blood in the stool, other concerning symptoms. Abstaining from marijuana may help. Coding Level of Care Code ED Business Mail Entry Clerk for Ramon Hernandez
== END 2022-05-04 05:02 | disposition home or self-care (01) ==
PROVIDERS: Physician Assistant; Emergency Provider Emergency Medicine; PCP Nurse Practitioner Family
DX: R11.15 Cyclical vomiting syndrome unrelated to migraine (principal); Z79.82 Long term (current) use of aspirin; Z79.84 Long term (current) use of oral hypoglycemic drugs; E11.9 Type 2 diabetes mellitus without complications; I10 Essential (primary) hypertension
CPT/HCPCS: 36416; 80053; 82962; 83690; 85025; 96374; 96375; 99284; J1630; J2060

== ENCOUNTER 2022-08-04 05:58 | Emergency (ER) | payer MEDICAID, SELFPAY ==
--- NOTE | 2022-08-04 06:02 | ED_ITS ---
HPI - Overdose General: Stated Complaint: n/v/12 days Time Seen by Provider: 08/04/22 06:01 [facility] ED PFSH: Medical History (Updated 05/12/22 @ 00:00 by TATIANA Rodriguez) BMI 38.0-38.9,adult COVID-19 Cyclical vomiting Dehydration Depression Diabetes mellitus, type II Elevated lactic acid level History of cardiac arrhythmia Details not clear but on chronic beta-blockade HTN (hypertension) Hypokalemia Intractable vomiting with nausea Tetrahydrocannabinol (THC) use disorder, mild, abuse Surgical History H/O shoulder surgery History of tubal ligation Hx of cholecystectomy Family History (Updated 03/23/22 @ 09:57 by Enedina Dominguez) Mother Heart disease Hypertension Grandmother Diabetes Maternal Heart disease Maternal Hypertension Maternal Denies family history of Colon cancer Ovarian cancer Hyperlipidemia Breast cancer Family history of thyroid problem Uterine cancer Stroke Social History (Updated 03/23/22 @ 09:57 by Enedina Dominguez) Substance/Drug Use: former Date of last use: one month ago last thc Discharge Plan Discharge Condition: Stable Prescriptions: No Action aspirin [Adult Low Dose Aspirin] 81 mg tablet,delayed release (DR/EC) 81 mg PO DAILY Toujeo Max U-300 SoloStar 300 unit/mL (3 mL) insulin pen 80 unit SUBCUT DAILY metoprolol tartrate 50 mg tablet 50 mg PO BID desipramine 100 mg tablet 100 mg PO DAILY glimepiride 2 mg tablet 2 mg PO DAILY Qty: 60 0RF metformin 500 mg tablet 500 mg PO BID Qty: 60 0RF losartan 50 mg tablet 50 mg PO BID citalopram 20 mg tablet 40 mg PO DAILY lorazepam 1 mg tablet 1 mg PO BID PRN (Reason: Vomiting) albuterol sulfate 90 mcg/actuation HFA aerosol inhaler 1 puff INHALATION Q4H PRN (Reason: Shortness Of Breath) promethazine 25 mg suppository 25 mg DE Q6H PRN (Reason: nausea and vomiting) Qty: 12 0RF chlorpromazine 25 mg tablet 25 mg PO TID Qty: 10 0RF Referrals: Mariana Joe FNP [Primary Care Provider] - Coding Level of Care Code ED Inspection Manager for Evieg David
--- NOTE | 2022-08-04 06:02 | XR_ITS ---
WS: [id number] Exam: XR chest 1V portable [id number] Date/Time of Exam: 08/04/2022 6:02 AM Reason For Exam: dyspnea/cough Comparison 04/09/2021. The lungs are fully expanded and clear. Normal cardiomediastinal silhouette and regional bony element s. No pleural effusions. Degenerative change of the right shoulder joint. XR/XR chest 1V portable [id number] IMPRESSION: 1. No acute cardiopulmonary finding.
[2022-08-04 06:03] VITALS: BP 168/106; PULSE 135; RESP 22; TEMP 36.6; O2SAT 98; BMI 40.6
[2022-08-04 06:09] LABS: Glucose Point of Care 314 mg/dL (70-110)
--- NOTE | 2022-08-04 06:09 | W.ED.GENADLT ---
HPI - General Adult General: Chief complaint: Nausea/Vomiting/Diarrhea Stated complaint: n/v/12 days Time Seen by Provider: 08/04/22 06:01 Source: patient Mode of arrival: ambulatory History of Present Illness: 47-year-old female presents emergency room complaining of persistent nausea and vomiting she is reporting this has been going on for 12 days. She states it normally resolves itself over time and she will wait it out but it has not improved she describes herself as having cyclical vomiting syndrome for which she has really failure medication will respond to. She is diabetic as well. She recently changed her insulin. She had been taking 80 units once daily she was supposed to split it to 40 units twice daily. She tells us that she took 40 earlier and then took another 80 because she had forgotten she had decreased the dose and increase the frequency. Despite this on her arrival her blood sugar was over 300. She states she has had the nausea and vomiting for last couple days with no response to medications. She denies any hematochezia melena hematemesis or coffee-ground was no fever sweats or chills. Tried several over the counter medications strategies as well as promethazine without any improvement. Patient states she rarely uses marijuana. Patient states she has not been able to keep any fluids down. Reviewing her chart she is on metformin 500 twice daily and glimepiride in addition to insulin. Onset (ago): day(s) Quality: burning Pain Consistency: constant Relieving factors: none Exacerbating factors: none Associated symptoms: Reports malaise, nausea and vomiting; Deny chest pain, confusion, cough, diaphoresis, decreased appetite, dyspnea, fevers/chills, headache(s), rash, palpitations, seizures, short of breath, syncope or weakness Treatments prior to arrival: other (Antiemetics) Review of Systems Const: Reports: fatigue and malaise; Denies: fever(s), chills or diaphoresis ENMT: Denies: throat pain, ear or mastoid pain, nasal discharge or nasal congestion Card: Denies: chest pain, palpitations or syncope Resp: Denies: dyspnea, productive cough, non-productive cough or wheezing GI: Reports: abdominal pain, nausea and vomiting; Denies: hematemesis, hematochezia or melena : Denies: flank pain, difficulty voiding, dysuria, urinary frequency or urinary urgency Skin/Breast: Denies: rash Neuro: Denies: headache(s) or confusion PFSH ED PFSH: Medical History BMI 38.0-38.9,adult COVID-19 Cyclical vomiting Dehydration Depression Diabetes mellitus, type II Elevated lactic acid level History of cardiac arrhythmia Details not clear but on chronic beta-blockade HTN (hypertension) Hypokalemia Intractable vomiting with nausea Tetrahydrocannabinol (THC) use disorder, mild, abuse Surgical History H/O shoulder surgery History of tubal ligation Hx of cholecystectomy Family History Mother Heart disease Hypertension Grandmother Diabetes Maternal Heart disease Maternal Hypertension Maternal Denies family history of Colon cancer Ovarian cancer Hyperlipidemia Breast cancer Family history of thyroid problem Uterine cancer Stroke Social History Substance/Drug Use: former Date of last use: one month ago last thc Physical Exam Const: GENERAL APPEARANCE: cooperative and comfortable ORIENTATION/CONSCIOUSNESS: Yes awake, Yes oriented to person, Yes oriented to place and Yes oriented to time HENMT: COMMON NORMALS: normocephalic, atraumatic and hearing grossly normal bilaterally HEAD & SCALP: normocephalic and atraumatic Resp: COMMON NORMALS: normal respiratory effort, No retractions, No use of accessory muscles and clear to auscultation bilaterally AUSCULTATION: clear to auscultation bilaterally Cardio: COMMON NORMALS: regular rate, regular rhythm and No murmurs present (Cardio) RATE: regular rate RHYTHM: regular rhythm GI: COMMON NORMALS: Soft to palpation and No hepatosplenomegaly present AUSCULTATION: Yes normoactive bowel sounds PALPATION: Yes Soft to palpation, No Tenderness to palpation present (GI), No Guarding due to palpation present (GI) and Yes No hepatosplenomegaly present Extremity: COMMON NORMALS: normal to inspection, capillary refill normal, no clubbing, cyanosis or edema, no calf tenderness and no pedal edema Neuro: SENSORIUM/ORIENTATION: Yes oriented to person, Yes oriented to place and Yes oriented to time Skin: COMMON NORMALS: no rashes or lesions noted GENERAL SKIN EXAM: no rashes or lesions noted Course Vital Signs: Vital signs: Vital Signs Temperature 97.9 F 08/04/22 06:03 Pulse Rate 140 H 08/04/22 06:40 Respiratory Rate 22 H 08/04/22 06:03 Blood Pressure 199/106 08/04/22 06:38 Pulse Oximetry 97 08/04/22 06:40 Oxygen Delivery Me thod Nasal Cannula 08/04/22 06:40 Oxygen Flow Rate 2 08/04/22 06:40 MDM - General Adult Medical Decision Making Patient improved with medications and fluid. Discharge home with olanzapine as needed. She did have a few white blood cells per high-power field but no leukocyte esterase or nitrates we will wait on the culture before starting on antibiotics. Recheck for any worsening or changes symptoms. Medical Records I reviewed the patient's medical records. Lab Data I reviewed the patient's lab results. 08/04/22 06:16 08/04/22 06:16 Radiology Impressions Chest X-Ray 08/04/22 06:02 IMPRESSION: 1. No acute cardiopulmonary finding. Laboratory Results WBC 15.1 10^3/uL (4.0-10.0) H 08/04/22 06:16 RBC 5.21 10^6/uL (4.1-5.3) 08/04/22 06:16 Hgb 15.3 g/dL (11.5-15.3) 08/04/22 06:16 Hct 44.4 % (37.0-47.0) 08/04/22 06:16 MCV 85.2 fl (81-99) 08/04/22 06:16 MCH 29.4 pg (28.0-34.0) 08/04/22 06:16 MCHC 34.5 g/dL (30.0-36.0) 08/04/22 06:16 RDW 12.6 % (12.1-15.1) 08/04/22 06:16 Plt Count 463 10^3/cmm (130-400) H 08/04/22 06:16 MPV 9.0 fL (7.4-10.4) 08/04/22 06:16 Neut % (Auto) 76.0 % 08/04/22 06:16 Lymph % (Auto) 17.4 % 08/04/22 06:16 [place] % (Auto) 5.6 % 08/04/22 06:16 Eos % (Auto) 0.5 % 08/04/22 06:16 Baso % (Auto) 0.1 % 08/04/22 06:16 Neut # (Auto) 11.46 10^3/uL (1.8-7.7) H 08/04/22 06:16 Lymph # (Auto) 2.6 10^3/uL (0.8-4.8) 08/04/22 06:16 [place] # (Auto) 0.8 10^3/uL (0.2-0.9) 08/04/22 06:16 Eos # (Auto) 0.1 10^3/uL (0.0-0.8) 08/04/22 06:16 Baso # (Auto) 0.0 10^3/uL (0.0-0.1) 08/04/22 06:16 Nucleated RBC % (auto) 0 % 08/04/22 06:16 Nucleated RBCs # 0.0 /100WBC 08/04/22 06:16 Specimen Type Arterial 08/04/22 06:22 Sample Site Radial, left 08/04/22 06:22 ABG pH 7.60 (7.35-7.45) H* 08/04/22 06:22 ABG pCO2 34.0 mmHg (35-45) L 08/04/22 06:22 ABG pO2 71.2 mmHg (80.0-100.0) L 08/04/22 06:22 ABG HCO3 33.3 mmol/L (22-26) H 08/04/22 06:22 ABG O2 Saturation 96.4 08/04/22 06:22 ABG Base Excess 11.3 mmol/L (-2.0-2.0) H 08/04/22 06:22 Tobi Test Pos 08/04/22 06:22 A-a O2 Gradient 4.7 mmHg (5-10) L 08/04/22 06:22 Hematocrit 47.7 % (37-47) H 08/04/22 06:22 Hgb O2 Saturation 95.3 % (95-100) 08/04/22 06:22 Carboxyhemoglobin 1.0 %THgb (0.4-20.1) 08/04/22 06:22 Methemoglobin 0.1 % (0.4-1.5) L 08/04/22 06:22 Total Hemoglobin 15.6 g/dL (12-16) 08/04/22 06:22 Sodium 134.0 mmol/L (131-143) 08/04/22 06:22 Potassium 2.5 mmol/L (3.5-5.0) L 08/04/22 06:22 Glucose 305.0 mg/dL (70-115) H 08/04/22 06:22 Ionized Calcium 1.2 mmol/L (1.1-1.4) 08/04/22 06:22 O2 Delivery Device None 08/04/22 06:22 FiO2 21.0 % 08/04/22 06:22 Jewelry Internship ID [id number] 08/04/22 06:22 Sodium 130 mmol/L (136-145) L 08/04/22 06:16 Potassium 3.3 mmol/L (3.5-5.1) L 08/04/22 06:16 Chloride 85 mmol/L (98-107) L 08/04/22 06:16 Carbon Dioxide 30 mmol/L (22-29) H 08/04/22 06:16 Anion Gap 18.3 (5-19) 08/04/22 06:16 BUN 12 mg/dL (6-20) 08/04/22 06:16 Creatinine 0.6 mg/dL (0.5-0.9) 08/04/22 06:16 GFR Calculation 107.2 mL/min (90-130) 08/04/22 06:16 Glucose 321 mg/dL (65-115) H 08/04/22 06:16 POC Glucose 253 mg/dL (70-110) H 08/04/22 07:41 Calculated Osmolality 282 mOsm/kg (285-295) L 08/04/22 06:16 Calcium 9.8 mg/dL (8.5-10.5) 08/04/22 06:16 Total Bilirubin 1.1 mg/dL (0.15-1.2) 08/04/22 06:16 AST 14 U/L (0-32) 08/04/22 06:16 ALT 31 U/L (0-33) 08/04/22 06:16 Alkaline Phosphatase 63 U/L (35-105) 08/04/22 06:16 Total Protein 7.3 g/dL (6.6-8.7) 08/04/22 06:16 Albumin 4.5 g/dL (3.5-5.2) 08/04/22 06:16 Globulin 2.8 g/dL (1.3-4.6) 08/04/22 06:16 Lipase 36 U/L (13-60) 08/04/22 06:16 Urine Color Yellow (Yellow) 08/04/22 09:11 Urine Appearance Hazy (CLEAR) A 08/04/22 09:11 Urine pH 7 (5-7) 08/04/22 09:11 Ur Specific [place] 1.010 (1.005-1.030) 08/04/22 09:11 Urine Protein Neg (Negative) 08/04/22 09:11 Urine Glucose (UA) 4+ (Normal) H 08/04/22 09:11 Urine Ketones Negative (Negative) 08/04/22 09:11 Urine Blood Neg (Negative) 08/04/22 09:11 Urine Nitrate Negative (Negative) 08/04/22 09:11 Urine Bilirubin Neg (Negative) 08/04/22 09:11 Urine Urobilinogen Norm mg/dL (Negative) 08/04/22 09:11 Ur Leukocyte Esterase Negative (Negative) 08/04/22 09:11 Urine RBC 0-4 /hpf (0-2) H 08/04/22 09:11 Urine WBC 5-10 /hpf (0-5) H 08/04/22 09:11 Ur Squamous Epith Cells 0-4 /hpf (0-5) H 08/04/22 09:11 Amorphous Sediment Not Reportable 08/04/22 09:11 Urine Bacteria Trace /hpf (NONE) 08/04/22 09:11 Urine Mucus 1+ /hpf 08/04/22 09:11 Serum Ketones Negative (Negative) 08/04/22 06:16 Discharge Plan Discharge Patient Disposition: Home Clinical Impression: Nausea & vomiting, Hypokalemia Condition: Stable Prescriptions: New olanzapine 10 mg tablet,disintegrating 10 mg PO Q6H PRN (Reason: NAUSEA AND VOMITTING) Qty: 14 0RF potassium chloride 20 mEq tablet,ER particles/crystals 20 meq PO DAILY Qty: 10 0RF No Action aspirin [Adult Low Dose Aspirin] 81 mg tablet,delayed release (DR/EC) 81 mg PO DAILY metoprolol tartrate 50 mg tablet 50 mg PO BID desipramine 100 mg tablet 100 mg PO DAILY losartan 50 mg tablet 50 mg PO BID citalopram 20 mg tablet 40 mg PO DAILY lorazepam 1 mg tablet 1 mg PO BID PRN (Reason: Vomiting) albuterol sulfate 90 mcg/actuation HFA aerosol inhaler 1 puff INHALATION Q4H PRN (Reason: Shortness Of Breath) Haldol 5 mg Tablet 5 mg PO BID PRN (Reason: Anxiety) Lantus Solostar U-100 Insulin 100 unit/mL (3 mL) insulin pen 80 unit SUBCUT DAILY promethazine 25 mg suppository 25 mg DE Q6H PRN (Reason: nausea and vomiting) Qty: 12 0RF Discharge Orders: Discharge ED (Routine); Ordered 08/04/22 Ordered By: Moises Galeana Referrals: Mariana Joe, COMMERCIAL FISHER [Primary Care Provider] - Patient Instructions: Opioid Safety, Pain Management Activity Restrictions/Additional Instructions: You were seen today for persistent nausea and vomiting. Recommend clear liquid diet for next 24 to 48 hours and advance as tolerated. Prescription given for olanzapine. Recommend you use that as needed it is an orally disintegrating tablet that you can use every 6 hours as needed for nausea and vomiting it may cause some sedation. Recommend you use it along with lorazepam which you have previously been prescribed. Coding Level of Care Code ED Bank Secrecy Act Officer for Ramon Hernandez
--- NOTE | 2022-08-04 06:10 | ECG_ITS ---
[facility] Test Date: 2022-08-04 Pat Name: Ananya Hernandez Department: Room: Gender: Female Test Inspection Engineer: : 1975 Requested By: Moises Zabala Order Number: [id number] Francie MD: Phil Louis M.D. Measurements Intervals [place] Rate: 128 P: 65 SD: 120 QRS: 19 QRSD: 85 T: 58 QT: 348 QTc: 509 Interpretive Statements SINUS TACHYCARDIA Compared to ECG 04/09/2021 19:17:20 No significant changes Electronically Signed On 08-04-2022 10:10:40 CDT by Phil Louis M.D. [id number]
[2022-08-04] MEDS: ondansetron 2 mg/ML SDV 2 mL 4 MG IVP (06:17)
[2022-08-04] MEDS: sodium chloride 0.9% 1,000 ML 999 ML IV ×2 (06:20→08:30)
[2022-08-04] MEDS: insulin regular-human 100 units/1 mL 10 UNIT IVP (06:20)
[2022-08-04 06:26] LABS: Basophils % 0.1 %; Eosinophils # 0.1 10^3/uL (0.0-0.8); Eosinophils % 0.5 %; Hematocrit 44.4 % (37.0-47.0); Hemoglobin 15.3 g/dL (11.5-15.3); Lymphocytes # 2.6 10^3/uL (0.8-4.8); Lymphocytes % 17.4 %; Mean Corpuscular HGB Conc 34.5 g/dL (30.0-36.0); Mean Corpuscular Hemoglobin 29.4 pg (28.0-34.0); Mean Corpuscular Volume 85.2 fl (81-99); Monocytes # 0.8 10^3/uL (0.2-0.9); Monocytes % 5.6 %; Neutrophils # 11.46 10^3/uL (1.8-7.7); Nucleated Red Blood Cells % 0 %; Platelet Count 463 10^3/cmm (130-400); Red Blood Count 5.21 10^6/uL (4.1-5.3); Red Cell Distribution Width 12.6 % (12.1-15.1); White Blood Count 15.1 10^3/uL (4.0-10.0)
[2022-08-04] MEDS: haloperidol inj 5 mg/mL INJ 1 mL 2.5 MG IVP (06:27)
[2022-08-04] MEDS: LORazepam 2 mg/mL INJ 1 mL IVP (06:31)
[2022-08-04 06:36] LABS: Ketone (Acetest) Serum Negative (Negative)
[2022-08-04 06:36] LABS: Alveolar-Arterial Oxygen Gradi 4.7 mmHg (5-10); Arterial Blood Gas Hematocrit 47.7 % (37-47); Base Excess ABG 11.3 mmol/L (-2.0-2.0); Blood Gas Allen Test Pos; Blood Gas Sample Site Radial, left; Blood Gas Sample Type Arterial; HCO3 ABG 33.3 mmol/L (22-26); HGB O2 Sat 95.3 % (95-100); Ionized Calcium Level - ABG 1.2 mmol/L (1.1-1.4); Methemoglobin 0.1 % (0.4-1.5); Oxygen Saturation ABG 96.4; PO2 ABG 71.2 mmHg (80.0-100.0); Potassium Level - ABG 2.5 mmol/L (3.5-5.0); Total Hemoglobin 15.6 g/dL (12-16)
[2022-08-04 06:38] VITALS: BP 199/106
[2022-08-04 06:40] VITALS: PULSE 140; O2SAT 97
[2022-08-04 06:43] LABS: Alanine Aminotransferase 31 U/L (0-33); Albumin Level 4.5 g/dL (3.5-5.2); Alkaline Phosphatase 63 U/L (35-105); Anion Gap 18.3 (5-19); Aspartate Amino Transferase 14 U/L (0-32); Blood Urea Nitrogen 12 mg/dL (6-20); Calcium 9.8 mg/dL (8.5-10.5); Carbon Dioxide 30 mmol/L (22-29); Chloride 85 mmol/L (98-107); Globulin 2.8 g/dL (1.3-4.6); Glomerular Filtration Rate 107.2 mL/min (90-130); Glucose 321 mg/dL (65-115); Lipase 36 U/L (13-60); Osmolality Calculated 282 mOsm/kg (285-295); Potassium 3.3 mmol/L (3.5-5.1); Sodium 130 mmol/L (136-145); Total Bilirubin 1.1 mg/dL (0.15-1.2); Total Protein 7.3 g/dL (6.6-8.7)
[2022-08-04] MEDS: potassium chloride premix 100 ML 25 MEQ IV (07:32)
[2022-08-04 07:45] LABS: Glucose Point of Care 253 mg/dL (70-110)
[2022-08-04 10:04] LABS: Urine Appearance Hazy (CLEAR); Urine Color Yellow (Yellow); pH Urine 7 (5-7)
[2022-08-04 10:05] LABS: Add Urine Microscopic? YES; Bilirubin Urine Neg (Negative); Blood Urine Neg (Negative); Glucose Urine UA 4+ (Normal); Ketones Urine Negative (Negative); Leukocyte Esterase Urine Negative (Negative); Nitrate Urine Negative (Negative); Protein Urine Neg (Negative); Urobilinogen Urine Norm (Negative)
[2022-08-04 10:06] LABS: RBC Urine 0-4 /hpf (0-2)
[2022-08-04 10:07] LABS: Add Urine Culture? No; Bacteria Urine TRACE /hpf; Mucus Urine 1+ /hpf; Squamous Epithelial Cell Urine 0-4 /hpf (0-5)
== END 2022-08-04 10:54 | disposition home or self-care (01) ==
PROVIDERS: Emergency Provider Family Medicine; PCP Nurse Practitioner Family
DX: R11.2 Nausea with vomiting, unspecified (principal); E87.6 Hypokalemia; Z79.82 Long term (current) use of aspirin; Z79.4 Long term (current) use of insulin; E11.9 Type 2 diabetes mellitus without complications; I10 Essential (primary) hypertension
CPT/HCPCS: 36416; 36600; 71045; 80051; 80053; 81001; 82009; 82330; 82805; 82962; 83690; 85025; 93005; 96365; 96366; 96375; 99285; J1630; J1815; J2060; J2405; J3480; J7030

== ENCOUNTER → 2022-10-12 16:00 | Outpatient (BNVA) | payer SELFPAY | PROVIDERS: PCP Nurse Practitioner Family; Referring Provider Nurse Practitioner Family; Visit Provider Internal Medicine | DX: E11.9 Type 2 diabetes mellitus without complications (principal); E55.9 Vitamin D deficiency, unspecified; E78.2 Mixed hyperlipidemia | CPT/HCPCS: 36415; 80053; 80061; 82044; 83036 ==

== ENCOUNTER 2022-11-15 09:54 | Emergency (ER) | payer SELFPAY ==
[2022-11-15 10:00] VITALS: BP 190/103; PULSE 116; RESP 20; TEMP 36.5; O2SAT 100; BMI 39.3
--- NOTE | 2022-11-15 10:43 | CTR_ITS ---
PROCEDURE INFORMATION: Exam: CT Abdomen And Pelvis With Contrast Exam date and time: 11/15/2022 11:13 AM Age: 47 years old Clinical indication: Abdominal pain; Generalized TECHNIQUE: Imaging protocol: Computed tomography of the abdomen and pelvis with contrast. Radiation optimization: All CT scans at this facility use at least one of these dose optimization techniques: automated exposure control; mA and/or kV adjustment per patient size (includes targeted exams where dose is matched to clinical indication); or iterative reconstruction. Contrast material: OMNI 350; Contrast volume: 100 ml; Contrast route: INTRAVENOUS (IV); REPORTING DATA: Count of CT and Cardiac NM exams in prior 12 months: This patient has received 0 known CTs and 0 known cardiac nuclear medicine studies in the 12 months prior to the current study. COMPARISON: CT abdomen pelvis wo con [id number] 10/20/2021 1:23 AM RADIATION DOSE METRICS: Total DLP (mGy-cm): 1418.51 FINDINGS: Diaphragm: A small hiatal hernia is present. Liver: Normal. No mass. Gallbladder and bile ducts: The gallbladder has been surgically removed. Pancreas: Normal. No ductal dilation. Spleen: Normal. No splenomegaly. Adrenal glands: Normal. No mass. Kidneys and ureters: Symmetric enhancement of the kidneys. There is a subcentimeter focus of decreased attenuation in the left kidney, which is too small to characterize. No hydronephrosis or nephrolithiasis. Stomach and bowel: Unremarkable. No obstruction. No mucosal thickening. Appendix: No evidence of appendicitis. Intraperitoneal space: Unremarkable. No free air. No significant fluid collection. Vasculature: Unremarkable. No abdominal aortic aneurysm. Lymph nodes: Unremarkable. No enlarged lymph nodes. Urinary bladder: Unremarkable as visualized. Reproductive: Unremarkable as visualized. Bones/joints: Degenerative changes of the spine seen. Soft tissues: Unremarkable. CT/CT abdomen pelvis w con* [id number] IMPRESSION: No acute intra-abdominal or intrapelvic pathology.
[2022-11-15] MEDS: hyDRALAzine 20 mg/mL INJ 1 mL 10 MG IVP (10:48)
[2022-11-15] MEDS: ondansetron 2 mg/ML SDV 2 mL 4 MG IVP (10:48)
[2022-11-15 10:58] VITALS: BP 167/95; PULSE 112; O2SAT 97
[2022-11-15] MEDS: iohexol 350 mg/mL 500 mL Btl (per mL) IV (11:10)
[2022-11-15 11:14] LABS: Basophils % 0.1 %; Hematocrit 40.9 % (37.0-47.0); Hemoglobin 13.9 g/dL (11.5-15.3); Lymphocytes # 2.7 10^3/uL (0.8-4.8); Lymphocytes % 15.5 %; Mean Corpuscular Hemoglobin 29.1 pg (28.0-34.0); Mean Corpuscular Volume 85.6 fl (81-99); Monocytes # 0.8 10^3/uL (0.2-0.9); Monocytes % 4.4 %; Neutrophils # 13.86 10^3/uL (1.8-7.7); Neutrophils % 79.5 %; Nucleated Red Blood Cells % 0 %; Platelet Count 560 10^3/cmm (130-400); Red Blood Count 4.78 10^6/uL (4.1-5.3); White Blood Count 17.4 10^3/uL (4.0-10.0)
--- NOTE | 2022-11-15 11:19 | W.ED.NAVMDI ---
HPI - Nausea/Vomiting/Diarrhea General: Chief complaint: Nausea/Vomiting/Diarrhea Stated complaint: vomiting, high blood pressure, headache Time Seen by Provider: 11/15/22 09:57 History of Present Illness: 47-year-old female presents emergency department complaints of recurrent cyclical nausea and vomiting she states that this episode is occurred and worsened over the previous 3 days. She states she does intermittently use marijuana. She states that she has been having these types of symptoms intermittently for many many years. She states that several times a year she will have episodes where she has cyclical nausea and vomiting. She does complain of generalized abdominal pain that is a 3 out of 10 and worse when she vomits. She denies hematic emesis, hematochezia, fevers chills or night sweats. She denies chest pain or shortness of breath. She states that she does take antihypertensive medications but has been vomiting so much she is unable to keep them down and her blood pressure is elevated. Associated nausea: Yes Associated symtoms: Reports nausea Review of Systems General: Reports: 10 or more systems reviewed and unremarkable except in HPI and below Card: Reports: other (Elevated blood pressure) GI: Reports: abdominal pain, nausea and vomiting [facility] ED PFSH: Medical History BMI 38.0-38.9,adult COVID-19 Cyclical vomiting Dehydration Depression Diabetes mellitus, type II Elevated lactic acid level History of cardiac arrhythmia Details not clear but on chronic beta-blockade HTN (hypertension) Hypokalemia Intractable vomiting with nausea Tetrahydrocannabinol (THC) use disorder, mild, abuse Surgical History H/O shoulder surgery History of tubal ligation Hx of cholecystectomy Family History Mother Heart disease Hypertension Grandmother Diabetes Maternal Heart disease Maternal Hypertension Maternal Denies family history of Colon cancer Ovarian cancer Hyperlipidemia Breast cancer Family history of thyroid problem Uterine cancer Stroke Social History Substance/Drug Use: former Date of last use: one month ago last thc Physical Exam Const: COMMON NORMALS: no acute distress, average body habitus, patient oriented x3, no limitations, healthy appearing, alert and well nourished HENMT: COMMON NORMALS: normocephalic and atraumatic HEAD & SCALP: normocephalic and atraumatic Eye: COMMON NORMALS: Equal, round and reactive pupils present, EOMs intact bilaterally and normal visual womack by confrontation PUPIL: Yes Equal, round and reactive pupils present Neck/C-Spine: COMMON NORMALS: full ROM, no lymphadenopathy, supple and no meningeal signs Chest: COMMONS NORMALS: normal inspection of the chest Resp: COMMON NORMALS: normal respiratory effort, No retractions, No use of accessory muscles and clear to auscultation bilaterally AUSCULTATION: clear to auscultation bilaterally Cardio: COMMON NORMALS: regular rate, regular rhythm, S1 normal heart sound present, S2 normal heart sound present and Peripheral pulses 2+ throughout RATE: regular rate RHYTHM: regular rhythm HEART SOUNDS: S1 normal heart sound present and S2 normal heart sound present PERIPHERAL PULSES: Peripheral pulses 2+ throughout GI: COMMON NORMALS: Normal to inspection, nondistended, normoactive bowel sounds present, Soft to palpation, non-tender and No hepatosplenomegaly present PALPATION: Yes Soft to palpation and Yes No hepatosplenomegaly present : COMMON NORMALS: Yes no CVA tenderness BLADDER/KIDNEY EXAM: Yes no CVA tenderness Back/Pelvis: COMMON NORMALS: no CVA tenderness and thoracic and lumbar spine normal to inspection Extremity: COMMON NORMALS: normal to inspection, full ROM and capillary refill normal Neuro: COMMON NORMALS: patient oriented x3, CN's II-XII intact bilaterally, moves all extremities, no focal motor deficits, no sensory deficits noted and deep tendon reflexes 2+ bilaterally SENSORIUM/ORIENTATION: Yes alert MENINGEAL SIGNS: Yes no meningeal signs Psych: COMMON NORMALS: mental status grossly normal, Normal thought process present and cooperative THOUGHT PROCESS: Normal thought process present Skin: COMMON NORMALS: no rashes or lesions noted and turgor normal GENERAL SKIN EXAM: no rashes or lesions noted and turgor normal Course Vital Signs: Vital signs: Vital Signs Temperature 97.7 F 11/15/22 10:00 Pulse Rate 110 H 11/15/22 12:55 Respiratory Rate 20 H 11/15/22 10:00 Blood Pressure 166/90 11/15/22 12:55 Pulse Oximetry 98 11/15/22 12:55 Oxygen Delivery Me thod Room Air 11/15/22 10:00 MDM - Nausea/Vomiting/Diarrhea Medical Decision Making Physical exam completed and documented, I will provide antiemetic and given the patient's recurrent cyclical vomiting as well as her marijuana use I suspect this is most likely cannabinoid induced hyperemesis syndrome as the patient states she has had this for many years since she started smoking marijuana. I will provide a CT abdomen pelvis as she does complain of generalized vague abdominal pain to rule out any obstruction. I will provide her IV fluid rehydration as well as hydralazine to lower her blood pressure as she has been unable to keep her p.o. antihypertensive medications down secondary to her vomiting. I reviewed her laboratory values and discussed the findings with her I did provide her Haldol medication and she has not had any additional nausea or vomiting since administration here in the emergency department. I will discharge patient home with recommended follow-up with PCP and gastroenterology as needed. I strongly encouraged the patient after extensive education approximately 30 minutes regarding cannabinoid induced hyperemesis syndrome and the importance of abstinence from marijuana use as well as the risk and possible complications of continued marijuana use given her diagnosis of cannabinoid induced hyperemesis syndrome. Patient's blood pressure had significantly improved throughout her stay here in the emergency department and I will discharge her home with recommended follow-up as previously mentioned. Medical Records I reviewed the patient's medical records. Lab Data I reviewed the patient's lab results. 11/15/22 10:27 11/15/22 10:27 Radiology Impressions Abdomen/Pelvis CT 11/15/22 10:43 IMPRESSION: No acute intra-abdominal or intrapelvic pathology. Laboratory Results WBC 17.4 10^3/uL (4.0-10.0) H 11/15/22 10:27 RBC 4.78 10^6/uL (4.1-5.3) 11/15/22 10:27 Hgb 13.9 g/dL (11.5-15.3) 11/15/22 10:27 Hct 40.9 % (37.0-47.0) 11/15/22 10:27 MCV 85.6 fl (81-99) 11/15/22 10:27 MCH 29.1 pg (28.0-34.0) 11/15/22 10:27 MCHC 34.0 g/dL (30.0-36.0) 11/15/22 10:27 RDW 13.0 % (12.1-15.1) 11/15/22 10:27 Plt Count 560 10^3/cmm (130-400) H 11/15/22 10:27 MPV 9.0 fL (7.4-10.4) 11/15/22 10:27 Neut % (Auto) 79.5 % 11/15/22 10:27 Lymph % (Auto) 15.5 % 11/15/22 10:27 [place] % (Auto) 4.4 % 11/15/22 10:27 Eos % (Auto) 0.0 % 11/15/22 10:27 Baso % (Auto) 0.1 % 11/15/22 10:27 Neut # (Auto) 13.86 10^3/uL (1.8-7.7) H 11/15/22 10:27 Lymph # (Auto) 2.7 10^3/uL (0.8-4.8) 11/15/22 10:27 [place] # (Auto) 0.8 10^3/uL (0.2-0.9) 11/15/22 10:27 Eos # (Auto) 0.0 10^3/uL (0.0-0.8) 11/15/22 10:27 Baso # (Auto) 0.0 10^3/uL (0.0-0.1) 11/15/22 10:27 Nucleated RBC % (auto) 0 % 11/15/22 10:27 Nucleated RBCs # 0.0 /100WBC 11/15/22 10:27 Sodium 142 mmol/L (136-145) 11/15/22 10:27 Potassium 3.6 mmol/L (3.5-5.1) 11/15/22 10:27 Chloride 101 mmol/L (98-107) 11/15/22 10:27 Carbon Dioxide 20 mmol/L (22-29) L 11/15/22 10:27 Anion Gap 24.6 (5-19) H 11/15/22 10:27 BUN 10 mg/dL (6-20) 11/15/22 10:27 Creatinine 0.7 mg/dL (0.5-0.9) 11/15/22 10:27 GFR Calculation 89.7 mL/min (90-130) L 11/15/22 10:27 Glucose 246 mg/dL (65-115) H 11/15/22 10:27 Calculated Osmolality 301 mOsm/kg (285-295) H 11/15/22 10:27 Calcium 10.5 mg/dL (8.5-10.5) 11/15/22 10:27 Total Bilirubin 0.9 mg/dL (0.15-1.2) 11/15/22 10:27 AST 17 U/L (0-32) 11/15/22 10:27 ALT 24 U/L (0-33) 11/15/22 10:27 Alkaline Phosphatase 70 U/L (35-105) 11/15/22 10:27 Total Protein 7.7 g/dL (6.6-8.7) 11/15/22 10:27 Albumin 4.9 g/dL (3.5-5.2) 11/15/22 10:27 Globulin 2.8 g/dL (1.3-4.6) 11/15/22 10:27 Lipase 23 U/L (13-60) 11/15/22 10:27 HCG, Qual Negative (Negative) 11/15/22 10:27 Urine Color Dark yellow (Yellow) 11/15/22 10:48 Urine Appearance Clear (CLEAR) 11/15/22 10:48 Urine pH 9 (5-7) H 11/15/22 10:48 Ur Specific [place] 1.015 (1.005-1.030) 11/15/22 10:48 Urine Protein 1+ (Negative) H 11/15/22 10:48 Urine Glucose (UA) 2+ (Normal) H 11/15/22 10:48 Urine Ketones 2+ (Negative) H 11/15/22 10:48 Urine Blood 3+ (Negative) H 11/15/22 10:48 Urine Nitrate Negative (Negative) 11/15/22 10:48 Urine Bilirubin Neg (Negative) 11/15/22 10:48 Prot Sulfosalicylic Acd Positive (Negative) 11/15/22 10:48 Urine Urobilinogen Norm mg/dL (Negative) 11/15/22 10:48 Ur Leukocyte Esterase Negative (Negative) 11/15/22 10:48 Urine RBC 5-10 /hpf (0-2) H 11/15/22 10:48 Urine WBC 10-15 /hpf (0-5) H 11/15/22 10:48 Ur Squamous Epith Cells 5-10 /hpf (0-5) H 11/15/22 10:48 Amorphous Sediment Not Reportable 11/15/22 10:48 Urine Bacteria 1+ /hpf (NONE) H 11/15/22 10:48 Urine Mucus Trace /hpf 11/15/22 10:48 Urine Opiates Screen Negative ng/mL (Negative) 11/15/22 10:48 Ur Barbiturates Screen Negative ng/mL (Negative) 11/15/22 10:48 Ur Phencyclidine Scrn Negative ng/mL (Negative) 11/15/22 10:48 Ur Amphetamines Screen Negative ng/mL (Negative) 11/15/22 10:48 U Benzodiazepines Scrn Negative ng/mL (Negative) 11/15/22 10:48 Urine Cocaine Screen Negative ng/mL (Negative) 11/15/22 10:48 U Marijuana (THC) Screen Positive ng/mL (Negative) H 11/15/22 10:48 Discharge Plan Discharge Patient Disposition: Home Clinical Impression: Cyclical vomiting, Hypertension, uncontrolled Condition: Stable Prescriptions: New promethazine 25 mg suppository 25 mg [place] Q6H PRN (Reason: nausea and vomiting) Qty: 12 0RF No Action aspirin [Adult Low Dose Aspirin] 81 mg tablet,delayed release (DR/EC) 81 mg PO DAILY (DME) Dexcom G7 [employer] Administrator Misc See Rx Instructions .Route Qty: 1 0RF Rx Instructions: As directed (DME) Dexcom G7 Sensor Device See Rx Instructions .ROUTE .MEDSUPPLY Qty: 6 0RF Rx Instructions: Change every 10days metoprolol tartrate 50 mg tablet 50 mg PO BID desipramine 100 mg tablet 100 mg PO DAILY losartan 50 mg tablet 50 mg PO BID lorazepam 1 mg tablet 1 mg PO BID PRN (Reason: Vomiting) albuterol sulfate 90 mcg/actuation HFA aerosol inhaler 1 puff INHALATION Q4H PRN (Reason: Shortness Of Breath) haloperidol [Haldol] 5 mg Tablet 5 mg PO BID PRN (Reason: Anxiety) insulin glargine [Lantus Solostar U-100 Insulin] 100 unit/mL (3 mL) insulin pen 80 unit SUBCUT BEDTIME albuterol sulfate 2.5 mg /3 mL (0.083 %) solution for nebulization 2.5 mg inhalation Q6H PRN (Reason: Shortness Of Breath) citalopram 40 mg tablet 40 mg PO DAILY promethazine 25 mg suppository 25 mg [place] Q6H PRN (Reason: nausea and vomiting) Qty: 12 0RF Discharge Orders: Discharge ED (Routine); Ordered 11/15/22 Ordered By: Bethel Trujillo Referrals: Mariana Joe FNP [Primary Care Provider] - Patient Instructions: Opioid Safety, Pain Management Coding Level of Care Code ED Steel Pickler for Ramon Hernandez
[2022-11-15] MEDS: haloperidol inj 5 mg/mL INJ 1 mL IVP (11:23)
[2022-11-15 11:25] LABS: HCG Qualitative Urine. Negative (Negative)
[2022-11-15 11:35] LABS: Amphetamines Screen Urine Negative (Negative); Barbiturates Screen Urine Negative (Negative); Benzodiazepines Screen Urine Negative (Negative); Cocaine Screen Urine Negative (Negative); Opiate Screen Urine Negative (Negative); PCP Screen Urine Negative (Negative); THC Screen Urine Positive (Negative)
[2022-11-15 11:35] LABS: Alanine Aminotransferase 24 U/L (0-33); Albumin Level 4.9 g/dL (3.5-5.2); Alkaline Phosphatase 70 U/L (35-105); Anion Gap 24.6 (5-19); Aspartate Amino Transferase 17 U/L (0-32); Blood Urea Nitrogen 10 mg/dL (6-20); Calcium 10.5 mg/dL (8.5-10.5); Carbon Dioxide 20 mmol/L (22-29); Chloride 101 mmol/L (98-107); Creatinine Clr Calc Pharmacy 151.3193; Globulin 2.8 g/dL (1.3-4.6); Glomerular Filtration Rate 89.7 mL/min (90-130); Glucose 246 mg/dL (65-115); Lipase 23 U/L (13-60); Osmolality Calculated 301 mOsm/kg (285-295); Potassium 3.6 mmol/L (3.5-5.1); Sodium 142 mmol/L (136-145); Total Bilirubin 0.9 mg/dL (0.15-1.2); Total Protein 7.7 g/dL (6.6-8.7)
[2022-11-15 11:52] VITALS: BP 140/78; PULSE 117; O2SAT 95
[2022-11-15 11:53] LABS: Add Urine Microscopic? YES; Bilirubin Urine Neg (Negative); Blood Urine 3+ (Negative); Glucose Urine UA 2+ (Normal); Ketones Urine 2+ (Negative); Leukocyte Esterase Urine Negative (Negative); Nitrate Urine Negative (Negative); Protein Urine 1+ (Negative); Specific Gravity, Urine 1.015 (1.005-1.030); Sulfosalicylic Acid Urine Positive (Negative); Urine Appearance Clear (CLEAR); Urine Color Dark Yellow (Yellow); Urobilinogen Urine Norm (Negative); pH Urine 9 (5-7)
[2022-11-15 11:54] LABS: Add Urine Culture? No; Bacteria Urine 1+ /hpf; Mucus Urine TRACE /hpf
[2022-11-15 12:55] VITALS: BP 166/90; PULSE 110; O2SAT 98
[2022-11-15] MEDS: sodium chloride 0.9% 1,000 ML 999 ML IV (13:02)
--- NOTE | 2022-11-15 13:24 | PC.PHAR ---
pt states she takes care of her own medications-pt states she takes the medications entered-[facility] is closed for lunch till 14:00 will try to call back to verify when last filled-notes are made in the pharmacy comments with what ext shows has been filled recently
[2022-11-15 14:01] VITALS: BP 166/90; PULSE 110; O2SAT 98
== END 2022-11-15 14:02 | disposition home or self-care (01) ==
PROVIDERS: Emergency Provider Internal Medicine; PCP Nurse Practitioner Family
DX: R11.15 Cyclical vomiting syndrome unrelated to migraine (principal); I10 Essential (primary) hypertension; E11.9 Type 2 diabetes mellitus without complications; Z79.4 Long term (current) use of insulin; Z79.899 Other long term (current) drug therapy; Z86.16 Personal history of COVID-19
CPT/HCPCS: 74177; 80053; 80306; 81001; 81025; 83690; 85025; 96374; 96375; 99285; J0360; J1630; J2405; J7030; Q9967

== ENCOUNTER 2023-04-06 19:22 | Emergency (ER) | payer OTHER, SELFPAY ==
[2023-04-06] VITALS (7 sets, daily range): BP systolic 134–174; BP diastolic 89–113; PULSE 107–135; RESP 16–26; TEMP 36.6; O2SAT 93–99; BMI 38.0
[2023-04-06 19:40] LABS: Glucose Point of Care 253 mg/dL (70-110)
--- NOTE | 2023-04-06 19:40 | W.ED.NAVMDI ---
HPI - Nausea/Vomiting/Diarrhea General: Chief complaint: Nausea/Vomiting/Diarrhea Stated complaint: throwing up Time Seen by Provider: 04/06/23 19:38 Source: patient Mode of arrival: ambulatory Limitations: no limitations History of Present Illness: Patient is a 48-year-old female presents to ED today with complaint of abdominal pain, nausea, vomiting, diarrhea over the past 48 hours or so. Patient states she has a longstanding history of hyperemesis cannabis syndrome and states her symptoms today feel similar. She states in the past she has been treated successfully with a GI cocktail as well as IV Haldol and Ativan. Patient has not been running fevers. She denies sick contacts. Denies poor food exposures. Patient is a diabetic. Blood sugars elevated and then 250s upon arrival. No known history of DKA. MD elicited complaint: nausea, vomiting, diarrhea and abdominal pain Pertinent past history: cyclical vomiting Onset (ago): day(s) Associated nausea: Yes Associated abdominal pain: Yes Location of pain: Diffuse Radiation: diffuse Pain consistency: constant Severity: severe Quality: cramping Exacerbating factors: none Relieving factors: none Context: marijuana use Associated symtoms: Reports nausea; Denies chest pain, dizziness, dysuria, fatigue, headache(s) or malaise Review of Systems Const: Denies: fever(s), chills, body aches, fatigue or malaise Card: Denies: chest pain Resp: Denies: dyspnea GI: Reports: abdominal pain, nausea, vomiting and diarrhea; Denies: hematemesis, hematochezia or melena : Denies: flank pain, difficulty voiding, dysuria, urinary frequency, urinary urgency or urinary hesitancy Musc: Denies: neck pain, back pain, extremity pain or joint pain Skin/Breast: Denies: rash Neuro: Denies: headache(s), numbness in extremities, weakness in extremities, sensory changes or dizziness PFSH ED PFSH: Medical History COVID-19 HTN (hypertension) BMI 38.0-38.9,adult Elevated lactic acid level History of cardiac arrhythmia Details not clear but on chronic beta-blockade Diabetes mellitus, type II Intractable vomiting with nausea Hypokalemia Dehydration Depression Tetrahydrocannabinol (THC) use disorder, mild, abuse Cyclical vomiting Surgical History History of tubal ligation H/O shoulder surgery Hx of cholecystectomy Family History Mother Heart disease Hypertension Grandmother Diabetes Maternal Heart disease Maternal Hypertension Maternal Denies family history of Colon cancer Ovarian cancer Hyperlipidemia Breast cancer Family history of thyroid problem Uterine cancer Stroke Social History Substance/Drug Use: former Date of last use: one month ago last thc Physical Exam Const: COMMON NORMALS: patient oriented x3, no limitations and alert GENERAL APPEARANCE: cooperative and in distress (appears uncomfortable secondary to pain/nausea) NUTRITIONAL APPEARANCE: obese ORIENTATION/CONSCIOUSNESS: Yes awake, Yes oriented to person, Yes oriented to place and Yes oriented to time Eye: COMMON NORMALS: no scleral icterus Resp: COMMON NORMALS: normal respiratory effort and clear to auscultation bilaterally AUSCULTATION: clear to auscultation bilaterally Cardio: COMMON NORMALS: regular rhythm RATE: tachycardic RHYTHM: regular rhythm GI: COMMON NORMALS: Normal to inspection, nondistended, normoactive bowel sounds present, Soft to palpation and No hepatosplenomegaly present INSPECTION: Yes normal to inspection AUSCULTATION: Yes normoactive bowel sounds PALPATION: Yes Soft to palpation, Yes Tenderness to palpation present (GI) (diffusely), No Guarding due to palpation present (GI), No Rigid due to palpation and Yes No hepatosplenomegaly present : COMMON NORMALS: Yes no CVA tenderness BLADDER/KIDNEY EXAM: Yes no CVA tenderness Back/Pelvis: COMMON NORMALS: no CVA tenderness Extremity: GENERAL: Yes normal exam except as noted Neuro: TITA COMA SCALE: document GCS findings [place] coma scale eye opening: Spontaneous [place] coma scale verbal response: Orientated [place] coma scale motor response: Obey commands [place] coma scale total score: 15 COMMON NORMALS: patient oriented x3, moves all extremities, no focal motor deficits and no sensory deficits noted SENSORIUM/ORIENTATION: Yes alert, Yes oriented to person, Yes oriented to place and Yes oriented to time Skin: COMMON NORMALS: no rashes or lesions noted GENERAL SKIN EXAM: no rashes or lesions noted Course Vital Signs: Vital signs: Vital Signs Temperature 97.8 F 04/06/23 19:28 Pulse Rate 107 H 04/06/23 23:25 Respiratory Rate 22 H 04/06/23 23:25 Blood Pressure 147/92 04/06/23 23:25 Pulse Oximetry 94 04/06/23 23:25 Oxygen Delivery Me thod Room Air 04/06/23 23:23 MDM - Nausea/Vomiting/Diarrhea Medical Decision Making Patient here for symptoms related to hyperemesis cannabis syndrome. She feels better after Ativan, Haldol, and GI cocktail given here. She also received IV fluids. She was able to eat and drink here. She was noted to be tachycardic. She states this is chronic for her and looking at previous documentation verifies that. She does state she takes metoprolol daily for this and is not taking it today. Labs showing hypokalemia with a potassium of 2.7. Her mag is normal. She was given IV and p.o. replacement for this and will be placed on potassium at home. Glucose was elevated but serum ketones were negative. She has no history of DKA. Patient states she has been treated successfully with Haldol and Ativan at home for her previous cyclical episodes. She will be provided prescriptions for these. Strict return ED precautions given. Lab Data 04/06/23 19:58 04/06/23 19:58 Laboratory Results WBC 11.68 10^3/uL (3.29-11.43) H 04/06/23 19:58 RBC 5.08 10^6/uL (3.85-5.65) 04/06/23 19:58 Hgb 14.90 g/dL (11.27-16.99) 04/06/23 19:58 Hct 43.8 % (36-47) 04/06/23 19:58 MCV 86.2 fl (85-98) 04/06/23 19:58 MCH 29.3 pg (27-33) 04/06/23 19:58 MCHC 34.0 g/dL (30-55) 04/06/23 19:58 RDW 13.2 % (12.1-15.1) 04/06/23 19:58 Plt Count 524 10^3/cmm (157-399) H 04/06/23 19:58 MPV 8.8 fL (7.4-10.4) 04/06/23 19:58 Neut % (Auto) 69.5 % 04/06/23 19:58 Lymph % (Auto) 23.4 % 04/06/23 19:58 [place] % (Auto) 6.6 % 04/06/23 19:58 Eos % (Auto) 0.0 % 04/06/23 19:58 Baso % (Auto) 0.1 % 04/06/23 19:58 Neut # (Auto) 8.12 10^3/uL (1.8-7.7) H 04/06/23 19:58 Lymph # (Auto) 2.7 10^3/uL (0.8-4.8) 04/06/23 19:58 [place] # (Auto) 0.8 10^3/uL (0.2-0.9) 04/06/23 19:58 Eos # (Auto) 0.0 10^3/uL (0.0-0.8) 04/06/23 19:58 Baso # (Auto) 0.0 10^3/uL (0.0-0.1) 04/06/23 19:58 Nucleated RBC % (auto) 0 % 04/06/23 19:58 Nucleated RBCs # 0.0 /100WBC 04/06/23 19:58 Sodium 135 mmol/L (136-145) L 04/06/23 19:58 Potassium 2.7 mmol/L (3.5-5.1) L* 04/06/23 19:58 Chloride 88 mmol/L (98-107) L 04/06/23 19:58 Carbon Dioxide 30 mmol/L (22-29) H 04/06/23 19:58 Anion Gap 19.7 (5-19) H 04/06/23 19:58 BUN 17 mg/dL (6-20) 04/06/23 19:58 Creatinine 0.8 mg/dL (0.5-0.9) 04/06/23 19:58 GFR Calculation 76.6 mL/min (90-130) L 04/06/23 19:58 Glucose 262 mg/dL (65-115) H 04/06/23 19:58 POC Glucose 253 mg/dL (70-110) H 04/06/23 19:36 Calculated Osmolality 291 mOsm/kg (285-295) 04/06/23 19:58 Calcium 10.4 mg/dL (8.5-10.5) 04/06/23 19:58 Magnesium 2.2 mg/dL (1.7-2.3) 04/06/23 19:58 Total Bilirubin 1.6 mg/dL (0.15-1.2) H 04/06/23 19:58 AST 22 U/L (0-32) 04/06/23 19:58 ALT 27 U/L (0-33) 04/06/23 19:58 Alkaline Phosphatase 78 U/L (35-105) 04/06/23 19:58 Total Protein 8.0 g/dL (6.6-8.7) 04/06/23 19:58 Albumin 4.8 g/dL (3.5-5.2) 04/06/23 19:58 Globulin 3.2 g/dL (1.3-4.6) 04/06/23 19:58 Lipase 22 U/L (13-60) 04/06/23 19:58 HCG, Qual Negative (Negative) 04/06/23 19:58 Serum Ketones Negative (Negative) 04/06/23 19:58 No radiology studies performed this visit Discharge Plan Discharge Patient Disposition: Home Clinical Impression: Cannabinoid hyperemesis syndrome, Acute hypokalemia Condition: Stable Prescriptions: New [place]-Con M20 20 mEq tablet,ER particles/crystals 20 meq PO BID Qty: 14 0RF Continued haloperidol 5 mg Tablet 5 mg PO BID PRN (Reason: nausea and vomiting) Qty: 10 0RF lorazepam 1 mg tablet 1 mg PO BID PRN (Reason: Vomiting) Qty: 10 0RF No Action aspirin [Adult Low Dose Aspirin] 81 mg tablet,delayed release (DR/EC) 81 mg PO DAILY (DME) Dexcom G7 [employer] Misc See Rx Instructions .Route Qty: 1 0RF Rx Instructions: As directed (DME) Dexcom G7 Sensor Device See Rx Instructions .ROUTE .MEDSUPPLY Qty: 6 0RF Rx Instructions: Change every 10days metoprolol tartrate 50 mg tablet 50 mg PO BID desipramine 100 mg tablet 100 mg PO DAILY losartan 50 mg tablet 50 mg PO BID albuterol sulfate 90 mcg/actuation HFA aerosol inhaler 1 puff INHALATION Q4H PRN (Reason: Shortness Of Breath) insulin glargine [Lantus Solostar U-100 Insulin] 100 unit/mL (3 mL) insulin pen 80 unit SUBCUT BEDTIME albuterol sulfate 2.5 mg /3 mL (0.083 %) solution for nebulization 2.5 mg inhalation Q6H PRN (Reason: Shortness Of Breath) citalopram 40 mg tablet 40 mg PO DAILY promethazine 25 mg suppository 25 mg [place] Q6H PRN (Reason: nausea and vomiting) Qty: 12 0RF promethazine 25 mg suppository 25 mg [place] Q6H PRN (Reason: nausea and vomiting) Qty: 12 0RF Discharge Orders: Discharge ED (Routine); Ordered 04/06/23 Ordered By: Maribel Rizo Referrals: Mariana Joe FNP [Primary Care Provider] - Coding Level of Care Code ED Surveyor'S Assistant for Ramon Hernandez
[2023-04-06] MEDS: sodium chloride 0.9% 1,000 ML 999 ML IV (20:00)
[2023-04-06] MEDS: lidocaine 2% viscous 15 ML, aluminum-mag hydrox-simethicon 30 ML, sucralfate oral liq 1 GM PO (20:01)
[2023-04-06] MEDS: haloperidol inj 5 mg/mL INJ 1 mL IVP (20:19)
[2023-04-06 20:29] LABS: Basophils % 0.1 %; Hematocrit 43.8 % (36-47); Lymphocytes # 2.7 10^3/uL (0.8-4.8); Lymphocytes % 23.4 %; Mean Corpuscular Hemoglobin 29.3 pg (27-33); Mean Corpuscular Volume 86.2 fl (85-98); Mean Platelet Volume 8.8 fL (7.4-10.4); Monocytes # 0.8 10^3/uL (0.2-0.9); Monocytes % 6.6 %; Neutrophils # 8.12 10^3/uL (1.8-7.7); Neutrophils % 69.5 %; Nucleated Red Blood Cells % 0 %; Platelet Count 524 10^3/cmm (157-399); Red Blood Count 5.08 10^6/uL (3.85-5.65); Red Cell Distribution Width 13.2 % (12.1-15.1); White Blood Count 11.68 10^3/uL (3.29-11.43)
[2023-04-06 20:42] LABS: Ketone (Acetest) Serum Negative (Negative)
[2023-04-06 20:44] LABS: Alanine Aminotransferase 27 U/L (0-33); Albumin Level 4.8 g/dL (3.5-5.2); Alkaline Phosphatase 78 U/L (35-105); Anion Gap 19.7 (5-19); Aspartate Amino Transferase 22 U/L (0-32); Blood Urea Nitrogen 17 mg/dL (6-20); Calcium 10.4 mg/dL (8.5-10.5); Carbon Dioxide 30 mmol/L (22-29); Chloride 88 mmol/L (98-107); Creatinine Clr Calc Pharmacy 128.5174; Globulin 3.2 g/dL (1.3-4.6); Glomerular Filtration Rate 76.6 mL/min (90-130); Glucose 262 mg/dL (65-115); HCG, Serum Qual Negative (Negative); Lipase 22 U/L (13-60); Osmolality Calculated 291 mOsm/kg (285-295); Sodium 135 mmol/L (136-145); Total Bilirubin 1.6 mg/dL (0.15-1.2)
[2023-04-06 20:45] LABS: Potassium 2.7 mmol/L (3.5-5.1)
[2023-04-06 21:11] LABS: Magnesium 2.2 mg/dL (1.7-2.3)
[2023-04-06] MEDS: potassium chloride ER 20 mEq Tablet 40 MEQ PO (21:23)
[2023-04-06] MEDS: potassium chloride premix 100 ML 50 MEQ IV (21:23)
[2023-04-06] MEDS: metoprolol tartrate 50 mg Tablet PO (22:52)
[2023-04-06] MEDS: metoprolol tartrate 1 mg/1 mL SDV 5 mL 5 MG IVP (23:05)
== END 2023-04-06 23:30 | disposition home or self-care (01) ==
PROVIDERS: Emergency Provider Physician Assistant; PCP Nurse Practitioner Family
DX: R11.2 Nausea with vomiting, unspecified (principal); F12.90 Cannabis use, unspecified, uncomplicated; E87.6 Hypokalemia; Z79.82 Long term (current) use of aspirin; Z79.4 Long term (current) use of insulin; I10 Essential (primary) hypertension; E11.9 Type 2 diabetes mellitus without complications
CPT/HCPCS: 36416; 80053; 82009; 82962; 83690; 83735; 84703; 85025; 96365; 96366; 96375; 99284; J1630; J2060; J3480; J3490; J7030

== ENCOUNTER 2023-07-25 23:06 | Inpatient (IN) | payer OTHER, SELFPAY ==
[2023-07-25 23:08] VITALS: BP 139/83; PULSE 128; RESP 18; TEMP 36.8; O2SAT 98; BMI 5663.0
[2023-07-25 23:41] VITALS: BP 128/77; O2SAT 94
[2023-07-25 23:45] LABS: Basophils % 0.3 %; Eosinophils % 0.3 %; Hematocrit 43.6 % (36-47); Lymphocytes # 2.5 10^3/uL (0.8-4.8); Lymphocytes % 21.6 %; Mean Corpuscular HGB Conc 35.3 g/dL (30-55); Mean Corpuscular Hemoglobin 29.3 pg (27-33); Mean Platelet Volume 9.2 fL (7.4-10.4); Monocytes # 0.6 10^3/uL (0.2-0.9); Neutrophils # 8.28 10^3/uL (1.8-7.7); Neutrophils % 72.5 %; Nucleated Red Blood Cells % 0 %; Platelet Count 450 10^3/cmm (157-399); Red Blood Count 5.25 10^6/uL (3.85-5.65); Red Cell Distribution Width 12.6 % (12.1-15.1); White Blood Count 11.43 10^3/uL (3.29-11.43)
[2023-07-25 23:46] VITALS: PULSE 109; RESP 17; O2SAT 95
[2023-07-25 23:50] VITALS: BP 128/77; O2SAT 94
[2023-07-25] MEDS: sodium chloride 0.9% 1,000 ML 999 ML IV ×2 (23:52→23:53)
[2023-07-25 23:55] VITALS: BP 128/77; O2SAT 100
[2023-07-25 23:56] LABS: Ketone (Acetest) Serum Negative (Negative)
[2023-07-26] VITALS (50 sets, daily range): BP systolic 122–185; BP diastolic 71–98; PULSE 89–125; RESP 9–22; TEMP 36.8–37.2; O2SAT 92–100; BMI 38.9
--- NOTE | 2023-07-26 | ED_ITS ---
Documented by User: Raudel Malave DO 08/04/23 09:47 HPI - Nausea/Vomiting/Diarrhea 2 General: Chief complaint: Nausea/Vomiting/Diarrhea Stated complaint: n/v 14 days Time Seen by Provider: 07/25/23 23:23 History of Present Illness: 48-year-old female with a history of galen betes, insulin-dependent, and cyclical vomiting syndrome. She notes that she has been sick for 2 weeks. She has been vomiting daily. She says that she has not urinated in 2 to 3 days. She notes that the vomiting stopped a couple of days ago, but she had stopped drinking water at that point as well. She presents with generalized weakness, mild generalized abdominal pain, and nausea. She states that she has never been this week. She has had the symptoms before, but not for this prolonged amount of time. Associated nausea: Yes Associated symtoms: Reports nausea; Denies chest pain Review of Systems 2 Const: Denies: fever(s) ENMT: Denies: throat pain Card: Denies: chest pain Resp: Denies: dyspnea GI: Reports: abdominal pain, nausea and vomiting; Denies: diarrhea : Denies: flank pain PFS ED 2 PFSH: Medical History (Updated 07/30/23 @ 00:01 by TATIANA Rodriguez) COVID-19 HTN (hypertension) BMI 38.0-38.9,adult Elevated lactic acid level History of cardiac arrhythmia Details not clear but on chronic beta-blockade Diabetes mellitus, type II Intractable vomiting with nausea Hypokalemia Dehydration Depression Tetrahydrocannabinol (THC) use disorder, mild, abuse Cyclical vomiting Surgical History History of tubal ligation H/O shoulder surgery Hx of cholecystectomy Family History Mother Heart disease Hypertension Grandmother Diabetes Maternal Heart disease Maternal Hypertension Maternal Denies family history of Colon cancer Ovarian cancer Hyperlipidemia Breast cancer Family history of thyroid problem Uterine cancer Stroke Social History Substance/Drug Use: former Date of last use: one month ago last thc Physical Exam 2 Const: COMMON NORMALS: no acute distress GENERAL APPEARANCE: cooperative and ill appearing (Mildly); not frail appearing HENMT: COMMON NORMALS: normocephalic, atraumatic and Normal external nose present HEAD & SCALP: normocephalic and atraumatic FACE & SINUS: normal facial exam and face symmetric NOSE: Normal external nose present Eye: COMMON NORMALS: Equal, round and reactive pupils present and EOMs intact bilaterally PUPIL: Yes Equal, round and reactive pupils present Neck/C-Spine: GENERAL: Yes trachea midline Chest: CHEST: Yes Symmetrical chest wall rise Resp: COMMON NORMALS: normal respiratory effort, No retractions, No use of accessory muscles and clear to auscultation bilaterally AUSCULTATION: clear to auscultation bilaterally Cardio: COMMON NORMALS: regular rhythm RATE: tachycardic RHYTHM: regular rhythm GI: COMMON NORMALS: Normal to inspection, nondistended, normoactive bowel sounds present PALPATION: Yes Tenderness to palpation present (GI) (Mild diffuse) Extremity: COMMON NORMALS: no pedal edema Neuro: TITA COMA SCALE: document GCS findings [place] coma scale eye opening: Spontaneous [place] coma scale verbal response: Orientated [place] coma scale motor response: Obey commands [place] coma scale total score: 15 S ENSORY EXAM: Yes extremities (intact) Psych: COMMON NORMALS: speech normal SPEECH: Yes normal speech Skin: COMMON NORMALS: no rashes or lesions noted GENERAL SKIN EXAM: no rashes or lesions noted Course 2 Vital Signs: Vital signs: Vital Signs Temperature 98.4 F 07/29/23 14:07 Pulse Rate 92 07/29/23 14:07 Respiratory Rate 14 07/29/23 14:07 Blood Pressure 139/82 07/29/23 14:07 Pulse Oximetry 98 07/29/23 14:07 Oxygen Delivery Me thod Room Air 07/29/23 11:24 MDM - Nausea/Vomiting/Diarrhea Medical Decision Making Patient initially tachycardic, mildly hypertensive. She is given 2 L bolus, IV Zofran. She refused IV Haldol. CBC shows a platelet count of 450. Sodium is 127, potassium was 2.5. Creatinine is normal. She is given oral and IV potassium supplementation. She is in the third liter of fluid. Repeat BMP shows sodium 129, potassium of 4.9. She is still mildly tachycardic. Hypertension is improved. She is given IV metoprolol for tachycardia and hypertension. It has helped. Heart rate now down to 100. Blood pressure 140 systolic. She is afebrile. CRP is normal. Drug screen positive for marijuana. Serum ketones are negative. Upon moving, she vomited again. She is receiving olanzapine oral dissolving tablet as well as Zofran currently. This continues to improve her symptoms, she will be allowed discharge. Scheduled olanzapine for the next 2 days. As needed Zofran. Lab Data 07/29/23 08:47 07/29/23 08:47 Laboratory Results WBC 8.57 10^3/uL (3.29-11.43) 07/27/23 04:37 RBC 4.48 10^6/uL (3.85-5.65) 07/27/23 04:37 Hgb 13.30 g/dL (11.27-16.99) 07/27/23 04:37 Hct 39.0 % (36-47) 07/27/23 04:37 MCV 87.1 fl (85-98) 07/27/23 04:37 MCH 29.7 pg (27-33) 07/27/23 04:37 MCHC 34.1 g/dL (30-55) 07/27/23 04:37 RDW 12.8 % (12.1-15.1) 07/27/23 04:37 Plt Count 375 10^3/cmm (157-399) 07/27/23 04:37 MPV 9.0 fL (7.4-10.4) 07/27/23 04:37 Neut % (Auto) 64.1 % 07/27/23 04:37 Lymph % (Auto) 27.5 % 07/27/23 04:37 Redwood % (Auto) 6.3 % 07/27/23 04:37 Eos % (Auto) 1.3 % 07/27/23 04:37 Baso % (Auto) 0.4 % 07/27/23 04:37 Neut # (Auto) 5.50 10^3/uL (1.8-7.7) 07/27/23 04:37 Lymph # (Auto) 2.4 10^3/uL (0.8-4.8) 07/27/23 04:37 Redwood # (Auto) 0.5 10^3/uL (0.2-0.9) 07/27/23 04:37 Eos # (Auto) 0.1 10^3/uL (0.0-0.8) 07/27/23 04:37 Baso # (Auto) 0.0 10^3/uL (0.0-0.1) 07/27/23 04:37 Nucleated RBC % (auto) 0 % 07/27/23 04:37 Nucleated RBCs # 0.0 /100WBC 07/27/23 04:37 Sodium 138 mmol/L (136-145) 07/27/23 04:37 Potassium 2.7 mmol/L (3.5-5.1) L* D 07/27/23 04:37 Chloride 94 mmol/L (98-107) L 07/27/23 04:37 Carbon Dioxide 32 mmol/L (22-29) H 07/27/23 04:37 Anion Gap 14.7 (5-19) 07/27/23 04:37 BUN 6 mg/dL (6-20) 07/27/23 04:37 Creatinine 0.7 mg/dL (0.5-0.9) 07/27/23 04:37 GFR Calculation 89.3 mL/min (90-130) L 07/27/23 04:37 Glucose 211 mg/dL (65-115) H 07/27/23 04:37 POC Glucose 294 mg/dL (70-110) H 07/27/23 06:13 Estimat Average Glucose 189 07/25/23 23:37 Hemoglobin A1c 8.2 % (4.0-6.0) H 07/25/23 23:37 Calculated Osmolality 290 mOsm/kg (285-295) 07/27/23 04:37 Calcium 8.7 mg/dL (8.5-10.5) 07/27/23 04:37 Magnesium 1.8 mg/dL (1.7-2.3) 07/27/23 04:37 Total Bilirubin 0.7 mg/dL (0.15-1.2) 07/27/23 04:37 AST 15 U/L (0-32) 07/27/23 04:37 ALT 18 U/L (0-33) 07/27/23 04:37 Alkaline Phosphatase 59 U/L (35-105) 07/27/23 04:37 Troponin T 5th Gen ng/L 21 ng/L (0-10) H 07/25/23 23:37 C-Reactive Protein 4.1 mg/L (0.0-4.9) 07/25/23 23:37 Total Protein 6.2 g/dL (6.6-8.7) L 07/27/23 04:37 Albumin 3.7 g/dL (3.5-5.2) 07/27/23 04:37 Globulin 2.5 g/dL (1.3-4.6) 07/27/23 04:37 Lipase 47 U/L (13-60) 07/25/23 23:37 TSH 0.86 uIU/mL (0.27-4.20) 07/25/23 23:37 HCG, Qual Negative (Negative) 07/25/23 23:37 Urine Color Yellow (Yellow) 07/26/23 03:26 Urine Appearance Turbid (CLEAR) A 07/26/23 03:26 Urine pH 7 (5-7) 07/26/23 03:26 Ur Specific Hale 1.015 (1.005-1.030) 07/26/23 03:26 Urine Protein Trace (Negative) 07/26/23 03:26 Urine Glucose (UA) 2+ (Normal) H 07/26/23 03:26 Urine Ketones 1+ (Negative) H 07/26/23 03:26 Urine Blood Trace (Negative) H 07/26/23 03:26 Urine Nitrate Positive (Negative) H 07/26/23 03:26 Urine Bilirubin Neg (Negative) 07/26/23 03:26 Urine Urobilinogen Neg mg/dL (Negative) 07/26/23 03:26 Ur Leukocyte Esterase 1+ (Negative) H 07/26/23 03:26 Urine RBC 0-4 /hpf (0-2) H 07/26/23 03:26 Urine WBC 25-40 /hpf (0-5) H 07/26/23 03:26 Ur Squamous Epith Cells 5-10 /hpf (0-5) H 07/26/23 03:26 Amorphous Sediment Not Reportable 07/26/23 03:26 Urine Bacteria 4+ /hpf (NONE) H 07/26/23 03:26 Urine Mucus Trace /hpf 07/26/23 03:26 Urine Opiates Screen Negative ng/mL (Negative) 07/26/23 03:26 Ur Barbiturates Screen Negative ng/mL (Negative) 07/26/23 03:26 Ur Phencyclidine Scrn Negative ng/mL (Negative) 07/26/23 03:26 Ur Amphetamines Screen Negative ng/mL (Negative) 07/26/23 03:26 U Benzodiazepines Scrn Negative ng/mL (Negative) 07/26/23 03:26 Urine Cocaine Screen Negative ng/mL (Negative) 07/26/23 03:26 U Marijuana (THC) Screen Positive ng/mL (Negative) H 07/26/23 03:26 Serum Ketones Negative (Negative) 07/25/23 23:37 No radiology studies performed this visit Discharge Plan Discharge Patient Disposition: Placed in Observation Admit Provider: Navjot Huang Clinical Impression: UTI (urinary tract infection), Cannabinoid hyperemesis syndrome Discharge Diet: Advance as tolerated Discharge Activity: Increase activity as tolerated Sign Out Sign Out Data: Patient Sign Out occurred on 07/26/23 at 06:48. Patient's care was discussed, and care was transferred from Raudel Malave DO to Moises Galeana DO. Coding Level of Care Code ED Circular Ripsaw Operator for Chg Fwd Documented by User: Moises Galeana DO 07/26/23 08:36 HPI - Nausea/Vomiting/Diarrhea 2 General: Chief complaint: Nausea/Vomiting/Diarrhea Stated complaint: n/v 14 days Time Seen by Provider: 07/25/23 23:23 [facility] ED 2 PFSH: Medical History (Updated 07/30/23 @ 00:01 by TATIANA Rodriguez) COVID-19 HTN (hypertension) BMI 38.0-38.9,adult Elevated lactic acid level History of cardiac arrhythmia Details not clear but on chronic beta-blockade Diabetes mellitus, type II Intractable vomiting with nausea Hypokalemia Dehydration Depression Tetrahydrocannabinol (THC) use disorder, mild, abuse Cyclical vomiting Surgical History History of tubal ligation H/O shoulder surgery Hx of cholecystectomy Family History Mother Heart disease Hypertension Grandmother Diabetes Maternal Heart disease Maternal Hypertension Maternal Denies family history of Colon cancer Ovarian cancer Hyperlipidemia Breast cancer Family history of thyroid problem Uterine cancer Stroke Social History Substance/Drug Use: former Date of last use: one month ago last thc Physical Exam 2 Neuro: TITA COMA SCALE: document GCS findings [place] coma scale total score: 15 Course 2 Vital Signs: Vital signs: Vital Signs Temperature 98.4 F 07/29/23 14:07 Pulse Rate 92 07/29/23 14:07 Respiratory Rate 14 07/29/23 14:07 Blood Pressure 139/82 07/29/23 14:07 Pulse Oximetry 98 07/29/23 14:07 Oxygen Delivery Me thod Room Air 07/29/23 11:24 MDM - Nausea/Vomiting/Diarrhea Medical Decision Making Patient initially tachycardic, mildly hypertensive. She is given 2 L bolus, IV Zofran. She refused IV Haldol. CBC shows a platelet count of 450. Sodium is 127, potassium was 2.5. Creatinine is normal. She is given oral and IV potassium supplementation. She is in the third liter of fluid. Repeat BMP shows sodium 129, potassium of 4.9. She is still mildly tachycardic. Hypertension is improved. She is given IV metoprolol for tachycardia and hypertension. It has helped. Heart rate now down to 100. Blood pressure 140 systolic. She is afebrile. CRP is normal. Drug screen positive for marijuana. Serum ketones are negative. Upon moving, she vomited again. She is receiving olanzapine oral dissolving tablet as well as Zofran currently. This continues to improve her symptoms, she will be allowed discharge. Scheduled olanzapine for the next 2 days. As needed Zofran. Care assumed at change of shift patient remains tachycardic and persistently nauseous despite multiple medications Dr. Malave given her. Her sodium level is improved her hypokalemia has been corrected. Given her persistent nausea vomiting will place in observation to. Discussed Dr. Huang orders written Medical Records I reviewed the patient's medical records. Lab Data I reviewed the patient's lab results. 07/29/23 08:47 07/29/23 08:47 Laboratory Results WBC 8.57 10^3/uL (3.29-11.43) 07/27/23 04:37 RBC 4.48 10^6/uL (3.85-5.65) 07/27/23 04:37 Hgb 13.30 g/dL (11.27-16.99) 07/27/23 04:37 Hct 39.0 % (36-47) 07/27/23 04:37 MCV 87.1 fl (85-98) 07/27/23 04:37 MCH 29.7 pg (27-33) 07/27/23 04:37 MCHC 34.1 g/dL (30-55) 07/27/23 04:37 RDW 12.8 % (12.1-15.1) 07/27/23 04:37 Plt Count 375 10^3/cmm (157-399) 07/27/23 04:37 MPV 9.0 fL (7.4-10.4) 07/27/23 04:37 Neut % (Auto) 64.1 % 07/27/23 04:37 Lymph % (Auto) 27.5 % 07/27/23 04:37 Redwood % (Auto) 6.3 % 07/27/23 04:37 Eos % (Auto) 1.3 % 07/27/23 04:37 Baso % (Auto) 0.4 % 07/27/23 04:37 Neut # (Auto) 5.50 10^3/uL (1.8-7.7) 07/27/23 04:37 Lymph # (Auto) 2.4 10^3/uL (0.8-4.8) 07/27/23 04:37 Redwood # (Auto) 0.5 10^3/uL (0.2-0.9) 07/27/23 04:37 Eos # (Auto) 0.1 10^3/uL (0.0-0.8) 07/27/23 04:37 Baso # (Auto) 0.0 10^3/uL (0.0-0.1) 07/27/23 04:37 Nucleated RBC % (auto) 0 % 07/27/23 04:37 Nucleated RBCs # 0.0 /100WBC 07/27/23 04:37 Sodium 138 mmol/L (136-145) 07/27/23 04:37 Potassium 2.7 mmol/L (3.5-5.1) L* D 07/27/23 04:37 Chloride 94 mmol/L (98-107) L 07/27/23 04:37 Carbon Dioxide 32 mmol/L (22-29) H 07/27/23 04:37 Anion Gap 14.7 (5-19) 07/27/23 04:37 BUN 6 mg/dL (6-20) 07/27/23 04:37 Creatinine 0.7 mg/dL (0.5-0.9) 07/27/23 04:37 GFR Calculation 89.3 mL/min (90-130) L 07/27/23 04:37 Glucose 211 mg/dL (65-115) H 07/27/23 04:37 POC Glucose 294 mg/dL (70-110) H 07/27/23 06:13 Estimat Average Glucose 189 07/25/23 23:37 Hemoglobin A1c 8.2 % (4.0-6.0) H 07/25/23 23:37 Calculated Osmolality 290 mOsm/kg (285-295) 07/27/23 04:37 Calcium 8.7 mg/dL (8.5-10.5) 07/27/23 04:37 Magnesium 1.8 mg/dL (1.7-2.3) 07/27/23 04:37 Total Bilirubin 0.7 mg/dL (0.15-1.2) 07/27/23 04:37 AST 15 U/L (0-32) 07/27/23 04:37 ALT 18 U/L (0-33) 07/27/23 04:37 Alkaline Phosphatase 59 U/L (35-105) 07/27/23 04:37 Troponin T 5th Gen ng/L 21 ng/L (0-10) H 07/25/23 23:37 C-Reactive Protein 4.1 mg/L (0.0-4.9) 07/25/23 23:37 Total Protein 6.2 g/dL (6.6-8.7) L 07/27/23 04:37 Albumin 3.7 g/dL (3.5-5.2) 07/27/23 04:37 Globulin 2.5 g/dL (1.3-4.6) 07/27/23 04:37 Lipase 47 U/L (13-60) 07/25/23 23:37 TSH 0.86 uIU/mL (0.27-4.20) 07/25/23 23:37 HCG, Qual Negative (Negative) 07/25/23 23:37 Urine Color Yellow (Yellow) 07/26/23 03:26 Urine Appearance Turbid (CLEAR) A 07/26/23 03:26 Urine pH 7 (5-7) 07/26/23 03:26 Ur Specific Hale 1.015 (1.005-1.030) 07/26/23 03:26 Urine Protein Trace (Negative) 07/26/23 03:26 Urine Glucose (UA) 2+ (Normal) H 07/26/23 03:26 Urine Ketones 1+ (Negative) H 07/26/23 03:26 Urine Blood Trace (Negative) H 07/26/23 03:26 Urine Nitrate Positive (Negative) H 07/26/23 03:26 Urine Bilirubin Neg (Negative) 07/26/23 03:26 Urine Urobilinogen Neg mg/dL (Negative) 07/26/23 03:26 Ur Leukocyte Esterase 1+ (Negative) H 07/26/23 03:26 Urine RBC 0-4 /hpf (0-2) H 07/26/23 03:26 Urine WBC 25-40 /hpf (0-5) H 07/26/23 03:26 Ur Squamous Epith Cells 5-10 /hpf (0-5) H 07/26/23 03:26 Amorphous Sediment Not Reportable 07/26/23 03:26 Urine Bacteria 4+ /hpf (NONE) H 07/26/23 03:26 Urine Mucus Trace /hpf 07/26/23 03:26 Urine Opiates Screen Negative ng/mL (Negative) 07/26/23 03:26 Ur Barbiturates Screen Negative ng/mL (Negative) 07/26/23 03:26 Ur Phencyclidine Scrn Negative ng/mL (Negative) 07/26/23 03:26 Ur Amphetamines Screen Negative ng/mL (Negative) 07/26/23 03:26 U Benzodiazepines Scrn Negative ng/mL (Negative) 07/26/23 03:26 Urine Cocaine Screen Negative ng/mL (Negative) 07/26/23 03:26 U Marijuana (THC) Screen Positive ng/mL (Negative) H 07/26/23 03:26 Serum Ketones Negative (Negative) 07/25/23 23:37 Discharge Plan Discharge Patient Disposition: Placed in Observation Admit Provider: Navjot Huang Clinical Impression: UTI (urinary tract infection), Cannabinoid hyperemesis syndrome Discharge Diet: Advance as tolerated Discharge Activity: Increase activity as tolerated Sign Out Sign Out Data: Patient Sign Out occurred on 07/26/23 at 06:48. Patient's care was discussed, and care was transferred from Raudel Malave DO to Moises Galeana DO. Coding Level of Care Code ED Circular Ripsaw Operator for Ramon Hernandez
[2023-07-26 00:01] LABS: HCG, Serum Qual Negative (Negative)
[2023-07-26 00:04] LABS: Alanine Aminotransferase 24 U/L (0-33); Albumin Level 4.1 g/dL (3.5-5.2); Alkaline Phosphatase 69 U/L (35-105); Anion Gap 18.5 (5-19); Aspartate Amino Transferase 18 U/L (0-32); Blood Urea Nitrogen 12 mg/dL (6-20); C Reactive Protein 4.1 mg/L (0.0-4.9); Calcium 9.5 mg/dL (8.5-10.5); Carbon Dioxide 35 mmol/L (22-29); Chloride 76 mmol/L (98-107); Creatinine Clr Calc Pharmacy 178.5865; Globulin 2.9 g/dL (1.3-4.6); Glomerular Filtration Rate 76.6 mL/min (90-130); Glucose 284 mg/dL (65-115); Lipase 47 U/L (13-60); Magnesium 1.7 mg/dL (1.7-2.3); Osmolality Calculated 274 mOsm/kg (285-295); Sodium 127 mmol/L (136-145)
[2023-07-26 00:08] LABS: Potassium 2.5 mmol/L (3.5-5.1)
[2023-07-26] MEDS: potassium chloride premix 100 ML 25 MEQ IV (00:46)
[2023-07-26] MEDS: ondansetron 2 mg/ML SDV 2 mL 8 MG IVP (00:46)
--- NOTE | 2023-07-26 01:16 | ECG_ITS ---
[facility] Test Date: 2023-07-26 Pat Name: Ananya Hernandez Department: Room: Gender: Female Account Manager: : 1975 Requested By: Raudel Fontana Order Number: [id number] Marmolejo MD: Villa Maddox M.D. Measurements Intervals [place] Rate: 121 P: 66 [place]: 128 QRS: -11 QRSD: 86 T: 33 QT: 425 QTc: 604 Interpretive Statements SINUS TACHYCARDIA Possible left atrial enlargement ABNORMAL RHYTHM ECG Compared to ECG 08/04/2022 06:10:28 No significant changes Electronically Signed On 07-26-2023 19:23:07 CDT by Villa Maddox M.D. [email or web address]
[2023-07-26] MEDS: potassium chloride ER 20 mEq Tablet 40 MEQ PO (01:31)
[2023-07-26] MEDS: LORazepam 2 mg/mL INJ 10 mL MDV 1 MG IV (03:19)
[2023-07-26] MEDS: sodium chloride 0.9% 1,000 ML 999 ML IV ×2 (03:21→08:06)
[2023-07-26 03:53] LABS: Amphetamines Screen Urine Negative (Negative); Barbiturates Screen Urine Negative (Negative); Benzodiazepines Screen Urine Negative (Negative); Cocaine Screen Urine Negative (Negative); Opiate Screen Urine Negative (Negative); PCP Screen Urine Negative (Negative); THC Screen Urine Positive (Negative)
[2023-07-26 03:55] LABS: Glucose Urine UA 2+ (Normal); Protein Urine Trace (Negative); Specific Gravity, Urine 1.015 (1.005-1.030); Urine Appearance Turbid (CLEAR); Urine Color Yellow (Yellow); pH Urine 7 (5-7)
[2023-07-26 03:56] LABS: Add Urine Culture? Yes; Add Urine Microscopic? YES; Bacteria Urine 4+ /hpf; Bilirubin Urine Neg (Negative); Blood Urine Trace (Negative); Ketones Urine 1+ (Negative); Leukocyte Esterase Urine 1+ (Negative); Mucus Urine TRACE /hpf; Nitrate Urine Positive (Negative); RBC Urine 0-4 /hpf (0-2); Urobilinogen Urine Neg (Negative); WBC Urine 25-40 /hpf (0-5)
[2023-07-26] MEDS: metoprolol tartrate 1 mg/1 mL SDV 5 mL 5 MG IVP (05:10)
[2023-07-26] MEDS: cefTRIAXone 1,000 MG in sodium chloride 0.9% (plus) 50 ML 100 MG IV (05:10)
[2023-07-26 05:27] LABS: Anion Gap 15.9 (5-19); Blood Urea Nitrogen 10 mg/dL (6-20); Calcium 8.1 mg/dL (8.5-10.5); Carbon Dioxide 32 mmol/L (22-29); Chloride 86 mmol/L (98-107); Creatinine Clr Calc Pharmacy 204.0989; Glomerular Filtration Rate 89.3 mL/min (90-130); Glucose 245 mg/dL (65-115); Osmolality Calculated 275 mOsm/kg (285-295); Potassium 4.9 mmol/L (3.5-5.1); Sodium 129 mmol/L (136-145)
[2023-07-26] MEDS: ondansetron 2 mg/ML SDV 2 mL 4 MG IVP (05:53)
[2023-07-26] MEDS: water for injection-sterile 10 ML (06:00)
[2023-07-26] MEDS: OLANZapine 10 mg VIAL IM (06:00)
[2023-07-26] MEDS: LORazepam 2 mg/mL INJ 10 mL MDV 1 MG IVP (06:18)
[2023-07-26] MEDS: haloperidol inj 5 mg/mL INJ 1 mL 2.5 MG IVP (07:46)
--- NOTE | 2023-07-26 08:05 | PC.PHAR ---
PT STATES SHE STILL TAKES ALL HER MEDICATIONS BUT HAS NOT TAKEN ANYTHING FOR 2 WEEKS. SEVERAL MEDICATIONS HAVE OLD LAST FILL DATES. 07/26/23
--- NOTE | 2023-07-26 08:32 | PM.HP ---
Providers/Chief Complaint Admitting Physician: Navjot Smith Primary Care Provider: CATALINA Ty Chief Complaint: n/v 14 days History of Present Illness Ananya Hernandez is a 48 year old female with history of cyclical vomiting who presents with 2 weeks of vomiting, and nausea. She reports this is not quite typical of usual episode as it is lasted a significant amount of time. She reports no abdominal pain, no blood in emesis, no blood in stool, and no diarrhea. She has not had any fevers. She reports her last EGD was 4 to 5 years ago, and does not remember any significant abnormality. Last CT of her abdomen and pelvis was in November 2022 and was normal. No headache. She has never seen gastroenterology. In the emergency department she received IV fluids, potassium supplementation, IV metoprolol x 1, Zyprexa, Haldol, Zofran. Review of Systems General: Reports: 10 or more systems reviewed and unremarkable except in HPI and below Card: Denies: chest pain Resp: Denies: dyspnea GI: Reports: nausea and vomiting; Denies: abdominal pain, hematemesis, hematochezia or melena Medications/Allergies Home Medications Medication Instructions Recorded Confirmed Last Taken Type albuterol sulfate 90 mcg/actuation 1 puff inhalation Q4H PRN 12/10/20 07/26/23 Unknown History aerosol inhaler Shortness Of Breath desipramine 100 mg tablet 100 mg PO DAILY 03/28/21 07/26/23 2 Weeks Ago History ~07/12/23 metoprolol tartrate 50 mg tablet 50 mg PO BID 03/28/21 07/26/23 2 Weeks Ago History ~07/12/23 aspirin 81 mg tablet,delayed 81 mg PO DAILY 03/23/22 07/26/23 2 Weeks Ago History release (Adult Low Dose Aspirin) ~07/12/23 losartan 50 mg tablet 50 mg PO BID 03/23/22 07/26/23 2 Weeks Ago History ~07/12/23 insulin glargine 100 unit/mL (3 80 unit SUBCUT BEDTIME 08/04/22 07/26/23 2 Weeks Ago History mL) subcutaneous pen (Lantus ~07/12/23 Solostar U-100 Insulin) blood-glucose meter,continuous #1 ea 10/23/22 07/26/23 Unknown Rx (Neurotrack G7 Wire Twisting Machine Operator) blood-glucose sensor (Dexcom G7 #6 ea 10/23/22 07/26/23 Unknown Rx Sensor device) albuterol sulfate 2.5 mg/3 mL 2.5 mg inhalation Q6H PRN 11/15/22 07/26/23 Unknown History (0.083 %) solution for nebulization Shortness Of Breath citalopram 40 mg tablet 40 mg PO DAILY 11/15/22 07/26/23 2 Weeks Ago History ~07/12/23 promethazine 25 mg rectal 25 mg NJ Q6H PRN nausea and 11/15/22 07/26/23 Unknown Rx suppository vomiting #12 ea haloperidol 5 mg tablet 5 mg PO BID PRN nausea and 04/06/23 07/26/23 Unknown Rx vomiting #10 tabs lorazepam 1 mg tablet 1 mg PO BID PRN Vomiting #10 tabs 04/06/23 07/26/23 Unknown Rx potassium chloride 20 mEq 20 meq PO BID #14 tabs 04/06/23 07/26/23 2 Weeks Ago Rx tablet,extended ~07/12/23 release(part/cryst) (Klor-Con M) olanzapine 10 mg disintegrating 10 mg PO DAILY #14 tabs 07/26/23 Unknown Rx tablet ondansetron 4 mg disintegrating 4 mg PO Q6H PRN nausea and 07/26/23 Unknown Rx tablet vomiting #14 tabs promethazine 25 mg tablet 25 mg PO Q6H PRN Nausea And 07/26/23 07/26/23 Unknown History Vomiting Allergies Allergy/AdvReac Type Severity Reaction Status Date / Time butorphanol [From Stadol] Allergy Intermediate ADR-Halluci Verified 04/06/23 19:31 [facility] Acute PFSH: Medical History (Updated 07/26/23 @ 08:48 by Navjot Huang MD) COVID-19 HTN (hypertension) BMI 38.0-38.9,adult Elevated lactic acid level History of cardiac arrhythmia Details not clear but on chronic beta-blockade Diabetes mellitus, type II Intractable vomiting with nausea Hypokalemia Dehydration Depression Tetrahydrocannabinol (THC) use disorder, mild, abuse Cyclical vomiting Surgical History History of tubal ligation H/O shoulder surgery Hx of cholecystectomy Family History Mother Heart disease Hypertension Grandmother Diabetes Maternal Heart disease Maternal Hypertension Maternal Denies family history of Colon cancer Ovarian cancer Hyperlipidemia Breast cancer Family history of thyroid problem Uterine cancer Stroke Social History Substance/Drug Use: former Date of last use: one month ago last thc Vitals/I&O/Wt Last Vital Signs Temp 98.3 F 07/25/23 23:08 Pulse 120 H 07/26/23 07:30 Resp 19 H 07/26/23 06:30 BP 142/82 07/26/23 06:30 Pulse Ox 100 07/26/23 07:30 O2 Del Method Room Air 07/25/23 23:46 07/25/23 07/26/23 07/26/23 22:59 06:59 14:59 Intake Total 2176.65 / 2176.65 Balance 2176.65 / 2176.65 Weight last 48 hrs Weight 131.542 kg Physical Exam Narrative: General exam is a white female, reporting nausea. Emesis basin is by head. HEENT: Atraumatic and normocephalic. Pupils equally round. Oropharynx is clear Neck is supple no lymphadenopathy thyromegaly Cardiovascular tachycardic, no murmur Lungs clear Abdomen is soft. Nontender. Bowel sounds are noted. No obvious organomegaly exam is deferred Extremities no cyanosis clubbing or edema, cap refill brisk Skin no rash Neuro no obvious focal deficits Data 07/25/23 23:37 07/26/23 05:03 Other Labs: hCG qualitative is negative LFTs were normal Calcium, albumin normal on initial lab Magnesium normal Urine demonstrates positive nitrates, 0-4 reds, 25-40 whites, 5-10 squamous and 4+ bacteria Urine drug screen positive for THC EKG was performed demonstrating sinus tachycardia, borderline left axis deviation. Some T wave inversion/flattening is noted inferiorly I have ordered a troponin for when she arrived in the emergency department and 1 on the repeat lab work that was done earlier this morning. I have ordered a TSH, hemoglobin A1c A&P Assessment and plan (1) Nausea & vomiting: Patient presents with nausea and vomiting, intractable. She denies any abdominal pain, and has not had diarrhea. Her liver function tests are normal. Hydration with IV fluids CBC, CMP, magnesium daily Differential diagnosis is broad. This could be cannabinoid hyperemesis syndrome. Cannot rule out gastroparesis, DYNAMIC ETCHING PROCESSOR pathology, relation to UTI, abdominal migraine equivalent, gastritis. Significant number of other conditions. Patient relates symptoms have been going on 2 weeks, which would be somewhat unusual for marijuana related hyperemesis. She does have some mild EKG abnormalities which have been present off and on on prior EKGs. Will make sure she has a troponin for her at first 2 blood draws. Protonix 40 mg IV every 12 hours If no improvement consider CT abdomen and pelvis Zofran for nausea. Reglan for breakthrough. Ativan for severe nausea not responsive to others. Restart meds with the exception of desipramine, possible restart that in the next 1 to 2 days at lower dose as she has been off of it since the first with her illness. (2) Diabetes mellitus, type II: Check hemoglobin A1c Reduce Lantus to 20 units has not been taking well p.o. Sliding scale insulin No evidence of DKA on labs, no significant anion gap currently and serum ketones negative Qualifiers: Diabetes mellitus bed bug exterminator insulin use: without group home use Diabetes mellitus complication status: with hyperglycemia Qualified Code(s): E11.65 - Type 2 diabetes mellitus with hyperglycemia (3) Hyponatremia: Even adjusted for glucose patient is still slightly hyponatremic Check chest x-ray Check CT head (4) Acute hypokalemia: Supplemented in the emergency department Recheck potassium tomorrow along with magnesium (5) Marijuana use: Encourage patient to stop marijuana use (6) UTI (urinary tract infection): Possible UTI Urine culture Continue Rocephin IV Plan Multiple other medical problems as outlined by past medical history Full code Lovenox for DVT prophylaxis Attestations Medical Necessity Statement*: At this point will require less than 2 midnight stay for evaluation and treatment of recurrent nausea and vomiting Diagnoses Nausea & vomiting R11.2 Type 2 diabetes mellitus with hyperglycemia, without long-term current use of insulin E11.65 Diabetes mellitus group home insulin use: without bed bug exterminator use Diabetes mellitus complication status: with hyperglycemia Hyponatremia E87.1 Acute hypokalemia E87.6 Marijuana use F12.90 UTI (urinary tract infection) N39.0 Time Spent (min) 53
--- NOTE | 2023-07-26 08:51 | CT_ITS ---
WS: [id number] CT HEAD TECHNIQUE: Noncontrast CT of the head obtained from the skullbase to the vertex. CLINICAL INFORMATION: recurrent nausea and vomiting COMPARISON: None. DLP: 1130.[address] scans at [facility] use at least one of these dose optimization techniques: automated e xposure control; mA and/or kV adjustment per patient size (includes targeted exams where dose is matc hed to clinical indication); or iterative reconstruction. FINDINGS: No evidence of intracranial hemorrhage or mass effect. Ventricular system and basal cisterns are larson nt. No extra-axial fluid collections. No evidence of mass or mass effect. Normal herbert-white different iation. Paranasal sinuses and mastoid air cells are well aerated. .Normal visualized soft tissues. IMPRESSION: 1. No evidence of intracranial hemorrhage or mass effect. 2. No acute intracranial findings.
--- NOTE | 2023-07-26 08:51 | XR_ITS ---
WS: [id number] Exam: XR chest 1V portable [id number] Date/Time of Exam: 07/26/2023 8:51 AM Reason For Exam: hyponatremia Comparison 08/04/2022. The lungs are clear and fully expanded. Normal cardiomediastinal silhouette. No pleural effusions. Madan ny structures are intact. Degenerative change and mild dextroscoliosis of the T-spine. IMPRESSION: 1. No acute cardiopulmonary finding.
[2023-07-26] MEDS: pantoprazole 40 mg SDV 80 MG IVP (08:52)
[2023-07-26 09:16] LABS: Troponin T (5th) Once 19 ng/L (0-10)
[2023-07-26 09:17] LABS: Troponin T (5th) Once 21 ng/L (0-10)
[2023-07-26 09:26] LABS: Estmated Average Glucose 189; Hemoglobin A1C 8.2 % (4.0-6.0)
[2023-07-26 09:34] LABS: Thyroid Stimulating Hormone 0.86 uIU/mL (0.27-4.20)
[2023-07-26] MEDS: sodium chloride 0.9% 1,000 ML 125 ML IV ×2 (10:55→21:38)
[2023-07-26 10:56] LABS: Glucose Point of Care 251 mg/dL (70-110)
[2023-07-26] MEDS: metoprolol tartrate 50 mg Tablet PO ×2 (10:56→18:17)
[2023-07-26] MEDS: enoxaparin 40 mg/0.4 mL Syringe SUBCUT (10:56)
[2023-07-26] MEDS: citalopram 20 mg Tablet 40 MG PO (10:57)
[2023-07-26] MEDS: losartan 50 mg Tablet PO ×2 (10:57→18:16)
[2023-07-26] MEDS: insulin lispro 100 unit/1 mL SUBCUT ×3 (12:25→21:38)
[2023-07-26 16:52] LABS: Glucose Point of Care 179 mg/dL (70-110)
[2023-07-26 20:34] LABS: Glucose Point of Care 220 mg/dL (70-110)
[2023-07-26] MEDS: insulin glargine 100 units/1 mL 20 UNIT SUBCUT (21:38)
[2023-07-26] MEDS: pantoprazole 40 mg SDV IVP (21:59)
[2023-07-27] VITALS (9 sets, daily range): BP systolic 112–163; BP diastolic 66–89; PULSE 99–130; RESP 16–18; TEMP 36.4–36.9; O2SAT 93–98
[2023-07-27 02:48] LABS: Glucose Point of Care 164 mg/dL (70-110)
[2023-07-27] MEDS: ondansetron 2 mg/ML SDV 2 mL 4 MG IVP ×2 (04:48→14:39)
[2023-07-27 04:54] LABS: Basophils % 0.4 %; Eosinophils # 0.1 10^3/uL (0.0-0.8); Eosinophils % 1.3 %; Lymphocytes # 2.4 10^3/uL (0.8-4.8); Lymphocytes % 27.5 %; Mean Corpuscular HGB Conc 34.1 g/dL (30-55); Mean Corpuscular Hemoglobin 29.7 pg (27-33); Mean Corpuscular Volume 87.1 fl (85-98); Monocytes # 0.5 10^3/uL (0.2-0.9); Monocytes % 6.3 %; Neutrophils % 64.1 %; Nucleated Red Blood Cells % 0 %; Platelet Count 375 10^3/cmm (157-399); Red Blood Count 4.48 10^6/uL (3.85-5.65); Red Cell Distribution Width 12.8 % (12.1-15.1); White Blood Count 8.57 10^3/uL (3.29-11.43)
[2023-07-27 05:12] LABS: Alanine Aminotransferase 18 U/L (0-33); Albumin Level 3.7 g/dL (3.5-5.2); Alkaline Phosphatase 59 U/L (35-105); Anion Gap 14.7 (5-19); Aspartate Amino Transferase 15 U/L (0-32); Blood Urea Nitrogen 6 mg/dL (6-20); Calcium 8.7 mg/dL (8.5-10.5); Carbon Dioxide 32 mmol/L (22-29); Chloride 94 mmol/L (98-107); Creatinine Clr Calc Pharmacy 151.7508; Globulin 2.5 g/dL (1.3-4.6); Glomerular Filtration Rate 89.3 mL/min (90-130); Glucose 211 mg/dL (65-115); Magnesium 1.8 mg/dL (1.7-2.3); Osmolality Calculated 290 mOsm/kg (285-295); Sodium 138 mmol/L (136-145); Total Bilirubin 0.7 mg/dL (0.15-1.2); Total Protein 6.2 g/dL (6.6-8.7)
[2023-07-27 05:34] LABS: Potassium 2.7 mmol/L (3.5-5.1)
[2023-07-27 06:22] LABS: Glucose Point of Care 294 mg/dL (70-110)
[2023-07-27] MEDS: lidocaine 1% 5 ML in potassium chloride premix 100 ML 26.25 ML IV ×2 (06:38→15:53)
[2023-07-27] MEDS: sodium chloride 0.9% 1,000 ML 125 ML IV (08:15)
[2023-07-27] MEDS: metoclopramide 5 mg/mL SDV 2 mL 10 MG IVP ×2 (08:18→17:29)
--- NOTE | 2023-07-27 08:27 | P.PN_ITS ---
Subjective 2 Subjective: Patient reports she feels like a little bit more alert and feels a little bit better. She denies any nausea this morning, but when I mentioned it and talked about it a while it looks like she started getting nauseated. She states she has not really able to eat yet. She reports she feels sore all over. She is not really sure that marijuana is causing her problem. She denies any abdominal pain. Medications: Reviewed: Yes Vitals/I&O/Wt Last Vital Signs Temp 98.4 F 07/27/23 07:32 Pulse 113 H 07/27/23 07:32 Resp 17 07/27/23 07:32 BP 123/73 07/27/23 07:32 Pulse Ox 95 07/27/23 07:32 O2 Del Method Room Air 07/27/23 07:32 07/26/23 07/27/23 07/27/23 22:59 06:59 14:59 Intake Total 1178.333 / 2298.333 910.833 / 3209.166 329.167 / 329.167 Balance 1178.333 / 2298.333 910.833 / 3209.166 329.167 / 329.167 Weight last 48 hrs Weight 134.859 kg Weight 130.238 kg Weight 131.542 kg Physical Exam 2 Narrative: General exam is a white female, reports a little bit of nausea at the end of the interview Neck is supple no lymphadenopathy thyromegaly Cardiovascular tachycardic, no murmur Lungs clear Abdomen is soft. Nontender. Bowel sounds are noted. Extremities no cyanosis clubbing or edema, cap refill brisk Data 07/27/23 04:37 07/27/23 04:37 Micro: Microbiology 07/26/23 03:26 Urine Culture - Preliminary Urine,Clean Catch Gram Negative Rods A&P Assessment and plan (1) Nausea & vomiting: Patient presents with nausea and vomiting, intractable. She denies any abdominal pain, and has not had diarrhea. Her liver function tests are normal. Continue hydration but reduce fluids to 100 cc/h CBC, CMP, magnesium daily Differential diagnosis is broad. This could be cannabinoid hyperemesis syndrome. Cannot rule out gastroparesis, OPEN TENTER OPERATOR pathology, relation to UTI, abdominal migraine equivalent, gastritis. Significant number of other conditions. Patient relates symptoms have been going on 2 weeks, which would be somewhat unusual for marijuana related hyperemesis. CT head was negative. Chest x-ray normal. This is likely to be THC driven. Patient is not convinced currently. She does have some mild EKG abnormalities which have been present off and on on prior EKGs. Will make sure she has a troponin for her at first 2 blood draws. Troponins are not revealing. This will need follow-up with her primary care provider Protonix 40 mg IV every 12 hours She has no abdominal pain currently. CT abdomen pelvis will likely not be useful, but will keep in mind should she not continue to improve Zofran for nausea. Reglan for breakthrough. Ativan for severe nausea not responsive to others. She has not yet improved enough to be able to hydrate herself adequately. She is not appropriate for discharge currently. Changed to regular admission. (2) Diabetes mellitus, type II: Hemoglobin A1c is 8.2 Continue Lantus to 20 units has not been taking well p.o. Sliding scale insulin No evidence of DKA on labs, no significant anion gap currently and serum ketones negative Qualifiers: Diabetes mellitus senior living insulin use: without manager long term care use Diabetes mellitus complication status: with hyperglycemia Qualified Code(s): E11.65 - Type 2 diabetes mellitus with hyperglycemia (3) Hyponatremia: Even adjusted for glucose patient is still slightly hyponatremic Chest x-ray, CT head negative Sodium improving (4) Acute hypokalemia: Supplemented in the emergency department Recurrent today. Magnesium is normal. Supplement potassium. (5) Marijuana use: Encourage patient to stop marijuana use (6) UTI (urinary tract infection): Possible UTI Await urine culture Continue Rocephin IV Plan Multiple other medical problems as outlined by past medical history Full code Lovenox for DVT prophylaxis Attestations 2 Medical Necessity Statement*: Needs continued hospitalization secondary to recurrent nausea, inability to hydrate, not appropriate for discharge today. Diagnoses Nausea & vomiting R11.2 Type 2 diabetes mellitus with hyperglycemia, without long-term current use of insulin E11.65 Diabetes mellitus senior living insulin use: without manager long term care use Diabetes mellitus complication status: with hyperglycemia Hyponatremia E87.1 Acute hypokalemia E87.6 Marijuana use F12.90 UTI (urinary tract infection) N39.0 Time Spent (min) 21
[2023-07-27] MEDS: LORazepam 2 mg/mL INJ 10 mL MDV 0.5 MG IVP ×2 (08:55→21:39)
--- NOTE | 2023-07-27 09:41 | PC.CHAP ---
Pastoral Care Encounter/Spiritual Assessment Type of Contact [] Declined aviation electrician visit [] Patient/Family/Request visit [] Outpatient visit [] Follow-up visit [] Physician referral [] Code/Alert [] Routine visit [] Staff referral [] Actively dying [x] Patient sleeping [] Family support [] [] Out of room [] Palliative care [] [] Receiving care in room [] Pre-surgical visit [] Trauma [] Long length of stay [] ICU visit [] Other: Relational/Emotional Strength [] Patient feels connected with others/family/visitors/staff [] Distress [] Loneliness/isolation [] Abandonment Spirituality of Patient [] Person of Francie [] Attends Pentecostalism of their Francie [] Believes in Prayer [] Reads Bible or Taoism materials [] There are Spiritual issues to be addressed Audiology Director Interventions [] Prayer [] Active listening [] Non-anxious presence [] Spiritual/emotional support [] Crisis/trauma care [] Spiritual counseling [] Bereavement support [] Provided bereavement packet [] Provided Bible/devotional materials [] Provided toy/stuffed animal, coloring book to patient or family member [] Provided Communion [] Anointing/[place] [] Salvation [] Completed spiritual assessment [] Other: Impact on Illness or Injury [] Angry [] Fearful [] Anxious [] Often cries [] Exhaustion [] Unable to work [] Unable to attend cheondoism [] Unable to walk/stand [] Unable to read [] Unable to drive [] Unable to eat/drink [] Unable to sleep [] Unable to be with family [] Patient intubated [] Other: Summary Time spent with patient
--- NOTE | 2023-07-27 10:47 | CT_ITS ---
WS: [id number] CT ABDOMEN PELVIS TECHNIQUE: Contrast-enhanced CT of the abdomen and pelvis with coronal and sagittal reformatted image s. CLINICAL INFORMATION: persistent vomiting COMPARISON: CT 11/15/2022 DLP: 1262.[address] scans at [facility] use at least one of these dose optimization techniques: automated e xposure control; mA and/or kV adjustment per patient size (includes targeted exams where dose is matc hed to clinical indication); or iterative reconstruction. FINDINGS: Slight bibasal atelectasis. Diffuse fatty infiltration of the liver. Normal portal vein and splenic v ein. Small esophageal hiatal hernia. Normal spleen. Normal pancreas. Adrenal glands are normal. Jojo l renal parenchymal enhancement. No hydronephrosis in either kidney. LEFT renal cyst measuring 12 mm. Celiac and SMA are patent. Normal caliber abdominal aorta. Submucosal enhancement of the stomach and duodenum can be seen with gastroduodenitis. Normal sigmoid colon. Normal appendix in the RIGHT lower quadrant. No abdominal or pelvic lymphadenop athy. IMPRESSION: 1. Cholecystectomy. 2. Diffuse infiltration liver. 3. Small esophageal hiatal hernia. Evidence of gastroduodenitis 4. Prior hysterectomy. 5. No other acute findings.
[2023-07-27 10:55] LABS: Glucose Point of Care 251 mg/dL (70-110)
[2023-07-27] MEDS: iohexol 350 mg/mL 500 mL Btl (per mL) IV (11:09)
[2023-07-27] MEDS: cefTRIAXone 1,000 MG in sodium chloride 0.9% (plus) 50 ML 100 MG IV (11:24)
[2023-07-27 16:48] LABS: Glucose Point of Care 211 mg/dL (70-110)
[2023-07-27] MEDS: pantoprazole 40 mg SDV IVP (20:13)
[2023-07-27 20:38] LABS: Glucose Point of Care 156 mg/dL (70-110)
[2023-07-27] MEDS: insulin lispro 100 unit/1 mL SUBCUT (21:36)
[2023-07-27] MEDS: insulin glargine 100 units/1 mL 20 UNIT SUBCUT (21:37)
[2023-07-27] MEDS: sodium chloride 0.9% 1,000 ML 100 ML IV (21:39)
[2023-07-28] VITALS (9 sets, daily range): BP systolic 126–186; BP diastolic 77–116; PULSE 84–117; RESP 14–18; TEMP 36.3–36.9; O2SAT 97–100
[2023-07-28 05:46] LABS: Basophils % 0.6 %; Eosinophils # 0.2 10^3/uL (0.0-0.8); Eosinophils % 2.1 %; Hematocrit 35.2 % (36-47); Lymphocytes # 2.5 10^3/uL (0.8-4.8); Lymphocytes % 35.1 %; Mean Corpuscular Hemoglobin 29.2 pg (27-33); Mean Corpuscular Volume 88.7 fl (85-98); Monocytes # 0.5 10^3/uL (0.2-0.9); Monocytes % 7.1 %; Neutrophils # 3.96 10^3/uL (1.8-7.7); Neutrophils % 54.8 %; Nucleated Red Blood Cells % 0 %; Platelet Count 328 10^3/cmm (157-399); Red Blood Count 3.97 10^6/uL (3.85-5.65); Red Cell Distribution Width 13.1 % (12.1-15.1); White Blood Count 7.21 10^3/uL (3.29-11.43)
[2023-07-28 06:06] LABS: Anion Gap 10.8 (5-19); Blood Urea Nitrogen 6 mg/dL (6-20); Calcium 8.6 mg/dL (8.5-10.5); Carbon Dioxide 32 mmol/L (22-29); Chloride 96 mmol/L (98-107); Creatinine Clr Calc Pharmacy 177.0426; Glomerular Filtration Rate 106.7 mL/min (90-130); Glucose 176 mg/dL (65-115); Magnesium 1.7 mg/dL (1.7-2.3); Osmolality Calculated 284 mOsm/kg (285-295); Sodium 136 mmol/L (136-145)
[2023-07-28 06:24] LABS: Potassium 2.8 mmol/L (3.5-5.1)
[2023-07-28] MEDS: lidocaine 1% 5 ML in potassium chloride premix 100 ML 26.25 ML IV ×2 (07:36→11:01)
--- NOTE | 2023-07-28 07:39 | P.PN_ITS ---
Documented by User: Jefferson Marc, SABI STDNT 07/28/23 09:03 Subjective 2 Subjective: Ms. Hernandez reports feeling better this morning, but she reports chills today. She says she continues to have nausea however she feels that she can tolerate something more than water and ice chips. She says she would like to have some juice or some soft food. She continues to report feeling sore all over today. She is still unsure whether the marijuana was the problem. She denies any headache, chest pain, chest palpitations, abdominal pain, diarrhea, constipation, or swelling. Medications: Reviewed: Yes Vitals/I&O/Wt Last Vital Signs Temp 97.4 F L 07/28/23 04:00 Pulse 117 H 07/28/23 04:00 Resp 17 07/28/23 04:00 BP 156/87 07/28/23 04:00 Pulse Ox 100 07/28/23 04:00 O2 Del Method Room Air 07/28/23 04:00 07/27/23 07/28/23 07/28/23 22:59 06:59 14:59 Intake Total 1011.25 / 1709.167 600 / 2309.167 Output Total 550 / 750 Balance 461.25 / 959.167 600 / 1559.167 Weight last 48 hrs Weight 297 lb 5 oz Weight 287 lb 2 oz Physical Exam 2 Narrative: General: Alert and oriented, female patient resting in bed today, visibly having chills, able to converse adequately. HEENT: Head atraumatic normocephalic to visual inspection, neck supple no thyromegaly noted. CV: Tachycardic rate, normal rhythm, no murmurs rubs or gallops noted. Cap refill <2 seconds. Pulm: Lungs clear to auscultation bilaterally. GI: Abdomen soft, nontender, bowel sounds intact. Extremities: No edema noted. Data 07/28/23 05:12 07/28/23 05:12 Micro: Microbiology 07/26/23 03:26 Urine Culture - Preliminary Urine,Clean Catch Gram Negative Rods A&P Assessment and plan (1) Nausea & vomiting: Patient presents with nausea and vomiting, intractable. She denies any abdominal pain, and has not had diarrhea. Her liver function tests are normal. Continue hydration but reduce fluids to 100 cc/h CBC, CMP, magnesium daily Differential diagnosis is broad. This could be cannabinoid hyperemesis syndrome. Cannot rule out gastroparesis, ROLLER GOLD LEAF pathology, relation to UTI, abdominal migraine equivalent, gastritis. Significant number of other conditions. Patient relates symptoms have been going on 2 weeks, which would be somewhat unusual for marijuana related hyperemesis. CT head was negative. Chest x-ray normal. This is likely to be THC driven. Patient is not convinced currently. She does have some mild EKG abnormalities which have been present off and on on prior EKGs. Will make sure she has a troponin for her at first 2 blood draws. Troponins are not revealing. This will need follow-up with her primary care provider Protonix 40 mg IV every 12 hours She has no abdominal pain currently. CT abdomen pelvis shows evidence of gastroduodenitis, otherwise normal. Zofran for nausea. Reglan for breakthrough. Ativan for severe nausea not responsive to others. She has not yet improved enough to be able to hydrate herself adequately. She is not appropriate for discharge currently. Changed to regular admission. (2) Diabetes mellitus, type II: Hemoglobin A1c is 8.2 Continue Lantus to 20 units has not been taking well p.o. Sliding scale insulin No evidence of DKA on labs, no significant anion gap currently and serum ketones negative Qualifiers: Diabetes mellitus complication status: with hyperglycemia Diabetes mellitus roasterman insulin use: without nursing home use Qualified Code(s): E11.65 - Type 2 diabetes mellitus with hyperglycemia (3) Hyponatremia: Even adjusted for glucose patient is still slightly hyponatremic Chest x-ray, CT head negative Sodium improving (4) Acute hypokalemia: Supplemented in the emergency department. Magnesium normal. Patient continues to have hypokalemia, will continue supplement. (5) Marijuana use: Encourage patient to stop marijuana use (6) UTI (urinary tract infection): Possible UTI Urine culture shows gram-negative rods. Continue Rocephin IV Plan Multiple other medical problems as outlined by past medical history Full code Lovenox for DVT prophylaxis Coding Level of Care Code 15068 Diagnoses Nausea & vomiting R11.2 Type 2 diabetes mellitus with hyperglycemia, without long-term current use of insulin E11.65 Diabetes mellitus complication status: with hyperglycemia Diabetes mellitus roasterman insulin use: without roasterman use Hyponatremia E87.1 Acute hypokalemia E87.6 Marijuana use F12.90 UTI (urinary tract infection) N39.0 Time Spent (min) 24 Documented by User: Navjot Huang MD 07/28/23 09:03 Data 07/28/23 05:12 07/28/23 05:12 Other Labs: Urine cultures growing gram-negative rods A&P Assessment and plan (1) Nausea & vomiting: Patient presents with nausea and vomiting, intractable. She denies any abdominal pain, and has not had diarrhea. Her liver function tests are normal. Fluids were reduced to 100 cc an hour yesterday, continue CBC, CMP, magnesium daily Differential diagnosis is broad. This could be cannabinoid hyperemesis syndrome. Cannot rule out gastroparesis, ROLLER GOLD LEAF pathology, relation to UTI, abdominal migraine equivalent, gastritis. Significant number of other conditions. Patient relates symptoms have been going on 2 weeks, which would be somewhat unusual for marijuana related hyperemesis. CT head was negative. Chest x-ray normal. This is likely to be THC driven. Patient is not convinced currently. She does have some mild EKG abnormalities which have been present off and on on prior EKGs. Will make sure she has a troponin for her at first 2 blood draws. Troponins are not revealing. This will need follow-up with her primary care provider Continue Protonix 40 mg IV every 12 hours She has no abdominal pain currently. CT abdomen pelvis shows evidence of gastroduodenitis, otherwise normal. Zofran for nausea. Reglan for breakthrough. Ativan for severe nausea not responsive to others. Advance to clear liquids, and reevaluate. I suspect she will still need to be in the hospital until tomorrow. (2) Diabetes mellitus, type II: Qualifiers: Diabetes mellitus complication status: with hyperglycemia Diabetes mellitus nursing home insulin use: without nursing home use Qualified Code(s): E11.65 - Type 2 diabetes mellitus with hyperglycemia (3) Hyponatremia: (4) Acute hypokalemia: Supplemented in the emergency department. Magnesium normal. Patient continues to have hypokalemia, will continue supplement. Will go ahead and supplement magnesium today as well, this is lower limit of normal and has been drifting downwards every day. (5) Marijuana use: (6) UTI (urinary tract infection): Possible UTI Urine culture shows E. coli, sensitive to Rocephin Continue Rocephin IV This may play a role in her nausea and vomiting as well. Attestations 2 Medical Necessity Statement*: At this point needs continued hospitalization for advancement of diet, monitoring closely to determine if any recurrent emesis will occur precluding discharge. Diagnoses Nausea & vomiting R11.2 Type 2 diabetes mellitus with hyperglycemia, without long-term current use of insulin E11.65 Diabetes mellitus complication status: with hyperglycemia Diabetes mellitus nursing home insulin use: without roasterman use Hyponatremia E87.1 Acute hypokalemia E87.6 Marijuana use F12.90 UTI (urinary tract infection) N39.0 Time Spent (min) 24
[2023-07-28] MEDS: insulin lispro 100 unit/1 mL SUBCUT ×3 (09:14→18:19)
[2023-07-28] MEDS: citalopram 20 mg Tablet 40 MG PO (09:15)
[2023-07-28] MEDS: potassium chloride ER 20 mEq Tablet 40 MEQ PO (09:15)
[2023-07-28] MEDS: losartan 50 mg Tablet PO ×2 (09:15→18:19)
[2023-07-28] MEDS: metoprolol tartrate 50 mg Tablet PO ×2 (09:15→18:19)
[2023-07-28] MEDS: magnesium sulfate premix 2 GM/50 ML PIGGYBACK IV (09:16)
[2023-07-28] MEDS: sodium chloride 0.9% 1,000 ML 100 ML IV ×2 (09:16→18:20)
[2023-07-28] MEDS: enoxaparin 40 mg/0.4 mL Syringe SUBCUT (09:16)
[2023-07-28] MEDS: cefTRIAXone 1,000 MG in sodium chloride 0.9% (plus) 50 ML 100 MG IV (09:20)
[2023-07-28] MEDS: pantoprazole 40 mg SDV IVP ×2 (09:24→20:46)
[2023-07-28] MEDS: metoclopramide 5 mg/mL SDV 2 mL 10 MG IVP ×2 (11:00→18:19)
[2023-07-28] MEDS: haloperidol inj 5 mg/mL INJ 1 mL IVP (11:00)
--- NOTE | 2023-07-28 11:20 | PC.NURSE ---
Pt has emesis x2 after drinking a glass of water. Pt gags while taking PO medications. Elevated blood pressure noted. Dr. Huang aware. New orders given and administered.
[2023-07-28 11:37] LABS: Glucose Point of Care 200 mg/dL (70-110)
--- NOTE | 2023-07-28 16:20 | PC.NURSE ---
Pt pulls out IV while wandering around room. IV intact. Educates pt to ask for help while transferring.
[2023-07-28 17:14] LABS: Glucose Point of Care 175 mg/dL (70-110)
[2023-07-28 20:19] LABS: Glucose Point of Care 135 mg/dL (70-110)
[2023-07-28] MEDS: insulin glargine 100 units/1 mL 20 UNIT SUBCUT (20:46)
[2023-07-28] MEDS: hyDRALAzine 20 mg/mL INJ 1 mL 10 MG IVP (20:46)
[2023-07-29] VITALS (8 sets, daily range): BP systolic 139–178; BP diastolic 82–93; PULSE 88–114; RESP 14–18; TEMP 36.6–37.2; O2SAT 95–100
[2023-07-29] MEDS: metoclopramide 5 mg/mL SDV 2 mL 10 MG IVP ×2 (00:01→04:54)
[2023-07-29] MEDS: sodium chloride 0.9% 1,000 ML 100 ML IV (04:53)
[2023-07-29 06:31] LABS: Glucose Point of Care 119 mg/dL (70-110)
[2023-07-29] MEDS: cefTRIAXone 1,000 MG in sodium chloride 0.9% (plus) 50 ML 100 MG IV (07:32)
[2023-07-29] MEDS: citalopram 20 mg Tablet 40 MG PO (08:17)
[2023-07-29] MEDS: pantoprazole 40 mg SDV IVP (08:17)
[2023-07-29] MEDS: metoprolol tartrate 50 mg Tablet PO (08:17)
[2023-07-29] MEDS: enoxaparin 40 mg/0.4 mL Syringe SUBCUT (08:18)
[2023-07-29] MEDS: losartan 50 mg Tablet PO (08:18)
--- NOTE | 2023-07-29 08:42 | PM.PN ---
Subjective Subjective: Ms. Hernandez reports feeling better this morning, and states she has gone all evening and night without any vomiting. She also reports her nausea has improved. She denies any chills today. She would like to try to have clear liquids again today, and states she is aware she needs to take small sips. She says she would like to have some juice or some soft food. She reports mild, intermittent cough, which is productive with clear/white mucus, few times yesterday, and once this morning. She denies any headache, chest pain, chest palpitations, abdominal pain, diarrhea, constipation, or swelling. Medications: Reviewed: Yes Vitals/I&O/Wt Last Vital Signs Temp 98.6 F 07/29/23 08:00 Pulse 101 H 07/29/23 08:00 Resp 15 07/29/23 08:00 BP 146/93 07/29/23 08:18 Pulse Ox 100 07/29/23 08:00 O2 Del Method Room Air 07/29/23 08:00 07/28/23 07/29/23 07/29/23 22:59 06:59 14:59 Intake Total 1011.667 / 5764.176 9172 / 2601.355 50 / 50 Output Total 20 / 20 700 / 700 Balance 1011.667 / 1601.355 980 / 2581.355 -650 / -650 Weight last 48 hrs Weight 238 lb 4.8 oz Physical Exam Narrative: General: Alert and oriented, female patient resting in bed today, looking improved from yesterday. She coughed and expectorated white/clear mucus during interview. HEENT: Head atraumatic normocephalic to visual inspection, neck supple no thyromegaly noted. CV: Tachycardic rate, normal rhythm, no murmurs rubs or gallops noted. Cap refill <2 seconds. Pulm: Lungs clear to auscultation bilaterally. GI: Abdomen soft, nontender, bowel sounds intact. Extremities: No edema noted. Data 07/28/23 05:12 07/28/23 05:12 Micro: Microbiology 07/26/23 03:26 Urine Culture - Final Urine,Clean Catch Escherichia coli A&P Assessment and plan (1) Nausea & vomiting: Patient presents with nausea and vomiting, intractable. She denies any abdominal pain, and has not had diarrhea. Her liver function tests are normal. Fluids were reduced to 100 cc an hour yesterday, continue CBC, CMP, magnesium daily Differential diagnosis is broad. This could be cannabinoid hyperemesis syndrome. 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 Significant number of other conditions. Patient relates symptoms have been going on 2 weeks, which would be somewhat unusual for marijuana related hyperemesis. CT head was negative. Chest x-ray normal. This is likely to be THC driven. Patient is not convinced currently. She does have some mild EKG abnormalities which have been present off and on on prior EKGs. Will make sure she has a troponin for her at first 2 blood draws. Troponins are not revealing. This will need follow-up with her primary care provider Continue Protonix 40 mg IV every 12 hours She has no abdominal pain currently. CT abdomen pelvis shows evidence of gastroduodenitis, otherwise normal. She reports improved nausea and no vomiting in over 12 hours. Zofran for nausea. Reglan for breakthrough. Ativan for severe nausea not responsive to others. Advance to clear liquids, and reevaluate. I suspect she will still need to be in the hospital until tomorrow. (2) Diabetes mellitus, type II: Hemoglobin A1c is 8.2 Continue Lantus to 20 units has not been taking well p.o. 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 Magnesium normal. Patient continues to have hypokalemia, will continue supplement. Will go ahead and supplement magnesium today as well, this is lower limit of normal and has been drifting downwards every day. (5) Marijuana use: Encourage patient to stop marijuana use (6) UTI (urinary tract infection): Urine culture shows E. coli, sensitive to Rocephin She reports urinating without dysuria today. Continue Rocephin IV This may play a role in her nausea and vomiting as well. Plan Multiple other medical problems as outlined by past medical history Full code Lovenox for DVT prophylaxis Coding Level of Care Code Acute Code for Chg Fwd Diagnoses Nausea & vomiting R11.2 Type 2 diabetes mellitus with hyperglycemia, without long-term current use of insulin E11.65 Diabetes mellitus long-term insulin use: without long-term use Diabetes mellitus complication status: with hyperglycemia Hyponatremia E87.1 Acute hypokalemia E87.6 Marijuana use F12.90 UTI (urinary tract infection) N39.0
[2023-07-29 09:08] LABS: Basophils % 0.5 %; Eosinophils # 0.1 10^3/uL (0.0-0.8); Eosinophils % 1.9 %; Hematocrit 35.9 % (36-47); Lymphocytes # 2.6 10^3/uL (0.8-4.8); Lymphocytes % 41.2 %; Mean Corpuscular HGB Conc 33.1 g/dL (30-55); Mean Corpuscular Hemoglobin 29.4 pg (27-33); Mean Corpuscular Volume 88.6 fl (85-98); Mean Platelet Volume 8.9 fL (7.4-10.4); Monocytes # 0.4 10^3/uL (0.2-0.9); Monocytes % 5.8 %; Neutrophils # 3.22 10^3/uL (1.8-7.7); Neutrophils % 50.4 %; Nucleated Red Blood Cells % 0 %; Platelet Count 315 10^3/cmm (157-399); Red Blood Count 4.05 10^6/uL (3.85-5.65); Red Cell Distribution Width 13.2 % (12.1-15.1); White Blood Count 6.38 10^3/uL (3.29-11.43)
[2023-07-29] MEDS: metoclopramide oral liquid 5 mg/5 mL (ml) 10 MG PO (09:14)
[2023-07-29 09:25] LABS: Alanine Aminotransferase 22 U/L (0-33); Albumin Level 3.5 g/dL (3.5-5.2); Alkaline Phosphatase 53 U/L (35-105); Anion Gap 13.8 (5-19); Aspartate Amino Transferase 19 U/L (0-32); Blood Urea Nitrogen 4 mg/dL (6-20); Calcium 8.5 mg/dL (8.5-10.5); Carbon Dioxide 27 mmol/L (22-29); Chloride 98 mmol/L (98-107); Creatinine Clr Calc Pharmacy 157.6606; Globulin 2.4 g/dL (1.3-4.6); Glomerular Filtration Rate 106.7 mL/min (90-130); Glucose 147 mg/dL (65-115); Magnesium 1.8 mg/dL (1.7-2.3); Osmolality Calculated 282 mOsm/kg (285-295); Sodium 136 mmol/L (136-145); Total Bilirubin 0.6 mg/dL (0.15-1.2); Total Protein 5.9 g/dL (6.6-8.7)
[2023-07-29 09:42] LABS: Potassium 2.8 mmol/L (3.5-5.1)
[2023-07-29] MEDS: lidocaine 1% 5 ML in potassium chloride premix 100 ML 52.5 ML IV (10:13)
[2023-07-29] MEDS: potassium chloride ER 20 mEq Tablet 40 MEQ PO ×2 (10:13→13:44)
[2023-07-29 11:22] LABS: Glucose Point of Care 205 mg/dL (70-110)
--- NOTE | 2023-07-29 13:29 | PM.DCS ---
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 She had previous stay secondary to suspected THC hyperemesis. She was placed on Protonix IV, got IV fluids, and got medication for nausea control. She was found to have a UTI and placed on Rocephin. As she was slow to respond she eventually got a CT abdomen and pelvis showing a small hiatal hernia but no other large concerns. Head CT and chest x-ray showed no obvious concerns. She had gradual improvement, and was able to be discharged on July 28. Her potassium was supplemented heavy while in the hospital. This was low secondary to her vomiting. I asked that she follow-up with her primary care provider with a repeat BMP in 3 days or so to recheck and make sure she does not need any daily potassium supplementation. This was certainly be unusual, for someone who is taking losartan. On day of discharge her potassium was 2.8, but supplemented with 20 mill equivalents IV and 80 mill equivalents p.o. which would be more than enough supplementation. Magnesium was checked and normal. I also asked that her primary follow-up on a 2018 nuclear stress test that was abnormal at that time. She was able to ask questions and agreed with the plan. Physical Exam Narrative: General exam no distress Neck is supple Cardiovascular regular rate and rhythm Lungs clear Abdomen soft Extremities no cyanosis clubbing edema Discharge Data Studies Completed and Pending Completed Studies During Hospitalization Category Date Time Status CT abdomen pelvis w con* [id number] Routine Cat Scan 07/27/23 10:[address] head wo con* [id number] Routine Cat Scan 07/26/23 08:51 Completed XR chest 1V portable [id number] Stat Exams 07/26/23 08:51 Completed Laboratory Results WBC 6.38 10^3/uL (3.29-11.43) 07/29/23 08:47 RBC 4.05 10^6/uL (3.85-5.65) 07/29/23 08:47 Hgb 11.90 g/dL (11.27-16.99) 07/29/23 08:47 Hct 35.9 % (36-47) L 07/29/23 08:47 MCV 88.6 fl (85-98) 07/29/23 08:47 MCH 29.4 pg (27-33) 07/29/23 08:47 MCHC 33.1 g/dL (30-55) 07/29/23 08:47 RDW 13.2 % (12.1-15.1) 07/29/23 08:47 Plt Count 315 10^3/cmm (157-399) 07/29/23 08:47 MPV 8.9 fL (7.4-10.4) 07/29/23 08:47 Neut % (Auto) 50.4 % 07/29/23 08:47 Lymph % (Auto) 41.2 % 07/29/23 08:47 [place] % (Auto) 5.8 % 07/29/23 08:47 Eos % (Auto) 1.9 % 07/29/23 08:47 Baso % (Auto) 0.5 % 07/29/23 08:47 Neut # (Auto) 3.22 10^3/uL (1.8-7.7) 07/29/23 08:47 Lymph # (Auto) 2.6 10^3/uL (0.8-4.8) 07/29/23 08:47 [place] # (Auto) 0.4 10^3/uL (0.2-0.9) 07/29/23 08:47 Eos # (Auto) 0.1 10^3/uL (0.0-0.8) 07/29/23 08:47 Baso # (Auto) 0.0 10^3/uL (0.0-0.1) 07/29/23 08:47 Nucleated RBC % (auto) 0 % 07/29/23 08:47 Nucleated RBCs # 0.0 /100WBC 07/29/23 08:47 Sodium 136 mmol/L (136-145) 07/29/23 08:47 Potassium 2.8 mmol/L (3.5-5.1) L* 07/29/23 08:47 Chloride 98 mmol/L (98-107) 07/29/23 08:47 Carbon Dioxide 27 mmol/L (22-29) 07/29/23 08:47 Anion Gap 13.8 (5-19) 07/29/23 08:47 BUN 4 mg/dL (6-20) L 07/29/23 08:47 Creatinine 0.6 mg/dL (0.5-0.9) 07/29/23 08:47 GFR Calculation 106.7 mL/min (90-130) 07/29/23 08:47 Glucose 147 mg/dL (65-115) H 07/29/23 08:47 POC Glucose 205 mg/dL (70-110) H 07/29/23 11:11 Estimat Average Glucose 189 07/25/23 23:37 Hemoglobin A1c 8.2 % (4.0-6.0) H 07/25/23 23:37 Calculated Osmolality 282 mOsm/kg (285-295) L 07/29/23 08:47 Calcium 8.5 mg/dL (8.5-10.5) 07/29/23 08:47 Magnesium 1.8 mg/dL (1.7-2.3) 07/29/23 08:47 Total Bilirubin 0.6 mg/dL (0.15-1.2) 07/29/23 08:47 AST 19 U/L (0-32) 07/29/23 08:47 ALT 22 U/L (0-33) 07/29/23 08:47 Alkaline Phosphatase 53 U/L (35-105) 07/29/23 08:47 Troponin T 5th Gen ng/L 21 ng/L (0-10) H 07/25/23 23:37 C-Reactive Protein 4.1 mg/L (0.0-4.9) 07/25/23 23:37 Total Protein 5.9 g/dL (6.6-8.7) L 07/29/23 08:47 Albumin 3.5 g/dL (3.5-5.2) 07/29/23 08:47 Globulin 2.4 g/dL (1.3-4.6) 07/29/23 08:47 Lipase 47 U/L (13-60) 07/25/23 23:37 TSH 0.86 uIU/mL (0.27-4.20) 07/25/23 23:37 HCG, Qual Negative (Negative) 07/25/23 23:37 Urine Color Yellow (Yellow) 07/26/23 03:26 Urine Appearance Turbid (CLEAR) A 07/26/23 03:26 Urine pH 7 (5-7) 07/26/23 03:26 Ur Specific [place] 1.015 (1.005-1.030) 07/26/23 03:26 Urine Protein Trace (Negative) 07/26/23 03:26 Urine Glucose (UA) 2+ (Normal) H 07/26/23 03:26 Urine Ketones 1+ (Negative) H 07/26/23 03:26 Urine Blood Trace (Negative) H 07/26/23 03:26 Urine Nitrate Positive (Negative) H 07/26/23 03:26 Urine Bilirubin Neg (Negative) 07/26/23 03:26 Urine Urobilinogen Neg mg/dL (Negative) 07/26/23 03:26 Ur Leukocyte Esterase 1+ (Negative) H 07/26/23 03:26 Urine RBC 0-4 /hpf (0-2) H 07/26/23 03:26 Urine WBC 25-40 /hpf (0-5) H 07/26/23 03:26 Ur Squamous Epith Cells 5-10 /hpf (0-5) H 07/26/23 03:26 Amorphous Sediment Not Reportable 07/26/23 03:26 Urine Bacteria 4+ /hpf (NONE) H 07/26/23 03:26 Urine Mucus Trace /hpf 07/26/23 03:26 Urine Opiates Screen Negative ng/mL (Negative) 07/26/23 03:26 Ur Barbiturates Screen Negative ng/mL (Negative) 07/26/23 03:26 Ur Phencyclidine Scrn Negative ng/mL (Negative) 07/26/23 03:26 Ur Amphetamines Screen Negative ng/mL (Negative) 07/26/23 03:26 U Benzodiazepines Scrn Negative ng/mL (Negative) 07/26/23 03:26 Urine Cocaine Screen Negative ng/mL (Negative) 07/26/23 03:26 U Marijuana (THC) Screen Positive ng/mL (Negative) H 07/26/23 03:26 Serum Ketones Negative (Negative) 07/25/23 23:37 Vitals Last Vital Signs Temp 98.4 F 07/29/23 11:24 Pulse 92 07/29/23 12:13 Resp 14 07/29/23 11:24 BP 139/82 07/29/23 11:24 Pulse Ox 95 07/29/23 11:24 O2 Del Method Room Air 07/29/23 11:24 Discharge Plan Discharge Patient Disposition: Home Condition: Stable Prescriptions: New cefuroxime axetil 500 mg tablet 500 mg PO BID 7 Days Qty: 14 0RF Continued aspirin [Adult Low Dose Aspirin] 81 mg tablet,delayed release (DR/EC) 81 mg PO DAILY (DME) Dexcom G7 Offset Pressman Misc See Rx Instructions .Route Qty: 1 0RF Rx Instructions: As directed (DME) Dexcom G7 Sensor Device See Rx Instructions .ROUTE .MEDSUPPLY Qty: 6 0RF Rx Instructions: Change every 10days metoprolol tartrate 50 mg tablet 50 mg PO BID desipramine 100 mg tablet 100 mg PO DAILY losartan 50 mg tablet 50 mg PO BID albuterol sulfate 90 mcg/actuation HFA aerosol inhaler 1 puff INHALATION Q4H PRN (Reason: Shortness Of Breath) insulin glargine [Lantus Solostar U-100 Insulin] 100 unit/mL (3 mL) insulin pen 80 unit SUBCUT BEDTIME albuterol sulfate 2.5 mg /3 mL (0.083 %) solution for nebulization 2.5 mg inhalation Q6H PRN (Reason: Shortness Of Breath) citalopram 40 mg tablet 40 mg PO DAILY promethazine 25 mg suppository 25 mg ID Q6H PRN (Reason: nausea and vomiting) Qty: 12 0RF haloperidol 5 mg Tablet 5 mg PO BID PRN (Reason: nausea and vomiting) Qty: 10 0RF lorazepam 1 mg tablet 1 mg PO BID PRN (Reason: Vomiting) Qty: 10 0RF promethazine 25 mg tablet 25 mg PO Q6H PRN (Reason: Nausea And Vomiting) Discontinued potassium chloride [Klor-Con M20] 20 mEq tablet,ER particles/crystals 20 meq PO BID Qty: 14 0RF Discharge Orders: Discharge Order (Routine); Ordered 07/29/23 Ordered By: Navjot Huang Referrals: [facility] [Other] [facility] [Outside] (? Follow up as a walk in at [facility], walk in hours are Wednesday-Wednesday from 7:30AM-3:00PM, first come, first seen. Once you do this assessment you will be referred for appropriate services.) Mariana Joe FNP [Primary Care Provider] - 1-3 days (BMP on follow-up) Discharge Diet: Advance as tolerated Discharge Activity: Increase activity as tolerated Patient Instructions: Urinary Tract Infection in Women (ED), Cyclic Vomiting Syndrome (ED), Opioid Safety, Pain Management, Vomiting - Adult Activity Restrictions/Additional Instructions: Clear liquids, no fried foods. Advance slowly as tolerated. Return for any intractable nausea and vomiting if medications do not work Finish antibiotic as prescribed for UTI Follow-up with primary care provider, BMP on follow-up. Discuss with your primary care provider your previous nuclear stress test. 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
--- NOTE | 2023-07-29 14:21 | PC.NURSE ---
Discharge instructions provided to pt. No questions or concerns at this time. Awaiting MIL to drive her home.
--- NOTE | 2023-07-29 14:46 | PC.NURSE ---
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 To private vehicle via wheelchair with all belongings.
== END 2023-07-29 14:47 | disposition home or self-care (01) | DRG 690 ==
LOC: ER 07-26 08:36 → MEDSURG 07-26 09:00
PROVIDERS: Emergency Medicine; Admitting Provider Internal Medicine; Emergency Provider Family Medicine; PCP Nurse Practitioner Family; Visit Provider Internal Medicine
DX: N39.0 Urinary tract infection, site not specified (principal); E87.1 Hypo-osmolality and hyponatremia; E87.6 Hypokalemia; E11.9 Type 2 diabetes mellitus without complications; R11.2 Nausea with vomiting, unspecified; F12.90 Cannabis use, unspecified, uncomplicated; F32.A Depression, unspecified; I10 Essential (primary) hypertension; Z79.4 Long term (current) use of insulin
CPT/HCPCS: 36415; 36416; 70450; 71045; 74177; 80048; 80053; 80306; 81001; 82009; 82962; 83036; 83690; 83735; 84443; 84484; 84703; 85025; 86140; 87077; 87086; 87186; 93005; 96365; 96372; 96375; 96376; 99285; C9113; G0378; J0360; J0696; J1630; J1650; J1815; J2060; J2405; J2765; J3475; J3480; J3490; J7030; Q9967

== ENCOUNTER → 2024-03-16 13:08 | Outpatient (BNVA) | payer OTHER, SELFPAY | PROVIDERS: PCP Nurse Practitioner Family; Visit Provider Nurse Practitioner Women's Health | DX: Z12.4 Encounter for screening for malignant neoplasm of cervix (principal) | CPT/HCPCS: 87624 ==

== ENCOUNTER 2024-08-15 19:54 | Emergency (ER) | payer SELFPAY ==
[2024-08-15 20:06] VITALS: BP 153/98; PULSE 137; RESP 22; TEMP 36.6; O2SAT 100
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
[2024-08-15 21:18] LABS: Basophils % 0.3 %; Eosinophils # 0.1 10^3/uL (0.0-0.8); Eosinophils % 0.8 %; Hematocrit 37.9 % (36-47); Lymphocytes # 2.8 10^3/uL (0.8-4.8); Lymphocytes % 21.7 %; Mean Corpuscular HGB Conc 31.7 g/dL (30-55); Mean Corpuscular Hemoglobin 27.5 pg (27-33); Mean Corpuscular Volume 86.7 fl (85-98); Mean Platelet Volume 8.4 fL (7.4-10.4); Monocytes # 0.7 10^3/uL (0.2-0.9); Neutrophils # 9.26 10^3/uL (1.8-7.7); Neutrophils % 71.8 %; Nucleated Red Blood Cells % 0 %; Platelet Count 473 10^3/cmm (157-399); Red Blood Count 4.37 10^6/uL (3.85-5.65); Red Cell Distribution Width 14.8 % (12.1-15.1)
[2024-08-15 21:37] LABS: Alanine Aminotransferase 25 U/L (0-33); Albumin Level 4.1 g/dL (3.5-5.2); Alkaline Phosphatase 76 U/L (35-105); Blood Urea Nitrogen 7 mg/dL (6-20); Calcium 10.1 mg/dL (8.5-10.5); Carbon Dioxide 21 mmol/L (22-29); Chloride 96 mmol/L (98-107); Creatinine Clr Calc Pharmacy 169.4939; Globulin 3.5 g/dL (1.3-4.6); Glomerular Filtration Rate 106.3 mL/min (90-130); Glucose 183 mg/dL (65-115); Osmolality Calculated 279 mOsm/kg (285-295); Sodium 133 mmol/L (136-145); Total Bilirubin 0.5 mg/dL (0.15-1.2); Total Protein 7.6 g/dL (6.6-8.7)
[2024-08-15 21:40] LABS: Anion Gap 20.4 (5-19); Potassium 4.4 mmol/L (3.5-5.1)
[2024-08-15 21:41] LABS: Aspartate Amino Transferase 26 U/L (0-32)
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
[2024-08-15] MEDS: ondansetron 2 mg/ML SDV 2 mL 4 MG IVP (23:08)
[2024-08-15 23:09] VITALS: BP 145/89; PULSE 114; O2SAT 99
[2024-08-15] MEDS: morphine 4 mg/mL SDV 1 mL IVP (23:09)
[2024-08-15 23:30] VITALS: BP 119/68; PULSE 113; O2SAT 93
[2024-08-15] MEDS: iohexol 350 mg/mL 500 mL Btl (per mL) IV (23:45)
[2024-08-16] VITALS: BP 127/69; PULSE 118; O2SAT 93
[2024-08-16 00:30] VITALS: BP 124/73; PULSE 118; O2SAT 91
[2024-08-16 01:00] VITALS: BP 145/73; PULSE 121; O2SAT 91
[2024-08-16 01:30] VITALS: BP 127/60; PULSE 120; O2SAT 91
[2024-08-16] MEDS: morphine 4 mg/mL SDV 1 mL IVP (01:56)
[2024-08-16 02:00] VITALS: BP 151/85; PULSE 118; O2SAT 98
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
[2024-08-16 03:26] VITALS: BP 151/85; PULSE 118; O2SAT 99
== END 2024-08-16 02:20 | disposition home or self-care (01) ==
PROVIDERS: Family Medicine; Emergency Provider Emergency Medicine; PCP Nurse Practitioner Family
DX: Z04.1 Encounter for examination and observation following transport accident (principal); R07.9 Chest pain, unspecified; R10.2 Pelvic and perineal pain; R10.9 Unspecified abdominal pain; M54.2 Cervicalgia; R51.9 Headache, unspecified; E11.9 Type 2 diabetes mellitus without complications; I10 Essential (primary) hypertension
CPT/HCPCS: 36415; 70450; 71101; 71260; 72125; 74177; 80053; 85025; 96374; 96375; 96376; 99285; J2270; J2405